=== PATIENT | female | born 1940 | race Caucasian/White ===

== ENCOUNTER 2017-09-13 10:08 | Emergency (ER) | payer MEDICARE ==
[2017-09-13 10:30] VITALS: BP 135/66
--- NOTE | 2017-09-13 10:39 | UC ---
Back Pain HPI - HPI Summary HPI Summary: Patient is year 77 old woman with past medical history of diabetes and hypertension who present today with left low back pain since yesterday. Denies any trauma but possible that she strained it while trying to reach the back of the car. Denies any prior injruies or episodes. Denies any radicular symptoms, numbness or tingling, incontinence or saddle anesthesia She does notice that there is increased frequency since morning today, denies any dysuria or hematuria or pain radiating down to groin. Denies any fever, chills, cough chest pain or shortness of breath . Denies any abdominal pain , nausea or vomiting , diarrhea or constipation. - History of Current Complaint Stated Complaint: BACK PAIN Time Seen by Provider: 09/13/17 10:11 Hx Obtained From: Patient ?: No Onset/Duration: Sudden Onset Timing: Constant Severity Initially: Moderate Severity Currently: Severe Pain Intensity: 9 Pain Scale Used: 0-10 Numeric Back Pain: Is Discrete @ - left lumbar paraspinal area Character: Sharp, Throbbing, Spasmodic Aggravating Factor(s): Movement Alleviating Factor(s): Other - sometimes, slight bending is helpful Associated Signs And Symptoms: Negative: Redness, Bruising, Weakness, Numbness, Tingling, Abdominal Pain, Bladder Incontinence, Weight Loss - Risk Factors Cauda Equina Risk Factors: Negative - Allergies/Home Medications Allergies/Adverse Reactions: Allergies Allergy/AdvReac Type Severity Reaction Status Date / Time amoxicillin [From Augmentin] Allergy Vomiting Verified 09/13/17 10:34 clavulanic acid Allergy Vomiting Verified 09/13/17 10:34 [From Augmentin] levofloxacin [From Levaquin] Allergy Vomiting Verified 09/13/17 10:34 Home Medications: Home Medications Pravastatin (NF) [Pravachol (NF)] 20 mg PO DAILY 09/13/17 [History Confirmed 06/01] PMH/Surg Hx/FS Hx/Imm Hx Previously Healthy: Yes Endocrine History: Diabetes Cardiovascular History: Hypertension Respiratory History: Asthma - during wnter Other GI/ History: negative Other Neurological History: negative Other Psychological History: negative Other Cancer History: negative - Surgical History Surgical History: Yes Surgery Procedure, Year, and Place: hysterectomy, cataract SURGERY BILATERAL EYES-,. PESSARY FOR BLADDER. Right hip surgery 07/2016 - Social History Alcohol Use: Weekly Substance Use Type: None Smoking Status (MU): Never Smoked Tobacco Review of Systems Constitutional: Negative Skin: Negative Eyes: Negative ENT: Negative Respiratory: Negative Cardiovascular: Negative Gastrointestinal: Negative Genitourinary: Frequency - since morning Motor: Negative Neurovascular: Negative Musculoskeletal: Decreased ROM - painful Neurological: Negative Psychological: Negative Is Patient Immunocompromised?: No All Other Systems Reviewed And Are Negative: Yes Physical Exam Triage Information Reviewed: Yes Appearance: Well-Appearing, Pain Distress Vital Signs: Initial Vital Signs Temp 100 F 09/13/17 10:22 Pulse 74 09/13/17 10:22 Resp 20 09/13/17 10:22 BP 135/66 09/13/17 10:22 Pulse Ox 99 09/13/17 10:22 Vital Signs Reviewed: Yes Eyes: Positive: Conjunctiva Clear ENT: Positive: Hearing grossly normal. Negative: Nasal congestion, Nasal drainage, Trismus, Muffled voice, Hoarse voice Neck exam: Normal Neck: Positive: Nontender Respiratory Exam: Normal Respiratory: Positive: Lungs clear, Normal breath sounds. Negative: Crackles, Rhonchi, Stridor, Wheezing Cardiovascular: Positive: RRR, Pulses Normal, Murmur:Sys:Grade _?_/ - 3/6 Abdominal Exam: Normal Abdomen Description: Positive: Nontender, No Organomegaly. Negative: CVA Tenderness (R), CVA Tenderness (L) Bowel Sounds: Positive: Present Musculoskeletal: Positive: Other: - Spine:No midline tenderness spine noted. There is left paraspinal tenderness noted on the upper lumbar area. There is no tenderness of the costovertebral angle bilaterally. Stability: No obvious instability. Strength: Flexion, extension, left rotation, left lateral bending, right lateral bending and right rotation strength is intact. ROM: Slightly limited ROM but painful in all planes Special Tests: Straight leg raise is negative bilaterally. Slump test negative bilaterally. Stork test negative bilaterally Neurological: Positive: Alert, Other: - DTR intact at knee bilaterally . Symmetrically decreased at ankle. Sensory and motor intact Skin Exam: Normal - Additional Comments Patient ambulated in the room Back Pain Course/Dx - Course Course Of Treatment: During his visit today, we obtained UAas she has some frequency which showed 1+ leuc esterase. Sent for culture. We discussed the findings and further plan. I will prescribe the medication to the pharmacy . Patient expressed understanding - Differential Dx/Diagnosis Differential Diagnosis/HQI/PQRI: Strain Provider Diagnoses: left lumbar strain. Possible UTI Discharge - Sign-Out/Discharge Documenting (check all that apply): Discharge/Admit/Transfer - Discharge Plan Condition: Stable Disposition: HOME Prescriptions: Cyclobenzaprine TAB* [Flexeril 10 MG TAB*] 10 mg PO DAILY PRN 10 Days #10 tab PRN Reason: Spasms - Back Meloxicam [Mobic] 7.5 mg PO BID PRN 15 Days #30 tablet PRN Reason: Pain Nitrofurantoin Monohyd/M-Cryst [Macrobid 100 mg Capsule] 100 mg PO BID 5 Days # 10 cap Patient Education Materials: Urinary Tract Infection in Women (ED), Low Back Strain (ED), Lower Back Exercises (ED) Referrals: Nathan Langston MD [Primary Care Provider] - Additional Instructions: Please take pain medication and a muscle relaxant as directed Antibiotic is prescribed for an early possible urinary infection. Start taking it if you symptoms start to worsen as discussed. Follow up with your primary care doctor in 1 week. Patients blood pressure slightly high in Urgent care today , plan follow up with PCP for better control Return to Urgent care / ER if symptoms get worse. - Billing Disposition and Condition Condition: STABLE Disposition: HOME Images Front/Back of Body, Lg (Rush): 1 - left lower back pain
--- NOTE | 2017-09-14 16:43 | UC ---
- Progress Note Progress Note: Please call patient and assure she is feeling better--she had no growth in her urine culture--If not better please return or follow with pcp Discharge - Sign-Out/Discharge Documenting (check all that apply): Post-Discharge Follow Up - Discharge Plan Condition: Stable Disposition: HOME Prescriptions: Cyclobenzaprine TAB* [Flexeril 10 MG TAB*] 10 mg PO DAILY PRN 10 Days #10 tab PRN Reason: Spasms - Back Meloxicam [Mobic] 7.5 mg PO BID PRN 15 Days #30 tablet PRN Reason: Pain Nitrofurantoin Monohyd/M-Cryst [Macrobid 100 mg Capsule] 100 mg PO BID 5 Days # 10 cap Patient Education Materials: Urinary Tract Infection in Women (ED), Low Back Strain (ED), Lower Back Exercises (ED) Referrals: Nathan Langston MD [Primary Care Provider] - Additional Instructions: Please take pain medication and a muscle relaxant as directed Antibiotic is prescribed for an early possible urinary infection. Start taking it if you symptoms start to worsen as discussed. Follow up with your primary care doctor in 1 week. Patients blood pressure slightly high in Urgent care today , plan follow up with PCP for better control Return to Urgent care / ER if symptoms get worse. - Billing Disposition and Condition Condition: STABLE Disposition: HOME
== END 2017-09-13 11:39 | disposition home or self-care (01) ==
LOC: UCEAST 10:08
DX: S39.012A Strain of muscle, fascia and tendon of lower back, initial encounter (principal); X58.XXXA Exposure to other specified factors, initial encounter; Y93.9 Activity, unspecified; Y92.9 Unspecified place or not applicable; R35.0 Frequency of micturition; E11.9 Type 2 diabetes mellitus without complications; Z79.4 Long term (current) use of insulin; Z79.84 Long term (current) use of oral hypoglycemic drugs; I10 Essential (primary) hypertension; J45.909 Unspecified asthma, uncomplicated; Z88.1 Allergy status to other antibiotic agents; Z88.0 Allergy status to penicillin
CPT/HCPCS: 81003; 87086; 99212; G0463

== ENCOUNTER 2017-12-09 09:00 | Inpatient (IN) | payer MEDICARE ==
[2017-12-09] MEDS ORDERED: Dextrose 50% Syringe 50 ML* 25 GM/50 ML SYRINGE IV PUSH PRN ×2 (16:39→16:40)
[2017-12-09] MEDS ORDERED: Ondansetron INJ* 2 MG/ML VIAL IV PRN (16:43)
[2017-12-09] MEDS ORDERED: Temazepam CAP* 15 MG PO PRN (16:44)
--- NOTE | 2017-12-09 17:13 | RAD ---
INDICATION: Hypovolemia COMPARISON: None TECHNIQUE: An AP portable view obtained at 1657 hours is submitted. FINDINGS: Bones/Soft Tissues: There are no acute bony findings. Cardiomediastinal: The cardiomediastinal silhouette is normal. Lungs: There is infiltrate in the left lung base. There may be a small left-sided effusion there is mild prominence of interstitial markings. Pleura: Suspect small left-sided effusion is noted above. No right-sided effusion. Other: None IMPRESSION: Small left basilar infiltrate and suspected left-sided effusion.. Suggest follow-up as indicated
[2017-12-09 17:43] LABS: Hematocrit 16 % (35-47); Red Blood Count 1.49 10^6/ul (4.00-5.40); White Blood Count 26.5 10^3/ul (3.5-10.8)
[2017-12-09 17:47] LABS: EGFR Non-African American 71.8 (>60)
[2017-12-09 17:50] LABS: INR 1.22 (0.77-1.02)
[2017-12-09 17:55] LABS: Hemoglobin 5.6 g/dl (12.0-16.0)
[2017-12-09 18:11] LABS: Mean Corpuscular HGB Conc 34 g/dl (31-36); Mean Corpuscular Hemoglobin 37 pg (27-31); Mean Corpuscular Volume 109 fL (80-97); Mean Platelet Volume 9.6 um3 (7.4-10.4); Platelet Count 72 10^3/ul (150-450); Red Cell Distribution Width 15 % (10.5-15)
[2017-12-09] MEDS: Insulin GLARGINE(*) 1 UNITS UNIT SUBCUT SCH (18:35)
[2017-12-09 18:38] LABS: ABS Basophils 0 10^3/ul (0-0.2)
[2017-12-09] MEDS ORDERED: diPHENhydraMINE IV* 25 MG in NS 0.9% 50 ML* 50 ML IVPB PRN (19:36)
[2017-12-09] MEDS ORDERED: diPHENhydraMINE IV* 50 MG/ML 1 ml VIAL (BENADRYL) IV PRN (19:41)
[2017-12-09] MEDS ORDERED: Insulin LISPRO* 1 UNITS UNIT SUBCUT ONE (21:52)
[2017-12-09] MEDS: Heparin VIAL(*) 5000 UNITS/ML VIAL (FIVE THOUSAND) SUBCUT SCH (22:07)
[2017-12-09] MEDS: Acetaminophen TAB* 325 MG PO PRN (22:44)
[2017-12-09] MEDS: cefTRIAXone(*) 2 GM in NS 0.9% 100 ML* 100 ML IVPB SCH (23:00)
--- NOTE | 2017-12-09 23:05 | HP ---
ADDENDUM NOW INCLUDED ON THIS REPORT CC: [facility] at [facility] * ADMITTING HISTORY AND PHYSICAL: DATE OF ADMISSION: 12/09/17 HISTORY OF PRESENT ILLNESS: Sarah Ortega is a 77-year-old white female. She presented to my office today in a wheelchair, as she was too weak to walk. She has a recent history of anorexia, nausea, and vomiting. She times this back to 2 courses of antibiotics she has taken for urinary tract infection. She was seen in Urgent Care on 09/15/17 and was treated for UTI, and found that her blood pressure at that time was high. On 11/25/17, she followed up with me for for ongoing diabetes care. She had been treated with 7 days of Cipro. She presented again with symptoms of UTI and I treated her with 7 days of Macrodantin, although the specimen shows no growth. She notes that on 11/25/17 that symptoms initially were atypical for UTI. She was in [place] and went to Urgent Care She thought she had flu. She had a urine test, and was found to have a fever of 101 degrees Fahrenheit. Symptoms she had associated with first antibiotic were dizziness and nausea. She had nausea and dry heaves with nitrofurantoin. On 12/02/17, she was seen in my office by Sapphire Cameron NP. She lost 10 pounds in 2 weeks from decreased appetite and nausea. She was able to eat Jell-O and take sips of water. Apparently, she has had previous episodes of nausea like this over the years particularly with antibiotics. We provided her with antiemetics. She came to my office today, sa noted above today, with marked hyperglycemia as she had not taken any of Lantus insulin for 4 days as she was unsure how much to take when she was not eating much. She had dizziness, which she described the lightheadedness and not vertigo, dry heaves that stopped 2 to 3 days ago. She had a dry kind of cough, shortness of breath on going to the bathroom and back. She had stopped her metformin and also her ramipril. PREVIOUS MEDICAL HISTORY: 2, para 2; hysterectomy and BSO in 1982; right hip ORIF on 07/30/16; bilateral cataracts removal. Other comorbidities: Type 2 diabetes mellitus, usually well controlled with insulin; nonproliferative diabetic retinopathy; nonexudative age-related macular degeneration; essential hypertension; osteopenia; vitamin D deficiency; history of right hip fracture. MEDICATIONS: Current outpatient medication list: 1. Amlodipine 5 mg q. day. 2. Aspirin 81 mg daily. 3. Humalog insulin by carbohydrate counting 1 unit for every 10 g of carbohydrate plus 1 unit for every 30 mg/dL 100 mg/dL. 4. Lantus insulin 42 units q.h.s. 5. Hydrochlorothiazide 25 mg daily. 6. Metformin extended release 500 mg b.i.d. 7. Metoprolol ER 50 mg 1 tablet twice daily. 8. PreserVision AREDS 250 mg/200 units/40 mg/1 mg capsule once a day. 9. Promethazine 12.5 mg 4 times a day as needed for nausea. 10. Ramipril 10 mg capsule every day. Allergies: amoxycillin, cipro, clavulanic acid, levofloxacin, nitrofurantoin ( all vomiting) SOCIAL HISTORY: She is to Wilfredo Ortega. Never smoked. Denies illicit drugs. Heterosexual. No alcohol intake. REVIEW OF SYSTEMS: Review of systems x12, weight loss, some mild vision change , cough, shortness of breath, nausea, joint problems, muscle aches, back pain, generalized weakness, problems with walking and balancing. PHYSICAL EXAMINATION GENERAL: She is pale. No cyanosis, jaundice, clubbing, or adenopathy. VITAL SIGNS: In the office, 5 feet 6.5 inches, 150 pounds, BMI 23.8, blood pressure 132/70, temperature 99.5 degrees Fahrenheit, pulse 97, respiratory rate 16, oxygen saturation 95%. RESPIRATORY: Chest expansion is full and symmetrical. Percussion note resonant. Breath sounds vesicular. No crackles or wheezes. CARDIOVASCULAR: She has hyperdynamic pulse, regular, venous pressure not elevated, heart sounds are normal. She had a 3/6 systolic ejection murmur in the aortic area radiating to the right carotid down to the apex. Pedal edema, pedal pulses present. No carotid bruits. ABDOMEN: No masses, tenderness, or organomegaly. NERVOUS SYSTEM: She is alert and oriented. Fatigued. She has conjugate eye movements. PERRLA. Fundi normal with sharp optic discs. Cranial nerves II through XII intact. Normal speech. Arms and legs, she has generalized weakness , but no focal deficit. Foot examination, no ulcers, calluses, or infections. IMPRESSION: Initial impression in my office, Sarah Ortega looked acutely unwell. She was pale, very weak, I was concerned that she has hyperglycemia, dehydration as well as a concern by her loss of appetite, and history of urinary tract infections, the last of which had not been growing anything in the culture. I was also worried that her aortic murmur was louder and in view of this group of problems, I decided to bring her into the hospital for observation and she agreed to this. ADDENDUM: HOSPITAL INVESTIGATIONS: CBC: White count 26.5, red blood cell count 1.49, hemoglobin 5.6, hematocrit 16, MCV 109, platelet count 72. Electronic differential, absolute neutrophil 0.9, absolute lymph 3.6, absolute monos 22.3, absolute eosinophil 0.1, immature granulocytes 18, neutrophil percent 2, lymphocytes percent 69, monocytes are 11%, metamyelocytes 4%, myelocytes 14%. Manual differential, absolute neutrophil 0.5, absolute lymphocytes 18.6, absolute monocytes 3, ESR greater than 120. INR 1.22. D-dimer 479. Chemistry , sodium 129, potassium 3.5, chloride 91, bicarbonate 27, anion gap 11, BUN 12, creatinine 0.78, eGFR 71.8, glucose 417, lactic acid 1.7, calcium 8.4. Bilirubin 0.7, AST 11, ALT 5, alkaline phosphatase 54. Troponin I 0.05. CRP 99. Total protein 7.5, albumin 3.1, globulin 4.4. Chest x-ray, small left basilar infiltrate and suspected left-sided effusion. EKG, rate 100, GA interval 216, QTc 460, QRS axis -24, first-degree AV block, left ventricular hypertrophy, sinus tachycardia, atrial premature beats. ASSESSMENT AND PLAN: Sarah Ortega presents with several weeks of increasing weakness, intermittent fevers, possible urinary tract infections, nausea, weight loss. Initial investigations showed hyperglycemia, profound anemia, which is macrocytic, elevated lymphocytes with absolute neutropenia. 1. Hyperglycemia, which is likely due to her not taking any insulin medicine since 4 days. I have reinstituted the insulin. I have provided her with IV fluids. I anticipate this will come down relatively easily without the need for any major interventions aside from fluid resuscitation and increased insulin while she is insulin resistant. 2. Blood dyscrasia. She presents with a pathological CBC and differential. This could be acute lymphocytic or lymphoblastic leukemia or alternatively chronic lymphocytic leukemia. We will need to obtain a read of the the peripheral blood smear from helmet hat puncher and I have spoken to Dr. Crook, who will arrange a Hematology/Oncology consultation tomorrow. 3. Profound anemia. I have spoken to the patient, explained that she is anemic and she has agreed to a blood transfusion. I will give her 2 units of packed red cells. I will premedicate with Benadryl and I have written for acetaminophen should she develop fever. 4. Anorexia, nausea, weight loss. This may well be secondary to the blood dyscrasia. She also may have had a reaction to recent antibacterial treatment. She states that she has been vomiting for the last couple of days. She is not actually as significantly dehydrated as I expected. However, I will give her some IV fluid overnight. 5. Recent history of urinary tract infection. I think the first diagnosis of urinary tract infection was made outside of community and she was treated empirically and a second treatment is again empiric, but her culture and sensitivity came back as negative, so it probably was not a urinary tract infection. It may well have been symptoms due to her blood dyscrasia. 6. Aortic stenosis. The increased murmur most likely due to the anemia and she shows no signs of heart failure. 7. Elevated C-reactive protein, sedimentation rate. It is possible that these are elevated due to her blood dyscrasia. It is also possible as her immune is compromised that she may have an occult infection. Of note, as of yet started her on empiric antibiotic treatment. I note there may be an infiltrate in the left lower lobe of her lung. I will start her on empiric antibiotics with ceftriaxone. 8. She will have DVT prophylaxis. 9. She wishes to be full code. 10. I will hold her metformin and other antihypertensives aside from the metoprolol for the moment. [id number]/CPS #: [id number]/CPS #: [id number] [facility]
--- NOTE | 2017-12-10 01:17 | HP ---
HISTORY AND PHYSICAL: ADDENDUM: HOSPITAL INVESTIGATIONS: CBC: White count 26.5, red blood cell count 1.49, hemoglobin 5.6, hematocrit 16, MCV 109, platelet count 72. Electronic differential, absolute neutrophil 0.9, absolute lymph 3.6, absolute monos 22.3, absolute eosinophil 0.1, immature granulocytes 18, neutrophil percent 2, lymphocytes percent 69, monocytes are 11%, metamyelocytes 4%, myelocytes 14%. Manual differential, absolute neutrophil 0.5, absolute lymphocytes 18.6, absolute monocytes 3, ESR greater than 120. INR 1.22. D-dimer 479. Chemistry , sodium 129, potassium 3.5, chloride 91, bicarbonate 27, anion gap 11, BUN 12, creatinine 0.78, eGFR 71.8, glucose 417, lactic acid 1.7, calcium 8.4. Bilirubin 0.7, AST 11, ALT 5, alkaline phosphatase 54. Troponin I 0.05. CRP 99. Total protein 7.5, albumin 3.1, globulin 4.4. Chest x-ray, small left basilar infiltrate and suspected left-sided effusion. EKG, rate 100, MO interval 216, QTc 460, QRS axis -24, first-degree AV block, left ventricular hypertrophy, sinus tachycardia, atrial premature beats. ASSESSMENT AND PLAN: Sarah Ortega presents with several weeks of increasing weakness, intermittent fevers, possible urinary tract infections, nausea, weight loss. Initial investigations showed hyperglycemia, profound anemia, which is macrocytic, elevated lymphocytes with absolute neutropenia. 1. Hyperglycemia, which is likely due to her not taking any insulin medicine since 4 days. I have reinstituted the insulin. I have provided her with IV fluids. I anticipate this will come down relatively easily without the need for any major interventions aside from fluid resuscitation and increased insulin while she is insulin resistant. 2. Blood dyscrasia. She presents with a pathological CBC and differential. This could be acute lymphocytic or lymphoblastic leukemia or alternatively chronic lymphocytic leukemia. We will need to obtain a read of the the peripheral blood smear from bonsai culturist and I have spoken to Dr. Crook, who will arrange a Hematology/Oncology consultation tomorrow. 3. Profound anemia. I have spoken to the patient, explained that she is anemic and she has agreed to a blood transfusion. I will give her 2 units of packed red cells. I will premedicate with Benadryl and I have written for acetaminophen should she develop fever. 4. Anorexia, nausea, weight loss. This may well be secondary to the blood dyscrasia. She also may have had a reaction to recent antibacterial treatment. She states that she has been vomiting for the last couple of days. She is not actually as significantly dehydrated as I expected . However, I will give her some IV fluid overnight. 5. Recent history of urinary tract infection. I think the first diagnosis of urinary tract infection was made outside of community and she was treated empirically and a second treatment is again empiric, but her culture and sensitivity came back as negative, so it probably was not a urinary tract infection. It may well have been symptoms due to her blood dyscrasia. 6. Aortic stenosis. most likely due to the anemia and she shows no signs of heart failure. 7. Elevated C-reactive protein, sedimentation rate. It is possible that these are elevated due to her blood dyscrasia. It is also possible as her immune is compromised that she may have an occult infection. Of note, as of yet started her on empiric antibiotic treatment. I note there may be an infiltrate in the left lower lobe of her lung. I will start her on empiric antibiotics. 8. She will have DVT prophylaxis. 9. She wishes to be full code. 10. I will hold her metformin and other antihypertensives aside from the metoprolol for the moment. [id number]/[facility] #: [id number] [facility]
[2017-12-10] MEDS: Insulin LISPRO* 1 UNITS UNIT SUBCUT SCH ×12 (01:21→22:05)
[2017-12-10 04:31] LABS: Urine Appearance Clear; Urine Blood 3+ (Negative); Urine Color Yellow; Urine Ketones Negative (Negative); Urine Protein Negative (Negative); Urine Red Blood Cell 2+(6-10/hpf) (Absent); Urine Specific Gravity 1.004 (1.010-1.030); Urine Urobilinogen Negative (Negative); Urine White Blood Cell 2+(11-20/hpf) (Absent)
[2017-12-10] MEDS: Heparin VIAL(*) 5000 UNITS/ML VIAL (FIVE THOUSAND) SUBCUT SCH ×3 (06:05→21:46)
[2017-12-10] MEDS: Acetaminophen TAB* 325 MG PO PRN (07:27)
[2017-12-10] MEDS: Insulin GLARGINE(*) 1 UNITS UNIT SUBCUT SCH ×2 (07:28→18:14)
[2017-12-10] MEDS ORDERED: Furosemide IV* 10 MG/ML VIAL (40 MG) IV ONE (08:22)
--- NOTE | 2017-12-10 08:25 | PN ---
Subjective - Subjective Reason for Note: Progress Note History: Overnight she has had x 2 units of PRBCs. With this she developed a cough and dyspnea. She has no chest pain/palpitations. She had no other reaction to the transfusion. She has no pain. Her glucose has come down overnight. 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 Pulmonary edema (Acute) J81.1 Thrombocytopenia (Acute) D69.6 Type 2 diabetes mellitus with hyperglycemia (Acute) E11.65 Volume overload (Acute) E87.70 Aortic stenosis (Chronic) I35.0 Macular degeneration (Chronic) H35.30 Microalbuminuria (Chronic) R80.9 Non-proliferative diabetic retinopathy (Chronic) E11.3299 Current Medications: Current Medications Acetaminophen (Tylenol Tab*) 650 mg PO Q6H PRN PRN Reason: FEVER/PAIN Last Admin: 12/10/17 07:27 Dose: 650 mg Aspirin (Aspirin 81 Mg Chew Tab*) 81 mg PO DAILY [facility] Dextrose (D50w Syringe 50 Ml*) 12.5 gm IV PUSH .FOR FS < 60 - SS PRN PRN Reason: FS < 60 Diphenhydramine HCl (Benadryl Iv*) 25 mg IV Q6H PRN PRN Reason: ALLERGY SYMPTOMS Stop: 12/10/17 12:00 Last Admin: 12/09/17 21:58 Dose: 25 mg Diphenhydramine HCl (Benadryl Iv*) 25 mg IV Q12H PRN PRN Reason: ALLERGY SYMPTOMS Heparin Sodium (Porcine) (Heparin Vial(*)) 5,000 units SUBCUT Q8HR [facility] Last Admin: 12/10/17 06:05 Dose: 5,000 units Lactated Ringer's (Lactated Ringers 1000 Ml Bag*) 1,000 mls @ 150 mls/hr IV PER RATE [facility] Last Admin: 12/09/17 17:25 Dose: 150 mls/hr Ceftriaxone Sodium 2 gm/ (Sodium Chloride) 100 mls @ 200 mls/hr IVPB Q24H [facility] Last Admin: 12/09/17 23:00 Dose: 200 mls/hr Insulin Glargine (Lantus(*)) 20 units SUBCUT Q12H [facility] Last Admin: 12/10/17 07:28 Dose: 20 units Insulin Human Lispro (Humalog*) 1 units SUBCUT [facility]; Protocol Last Admin: 12/10/17 01:21 Dose: Not Given Insulin Human Lispro (Humalog*) 1 units SUBCUT [facility]; Protocol Last Admin: 12/10/17 01:22 Dose: Not Given Metoprolol Succinate (Toprol Xl Tab*) 50 mg PO DAILY [facility] Ondansetron HCl (Zofran Inj*) 4 mg IV Q6H PRN PRN Reason: NAUSEA Temazepam (Restoril Cap*) 15 mg PO BEDTIME PRN PRN Reason: INSOMNIA Home Medications: Home Medications Medication Instructions Recorded Confirmed Type Amlodipine Besylate 5 mg PO DAILY 05/23/14 12/09/17 History Aspirin 81 mg PO DAILY 05/23/14 12/09/17 History Hydrochlorothiazide 25 mg PO DAILY 05/23/14 12/09/17 History Insulin Glargine,Hum.rec.anlog 42 unit SC DAILY 05/23/14 12/09/17 History [Lantus] Insulin Lispro [Humalog Kwikpen] 100 unit SC TID 05/23/14 12/09/17 History Metformin HCl 500 mg PO BID 05/23/14 12/09/17 History Metoprolol Succinate [Metoprolol 50 mg PO BID 05/23/14 12/09/17 History Succinate ER] Ramipril CAP* [Altace CAP*] 10 mg PO DAILY 05/23/14 12/09/17 History Allergies: Allergies Allergy/AdvReac Type Severity Reaction Status Date / Time amoxicillin [From Augmentin] Allergy Vomiting Verified 09/13/17 10:34 ciprofloxacin [From Cipro] Allergy Vomiting Verified 12/09/17 17:37 clavulanic acid Allergy Vomiting Verified 09/13/17 10:34 [From Augmentin] levofloxacin [From Levaquin] Allergy Vomiting Verified 09/13/17 10:34 nitrofurantoin Allergy Vomiting Verified 12/09/17 17:37 [From Macrobid] Objective - Vital Signs Vital Signs: Vital Signs 12/09/17 12/09/17 12/09/17 17:33 19:33 20:00 Temperature 99.2 F 98.1 F Pulse Rate 98 101 Respiratory 20 20 17 Rate Blood Pressure 145/66 126/53 (mmHg) O2 Sat by Pulse 98 96 Oximetry 12/09/17 12/09/17 12/10/17 21:58 22:38 01:22 Temperature 99.4 F Pulse Rate 93 Respiratory 19 17 Rate Blood Pressure 115/46 (mmHg) O2 Sat by Pulse 95 Oximetry 12/10/17 12/10/17 12/10/17 02:28 02:52 03:13 Temperature 99.1 F 98.3 F 98.4 F Pulse Rate 79 80 82 Respiratory 18 17 18 Rate Blood Pressure 121/47 120/48 123/54 (mmHg) O2 Sat by Pulse 93 97 97 Oximetry 12/10/17 12/10/17 06:46 07:57 Temperature 98.5 F Pulse Rate 89 Respiratory 20 20 Rate Blood Pressure 140/56 (mmHg) O2 Sat by Pulse 91 Oximetry - Intake and Output Intake and Output: Intake & Output 12/07/17 12/08/17 12/09/17 12/10/17 11:59 11:59 11:59 11:59 Intake Total 250 Balance 250 Weight 150 lb Intake: Oral 250 Other: Estimated Void Small # Bowel Movements 0 # Voids 1 ADLs: Meal Record Start: 12/09/17 16: 43 Freq: DAILY@0900,1400,1800 Status: Active Protocol: Created 12/09/17 16:43 System (Rec: 12/09/17 16:43 System [id number]) Document 12/09/17 18:00 [id number] (Rec: 12/09/17 19:20 [id number]) Intake and Output Start: 12/09/17 16: 43 Freq: DAILY@0600,1400,2200 Status: Active Protocol: Created 12/09/17 16:43 System (Rec: 12/09/17 16:43 System MED-C14) Document 12/09/17 22:00 [id number] (Rec: 12/09/17 22:27 [id number] MED-C11) Document 12/10/17 06:00 [id number] (Rec: 12/10/17 06:46 [id number] MED-C11) - Physical Exam General Physical Exam Comment: She is tachypneic and coughing. General: No Cyanosis, No Anemia, No Jaundice, No Clubbing Skin: Normal: Rash Lungs and Chest: Yes: Chest Expansion Full, Chest Expansion Symetrica, Percussion Note Resonant, Vessicular Breath Sounds, Crackles - fine crackles left base, Use of Accessory Muscles. No: Wheezes, Respiratory Distress Heart Rate and Rhythm: Tachycardia JVP: Elevated Additional Cardiovascular: Yes: Normal Heart Sounds, Heart Murmur. No: Pedal Edema Abdominal Exam: Yes: Soft, Bowel Sounds Present. No: Distention, Abdominal Mass , Hepatomegaly, Splenomegaly, Abdominal Tenderness, Guarding, Rebound Tenderness - Neuro Orientation: A/O x3 Speech: Normal Results - Results Lab Results: Laboratory Results - last 24 hr 12/09/17 12/09/17 12/09/17 16:40 17:17 17:17 WBC 26.5 H RBC 1.49 L Hgb 5.6 L* Hct 16 L MCV 109 H MCH 37 H MCHC 34 RDW 15 Plt Count 72 L MPV 9.6 Neut % (Auto) Not Reportable Lymph % (Auto) Not Reportable [place] % (Auto) Not Reportable Eos % (Auto) Not Reportable Baso % (Auto) Not Reportable Absolute Neuts (auto) 0.9 L* Absolute Lymphs (auto) 3.6 Absolute Monos (auto) 22.3 H Absolute Eos (auto) 0.1 Absolute Basos (auto) 0.1 Absolute Nucleated RBC Not Reportable Immature Gran % 18 H Neutrophils % 2 L Lymphocytes % 69 H Monocytes % 11 H Eosinophils % 0 Basophils % 0 Metamyelocytes % 4 H Myelocytes % 14 H Nucleated RBC % Not Reportable Abs Neuts (Manual) 0.5 L* Abs Lymphs (Manual) 18.6 H Abs Monocytes (Manual) 3.0 H Absolute Eos (Manual) 0 Abs Basophils (Manual) 0 Nucleated RBCs/100 WBC 0 Normal RBC Morphology Not Reportable Macrocytosis 1+ ESR > 120 H INR (Anticoag Therapy) D-Dimer, Quantitative Sodium 129 L Potassium 3.5 Chloride 91 L Carbon Dioxide 27 Anion Gap 11 BUN 12 Creatinine 0.78 Est GFR ( Amer) 86.9 Est GFR (Non-Af Amer) 71.8 BUN/Creatinine Ratio 15.4 Glucose 417 H POC Glucose (mg/dL) > 444 H* Glucose Meter Confirm Lactic Acid Uric Acid Calcium 8.4 L Total Bilirubin 0.70 AST 11 L ALT 5 L Alkaline Phosphatase 54 Troponin I 0.05 H* C-Reactive Protein 99.22 H Total Protein 7.5 Albumin 3.1 L Globulin 4.4 H Albumin/Globulin Ratio 0.7 L Procalcitonin Urine Color Urine Appearance Urine pH Ur Specific Girard Urine Protein Urine Ketones Urine Blood Urine Nitrate Urine Bilirubin Urine Urobilinogen Ur Leukocyte Esterase Urine WBC (Auto) Urine RBC (Auto) Ur Squamous Epith Cells Urine Bacteria Urine Glucose Blood Type Antibody Screen Crossmatch 12/09/17 12/09/17 12/09/17 17:17 17:17 17:17 WBC RBC Hgb Hct MCV MCH MCHC RDW Plt Count MPV Neut % (Auto) Lymph % (Auto) [place] % (Auto) Eos % (Auto) Baso % (Auto) Absolute Neuts (auto) Absolute Lymphs (auto) Absolute Monos (auto) Absolute Eos (auto) Absolute Basos (auto) Absolute Nucleated RBC Immature Gran % Neutrophils % Lymphocytes % Monocytes % Eosinophils % Basophils % Metamyelocytes % Myelocytes % Nucleated RBC % Abs Neuts (Manual) Abs Lymphs (Manual) Abs Monocytes (Manual) Absolute Eos (Manual) Abs Basophils (Manual) Nucleated RBCs/100 WBC Normal RBC Morphology Macrocytosis ESR INR (Anticoag Therapy) 1.22 H D-Dimer, Quantitative 479 H Sodium Potassium Chloride Carbon Dioxide Anion Gap BUN Creatinine Est GFR ( Amer) Est GFR (Non-Af Amer) BUN/Creatinine Ratio Glucose 424 H POC Glucose (mg/dL) Glucose Meter Confirm Lactic Acid 1.7 Uric Acid Calcium Total Bilirubin AST ALT Alkaline Phosphatase Troponin I C-Reactive Protein Total Protein Albumin Globulin Albumin/Globulin Ratio Procalcitonin Urine Color Urine Appearance Urine pH Ur Specific [place]ard Urine Protein Urine Ketones Urine Blood Urine Nitrate Urine Bilirubin Urine Urobilinogen Ur Leukocyte Esterase Urine WBC (Auto) Urine RBC (Auto) Ur Squamous Epith Cells Urine Bacteria Urine Glucose Blood Type Antibody Screen Crossmatch 12/09/17 12/09/17 12/09/17 17:17 20:23 20:23 WBC RBC Hgb Hct MCV MCH MCHC RDW Plt Count MPV Neut % (Auto) Lymph % (Auto) [place] % (Auto) Eos % (Auto) Baso % (Auto) Absolute Neuts (auto) Absolute Lymphs (auto) Absolute Monos (auto) Absolute Eos (auto) Absolute Basos (auto) Absolute Nucleated RBC Immature Gran % Neutrophils % Lymphocytes % Monocytes % Eosinophils % Basophils % Metamyelocytes % Myelocytes % Nucleated RBC % Abs Neuts (Manual) Abs Lymphs (Manual) Abs Monocytes (Manual) Absolute Eos (Manual) Abs Basophils (Manual) Nucleated RBCs/100 WBC Normal RBC Morphology Macrocytosis ESR INR (Anticoag Therapy) D-Dimer, Quantitative Sodium Potassium Chloride Carbon Dioxide Anion Gap BUN Creatinine Est GFR ( Amer) Est GFR (Non-Af Amer) BUN/Creatinine Ratio Glucose POC Glucose (mg/dL) Glucose Meter Confirm Lactic Acid Uric Acid 8.3 H Calcium Total Bilirubin AST ALT Alkaline Phosphatase Troponin I C-Reactive Protein Total Protein Albumin Globulin Albumin/Globulin Ratio Procalcitonin 0.2 Urine Color Urine Appearance Urine pH Ur Specific [place] Urine Protein Urine Ketones Urine Blood Urine Nitrate Urine Bilirubin Urine Urobilinogen Ur Leukocyte Esterase Urine WBC (Auto) Urine RBC (Auto) Ur Squamous Epith Cells Urine Bacteria Urine Glucose Blood Type A Positive Antibody Screen Negative Crossmatch See Detail 12/09/17 12/09/17 12/10/17 21:40 22:04 01:40 WBC RBC Hgb Hct MCV MCH MCHC RDW Plt Count MPV Neut % (Auto) Lymph % (Auto) [place] % (Auto) Eos % (Auto) Baso % (Auto) Absolute Neuts (auto) Absolute Lymphs (auto) Absolute Monos (auto) Absolute Eos (auto) Absolute Basos (auto) Absolute Nucleated RBC Immature Gran % Neutrophils % Lymphocytes % Monocytes % Eosinophils % Basophils % Metamyelocytes % Myelocytes % Nucleated RBC % Abs Neuts (Manual) Abs Lymphs (Manual) Abs Monocytes (Manual) Absolute Eos (Manual) Abs Basophils (Manual) Nucleated RBCs/100 WBC Normal RBC Morphology Macrocytosis ESR INR (Anticoag Therapy) D-Dimer, Quantitative Sodium Potassium Chloride Carbon Dioxide Anion Gap BUN Creatinine Est GFR ( Amer) Est GFR (Non-Af Amer) BUN/Creatinine Ratio Glucose POC Glucose (mg/dL) 432 H* 218 H Glucose Meter Confirm 393 H Lactic Acid Uric Acid Calcium Total Bilirubin AST ALT Alkaline Phosphatase Troponin I C-Reactive Protein Total Protein Albumin Globulin Albumin/Globulin Ratio Procalcitonin Urine Color Urine Appearance Urine pH Ur Specific [place] Urine Protein Urine Ketones Urine Blood Urine Nitrate Urine Bilirubin Urine Urobilinogen Ur Leukocyte Esterase Urine WBC (Auto) Urine RBC (Auto) Ur Squamous Epith Cells Urine Bacteria Urine Glucose Blood Type Antibody Screen Crossmatch 12/10/17 12/10/17 12/10/17 03:45 06:09 07:32 WBC RBC Hgb Hct MCV MCH MCHC RDW Plt Count MPV Neut % (Auto) Lymph % (Auto) [place] % (Auto) Eos % (Auto) Baso % (Auto) Absolute Neuts (auto) Absolute Lymphs (auto) Absolute Monos (auto) Absolute Eos (auto) Absolute Basos (auto) Absolute Nucleated RBC Immature Gran % Neutrophils % Lymphocytes % Monocytes % Eosinophils % Basophils % Metamyelocytes % Myelocytes % Nucleated RBC % Abs Neuts (Manual) Abs Lymphs (Manual) Abs Monocytes (Manual) Absolute Eos (Manual) Abs Basophils (Manual) Nucleated RBCs/100 WBC Normal RBC Morphology Macrocytosis ESR INR (Anticoag Therapy) D-Dimer, Quantitative Sodium Potassium Chloride Carbon Dioxide Anion Gap BUN Creatinine Est GFR ( Amer) Est GFR (Non-Af Amer) BUN/Creatinine Ratio Glucose POC Glucose (mg/dL) 215 H 214 H Glucose Meter Confirm Lactic Acid Uric Acid Calcium Total Bilirubin AST ALT Alkaline Phosphatase Troponin I C-Reactive Protein Total Protein Albumin Globulin Albumin/Globulin Ratio Procalcitonin Urine Color Yellow Urine Appearance Clear Urine pH 5.0 Ur Specific [place] 1.004 L Urine Protein Negative Urine Ketones Negative Urine Blood 3+ A Urine Nitrate Negative Urine Bilirubin Negative Urine Urobilinogen Negative Ur Leukocyte Esterase 1+ A Urine WBC (Auto) 2+(11-20/hpf) A Urine RBC (Auto) 2+(6-10/hpf) A Ur Squamous Epith Cells Present A Urine Bacteria 1+ A Urine Glucose 1+(50 mg/dl) A Blood Type Antibody Screen Crossmatch Assessment - Problem List Assessment: Patient Problems Anemia (Acute) Elevated erythrocyte sedimentation rate (Acute) Left lower lobe pulmonary infiltrate (Acute) Lymphoid leukemia (Acute) Pulmonary edema (Acute) Thrombocytopenia (Acute) Type 2 diabetes mellitus with hyperglycemia (Acute) Volume overload (Acute) Aortic stenosis (Chronic) Macular degeneration (Chronic) Microalbuminuria (Chronic) Non-proliferative diabetic retinopathy (Chronic) Plan: Lymphoid leukemia (Acute) She has an abnormal CBC and differential (electronic/ manual). Her lymphocytes are elevated. The rest of her bone marrow lineages are suppressed (RBCs, neutrophils and platelets). The smear needs to be inspected by a pathologist and examiner of currency to decide if this is an acute or chronic leukemia. Also, we need to determine if there is any lymphoma. Anemia (Acute) She has had x 2 units PRBCs Pulmonary edema (Acute) Volume overload (Acute) I suspect that the volume I gave her with IVF for dehydration/hyperglycemia and the x 2 units of PRBCs has caused her pulmonary edema - this is likely contributed to by aortic stenosis/ diastolic issues with her hypertensive left ventricle. I have given her a bolus of furosemide. Elevated erythrocyte sedimentation rate (Acute) She has a high CRP and an even higher sed rate - this may be due to infection or she may have increased gamma globulins from the abnormal lymphocytes. I will check for immunoelectrophoresis on pre-transfusion sample Left lower lobe pulmonary infiltrate (Acute) I started her empirically on ceftriaxone as I am concerned she is immunosuppressed. I am not wed to this diagnosis Thrombocytopenia (Acute) this relates to the blood dyscrasia Type 2 diabetes mellitus with hyperglycemia (Acute) Her glucose is coming down. Aortic stenosis (Chronic) I will check a transthoracic echocardiogram Macular degeneration (Chronic) secondary diagnosis Microalbuminuria (Chronic) secondary diagnosis Non-proliferative diabetic retinopathy (Chronic) secondary diagnosis I spoke with the patient and discuss all the above. I told her I was suspicious of leukemia owing to the CBC and differential. I explained this was not yet confirmed as the peripheral smear needs to be examined by pathology and hematology/oncology. I told her I have requested an oncology/hematology consultation. I explained that if this is a lymphocytic lymphoma it could be acute or chronic. If the former, she may need to be transferred to a tertiary care center as we do not manage acute leukemias locally (to my knowledge). I explained she is immunosuppressed and may have an infection - possibly a pneumonia. I told her that I may have overloaded her circulation (particularly with her aortic valve) and would treat this with furosemide. I answered her questions.
[2017-12-10 08:56] LABS: Hematocrit 23 % (35-47); Hemoglobin 7.9 g/dl (12.0-16.0); Mean Corpuscular HGB Conc 35 g/dl (31-36); Mean Corpuscular Hemoglobin 35 pg (27-31); Mean Corpuscular Volume 102 fL (80-97); Mean Platelet Volume 9.3 um3 (7.4-10.4); Platelet Count 61 10^3/ul (150-450); Red Blood Count 2.23 10^6/ul (4.00-5.40); Red Cell Distribution Width 20 % (10.5-15); White Blood Count 20.8 10^3/ul (3.5-10.8)
[2017-12-10 09:04] LABS: EGFR Non-African American 85.6 (>60)
[2017-12-10] MEDS ORDERED: Insulin LISPRO* 1 UNITS UNIT SUBCUT SCH ×2 (09:36)
--- NOTE | 2017-12-10 09:39 | RAD ---
INDICATION: Respiratory distress COMPARISON: December 01, 2017 TECHNIQUE: An AP portable view obtained at 0905 hours is submitted. FINDINGS: Bones/Soft Tissues: There are no acute bony findings. Cardiomediastinal: The cardiomediastinal silhouette is normal. There is a small amount of progressive interstitial edema. There is trace fluid in the minor fissure which is new Lungs: There is infiltrate in left lung base with small left-sided effusion. There is no significant radiographic change in the appearance left lung base. Pleura: There are no pleural effusions. Other: None IMPRESSION: LEFT BASILAR AIRSPACE DISEASE WITH SMALL LEFT-SIDED EFFUSION, UNCHANGED. MILD INTERSTITIAL CONGESTION APPEARS NEW.
--- NOTE | 2017-12-10 09:54 | CONSULT ---
Consultation - Reason for Consultation Reason for Consultation: leukocytosis, anemia and thrombocytopenia, ? leukemia Ordering Provider: Nathan Langston Chief Complaint: fatigue and weakness History of Present Illness: 77 yo F w PMH of DM, HTN, and presenting with leukocytosis, profound anemia and thrombocytopenia. Vane reports feeling progressively more fatigued and generalized weakness over the last 8 weeks. She has had several courses of antibiotics for UTIs, most not tolerated for nausea and anorexia (though no clear allergy). She had one fever on LI when she went to Urgent care and was again given Abx for presumed UTI. These again caused anorexia. Of note both urine cultures here were negative. She was seen in the office by Dr. Langston yesterday very weak, poor PO intake and of of her lantus, metformin and ramipril related to that. She was admitted and found to by hyperglycemic, with a markedly elevated WBC (26k) with a left shift on auto diff, profound anemia (Hb 5.6 MCV 109) and thrombocytopenic (72). On personal review of her peripheral smear with pathology this am there are clear blasts, though also metamyelocytes and myelocytes. She was given 2 U PRBC and hydration and had some fluid O/L issues with this, though does carry a history of a murmur. She is currently getting an echocardiogram to qualify this. She reports at least 10 lb weight loss, fatigue, weakness, SOB on exertion, and general anorexia. Of note she has not had a CBC since 2011 when it was normal. She is currently on ceftriaxone for a left lower lobe PNA seen on CXR. Allergies/Medications Medication: Acetaminophen (Tylenol Tab*) 650 mg PO Q6H PRN PRN Reason: FEVER/PAIN Last Admin: 12/10/17 07:27 Dose: 650 mg Aspirin (Aspirin 81 Mg Chew Tab*) 81 mg PO DAILY BURT Dextrose (D50w Syringe 50 Ml*) 12.5 gm IV PUSH .FOR FS < 60 - SS PRN PRN Reason: FS < 60 Diphenhydramine HCl (Benadryl Iv*) 25 mg IV Q6H PRN PRN Reason: ALLERGY SYMPTOMS Stop: 12/10/17 12:00 Last Admin: 12/09/17 21:58 Dose: 25 mg Diphenhydramine HCl (Benadryl Iv*) 25 mg IV Q12H PRN PRN Reason: ALLERGY SYMPTOMS Heparin Sodium (Porcine) (Heparin Vial(*)) 5,000 units SUBCUT Q8HR [facility] Last Admin: 12/10/17 06:05 Dose: 5,000 units Ceftriaxone Sodium 2 gm/ (Sodium Chloride) 100 mls @ 200 mls/hr IVPB Q24H [facility] Last Admin: 12/09/17 23:00 Dose: 200 mls/hr Insulin Glargine (Lantus(*)) 20 units SUBCUT Q12H [facility] Last Admin: 12/10/17 07:28 Dose: 20 units Insulin Human Lispro (Humalog*) 0 units SUBCUT ACHS [facility]; Protocol Last Admin: 12/10/17 09:48 Dose: 1 unit Insulin Human Lispro (Humalog*) 0 units SUBCUT [facility]; Protocol Last Admin: 12/10/17 09:49 Dose: 4 units Lidocaine HCl (Lidocaine 2% 10 Ml*) 10 ml INJ ONCE ONE Stop: 12/10/17 11:01 Metoprolol Succinate (Toprol Xl Tab*) 50 mg PO DAILY [facility] Ondansetron HCl (Zofran Inj*) 4 mg IV Q6H PRN PRN Reason: NAUSEA Temazepam (Restoril Cap*) 15 mg PO BEDTIME PRN PRN Reason: INSOMNIA Allergies/Adverse Reactions: Allergies Allergy/AdvReac Type Severity Reaction Status Date / Time amoxicillin [From Augmentin] Allergy Vomiting Verified 09/13/17 10:34 ciprofloxacin [From Cipro] Allergy Vomiting Verified 12/09/17 17:37 clavulanic acid Allergy Vomiting Verified 09/13/17 10:34 [From Augmentin] levofloxacin [From Levaquin] Allergy Vomiting Verified 09/13/17 10:34 nitrofurantoin Allergy Vomiting Verified 12/09/17 17:37 [From Macrobid] History - Past Medical History Other History: HTN. DM. "murmur". osteopenia. right hip fracture with pinning - Family History Other Family History: noncontributory - Social History Hx Alcohol Use: Yes - one drink per week Hx Tobacco Use: No Hx Substance Use: No Marital Status: - Lives with Wilfredo Review of Systems - Review of Systems Constitutional Symptoms: Positive: Weight Loss, Fatigue Dermatology: Positive: Normal HEENT: Positive: Normal Eyes: Positive: Normal Thyroid: Positive: Normal Pulmonary: Positive: Cough, Shortness of Breath Cardiology: Positive: Shortness of Breath Gastroenterology: Positive: Nausea, Anorexia Genital - Urinary: Positive: Normal Musculoskeletal: Positive: Joint Pain Endocrinology: Positive: Diabetes Mellitus Neurology: Positive: Change in Balancing, Change in Coordination Psychiatry: Positive: Normal Allergic/Immunologic: Positive: Other - many intolerances of Abx without rash- all GI upset Physical Exam - Physical Exam Physical Examination: Vital Signs Temp Pulse Resp BP Pulse Ox 98.5 F 89 20 140/56 91 12/10/17 06:46 12/10/17 06:46 12/10/17 07:57 12/10/17 06:46 12/10/17 06:46 sitting in bed in nad perr eomi op moist dec bs left base s1 s2 heard 4/6 CARMELITA loudest LUSB soft nt no obvious hsm no le edema A+O x 3, nonfocal neurological exam no mary Results - Lab Results Lab Results: 12/09/17 12/09/17 12/09/17 16:40 17:17 17:17 WBC 26.5 H RBC 1.49 L Hgb 5.6 L* Hct 16 L MCV 109 H MCH 37 H MCHC 34 RDW 15 Plt Count 72 L MPV 9.6 Neut % (Auto) Not Reportable Lymph % (Auto) Not Reportable Morgan % (Auto) Not Reportable Eos % (Auto) Not Reportable Baso % (Auto) Not Reportable Absolute Neuts (auto) 0.9 L* Absolute Lymphs (auto) 3.6 Absolute Monos (auto) 22.3 H Absolute Eos (auto) 0.1 Absolute Basos (auto) 0.1 Absolute Nucleated RBC Not Reportable Immature Gran % 18 H Neutrophils % 2 L Lymphocytes % 69 H Monocytes % 11 H Eosinophils % 0 Basophils % 0 Metamyelocytes % 4 H Myelocytes % 14 H Nucleated RBC % Not Reportable Abs Neuts (Manual) 0.5 L* Abs Lymphs (Manual) 18.6 H Abs Monocytes (Manual) 3.0 H Absolute Eos (Manual) 0 Abs Basophils (Manual) 0 Nucleated RBCs/100 WBC 0 Normal RBC Morphology Not Reportable Macrocytosis 1+ ESR > 120 H INR (Anticoag Therapy) D-Dimer, Quantitative Sodium 129 L Potassium 3.5 Chloride 91 L Carbon Dioxide 27 Anion Gap 11 BUN 12 Creatinine 0.78 Est GFR ( Amer) 86.9 Est GFR (Non-Af Amer) 71.8 BUN/Creatinine Ratio 15.4 Glucose 417 H POC Glucose (mg/dL) > 444 H* Glucose Meter Confirm Lactic Acid Uric Acid Calcium 8.4 L Total Bilirubin 0.70 AST 11 L ALT 5 L Alkaline Phosphatase 54 Troponin I 0.05 H* C-Reactive Protein 99.22 H Total Protein 7.5 Albumin 3.1 L Globulin 4.4 H Albumin/Globulin Ratio 0.7 L Procalcitonin Urine Color Urine Appearance Urine pH Ur Specific [place] Urine Protein Urine Ketones Urine Blood Urine Nitrate Urine Bilirubin Urine Urobilinogen Ur Leukocyte Esterase Urine WBC (Auto) Urine RBC (Auto) Ur Squamous Epith Cells Urine Bacteria Urine Glucose Blood Type Antibody Screen Crossmatch 12/09/17 12/09/17 12/09/17 17:17 17:17 17:17 WBC RBC Hgb Hct MCV MCH MCHC RDW Plt Count MPV Neut % (Auto) Lymph % (Auto) Morgan % (Auto) Eos % (Auto) Baso % (Auto) Absolute Neuts (auto) Absolute Lymphs (auto) Absolute Monos (auto) Absolute Eos (auto) Absolute Basos (auto) Absolute Nucleated RBC Immature Gran % Neutrophils % Lymphocytes % Monocytes % Eosinophils % Basophils % Metamyelocytes % Myelocytes % Nucleated RBC % Abs Neuts (Manual) Abs Lymphs (Manual) Abs Monocytes (Manual) Absolute Eos (Manual) Abs Basophils (Manual) Nucleated RBCs/100 WBC Normal RBC Morphology Macrocytosis ESR INR (Anticoag Therapy) 1.22 H D-Dimer, Quantitative 479 H Sodium Potassium Chloride Carbon Dioxide Anion Gap BUN Creatinine Est GFR ( Amer) Est GFR (Non-Af Amer) BUN/Creatinine Ratio Glucose 424 H POC Glucose (mg/dL) Glucose Meter Confirm Lactic Acid 1.7 Uric Acid Calcium Total Bilirubin AST ALT Alkaline Phosphatase Troponin I C-Reactive Protein Total Protein Albumin Globulin Albumin/Globulin Ratio Procalcitonin Urine Color Urine Appearance Urine pH Ur Specific [place] Urine Protein Urine Ketones Urine Blood Urine Nitrate Urine Bilirubin Urine Urobilinogen Ur Leukocyte Esterase Urine WBC (Auto) Urine RBC (Auto) Ur Squamous Epith Cells Urine Bacteria Urine Glucose Blood Type Antibody Screen Crossmatch 12/09/17 12/09/17 12/09/17 17:17 20:23 20:23 WBC RBC Hgb Hct MCV MCH MCHC RDW Plt Count MPV Neut % (Auto) Lymph % (Auto) Morgan % (Auto) Eos % (Auto) Baso % (Auto) Absolute Neuts (auto) Absolute Lymphs (auto) Absolute Monos (auto) Absolute Eos (auto) Absolute Basos (auto) Absolute Nucleated RBC Immature Gran % Neutrophils % Lymphocytes % Monocytes % Eosinophils % Basophils % Metamyelocytes % Myelocytes % Nucleated RBC % Abs Neuts (Manual) Abs Lymphs (Manual) Abs Monocytes (Manual) Absolute Eos (Manual) Abs Basophils (Manual) Nucleated RBCs/100 WBC Normal RBC Morphology Macrocytosis ESR INR (Anticoag Therapy) D-Dimer, Quantitative Sodium Potassium Chloride Carbon Dioxide Anion Gap BUN Creatinine Est GFR ( Amer) Est GFR (Non-Af Amer) BUN/Creatinine Ratio Glucose POC Glucose (mg/dL) Glucose Meter Confirm Lactic Acid Uric Acid 8.3 H Calcium Total Bilirubin AST ALT Alkaline Phosphatase Troponin I C-Reactive Protein Total Protein Albumin Globulin Albumin/Globulin Ratio Procalcitonin 0.2 Urine Color Urine Appearance Urine pH Ur Specific [place] Urine Protein Urine Ketones Urine Blood Urine Nitrate Urine Bilirubin Urine Urobilinogen Ur Leukocyte Esterase Urine WBC (Auto) Urine RBC (Auto) Ur Squamous Epith Cells Urine Bacteria Urine Glucose Blood Type A Positive Antibody Screen Negative Crossmatch See Detail 12/09/17 12/09/17 12/10/17 21:40 22:04 01:40 WBC RBC Hgb Hct MCV MCH MCHC RDW Plt Count MPV Neut % (Auto) Lymph % (Auto) Morgan % (Auto) Eos % (Auto) Baso % (Auto) Absolute Neuts (auto) Absolute Lymphs (auto) Absolute Monos (auto) Absolute Eos (auto) Absolute Basos (auto) Absolute Nucleated RBC Immature Gran % Neutrophils % Lymphocytes % Monocytes % Eosinophils % Basophils % Metamyelocytes % Myelocytes % Nucleated RBC % Abs Neuts (Manual) Abs Lymphs (Manual) Abs Monocytes (Manual) Absolute Eos (Manual) Abs Basophils (Manual) Nucleated RBCs/100 WBC Normal RBC Morphology Macrocytosis ESR INR (Anticoag Therapy) D-Dimer, Quantitative Sodium Potassium Chloride Carbon Dioxide Anion Gap BUN Creatinine Est GFR ( Amer) Est GFR (Non-Af Amer) BUN/Creatinine Ratio Glucose POC Glucose (mg/dL) 432 H* 218 H Glucose Meter Confirm 393 H Lactic Acid Uric Acid Calcium Total Bilirubin AST ALT Alkaline Phosphatase Troponin I C-Reactive Protein Total Protein Albumin Globulin Albumin/Globulin Ratio Procalcitonin Urine Color Urine Appearance Urine pH Ur Specific [place] Urine Protein Urine Ketones Urine Blood Urine Nitrate Urine Bilirubin Urine Urobilinogen Ur Leukocyte Esterase Urine WBC (Auto) Urine RBC (Auto) Ur Squamous Epith Cells Urine Bacteria Urine Glucose Blood Type Antibody Screen Crossmatch 12/10/17 12/10/17 12/10/17 03:45 06:09 07:32 WBC RBC Hgb Hct MCV MCH MCHC RDW Plt Count MPV Neut % (Auto) Lymph % (Auto) Morgan % (Auto) Eos % (Auto) Baso % (Auto) Absolute Neuts (auto) Absolute Lymphs (auto) Absolute Monos (auto) Absolute Eos (auto) Absolute Basos (auto) Absolute Nucleated RBC Immature Gran % Neutrophils % Lymphocytes % Monocytes % Eosinophils % Basophils % Metamyelocytes % Myelocytes % Nucleated RBC % Abs Neuts (Manual) Abs Lymphs (Manual) Abs Monocytes (Manual) Absolute Eos (Manual) Abs Basophils (Manual) Nucleated RBCs/100 WBC Normal RBC Morphology Macrocytosis ESR INR (Anticoag Therapy) D-Dimer, Quantitative Sodium Potassium Chloride Carbon Dioxide Anion Gap BUN Creatinine Est GFR ( Amer) Est GFR (Non-Af Amer) BUN/Creatinine Ratio Glucose POC Glucose (mg/dL) 215 H 214 H Glucose Meter Confirm Lactic Acid Uric Acid Calcium Total Bilirubin AST ALT Alkaline Phosphatase Troponin I C-Reactive Protein Total Protein Albumin Globulin Albumin/Globulin Ratio Procalcitonin Urine Color Yellow Urine Appearance Clear Urine pH 5.0 Ur Specific [place] 1.004 L Urine Protein Negative Urine Ketones Negative Urine Blood 3+ A Urine Nitrate Negative Urine Bilirubin Negative Urine Urobilinogen Negative Ur Leukocyte Esterase 1+ A Urine WBC (Auto) 2+(11-20/hpf) A Urine RBC (Auto) 2+(6-10/hpf) A Ur Squamous Epith Cells Present A Urine Bacteria 1+ A Urine Glucose 1+(50 mg/dl) A Blood Type Antibody Screen Crossmatch 12/10/17 12/10/17 08:14 08:14 WBC 20.8 H RBC 2.23 L Hgb 7.9 L Hct 23 L MCV 102 H MCH 35 H MCHC 35 RDW 20 H Plt Count 61 L MPV 9.3 Neut % (Auto) Not Reportable Lymph % (Auto) Not Reportable Morgan % (Auto) Not Reportable Eos % (Auto) Not Reportable Baso % (Auto) Not Reportable Absolute Neuts (auto) Not Reportable Absolute Lymphs (auto) Not Reportable Absolute Monos (auto) Not Reportable Absolute Eos (auto) Not Reportable Absolute Basos (auto) Not Reportable Absolute Nucleated RBC Not Reportable Immature Gran % Neutrophils % Lymphocytes % Monocytes % Eosinophils % Basophils % Metamyelocytes % Myelocytes % Nucleated RBC % Not Reportable Abs Neuts (Manual) Abs Lymphs (Manual) Abs Monocytes (Manual) Absolute Eos (Manual) Abs Basophils (Manual) Nucleated RBCs/100 WBC Normal RBC Morphology Macrocytosis ESR INR (Anticoag Therapy) D-Dimer, Quantitative Sodium 134 L Potassium 3.3 L Chloride 97 L Carbon Dioxide 28 Anion Gap 9 BUN 10 Creatinine 0.67 Est GFR ( Amer) 103.5 Est GFR (Non-Af Amer) 85.6 BUN/Creatinine Ratio 14.9 Glucose 242 H POC Glucose (mg/dL) Glucose Meter Confirm Lactic Acid Uric Acid Calcium 8.3 L Total Bilirubin AST ALT Alkaline Phosphatase Troponin I C-Reactive Protein 98.20 H Total Protein Albumin Globulin Albumin/Globulin Ratio Procalcitonin Urine Color Urine Appearance Urine pH Ur Specific [place] Urine Protein Urine Ketones Urine Blood Urine Nitrate Urine Bilirubin Urine Urobilinogen Ur Leukocyte Esterase Urine WBC (Auto) Urine RBC (Auto) Ur Squamous Epith Cells Urine Bacteria Urine Glucose Blood Type Antibody Screen Crossmatch Assessment and Plan Impression: 77 yo F presenting with 8 weeks of progressive weakness, SOB and generalized malaise, treated for several culture negative UTIs, now with leukocytosis, anemia and thrombocytopenia concerning for leukemia with DDx including acute leukemia vs. CML in accelerated or blast phase, vs. other MPN. Given this I would like to perform a bone marrow biopsy and aspiration today. If this is acute leukemia we will need to discuss transfer to a tertiary care center. We should have more information on this by tomorrow AM. In terms of her anemia, would transfuse for Hb <7.5. Hold lovenox/heparin if plts <50. Thank you for this consultation and we will continue to follow with you.
[2017-12-10 10:29] LABS: Monocytes % 42 % (0-7)
[2017-12-10 10:32] LABS: ABS Neutrophils 2.4 10^3/ul (1.5-7.7)
[2017-12-10 10:40] LABS: ABS Basophils 0 10^3/ul (0-0.2); ABS Neutrophils 1.9 10^3/ul (1.5-7.7); Monocytes % 48 % (0-7)
[2017-12-10] MEDS ORDERED: Lidocaine 2% 10 ML* VIAL INJ ONE (11:00)
--- NOTE | 2017-12-10 11:22 | PROCNOTE ---
Hematology/Oncology Procedure Hematology/Oncology Procedure Note: bone marrow biopsy and aspiration indication: likely leukemia Informed consent obtained. time out performed in accordance with hospital policy. patient prepped and draped in sterile fashion. local anesthesia with 2 % lidocaine administered. bone marrow biopsy and aspiration performed without obvious complications. specimen sent to lab.
[2017-12-10] MEDS ORDERED: diPHENhydraMINE IV* 50 MG/ML 1 ml VIAL (BENADRYL) IV PRN (12:00)
[2017-12-10] MEDS: Aspirin 81 mg CHEW TAB* 81 MG TAB.CHEW PO SCH (13:48)
[2017-12-10] MEDS: Metoprolol Succinate XL TAB* 50 MG PO SCH (13:48)
--- NOTE | 2017-12-10 14:03 | ECHO ---
Patient: ANGEL QUEVEDO Rec#: [id number] : 1940 Date: 12/10/2017 Age: 77y Height: 168 cm / 66.1 in Weight: 68 kg / 149.9 lbs Sex: F BSA: 1.77 Room#: 414 Admit Date#: 12/09/2017 Type: Inpatient Referring: Nathan Langston MD Reading: Fanny Child MD [facility] Director: Mag Cuadra [facility] Transthoracic Echocardiogram Indication: CHF// BP: 140/56 HR: 93 Rhythm: NSR with PVCs Findings History: HTN,,DM,renal disease. Technical Comments: The study quality is good. Completed at 1100. Left Ventricle: The left ventricular chamber size is normal. Posterior wall hypertrophy is observed. Global left ventricular wall motion and contractility are within normal limits. The estimated ejection fraction is 60-65%. Abnormal left ventricular diastolic function is observed. Left Atrium: The left atrium is severely dilated.based on volume index. Right Ventricle: The right ventricular cavity size is normal. The right ventricular global systolic function is normal. Right Atrium: The right atrium is mildly dilated. A prominent eustachian valve is noted in the right atrium. Aortic Valve: The aortic valve is trileaflet. The aortic valve leaflets are moderately thickened. Systolic excursion of the aortic valve cusps is reduced. There is moderate aortic stenosis. The mean gradient of the aortic valve is 24 mmHg. The aortic valve area, by VTI's, is calculated at 1 cm2. The highest aortic valve velocity was obtained with the standard probe from the A3C view. Mitral Valve: There is mitral annular calcification.heavy posteriorly. There is mild mitral regurgitation. There is no evidence of mitral stenosis. Tricuspid Valve: The tricuspid valve leaflets are normal. There is trace tricuspid regurgitation. There is evidence of mild pulmonary hypertension. There is no tricuspid stenosis. Pulmonic Valve: The pulmonic valve appears normal. There is trace to mild pulmonic regurgitation. There is no pulmonic stenosis. Pericardium: The pericardium appears normal. Aorta: There is no dilatation of the ascending aorta. There is no dilatation of the aortic arch. There is no dilation of the aortic root. Pulmonary Artery: The main pulmonary artery appears normal. Venous: The inferior vena cava appears normal in size. There is a greater than 50% respiratory change in the inferior vena cava dimension. Conclusions Global left ventricular wall motion and contractility are within normal limits. The estimated ejection fraction is 60-65%. Abnormal left ventricular diastolic function is observed. The right ventricular global systolic function is normal. The left atrium is severely dilated. There is moderate aortic stenosis. -The mean gradient of the aortic valve is 24 mmHg. -DI 0.33 -YUNG 1 cm2 (VTI method). There is mild mitral regurgitation. There is evidence of mild pulmonary hypertension: 36 mmHg. Compared with prior echo of 04/27/12 EF is stable, AV stenosis new, mean gradient previously 6 mmHg, MR has increased from trace. Measurements Name Value Normal Range RVIDd (AP) 2D 2.6 cm (0.9 - 2.6) RVDdMajor (2D) 3.4 cm (2.2 - 4.4) RAd ISD 4CH 5.3 cm (3.4 - 4.9) RA (A4C)W 4.5 cm (2.9 - 4.6) IVSd (2D) 0.9 cm (0.6 - 1) LVPWd (2D) 1.1 cm (0.6 - 1) LVIDd (2D) 4.8 cm (3.6 - 5.4) LVIDs (2D) 3 cm - LV FS (2D) 38 % (25 - 45) Aortic Annulus 2.1 cm (1.4 - 2.6) Ao root diameter (2D) 3.1 cm (2.1 - 3.5) Ascending Ao 3.2 cm (2.1 - 3.4) Aortic arch 2.2 cm (1.8 - 3.4) Descending Ao 0.6 cm - LA dimension (AP) 2D 4.2 cm (2.3 - 3.8) LAd ISD 4CH 5.1 cm (2.9 - 5.3) LA ISD 4CH W 4.4 cm (2.5 - 4.5) Name Value Normal Range LA ESV SP 4CH (A/L) 65 ml - LA ESV SP 2CH (A/L) 96 ml - LA ESV BP (A/L) index 80 ml/m2 - Name Value Normal Range MV E-wave Vmax 1.3 m/sec - MV deceleration time 118 msec - MV A-wave Vmax 1.7 m/sec - MV E:A ratio 0.7 ratio - LV septal e' Vmax 0.08 m/sec - LV lateral e' Vmax 0.13 m/sec - LV E:e' septal ratio 16.25 ratio - LV E:e' lateral ratio 10 ratio - Name Value Normal Range AV Vmax 3.4 m/sec - AV VTI 75.3 cm - AV peak gradient 45 mmHg - AV mean gradient 24 mmHg - LVOT diameter 2 cm - LVOT Vmax 1 m/sec - LVOT VTI 24.9 cm - LVOT peak gradient 4 mmHg - LVOT mean gradient 2 mmHg - YUNG (continuity Vmax) 0.9 cm2 - YUNG (continuity VTI) 1 cm2 - Name Value Normal Range MR Vmax 4.4 m/sec - MR VTI 118 cm - Name Value Normal Range TR Vmax 2.9 m/sec - TR peak gradient 33 mmHg - RAP 3 mmHg - RVSP 36 mmHg - IVC diameter 1.4 cm - Name Value Normal Range PV Vmax 1.1 m/sec - PV peak gradient 5 mmHg -
[2017-12-10] MEDS: cefTRIAXone(*) 2 GM in NS 0.9% 100 ML* 100 ML IVPB SCH (21:46)
[2017-12-11] MEDS: Heparin VIAL(*) 5000 UNITS/ML VIAL (FIVE THOUSAND) SUBCUT SCH ×2 (06:00→14:39)
[2017-12-11 06:38] LABS: EGFR Non-African American 91.9 (>60)
[2017-12-11] MEDS: Insulin GLARGINE(*) 1 UNITS UNIT SUBCUT SCH (07:19)
[2017-12-11] MEDS ORDERED: Insulin GLARGINE(*) 1 UNITS UNIT SUBCUT SCH (07:30)
[2017-12-11 07:41] LABS: ABS Basophils 0 10^3/ul (0-0.2); ABS Neutrophils 1.6 10^3/ul (1.5-7.7); Hematocrit 21 % (35-47); Hemoglobin 7.3 g/dl (12.0-16.0); Mean Corpuscular HGB Conc 35 g/dl (31-36); Mean Corpuscular Hemoglobin 36 pg (27-31); Mean Corpuscular Volume 101 fL (80-97); Mean Platelet Volume 9.2 um3 (7.4-10.4); Monocytes % 51 % (0-7); Platelet Count 56 10^3/ul (150-450); Red Blood Count 2.04 10^6/ul (4.00-5.40); Red Cell Distribution Width 19 % (10.5-15)
[2017-12-11 07:49] VITALS: BP 128/59
--- NOTE | 2017-12-11 07:56 | PN ---
Subjective - Subjective Reason for Note: Progress Note History: She continues to have anorexia and fatigue. She denies fever/chills or pain. The furosemide helped with her breathing/cough and she is not bringing up any sputum. There has not been any diarrhea or rash from the antibacterial. 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 Anemia (Acute) D64.9 Elevated erythrocyte sedimentation rate (Acute) R70.0 Left lower lobe pulmonary infiltrate (Acute) R91.8 Recurrent left pleural effusion (Acute) J90 Situational anxiety (Acute) F41.8 Thrombocytopenia (Acute) D69.6 Type 2 diabetes mellitus with hyperglycemia (Acute) E11.65 Aortic stenosis (Chronic) I35.0 Macular degeneration (Chronic) H35.30 Microalbuminuria (Chronic) R80.9 Non-proliferative diabetic retinopathy (Chronic) E11.3299 Current Medications: Current Medications Acetaminophen (Tylenol Tab*) 650 mg PO Q6H PRN PRN Reason: FEVER/PAIN Last Admin: 12/10/17 07:27 Dose: 650 mg Aspirin (Aspirin 81 Mg Chew Tab*) 81 mg PO DAILY [facility] Last Admin: 12/10/17 13:48 Dose: 81 mg Dextrose (D50w Syringe 50 Ml*) 12.5 gm IV PUSH .FOR FS < 60 - SS PRN PRN Reason: FS < 60 Diphenhydramine HCl (Benadryl Iv*) 25 mg IV Q12H PRN PRN Reason: ALLERGY SYMPTOMS Heparin Sodium (Porcine) (Heparin Vial(*)) 5,000 units SUBCUT Q8HR [facility] Last Admin: 12/11/17 06:00 Dose: 5,000 units Ceftriaxone Sodium 2 gm/ (Sodium Chloride) 100 mls @ 200 mls/hr IVPB Q24H [facility] Last Admin: 12/10/17 21:46 Dose: 200 mls/hr Insulin Glargine (Lantus(*)) 15 units SUBCUT 0730,1930 [facility] Last Admin: 12/11/17 07:13 Dose: 15 units Insulin Human Lispro (Humalog*) 0 units SUBCUT ACHS [facility]; Protocol Last Admin: 12/10/17 22:05 Dose: Not Given Insulin Human Lispro (Humalog*) 0 units SUBCUT [facility]; Protocol Last Admin: 12/10/17 21:45 Dose: 2 units Metoprolol Succinate (Toprol Xl Tab*) 50 mg PO DAILY [facility] Last Admin: 12/10/17 13:48 Dose: 50 mg Ondansetron HCl (Zofran Inj*) 4 mg IV Q6H PRN PRN Reason: NAUSEA Temazepam (Restoril Cap*) 15 mg PO BEDTIME PRN PRN Reason: INSOMNIA - Review of Systems Constitutional Symptoms: Yes: Weight Loss, Weakness, Fatigue, No: Fever, Night Sweats Pulmonary: Negative: Cough, Sputum, Hemoptysis, Respiratory Distress Cardiology: Positive: Shortness of Breath - with exertion Negative: Chest Pain, Palpitations, Swelling of Ankles Gastroenterology: Positive: Anorexia Negative: Abdominal Pain, Nausea, Vomiting, Change in Bowel Habits Genital - Urinary: Positive: Normal Neurology: Negative: Headache Home Medications: Home Medications Medication Instructions Recorded Confirmed Type Amlodipine Besylate 5 mg PO DAILY 05/23/14 12/09/17 History Aspirin 81 mg PO DAILY 05/23/14 12/09/17 History Hydrochlorothiazide 25 mg PO DAILY 05/23/14 12/09/17 History Insulin Glargine,Hum.rec.anlog 42 unit SC DAILY 05/23/14 12/09/17 History [Lantus] Insulin Lispro [Humalog Kwikpen] 100 unit SC TID 05/23/14 12/09/17 History Metformin HCl 500 mg PO BID 05/23/14 12/09/17 History Metoprolol Succinate [Metoprolol 50 mg PO BID 05/23/14 12/09/17 History Succinate ER] Ramipril CAP* [Altace CAP*] 10 mg PO DAILY 05/23/14 12/09/17 History Allergies: Allergies Allergy/AdvReac Type Severity Reaction Status Date / Time amoxicillin [From Augmentin] Allergy Vomiting Verified 09/13/17 10:34 ciprofloxacin [From Cipro] Allergy Vomiting Verified 12/09/17 17:37 clavulanic acid Allergy Vomiting Verified 09/13/17 10:34 [From Augmentin] levofloxacin [From Levaquin] Allergy Vomiting Verified 09/13/17 10:34 nitrofurantoin Allergy Vomiting Verified 12/09/17 17:37 [From Macrobid] Objective - Vital Signs Vital Signs: Vital Signs 12/10/17 12/10/17 12/10/17 07:57 12:00 15:22 Temperature 98.3 F 99.0 F Pulse Rate 88 88 Respiratory 20 20 16 Rate Blood Pressure 124/59 127/50 (mmHg) O2 Sat by Pulse 95 92 Oximetry 12/10/17 12/10/17 12/10/17 19:31 20:00 22:36 Temperature 99.9 F 99.2 F Pulse Rate 92 90 Respiratory 18 17 17 Rate Blood Pressure 138/56 125/103 (mmHg) O2 Sat by Pulse 92 93 Oximetry 12/10/17 12/11/17 12/11/17 23:08 03:16 07:15 Temperature 99.2 F 98.7 F Pulse Rate 95 95 Respiratory 17 16 Rate Blood Pressure 136/60 119/50 128/59 (mmHg) O2 Sat by Pulse 89 93 Oximetry - Intake and Output Intake and Output: Intake & Output 12/08/17 12/09/17 12/10/17 12/11/17 11:59 11:59 11:59 11:59 Intake Total 610 1090 Output Total 200 Balance 610 890 Weight 150 lb Intake: IV Fluids 150 ABX - CEFTRIAXONE 150 IVPB 100 ABX - CEFTRIAXONE 100 Oral 610 840 Output: Urine 200 Other: Estimated Void Medium Large # Bowel Movements 1 0 Estimated Stool Amount Medium # Voids 2 1 ADLs: Meal Record Start: 12/09/17 16: 43 Freq: DAILY@0900,1400,1800 Status: Active Protocol: Created 12/09/17 16:43 System (Rec: 12/09/17 16:43 System MED-C14) Document 12/09/17 18:00 [id number] (Rec: 12/09/17 19:20 [id number] MED-M16) Document 12/10/17 09:00 [id number] (Rec: 12/10/17 09:31 [id number] MED-C09) Document 12/10/17 14:00 [id number] (Rec: 12/10/17 14:45 [id number] MED-C02) Document 12/10/17 18:00 [id number] (Rec: 12/10/17 18:30 [id number] MED-C11) Intake and Output Start: 12/09/17 16: 43 Freq: DAILY@0600,1400,2200 Status: Active Protocol: Created 12/09/17 16:43 System (Rec: 12/09/17 16:43 System MED-C14) Document 12/09/17 22:00 [id number] (Rec: 12/09/17 22:27 [id number] MED-C11) Document 12/10/17 06:00 [id number] (Rec: 12/10/17 06:46 [id number] MED-C11) Document 12/10/17 14:00 [id number] (Rec: 12/10/17 14:47 [id number] MED-C02) Document 12/10/17 20:55 [id number] (Rec: 12/10/17 20:55 [id number] MED-C09) Document 12/11/17 05:53 [id number] (Rec: 12/11/17 05:57 [id number] MED-C09) - Physical Exam General Physical Exam Comment: She is weak, fatigued and anxious General: No Cyanosis, Yes Anemia, No Jaundice, No Clubbing Skin: Normal: Rash Lungs and Chest: Yes: Chest Expansion Full, Chest Expansion Symetrica. No: Percussion Note Resonant - dull left blase, Vessicular Breath Sounds - absent breath sounds left base, Crackles, Wheezes, Respiratory Distress, Use of Accessory Muscles Heart Rate and Rhythm: Irregular - She has irregular beats, but mostly regular ? atrial arrythmia Additional Cardiovascular: Yes: Normal Heart Sounds, Heart Murmur. No: Pedal Edema Abdominal Exam: Yes: Soft, Bowel Sounds Present. No: Distention, Abdominal Mass , Abdominal Tenderness, Guarding, Rebound Tenderness Results - Results Lab Results: Laboratory Results - last 24 hr 12/09/17 12/10/17 12/10/17 17:17 08:14 08:14 WBC 26.5 H 20.8 H RBC 1.49 L 2.23 L Hgb 5.6 L* 7.9 L Hct 16 L 23 L MCV 109 H 102 H MCH 37 H 35 H MCHC 34 35 RDW 15 20 H Plt Count 72 L 61 L MPV 9.6 9.3 Neut % (Auto) Not Reportable Lymph % (Auto) Not Reportable [place] % (Auto) Not Reportable Eos % (Auto) Not Reportable Baso % (Auto) Not Reportable Absolute Neuts (auto) Blueprint Trimmer Not Reportable Absolute Lymphs (auto) Blueprint Trimmer Not Reportable Absolute Monos (auto) Blueprint Trimmer Not Reportable Absolute Eos (auto) Blueprint Trimmer Not Reportable Absolute Basos (auto) Blueprint Trimmer Not Reportable Absolute Nucleated RBC Not Reportable Immature Gran % Blueprint Trimmer Neutrophils % 9 L 9 L Lymphocytes % 30 23 L Reactive Lymphs % 1 Monocytes % 42 H 48 H Eosinophils % 0 2 Basophils % 0 0 Metamyelocytes % Blueprint Trimmer Myelocytes % Blueprint Trimmer Blast Cells % 18 H* 18 H* Nucleated RBC % Not Reportable Abs Neuts (Manual) 2.4 1.9 Abs Lymphs (Manual) 7.9 H 4.8 Abs Monocytes (Manual) 11.13 H 10.0 H Absolute Eos (Manual) 0 0.4 Abs Basophils (Manual) 0 0 Nucleated RBCs/100 WBC 2 H 1 H Normal RBC Morphology Not Reportable Polychromasia Hypochromasia 1+ 1+ Anisocytosis Macrocytosis 1+ 1+ ESR > 120 H Hem Pathologist Commnt Sodium 134 L Potassium 3.3 L Chloride 97 L Carbon Dioxide 28 Anion Gap 9 BUN 10 Creatinine 0.67 Est GFR ( Amer) 103.5 Est GFR (Non-Af Amer) 85.6 BUN/Creatinine Ratio 14.9 Glucose 242 H POC Glucose (mg/dL) Calcium 8.3 L Total Bilirubin Direct Bilirubin Indirect Bilirubin AST ALT Alkaline Phosphatase C-Reactive Protein 98.20 H Total Protein Albumin Globulin Albumin/Globulin Ratio 12/10/17 12/10/17 12/10/17 12:27 16:44 20:54 WBC RBC Hgb Hct MCV MCH MCHC RDW Plt Count MPV Neut % (Auto) Lymph % (Auto) [place] % (Auto) Eos % (Auto) Baso % (Auto) Absolute Neuts (auto) Absolute Lymphs (auto) Absolute Monos (auto) Absolute Eos (auto) Absolute Basos (auto) Absolute Nucleated RBC Immature Gran % Neutrophils % Lymphocytes % Reactive Lymphs % Monocytes % Eosinophils % Basophils % Metamyelocytes % Myelocytes % Blast Cells % Nucleated RBC % Abs Neuts (Manual) Abs Lymphs (Manual) Abs Monocytes (Manual) Absolute Eos (Manual) Abs Basophils (Manual) Nucleated RBCs/100 WBC Normal RBC Morphology Polychromasia Hypochromasia Anisocytosis Macrocytosis ESR Hem Pathologist Commnt Sodium Potassium Chloride Carbon Dioxide Anion Gap BUN Creatinine Est GFR ( Amer) Est GFR (Non-Af Amer) BUN/Creatinine Ratio Glucose POC Glucose (mg/dL) 254 H 232 H 194 H Calcium Total Bilirubin Direct Bilirubin Indirect Bilirubin AST ALT Alkaline Phosphatase C-Reactive Protein Total Protein Albumin Globulin Albumin/Globulin Ratio 08/12/11/17 12/11/17 05:41 06:04 06:04 WBC 27.0 H RBC 2.04 L Hgb 7.3 L Hct 21 L MCV 101 H MCH 36 H MCHC 35 RDW 19 H Plt Count 56 L MPV 9.2 Neut % (Auto) Lymph % (Auto) [place] % (Auto) Eos % (Auto) Baso % (Auto) Absolute Neuts (auto) Absolute Lymphs (auto) Absolute Monos (auto) Absolute Eos (auto) Absolute Basos (auto) Absolute Nucleated RBC Immature Gran % Neutrophils % 6 L Lymphocytes % 15 L Reactive Lymphs % Monocytes % 51 H Eosinophils % 1 Basophils % 0 Metamyelocytes % Myelocytes % Blast Cells % 27 H* Nucleated RBC % Abs Neuts (Manual) 1.6 Abs Lymphs (Manual) 4.1 Abs Monocytes (Manual) 13.8 H Absolute Eos (Manual) 0.3 Abs Basophils (Manual) 0 Nucleated RBCs/100 WBC Normal RBC Morphology Not Reportable Polychromasia 1+ Hypochromasia Anisocytosis 1+ Macrocytosis ESR Hem Pathologist Commnt Sodium 135 Potassium 3.2 L Chloride 97 L Carbon Dioxide 28 Anion Gap 10 BUN 8 Creatinine 0.63 Est GFR ( Amer) 111.2 Est GFR (Non-Af Amer) 91.9 BUN/Creatinine Ratio 12.7 Glucose 95 POC Glucose (mg/dL) 100 Calcium 8.0 L Total Bilirubin 0.70 Direct Bilirubin 0.20 H Indirect Bilirubin 0.5 AST 14 ALT 5 L Alkaline Phosphatase 49 C-Reactive Protein 142.80 H Total Protein 7.4 Albumin 2.9 L Globulin 4.5 H Albumin/Globulin Ratio 0.6 L Radiology Results: Aortic Valve: The aortic valve is trileaflet. The aortic valve leaflets are moderately thickened. Systolic excursion of the aortic valve cusps is reduced. There is moderate aortic stenosis. The mean gradient of the aortic valve is 24 mmHg. The aortic valve area, by VTI's, is calculated at 1 cm2. The highest aortic valve velocity was obtained with the standard probe from the A3C view. Mitral Valve: There is mitral annular calcification.heavy posteriorly. There is mild mitral regurgitation. There is no evidence of mitral stenosis. Tricuspid Valve: The tricuspid valve leaflets are normal. There is trace tricuspid regurgitation. There is evidence of mild pulmonary hypertension. There is no tricuspid stenosis. Pulmonic Valve: The pulmonic valve appears normal. There is trace to mild pulmonic regurgitation. There is no pulmonic stenosis. Pericardium: The pericardium appears normal. Aorta: There is no dilatation of the ascending aorta. There is no dilatation of the aortic arch. There is no dilation of the aortic root. Pulmonary Artery: The main pulmonary artery appears normal. Venous: The inferior vena cava appears normal in size. There is a greater than 50% respiratory change in the inferior vena cava dimension. Conclusions Global left ventricular wall motion and contractility are within normal limits. The estimated ejection fraction is 60-65%. Abnormal left ventricular diastolic function is observed. The right ventricular global systolic function is normal. The left atrium is severely dilated. There is moderate aortic stenosis. -The mean gradient of the aortic valve is 24 mmHg. -DI 0.33 -YUNG 1 cm2 (VTI method). There is mild mitral regurgitation. There is evidence of mild pulmonary hypertension: 36 mmHg. Compared with prior echo of 04/27/12 EF is stable, AV stenosis new, mean gradient previously 6 mmHg, MR has increased from trace. Assessment - Problem List Assessment: Patient Problems Acute leukemia (Acute) Anemia (Acute) Elevated erythrocyte sedimentation rate (Acute) Left lower lobe pulmonary infiltrate (Acute) Recurrent left pleural effusion (Acute) Situational anxiety (Acute) Thrombocytopenia (Acute) Type 2 diabetes mellitus with hyperglycemia (Acute) Aortic stenosis (Chronic) Macular degeneration (Chronic) Microalbuminuria (Chronic) Non-proliferative diabetic retinopathy (Chronic) Plan: Acute leukemia (Acute) I have spoken with Dr. Latia Melendez and reviewed her note. I have also read Dr. Davis's report on the peripheral blood smear. I note she has blasts on the peripheral smear and these are increasing. 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 We await the bone marrow biopsy results. Anemia (Acute) Her hemoglobin remains steady - no need for further transfusion Left lower lobe pulmonary infiltrate (Acute) Elevated erythrocyte sedimentation rate (Acute) Her CRP is higher today - I suspect this is in response to the blood transfusion. It could be her left lower lobe pneumonia. Left pleural effusion (Acute) She has a left pleural effusion Thrombocytopenia (Acute) Her platelets are lower Type 2 diabetes mellitus with hyperglycemia (Acute) her glucose level has come down. I have reduced her dose of lantus to 15 units twice daily - it may require further reduction. Aortic stenosis (Chronic) The transthoracic echocardiogram shows moderate aortic stenosis and evidence of stiff left ventricle, likely some diastolic dysfunction and pulmonary hypertension. We need to be careful with her volume status I spoke to Sarah and Wilfredo Ortega. They are suffering from the uncertainty of the diagnosis as we await the bone marrow results. I have told them we are suspecting an acute leukemia. Sarah asked me the worst case scenario - I told her that acute leukemias have a poor prognosis that can be days, but that the prognosis depends upon the type and that Dr. Latia Melendez will best address this with the bone marrow results when they are available. They know that she is likely to be transferred to a tertiary care center. I told her that there is always the palliative care option of active comfort care. She would like something to help with her understandable anxiety.
[2017-12-11] MEDS ORDERED: ALPRAZolam TAB* 0.25 MG PO PRN (08:08)
--- NOTE | 2017-12-11 09:24 | PN ---
Progress Note - Progress Note Date of Service: 12/11/17 SOAP: Subjective: feels very anxious this am, which is hampering her ability to eat. Objective: Vital Signs Temp Pulse Resp BP Pulse Ox 98.7 F 95 16 128/59 93 12/11/17 07:15 12/11/17 07:15 12/11/17 07:15 12/11/17 07:15 12/11/17 07:15 sitting up in nad perr eomi op moist mild rhonchi left base s1 s2 4/6 damaris soft nt no hsm no le edema A+O x3, grossly nonfocal Laboratory Results - last 24 hr 12/09/17 12/10/17 12/10/17 17:17 08:14 12:27 WBC 26.5 H 20.8 H RBC 1.49 L 2.23 L Hgb 5.6 L* 7.9 L Hct 16 L 23 L MCV 109 H 102 H MCH 37 H 35 H MCHC 34 35 RDW 15 20 H Plt Count 72 L 61 L MPV 9.6 9.3 Neut % (Auto) Not Reportable Lymph % (Auto) Not Reportable [place] % (Auto) Not Reportable Eos % (Auto) Not Reportable Baso % (Auto) Not Reportable Absolute Neuts (auto) Spray Operator Not Reportable Absolute Lymphs (auto) Spray Operator Not Reportable Absolute Monos (auto) Spray Operator Not Reportable Absolute Eos (auto) Spray Operator Not Reportable Absolute Basos (auto) Spray Operator Not Reportable Absolute Nucleated RBC Not Reportable Immature Gran % Spray Operator Neutrophils % 9 L 9 L Lymphocytes % 30 23 L Reactive Lymphs % 1 Monocytes % 42 H 48 H Eosinophils % 0 2 Basophils % 0 0 Metamyelocytes % Spray Operator Myelocytes % Spray Operator Blast Cells % 18 H* 18 H* Nucleated RBC % Not Reportable Abs Neuts (Manual) 2.4 1.9 Abs Lymphs (Manual) 7.9 H 4.8 Abs Monocytes (Manual) 11.13 H 10.0 H Absolute Eos (Manual) 0 0.4 Abs Basophils (Manual) 0 0 Nucleated RBCs/100 WBC 2 H 1 H Normal RBC Morphology Not Reportable Polychromasia Hypochromasia 1+ 1+ Anisocytosis Macrocytosis 1+ 1+ ESR > 120 H Hem Pathologist Commnt Sodium Potassium Chloride Carbon Dioxide Anion Gap BUN Creatinine Est GFR ( Amer) Est GFR (Non-Af Amer) BUN/Creatinine Ratio Glucose POC Glucose (mg/dL) 254 H Calcium Total Bilirubin Direct Bilirubin Indirect Bilirubin AST ALT Alkaline Phosphatase C-Reactive Protein Total Protein Albumin Globulin Albumin/Globulin Ratio 12/10/17 12/10/17 12/11/17 16:44 20:54 05:41 WBC RBC Hgb Hct MCV MCH MCHC RDW Plt Count MPV Neut % (Auto) Lymph % (Auto) [place] % (Auto) Eos % (Auto) Baso % (Auto) Absolute Neuts (auto) Absolute Lymphs (auto) Absolute Monos (auto) Absolute Eos (auto) Absolute Basos (auto) Absolute Nucleated RBC Immature Gran % Neutrophils % Lymphocytes % Reactive Lymphs % Monocytes % Eosinophils % Basophils % Metamyelocytes % Myelocytes % Blast Cells % Nucleated RBC % Abs Neuts (Manual) Abs Lymphs (Manual) Abs Monocytes (Manual) Absolute Eos (Manual) Abs Basophils (Manual) Nucleated RBCs/100 WBC Normal RBC Morphology Polychromasia Hypochromasia Anisocytosis Macrocytosis ESR Hem Pathologist Commnt Sodium Potassium Chloride Carbon Dioxide Anion Gap BUN Creatinine Est GFR ( Amer) Est GFR (Non-Af Amer) BUN/Creatinine Ratio Glucose POC Glucose (mg/dL) 232 H 194 H 100 Calcium Total Bilirubin Direct Bilirubin Indirect Bilirubin AST ALT Alkaline Phosphatase C-Reactive Protein Total Protein Albumin Globulin Albumin/Globulin Ratio 12/11/17 12/11/17 12/11/17 06:04 06:04 07:46 WBC 27.0 H RBC 2.04 L Hgb 7.3 L Hct 21 L MCV 101 H MCH 36 H MCHC 35 RDW 19 H Plt Count 56 L MPV 9.2 Neut % (Auto) Lymph % (Auto) [place] % (Auto) Eos % (Auto) Baso % (Auto) Absolute Neuts (auto) Absolute Lymphs (auto) Absolute Monos (auto) Absolute Eos (auto) Absolute Basos (auto) Absolute Nucleated RBC Immature Gran % Neutrophils % 6 L Lymphocytes % 15 L Reactive Lymphs % Monocytes % 51 H Eosinophils % 1 Basophils % 0 Metamyelocytes % Myelocytes % Blast Cells % 27 H* Nucleated RBC % Abs Neuts (Manual) 1.6 Abs Lymphs (Manual) 4.1 Abs Monocytes (Manual) 13.8 H Absolute Eos (Manual) 0.3 Abs Basophils (Manual) 0 Nucleated RBCs/100 WBC Normal RBC Morphology Not Reportable Polychromasia 1+ Hypochromasia Anisocytosis 1+ Macrocytosis ESR Hem Pathologist Commnt Sodium 135 Potassium 3.2 L Chloride 97 L Carbon Dioxide 28 Anion Gap 10 BUN 8 Creatinine 0.63 Est GFR ( Amer) 111.2 Est GFR (Non-Af Amer) 91.9 BUN/Creatinine Ratio 12.7 Glucose 95 POC Glucose (mg/dL) 133 H Calcium 8.0 L Total Bilirubin 0.70 Direct Bilirubin 0.20 H Indirect Bilirubin 0.5 AST 14 ALT 5 L Alkaline Phosphatase 49 C-Reactive Protein 142.80 H Total Protein 7.4 Albumin 2.9 L Globulin 4.5 H Albumin/Globulin Ratio 0.6 L ECHO: moderate , EF 60-65% Per Dr. Davis--aspirate from bone marrow biopsy "packed" with blasts, likely myeloblasts Assessment: 77 yo F w HTN, hyperlip, DM and now with AML. I have discussed this with Sarah and her at length. I have taken the liberty to arrange transfer to [facility], hopefully later today. We discussed the basics of acute leukemia and the rationale for transfer to a tertiary care center. 40 minutes were spent in direct face to face counseling. I have offered to follow her locally upon her discharge there.
[2017-12-11] MEDS: Metoprolol Succinate XL TAB* 50 MG PO SCH (10:14)
[2017-12-11] MEDS: Aspirin 81 mg CHEW TAB* 81 MG TAB.CHEW PO SCH (10:15)
[2017-12-11] MEDS: Insulin LISPRO* 1 UNITS UNIT SUBCUT SCH ×4 (10:15→13:30)
--- NOTE | 2017-12-11 13:35 | DS ---
CC: Department of Hematology/Oncology Leukemia Division at [facility]; Latia Melendez MD * TRANSFER SUMMARY: DATE OF ADMISSION: 12/09/17 DATE OF TRANSFER TO 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 COMORBIDITIES: 1. Anorexia weight loss. 2. Moderate aortic stenosis. 3. History of urinary tract infections. SECONDARY DIAGNOSES: 1. Type 2 diabetes mellitus usually well controlled with insulin, complicated by mild nonproliferative diabetic retinopathy and microalbuminuria. 2. She has mild macular degeneration. HISTORY: Sarah Ortega is a 77-year-old white female, her presentation is documented in my admitting history and physical. In short, she has had several weeks history of being sick. This was initially characterized as a urinary tract infection, this did not improve despite 2 courses of antibiotics. She has reactions to antibiotics associated with nausea and anorexia. However, these continued after the antibiotics were finished. She returned to my office on the day of presentation in a wheelchair. She was too weak to walk independently. PHYSICAL EXAMINATION: Body mass index 23.8, height 66.5 inches, 150 pounds, blood pressure 132/70, temperature 99.5 degrees Fahrenheit, pulse 97. Her chest was clear due to hyperdynamic circulation with a 3/6 ejection murmur in the aortic area. She was alert and oriented, intact neurological system. I directly admitted her to my service at the [facility]. Initial blood count was suspicious of an acute leukemia with a white count of 26.5, a hemoglobin of 5.6, a hematocrit of 60, and an MCV of 109, platelet count 72. Reading of the smear the following day by pathology favored an acute leukemia, myelogenous differentiation, severe microcytic anemia, thrombocytopenia. Initial chemistry: Sodium of 129, potassium 3.5, chloride 91, glucose 417, BUN 12, creatinine 0.78, troponin I 0.05, AST was 11, ALT 5, alkaline phosphate 54, CRP 99, albumin 3.1, and globulin 4.4. Lactic acid 1.7, procalcitonin 0.2. Initial impression was that she had hyperglycemia due to not taking Lantus insulin for 4 days, so I gave her insulin replacement therapy and IV fluids. The blood dyscrasia looked to be an acute leukemia and hence I obtained a Hematology/Oncology consultation. For the profound anemia, I transfused 2 units of packed cells. I ordered a transthoracic echocardiogram. CONSULTATIONS: She was seen in consultation by Dr. Latia Melendez for Hematology/Oncology consultation as a part of the electronic medical records. She also was suspicious for an acute leukemia and on the day of discharge this was confirmed as being APL M3 and hence she needed transfer urgently to a Tertiary Center, the closest being [facility] that deals with this particular variety of acute leukemia. OTHER INVESTIGATIONS: Bone marrow biopsy, the final report is not yet available , but verbal with pathologist that there were more than 60% blasts in the bone marrow, which was hypercellular and he characterized this as APL M3. Other investigations, microbiology was negative for blood culture, urine culture. Her urinalysis was 3+ for blood, 1+ for esterase. The chemistry: Her uric acid was elevated at 8.3, her C-reactive protein went up during the hospitalization from 99.2 to 142.8 on the day of discharge. However, I think that this may well be due to her transfusion and her APL rather than to infection. Chest x-ray: She had 2 of these. She has a left lower lobe infiltrate and also a left-sided effusion. Transthoracic echocardiogram: Ejection fraction of 60 to 65%. Abnormal left ventricular diastolic dysfunction. Normal right ventricle. Left atrium severely dilated. Moderate aortic stenosis with median gradient of aortic valve 24 mmHg with an YUNG of 1 cm squared, and a DI of 0.33. Mild mitral regurgitation, pulmonary hypertension of 36 mmHg. EKG sinus tachycardia with some atrial premature beats, rate 100, RI interval 216, QTC 460, QRS axis -24, signs of LVH. HOSPITAL COURSE: I treated her empirically with ceftriaxone 2 g daily. She is intolerant of several other antibiotics, hence the choice. On the day of discharge, she is anxious. She has had no fevers or chills. She has no pain. She is weak and tired. She remains anorexic. She has had no adverse effects of the antibiotics. Physical examination on the day of discharge: Temperature 98.7, pulse 95, respirations 16, blood pressure 128/59, oxygen saturation 93%. She is pale, weak, fatigued, anxious. She has no cyanosis, jaundice, or clubbing. Skin has no rash. She has signs of a left pleural effusion on her chest with dullness to percussion and decreased air entry in the left base. Her pulse is mostly regular, but with some missing beats. Heart sounds are normal. She has a loud 3/6 systolic murmur at the aortic area radiating to her right carotid. No pedal edema. Abdomen was soft and nontender. Bowel sounds were present. Nervous System: Alert and oriented and normal speech. Moving arms and legs. Generalized weakness. ASSESSMENT AND PLAN: 1. Acute promyelocytic leukemia M3, acute myeloid leukemia with transferring her is a matter of a medial emergency to [facility] so that she can receive urgent treatment. This is being coordinated by Dr. Latia Melendez with the Hematology/Oncology team there. 2. Anemia. At present, her hemoglobin does not require further transfusion. 3. CRP is coming higher. I suspect this may be a transfusion reaction. It could also be due to an infection, particularly from the lung or even due to the Acute promyelocytic leukemia. 3. Thrombocytopenia. This is still not below the line where we have to stop her heparin. 4. Type 2 diabetes mellitus. I have cut her Lantus down to 15 units twice daily. She may require less than that. This morning, her fasting blood glucose was 100 mg/dL. Meal times can be covered by 1 unit for every 15 g of carbohydrates plus 1 unit for every 58 mg/dL above a 150 mg/dL. She should be on a consistent- carbohydrate diet. 5. Aortic stenosis. This needs to be followed during her acute treatment. I note that with the blood transfusion, she developed some pulmonary edema, which was readily fixed with 40 mg of furosemide IV. IV fluid resuscitation should be watched very carefully. I have spoken at length to Sarah Ortega. She is aware of the diagnoses and also of the poor prognosis. She wishes to have an acute medical approach to this and hence accepts transfer. I will remain her primary care provider and will coordinate care along with Dr. Latia Melendez when she returns to [place]. MEDICATIONS ON DAY OF DISCHARGE: 1. Acetaminophen 650 mg q.6 hours p.r.n. for fever or pain. 2. Alprazolam 0.25 mg p.o. q.8 hourly. 3. Aspirin 81 mg daily. 4. Ceftriaxone 2 g daily. 5. Diphenhydramine 25 mg q.12 hours for allergies. 6. Heparin unfractionated 5000 units q.8 hours. 7. Glargine insulin 15 units twice daily. 8. Lispro insulin 1 unit for every 15 g of carbohydrate plus 1 unit for every 50 mg/dL greater than 150 mg/dL. 9. Metoprolol XL 50 mg daily. 10. Ondansetron 4 mg q.6 hours p.r.n. for nausea. 11. Temazepam 15 mg at bedtime p.r.n. for insomnia. [id number]/[facility] #: [id number] MTDD
== END 2017-12-11 14:00 | disposition short-term general hospital (02) | DRG 835 ==
LOC: MED 09:00 → UNDOADMIN 16:19 → INTOOBSV 16:19 → MED 16:19 → OBSVTOIN 12-10 09:00
PROVIDERS: ADMIT Internal Medicine; ATTEND Internal Medicine
PROC: 30233N1 Transfusion of Nonautologous Red Blood Cells into Peripheral Vein, Percutaneous Approach (ICD-10-PCS; principal; 2017-12-10)
PROC: 07DR3ZX Extraction of Iliac Bone Marrow, Percutaneous Approach, Diagnostic (ICD-10-PCS; 2017-12-10)
DX: C92.40 Acute promyelocytic leukemia, not having achieved remission (principal); J90 Pleural effusion, not elsewhere classified; J81.1 Chronic pulmonary edema; R91.8 Other nonspecific abnormal finding of lung field; R63.0 Anorexia; R63.4 Abnormal weight loss; E11.3299 Type 2 diabetes mellitus with mild nonproliferative diabetic retinopathy without macular edema, unspecified eye; R80.9 Proteinuria, unspecified; H35.30 Unspecified macular degeneration; D64.9 Anemia, unspecified; I08.0 Rheumatic disorders of both mitral and aortic valves; I27.20 Pulmonary hypertension, unspecified; R00.0 Tachycardia, unspecified; D69.6 Thrombocytopenia, unspecified; F41.9 Anxiety disorder, unspecified; I10 Essential (primary) hypertension; M85.80 Other specified disorders of bone density and structure, unspecified site; E11.65 Type 2 diabetes mellitus with hyperglycemia; E86.0 Dehydration; E55.9 Vitamin D deficiency, unspecified; E78.5 Hyperlipidemia, unspecified; E87.70 Fluid overload, unspecified; Z88.1 Allergy status to other antibiotic agents; Z88.0 Allergy status to penicillin; Z87.440 Personal history of urinary (tract) infections; Z68.23 Body mass index [BMI] 23.0-23.9, adult; Z79.82 Long term (current) use of aspirin; Z79.4 Long term (current) use of insulin; Z82.49 Family history of ischemic heart disease and other diseases of the circulatory system; Z83.3 Family history of diabetes mellitus; Z82.5 Family history of asthma and other chronic lower respiratory diseases; Z81.1 Family history of alcohol abuse and dependence; Z98.42 Cataract extraction status, left eye; Z98.41 Cataract extraction status, right eye; Z90.710 Acquired absence of both cervix and uterus; Z90.722 Acquired absence of ovaries, bilateral
CPT/HCPCS: 36415; 38222; 71045; 80048; 80053; 80076; 81003; 81015; 81479; 82947; 83605; 84145; 84155; 84165; 84484; 84550; 85025; 85060; 85097; 85379; 85610; 85652; 86140; 86850; 86900; 86901; 86922; 87040; 87070; 87086; 87205; 88184; 88187; 88188; 88189; 88237; 88271; 88291; 88305; 88311; 88313; 93005; 93306; 99223; 99233; A9270-GY; G0378; J0696; J1200; J1644; J1940; P9040

== ENCOUNTER 2018-01-02 11:46 | Inpatient (IN) | payer MEDICARE ==
--- NOTE | 2018-01-02 12:07 | ED ---
Lower Extremity - HPI Summary HPI Summary: A 77 y/o F BIA presents to ED with c/o intermittent episodes of weakness. Her says she is weak every other day. Associated sx: decreased appetite, fall last night causing RLE pain. She fell onto her buttocks when attempting to use the bathroom. Denies: fever, cough, CP, melena, lightheadedness, back pain, LE numbness. Pt was recently at [facility]. She sees Dr. Melendez, oncology, for AML and is receiving chemo injections. She is supposed to be have a blood transfusion at 1130 this date. - History of Current Complaint Chief Complaint: EDWeakness Stated Complaint: WEAKNESS Time Seen by Provider: 01/02/18 11:58 Hx Obtained From: Patient, Family/Furnace Installer, Medical Records Mechanism Of Injury: Fall From A Standing Position Onset/Duration: Still Present Severity Initially: Moderate Severity Currently: Moderate Pain Intensity: 6 Pain Scale Used: 0-10 Numeric Associated Signs And Symptoms: Positive: Weakness, Other - pos: decreased appetite. Negative: Dizziness - Allergies/Home Medications Allergies/Adverse Reactions: Allergies Allergy/AdvReac Type Severity Reaction Status Date / Time amoxicillin [From Augmentin] AdvReac Vomiting Verified 01/04/18 16:35 ciprofloxacin [From Cipro] AdvReac Vomiting Verified 01/04/18 16:35 clavulanic acid AdvReac Vomiting Verified 01/04/18 16:35 [From Augmentin] levofloxacin [From Levaquin] AdvReac Vomiting Verified 01/04/18 16:35 nitrofurantoin AdvReac Vomiting Verified 01/04/18 16:35 [From Macrobid] Home Medications: Home Medications Acyclovir* [Zovirax 200 MG CAP*] 400 mg PO DAILY 01/02/18 [History Confirmed ] Allopurinol TAB* [Zyloprim 300 MG TAB*] 300 mg PO DAILY 01/02/18 [History Confirmed 01/02/18] Insulin GLARGINE(*) [Lantus(*)] 15 units SUBCUT QPM 01/02/18 [History Confirmed 01/02/18] Insulin LISPRO* [HumaLOG*] 2 - 10 units SUBCUT AC 01/02/18 [History Confirmed ] Ondansetron ODT TAB* [Zofran 4 MG Odt TAB*] 4 mg PO Q8H PRN 01/02/18 [History Confirmed 01/02/18] Prochlorperazine TAB* [Compazine Tab*] 10 mg PO Q6H PRN 01/02/18 [History Confirmed 01/02/18] Venetoclax [Venclexta] 400 mg PO DAILY WITH MEAL 01/02/18 [History Confirmed ] Vit C/E/Zn/Coppr/Lutein/Zeaxan [Preservision Areds 2 Softgel] 1 cap PO DAILY [History Confirmed 01/02/18] amLODIPine TAB* [Norvasc 5 mg TAB*] 5 mg PO DAILY 01/02/18 [History Confirmed ] azaCITIDine* SQ USE [Vidaza* SQ USE] 200 mg IM .7 DAYS A MONTH 01/02/18 [ History Confirmed 01/02/18] metFORMIN* [Glucophage 500 MG TAB *] 500 mg PO DAILY 01/02/18 [History Confirmed 01/02/18] PMH/Surg Hx/FS Hx/Imm Hx Previously Healthy: No Endocrine/Hematology History: Reports: Hx Diabetes, Hx Anemia Denies: Hx Thyroid Disease Cardiovascular History: Reports: Hx Hypertension, Other Cardiovascular Problems/ Disorders - aortic stenosis Denies: Hx Pacemaker/ICD Respiratory History: Reports: Hx Asthma - during cold wether Denies: Hx Chronic Obstructive Pulmonary Disease (COPD) GI History: Reports: Hx Gastroesophageal Reflux Disease Denies: Hx Jaundice, Hx Ulcer History: Reports: Hx Renal Disease Musculoskeletal History: Reports: Other Musculoskeletal History - hip fx in past Sensory History: Reports: Hx Contacts or Glasses Denies: Hx Hearing Aid Opthamlomology History: Reports: Hx Contacts or Glasses Neurological History: Denies: Hx Headaches Psychiatric History: Denies: Hx Panic Disorder - Surgical History Surgery Procedure, Year, and Place: hysterectomy, cataract SURGERY BILATERAL EYES-,. PESSARY FOR BLADDER. Right hip surgery 07/2016 Hx Anesthesia Reactions: No - nausea and vomiting Infectious Disease History: No Infectious Disease History: Denies: Hx Hepatitis, Hx Human Immunodeficiency Virus (HIV), Traveled Outside the [place] in Last 30 Days - Family History Known Family History: Positive: Cardiac Disease, Diabetes - Social History Occupation: Retired Lives: With Family Alcohol Use: Rare Hx Substance Use: No Substance Use Type: Reports: None Hx Tobacco Use: No Smoking Status (MU): Never Smoked Tobacco Review of Systems Positive: Other - pos: decreased appetite. Negative: Fever, Chills Negative: Erythema Negative: Sore Throat Negative: Chest Pain Negative: Shortness Of Breath, Cough Negative: Abdominal Pain, Vomiting, Nausea Negative: dysuria, hematuria Positive: Myalgia - RLE. Negative: Edema Negative: Rash Neurological: Other - neg: dizziness, lightheadedness Positive: Weakness All Other Systems Reviewed And Are Negative: Yes Physical Exam - Summary Physical Exam Summary: Constitutional: Well-developed, Well-nourished, Alert. (-) Distressed Skin: Warm, Dry HENT: Normocephalic; Atraumatic Eyes: Conjunctiva normal Neck: Musculoskeletal ROM normal neck. (-) JVD, (-) Stridor, (-) Tracheal deviation Cardio: Rhythm regular, rate normal, Heart sounds normal; Intact distal pulses; The pedal pulses are 2+ and symmetric. Radial pulses are 2+ and symmetric. (-) Murmur Pulmonary/Chest wall: Effort normal. Crackles L lower lung lobe. Abd: Soft, (-) epigastric tenderness, (-) Distension, (-) Guarding, (-) Rebound Musculoskeletal: (-) Edema. Pain with active ROM at R hip, no pain with passive ROM. No body tenderness. Lymph: (-) Cervical adenopathy Neuro: Alert, Oriented x3 Psych: Mood and affect Normal Triage Information Reviewed: Yes Vital Signs On Initial Exam: Initial Vitals Temp Pulse Resp BP Pulse Ox 99.6 F 97 19 108/45 97 01/02/18 11:56 01/02/18 11:56 01/02/18 11:56 01/02/18 11:56 01/02/18 11:56 Vital Signs Reviewed: Yes Diagnostics - Vital Signs Vital Signs Temp Pulse Resp BP Pulse Ox 01/02/18 11:56 99.6 F 97 19 108/45 97 - Laboratory Result Diagrams: 01/08/18 08:12 01/08/18 08:12 Lab Statement: Any lab studies that have been ordered have been reviewed, and results considered in the medical decision making process. - Radiology CXR Xray Interpretation: Positive (See Comments) - IMPRESSION: LEFT BASILAR INFILTRATE AND SMALL PLEURAL EFFUSIONS DEMONSTRATING SLIGHT PROGRESSION. ED provider has reviewed this report. Radiology Interpretation Completed By: Radiologist R FEMUR Xray Interpretation: No Acute Changes - IMPRESSION: POSTSURGICAL CHANGES, NO EVIDENCE FOR ACUTE FRACTURE. ED provider has reviewed this report. Radiology Interpretation Completed By: Radiologist HIP/PELVIS Xray Interpretation: No Acute Changes - IMPRESSION: STATUS POST INTERNAL FIXATION OF THE PROXIMAL RIGHT FEMUR. NO ACUTE OSSEOUS INJURY. IF SYMPTOMS PERSIST, RECOMMEND REPEAT IMAGING. ED provider has reviewed this report. Radiology Interpretation Completed By: Radiologist L-SPINE Xray Interpretation: No Acute Changes - IMPRESSION: 1. OSTEOPENIA. 2. AGE- INDETERMINATE COMPRESSION DEFORMITY OF L1 WITHOUT OSSEOUS RETROPULSION. 3. DEGENERATIVE DISC DISEASE AND OSTEOARTHRITIS. ED provider has reviewed this report. Radiology Interpretation Completed By: Radiologist - EKG 1403 Cardiac Rate: Tachycardia - 109 bpm EKG Rhythm: Sinus Tachycardia EKG Interpretation: no STEMI Re-Evaluation - Re-Evaluation 1 Re-Evaluation Time: 15:54 Change: Worse Comment: Pt has spiked a fever on reeval. Fluid admin limited due to IV flow- rate. Lower Extremity Course/Dx - Diagnoses Provider Diagnoses: Symptomatic anemia, Febrile neutropenia, PNA (pneumonia) - Physician Notifications Discussed Care Of Patient With: Ori Shirley - oncology Time Discussed With Above Provider: 15:45 Instructed by Provider To: Admit As Inpatient Discharge - Sign-Out/Discharge Documenting (check all that apply): Patient Departure - ADM - Discharge Plan Condition: Fair Disposition: ADMITTED TO [facility] - Billing Disposition and Condition Condition: FAIR Disposition: Admitted to [facility] - Attestation Statements Document Initiated by Scribe: Yes Documenting Scribe: Abdulkadir Chou Provider For Whom Anotinette is Documenting (Include Credential): Dr. Maynor Younger MD Scribe Attestation: Abdulkadir Bowden, scribed for Dr. Maynor Younger MD on 01/08/18 at 1050. Scribe Documentation Reviewed: Yes Provider Attestation: The documentation as recorded by the Abdulkadir alcala accurately reflects the service I personally performed and the decisions made by me, Dr. Maynor Younger MD
--- NOTE | 2018-01-02 13:43 | RAD ---
INDICATION: Fall. COMPARISON: Comparison is made with a prior chest x-ray study from December 10, 2017. TECHNIQUE: AP and lateral views of the chest were obtained. FINDINGS: The heart appears mildly enlarged and unchanged from the prior study. There is a PICC present. The catheter tip projects over the right atrium. There is an infiltrate in the mid and lower left lung field and a small left pleural effusion. The right lung appears clear. No pneumothorax is seen. IMPRESSION: LEFT BASILAR INFILTRATE AND SMALL PLEURAL EFFUSIONS DEMONSTRATING SLIGHT PROGRESSION.
--- NOTE | 2018-01-02 13:47 | RAD ---
INDICATION: Trauma. COMPARISON: Comparison is made with a prior x-ray study of the right hip from February 17, 2007. TECHNIQUE: 2 views of the right femur were obtained. FINDINGS: The patient is status post operative reduction internal fixation of a subcapital femoral neck fracture. There are 3 surgical screws present within the femoral neck and head which appear unchanged. The fracture appears healed. No acute fracture is seen. IMPRESSION: POSTSURGICAL CHANGES, NO EVIDENCE FOR ACUTE FRACTURE.
--- NOTE | 2018-01-02 13:48 | RAD ---
HISTORY: Fall, right femur pain COMPARISONS: February 17, 2017 VIEWS: 3 , Frontal view of the pelvis with frontal and frog-leg views of the right hip FINDINGS: BONE DENSITY: Normal. BONES: The patient is status post internal fixation of the proximal right femur. There is no hardware failure or osteolysis. JOINTS: There is mild osteoarthritis of the hips and SI joints. ALIGNMENT: There is no dislocation. SOFT TISSUES: Unremarkable. OTHER FINDINGS: None. IMPRESSION: STATUS POST INTERNAL FIXATION OF THE PROXIMAL RIGHT FEMUR. NO ACUTE OSSEOUS INJURY. IF SYMPTOMS PERSIST, RECOMMEND REPEAT IMAGING.
--- NOTE | 2018-01-02 13:49 | RAD ---
HISTORY: FALL COMPARISONS: None VIEWS: 5 , Frontal, lateral, coned-down lateral sacral, and bilateral oblique views of the lumbar spine. FINDINGS: ALIGNMENT: There is a mild levoscoliotic curvature of the spine. There is grade 1 anterolisthesis of L4 on L5. VERTEBRAL BODIES: There is diffuse osteopenia. There is depression of the superior endplate of L1 without osseous avulsion. There is multilevel anterolateral marginal osteophyte formation. JOINTS: There is facet osteoarthritis most pronounced at L4-L5 and L5-S1. INTERVERTEBRAL DISCS: There is diffuse loss of intervertebral disc height. SOFT TISSUE: Unremarkable. OTHER: The patient is status post internal fixation of the right femur. IMPRESSION: 1. OSTEOPENIA. 2. AGE-INDETERMINATE COMPRESSION DEFORMITY OF L1 WITHOUT OSSEOUS RETROPULSION. 3. DEGENERATIVE DISC DISEASE AND OSTEOARTHRITIS.
[2018-01-02 14:30] LABS: Hematocrit 14 % (35-47); Mean Corpuscular HGB Conc 35 g/dl (31-36); Mean Corpuscular Hemoglobin 32 pg (27-31); Mean Corpuscular Volume 91 fL (80-97); Mean Platelet Volume 9.2 um3 (7.4-10.4); Platelet Count 27 10^3/ul (150-450); Red Blood Count 1.57 10^6/ul (4.00-5.40); Red Cell Distribution Width 15 % (10.5-15); White Blood Count 0.1 10^3/ul (3.5-10.8)
[2018-01-02 14:43] LABS: EGFR Non-African American 72.9 (>60)
[2018-01-02] MEDS ORDERED: NS 0.9% 500 ML* 500 ML IV ONE (15:09)
[2018-01-02 15:30] LABS: ABS Basophils 0 10^3/ul (0-0.2); ABS Neutrophils 0.1 10^3/ul (1.5-7.7)
[2018-01-02 15:33] LABS: Monocytes % 6 % (0-7)
[2018-01-02 15:36] LABS: ABS Neutrophils 0 10^3/ul (1.5-7.7)
[2018-01-02] MEDS ORDERED: Cefepime 2 GM in Dextrose(*) 2 GM/50 ML BAG IV ONE (15:42)
[2018-01-02] MEDS ORDERED: Azithromycin IV(*) 500 MG in NS 0.9% 250 ML* 250 ML IVPB ONE (15:42)
[2018-01-02] MEDS ORDERED: Acetaminophen TAB* 325 MG PO ONE (15:53)
[2018-01-02] MEDS ORDERED: NS 0.9% 1000 ML* 2,000 ML IV ONE (15:59)
[2018-01-02] MEDS ORDERED: Ondansetron INJ* 2 MG/ML VIAL IV PRN (16:25)
[2018-01-02] MEDS ORDERED: NS 0.9% 1000 ML* 1,000 ML IV SCH (16:30)
[2018-01-02] MEDS ORDERED: Prochlorperazine TAB* 10 MG PO PRN (19:15)
[2018-01-02] MEDS ORDERED: Ondansetron ODT TAB* 4 MG PO PRN (19:15)
[2018-01-02] MEDS ORDERED: Dextrose 50% Syringe 50 ML* 25 GM/50 ML SYRINGE IV PUSH PRN (19:16)
[2018-01-02] MEDS ORDERED: Magnesium Sulfate 2 GM IV* 2 GM/50 ML BAG IVPB ONE (19:29)
[2018-01-02] MEDS: Insulin LISPRO* 1 UNITS UNIT SUBCUT SCH (22:09)
[2018-01-03] MEDS ORDERED: Furosemide IV* 10 MG/ML VIAL (40 MG) ONE (00:39)
--- NOTE | 2018-01-03 01:02 | PN ---
Progress Note - Progress Note Date of Service: 01/03/18 Note: I was called acutely to see Ms Ortega secondary to marked hypoxia. The patient had just completed her 1st unit of PRBC and at the completion of that unit her VS were stable and the patient was not hypoxic. When her nurse returned with the second unit of blood the patient was noted to have an O2 sat in the 60's. Respiratory was called and felt the patient needed transfer to the ICU. When I arrived the patient was in mild distress, her O2 saturation was 55-65%, she was tachycardic on exam and had diffuse crackles on lung exam. DDx includes pulmonary edema secondary to blood transfusion vs TRALI. Will send transfusion rxn work up. Transfer to ICU for BiPAP, administer IV lasix, monitor UOP. Monitor BP.
[2018-01-03 01:24] LABS: Hematocrit 26 % (35-47); Hemoglobin 8.7 g/dl (12.0-16.0); Mean Corpuscular HGB Conc 34 g/dl (31-36); Mean Corpuscular Hemoglobin 31 pg (27-31); Mean Corpuscular Volume 91 fL (80-97); Mean Platelet Volume 9.1 um3 (7.4-10.4); Platelet Count 23 10^3/ul (150-450); Red Cell Distribution Width 15 % (10.5-15); White Blood Count 0.1 10^3/ul (3.5-10.8)
[2018-01-03 01:45] LABS: Urine Appearance Cloudy; Urine Blood 1+ (Negative); Urine Color Amber; Urine Ketones Negative (Negative); Urine Protein 2+(100 mg/dL) (Negative); Urine Red Blood Cell 3+(>10/hpf) (Absent); Urine Urobilinogen Negative (Negative); Urine White Blood Cell 3+(>20/hpf) (Absent)
[2018-01-03 02:07] LABS: ABS Basophils 0 10^3/ul (0-0.2); Monocytes % 1 % (0-7)
[2018-01-03 02:09] LABS: ABS Neutrophils 0 10^3/ul (1.5-7.7)
[2018-01-03] MEDS: CEFEPIME ADVAN IVPB SCH ×6 (02:29→15:47)
[2018-01-03] MEDS: NS 0.9% IVPB SCH ×6 (02:29→15:47)
[2018-01-03] MEDS: oxyCODONE/Acetamin 5/325 MG* TAB PO PRN (02:30)
[2018-01-03] MEDS: NS 0.9% 1000 ML* 1,000 ML IV SCH ×2 (02:39→17:39)
--- NOTE | 2018-01-03 03:05 | HP ---
HISTORY AND PHYSICAL: DATE OF ADMISSION: 01/02/18 REASON FOR ADMISSION: Neutropenic fever and anemia. IDENTIFICATION: A 77-year-old female with recently diagnosed acute leukemia status post cycle 1 with azacitidine and venetoclax. HISTORY OF PRESENT ILLNESS: The patient initially presented on 12/09/17 with pancytopenia and weakne ss for 8 weeks. She was admitted and a bone marrow biopsy was performed by Dr. Melendez on 12/10/17. 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 Chromosome studies showed deletion 7. She was seen at [place] and judged not to be a candidate for in duction therapy. She was started on azacitidine and venetoclax by Dr. Melendez with cycle 1 receivin g 7 doses of azacitidine from 12/19/17 to 12/26/17. She initially tolerated therapy recently well. She had nausea the evening of her treatment, but strength and energy remained stable. Several days a fter she finished therapy, she did well also. Two to three days ago, she developed increasing weakne ss. Appetite has been falling off. Yesterday, she fell in the bathroom and her had to help her up, but then she was able to recover. This morning, she was extremely fatigued and tired. They h ad even been scheduled to come for a blood count at our office. He could not get her out of bed and called an ambulance. She presented to the emergency room at 1156, had a temperature of 99.6, blood p ressure 108/45, pulse rate 97, respirations 19. Blood count shows hemoglobin of 5, white count of 0. 1, and platelets of 27. Her ANC was 0, down from 1.6 on 12/11/17, but she has had a white count of 0 at least since 12/17/17. She was started on fluids and packed red blood cells were ordered. She robledo d a chest x-ray that shows a slight left basilar infiltrate. She was started on cefepime and azithro mycin based on the infiltrate and low-grade fever. At 1813, she spiked temperature to 104.3. The patient is feeling fatigued and weak. She has had anorexia, some mild abdominal pain. She has n ot had any diarrhea, nausea, but no vomiting. She has not had shortness of breath or cough, no evide nce of sinus, ear infection, no difficulty with urination or polyuria. PAST MEDICAL HISTORY: 1. AML. Diagnosed last month by Dr. Melendez and evaluated up at [place]. 2. Hypertension. 3. Diabetes followed by Dr. Langston and she generally had high blood sugars over the past several weeks. 4. with murmur. 5. Osteopenia, status post hip fracture with pinning. 6. Age-related macular degeneration. PAST SURGICAL HISTORY: 1. Hysterectomy and BSO in 1982. 2. Hip fracture with reduction on 07/29/17. 3. Cataracts. FAMILY HISTORY: Noncontributory. SOCIAL HISTORY: to Wilfredo Ortega, is with her, he is her primary support. Never smoked and used drugs, and no alcohol intake. REVIEW OF SYSTEMS: General: Fatigued, very weak, and has fevers. HEENT: Negative breathing. Respi ratory: Negative. Cardiac: Aortic stenosis otherwise negative. GI: As noted above, some nausea. No diarrhea. : Negative. Musculoskeletal: She has pain under her arms. Her picked her up. She is sore from a fall yesterday. No swollen or red joints. Skin: Bruises from azacitidine. Neurologic: Alert and oriented. PHYSICAL EXAMINATION VITAL SIGNS: Temperature of 104.3 on last check, BP 93/56, heart rate 109, respirations 18, O2 sat 9 6%. HEENT: Conjunctivae pale. No thrush. Mucosa dry. No clear lesions. LUNGS: Clear bilaterally. HEART: . S1, S2. ABDOMEN: No hepatosplenomegaly. Good bowel sounds. Nontender. Nondistended. NODES: No peripheral lymphadenopathy. SKIN: Bruising from the injections, but surprisingly few bruises, otherwise. I did not turn her to look at her back side. EXTREMITIES: No edema. Good pulses and warm to the touch. NEUROLOGIC: Alert and oriented x3. Strength 5/5 throughout. DIAGNOSTIC STUDIES/LAB DATA: Labs: Blood counts as noted above. She has sodium of 124, creatinine 0.77, BUN 36, glucose 301, calcium 8.4 with an albumin of 2.6, magnesium is 1.5. ASSESSMENT AND PLAN: A 77-year-old female who comes with acute leukemia, neutropenia, and febrile wi th possible left lower pneumonia. 1. Neutropenic fever. She is on cefepime 2 g q.8 hours and azithromycin to cover atypical pneumonia . Blood cultures are pending. We will continue antibiotics until recovery of her white count. Aggr essive fluid resuscitation. 2. Cardiovascular. We are going to hold her blood pressure medications and repeat with fluids. She will also receive 2 units of packed cells, which will help with volume resuscitation. 3. Hematologic. She is holding the venetoclax. Transfused 2 units of packed red blood cells today. Transfuse platelets under 20. Avoid support. 4. FEN. Hyponatremia likely from dehydration. Replete mag and potassium is stable. 5. GI. I encouraged oral intake and it is okay for the to bring meals in as long as they ar e consistent with neutropenic diet. 6. Hold DVT prophylaxis secondary to thrombocytopenia. 7. Discussed code status and they are adamant they want everything done to save her life. 8. Diabetes. Hold her metformin and her glargine. Continue lispro insulin on sliding scale. [id number]/[facility] #: [id number]
[2018-01-03] MEDS ORDERED: Magnesium Sulfate IV* 2 GM in NS 0.9% 100 ML* 100 ML IVPB ONE (04:00)
[2018-01-03 06:59] LABS: Hematocrit 20 % (35-47); Hemoglobin 6.8 g/dl (12.0-16.0); Mean Corpuscular HGB Conc 35 g/dl (31-36); Mean Corpuscular Hemoglobin 32 pg (27-31); Mean Corpuscular Volume 91 fL (80-97); Mean Platelet Volume 9.7 um3 (7.4-10.4); Platelet Count 23 10^3/ul (150-450); Red Blood Count 2.15 10^6/ul (4.00-5.40); Red Cell Distribution Width 15 % (10.5-15); White Blood Count 0.1 10^3/ul (3.5-10.8)
--- NOTE | 2018-01-03 07:05 | PN ---
Progress Note - Progress Note Date of Service: 01/03/18 SOAP: Subjective: events of overnight reviewed. acute respiratory distress after receiving first unit of blood. did respond well to lasix, though also still on IVFs. feels much better right now. reports several days of poor appetite, and 2 days of profound weakness. no clear respiratory issues prior to last night. Objective: Vital Signs Temp Pulse Resp BP Pulse Ox 98.6 F 98 15 108/57 97 01/03/18 03:43 01/03/18 06:00 01/03/18 06:15 01/03/18 06:15 01/03/18 06:00 sitting up in NAD perr eomi op dry dec bs left base s1 s2 nl soft nt +bs no le edema A+Ox3, grossly nonfocal though weak Laboratory Results - last 24 hr 01/02/18 01/02/18 01/02/18 13:57 13:57 13:58 WBC 0.1 L RBC 1.57 L Hgb 5.0 L* Hct 14 L MCV 91 MCH 32 H MCHC 35 RDW 15 Plt Count 27 L D MPV 9.2 Neut % (Auto) Not Reportable Lymph % (Auto) Not Reportable [place] % (Auto) Not Reportable Eos % (Auto) Not Reportable Baso % (Auto) Not Reportable Absolute Neuts (auto) 0 L* Absolute Lymphs (auto) Not Reportable Absolute Monos (auto) Not Reportable Absolute Eos (auto) Not Reportable Absolute Basos (auto) Not Reportable Absolute Nucleated RBC Not Reportable Immature Gran % 4 Neutrophils % 30 L Band Neutrophils % 2 Lymphocytes % 62 H Monocytes % 6 Eosinophils % Not Reportable Basophils % Not Reportable Metamyelocytes % 2 Myelocytes % Nucleated RBC % Not Reportable Abs Neuts (Manual) 0.1 L* Abs Lymphs (Manual) 0 L Abs Monocytes (Manual) 0 Absolute Eos (Manual) 0 Abs Basophils (Manual) 0 Toxic Granulation Normal RBC Morphology Not Reportable Hypochromasia Anisocytosis 1+ Patient Temperature ABG pH ABG pH (Temp Correct) ABG pCO2 ABG pCO2 (Temp Corrct ABG pO2 ABG pO2 (Temp Correct ABG HCO3 ABG O2 Saturation ABG Base Excess Respiration Rate O2 Delivery Device Ventilator Type Vent Mode FiO2 Inspiratory Time PEEP Pressure Support Pressure Control EPAP IPAP BiPAP Sodium 124 L Potassium 4.0 Chloride 92 L Carbon Dioxide 24 Anion Gap 8 BUN 36 H Creatinine 0.77 Est GFR ( Amer) 88.2 Est GFR (Non-Af Amer) 72.9 BUN/Creatinine Ratio 46.8 H Glucose 301 H POC Glucose (mg/dL) Lactic Acid Calcium 8.4 L Magnesium 1.5 L Total Bilirubin 1.20 H AST 16 ALT 10 Alkaline Phosphatase 79 Troponin I 0.01 Total Protein 7.3 Albumin 2.6 L Globulin 4.7 H Albumin/Globulin Ratio 0.6 L TSH 1.75 Urine Color Urine Appearance Urine pH Ur Specific [place] Urine Protein Urine Ketones Urine Blood Urine Nitrate Urine Bilirubin Urine Urobilinogen Ur Leukocyte Esterase Urine WBC (Auto) Urine RBC (Auto) Ur Squamous Epith Cells Ur Transition Epith Cell Urine Bacteria Urine Glucose Urine Ascorbic Acid Blood Type A Positive Antibody Screen Negative Crossmatch See Detail Transfusion React Rpt Donor Unit # Post-Trans Blood Type Post-Trans [id number] 01/02/18 01/02/18 01/03/18 13:58 22:03 00:58 WBC RBC Hgb Hct MCV MCH MCHC RDW Plt Count MPV Neut % (Auto) Lymph % (Auto) [place] % (Auto) Eos % (Auto) Baso % (Auto) Absolute Neuts (auto) Absolute Lymphs (auto) Absolute Monos (auto) Absolute Eos (auto) Absolute Basos (auto) Absolute Nucleated RBC Immature Gran % Neutrophils % Band Neutrophils % Lymphocytes % Monocytes % Eosinophils % Basophils % Metamyelocytes % Myelocytes % Nucleated RBC % Abs Neuts (Manual) Abs Lymphs (Manual) Abs Monocytes (Manual) Absolute Eos (Manual) Abs Basophils (Manual) Toxic Granulation Normal RBC Morphology Hypochromasia Anisocytosis Patient Temperature Not Reportable ABG pH 7.48 H ABG pH (Temp Correct) Not Reportable ABG pCO2 30 L ABG pCO2 (Temp Corrct Not Reportable ABG pO2 172 H ABG pO2 (Temp Correct Not Reportable ABG HCO3 24.4 ABG O2 Saturation 99.5 H ABG Base Excess -0.7 Respiration Rate 12 O2 Delivery Device bipap Ventilator Type Not Reportable Vent Mode Not Reportable FiO2 100 Inspiratory Time Not Reportable PEEP Not Reportable Pressure Support Not Reportable Pressure Control Not Reportable EPAP 6 IPAP 12 BiPAP s/t Sodium Potassium Chloride Carbon Dioxide Anion Gap BUN Creatinine Est GFR ( Amer) Est GFR (Non-Af Amer) BUN/Creatinine Ratio Glucose POC Glucose (mg/dL) 231 H Lactic Acid 1.5 Calcium Magnesium Total Bilirubin AST ALT Alkaline Phosphatase Troponin I Total Protein Albumin Globulin Albumin/Globulin Ratio TSH Urine Color Urine Appearance Urine pH Ur Specific [place] Urine Protein Urine Ketones Urine Blood Urine Nitrate Urine Bilirubin Urine Urobilinogen Ur Leukocyte Esterase Urine WBC (Auto) Urine RBC (Auto) Ur Squamous Epith Cells Ur Transition Epith Cell Urine Bacteria Urine Glucose Urine Ascorbic Acid Blood Type Antibody Screen Crossmatch Transfusion React Rpt Donor Unit # Post-Trans Blood Type Post-Trans [id number] 01/03/18 01/03/18 01/03/18 01:01 01:01 01:17 WBC 0.1 L RBC 2.80 L Hgb 8.7 L Hct 26 L MCV 91 MCH 31 MCHC 34 RDW 15 Plt Count 23 L MPV 9.1 Neut % (Auto) Not Reportable Lymph % (Auto) Not Reportable [place] % (Auto) Not Reportable Eos % (Auto) Not Reportable Baso % (Auto) Not Reportable Absolute Neuts (auto) Not Reportable Absolute Lymphs (auto) Not Reportable Absolute Monos (auto) Not Reportable Absolute Eos (auto) Not Reportable Absolute Basos (auto) Not Reportable Absolute Nucleated RBC Not Reportable Immature Gran % 10 H Neutrophils % 34 L Band Neutrophils % 10 H Lymphocytes % 55 H Monocytes % 1 Eosinophils % 0 Basophils % 0 Metamyelocytes % Myelocytes % 1 Nucleated RBC % Not Reportable Abs Neuts (Manual) 0 L* Abs Lymphs (Manual) 0.1 L Abs Monocytes (Manual) 0 Absolute Eos (Manual) 0 Abs Basophils (Manual) 0 Toxic Granulation 2+ Normal RBC Morphology Not Reportable Hypochromasia 1+ Anisocytosis 1+ Patient Temperature ABG pH ABG pH (Temp Correct) ABG pCO2 ABG pCO2 (Temp Corrct ABG pO2 ABG pO2 (Temp Correct ABG HCO3 ABG O2 Saturation ABG Base Excess Respiration Rate O2 Delivery Device Ventilator Type Vent Mode FiO2 Inspiratory Time PEEP Pressure Support Pressure Control EPAP IPAP BiPAP Sodium Potassium Chloride Carbon Dioxide Anion Gap BUN Creatinine Est GFR ( Amer) Est GFR (Non-Af Amer) BUN/Creatinine Ratio Glucose POC Glucose (mg/dL) Lactic Acid Calcium Magnesium Total Bilirubin AST ALT Alkaline Phosphatase Troponin I Total Protein Albumin Globulin Albumin/Globulin Ratio TSH Urine Color Nancy Urine Appearance Cloudy Urine pH 5.0 Ur Specific [place] 1.020 Urine Protein 2+(100 mg/dl) A Urine Ketones Negative Urine Blood 1+ A Urine Nitrate Negative Urine Bilirubin Negative Urine Urobilinogen Negative Ur Leukocyte Esterase Negative Urine WBC (Auto) 3+(>20/hpf) A Urine RBC (Auto) 3+(>10/hpf) A Ur Squamous Epith Cells Present A Ur Transition Epith Cell Present A Urine Bacteria 1+ A Urine Glucose Negative Urine Ascorbic Acid * A Blood Type Antibody Screen Crossmatch Transfusion React Rpt Donor Unit # [id number] Post-Trans Blood Type A Positive Post-Trans [id number] Negative 01/03/18 06:35 WBC 0.1 L RBC 2.15 L Hgb 6.8 L Hct 20 L MCV 91 MCH 32 H MCHC 35 RDW 15 Plt Count 23 L MPV 9.7 Neut % (Auto) Lymph % (Auto) [place] % (Auto) Eos % (Auto) Baso % (Auto) Absolute Neuts (auto) Absolute Lymphs (auto) Absolute Monos (auto) Absolute Eos (auto) Absolute Basos (auto) Absolute Nucleated RBC Immature Gran % Neutrophils % Band Neutrophils % Lymphocytes % Monocytes % Eosinophils % Basophils % Metamyelocytes % Myelocytes % Nucleated RBC % Abs Neuts (Manual) Abs Lymphs (Manual) Abs Monocytes (Manual) Absolute Eos (Manual) Abs Basophils (Manual) Toxic Granulation Normal RBC Morphology Hypochromasia Anisocytosis Patient Temperature ABG pH ABG pH (Temp Correct) ABG pCO2 ABG pCO2 (Temp Corrct ABG pO2 ABG pO2 (Temp Correct ABG HCO3 ABG O2 Saturation ABG Base Excess Respiration Rate O2 Delivery Device Ventilator Type Vent Mode FiO2 Inspiratory Time PEEP Pressure Support Pressure Control EPAP IPAP BiPAP Sodium Potassium Chloride Carbon Dioxide Anion Gap BUN Creatinine Est GFR ( Amer) Est GFR (Non-Af Amer) BUN/Creatinine Ratio Glucose POC Glucose (mg/dL) Lactic Acid Calcium Magnesium Total Bilirubin AST ALT Alkaline Phosphatase Troponin I Total Protein Albumin Globulin Albumin/Globulin Ratio TSH Urine Color Urine Appearance Urine pH Ur Specific [place] Urine Protein Urine Ketones Urine Blood Urine Nitrate Urine Bilirubin Urine Urobilinogen Ur Leukocyte Esterase Urine WBC (Auto) Urine RBC (Auto) Ur Squamous Epith Cells Ur Transition Epith Cell Urine Bacteria Urine Glucose Urine Ascorbic Acid Blood Type Antibody Screen Crossmatch Transfusion React Rpt Donor Unit # Post-Trans Blood Type Post-Trans [id number] CXR: left sided infiltrate, no white out Acetaminophen (Tylenol Tab*) 650 mg PO Q4H PRN PRN Reason: FEVER/PAIN Acyclovir (Zovirax Cap*) 400 mg PO DAILY [facility] Dextrose (D50w Syringe 50 Ml*) 12.5 gm IV PUSH .FOR FS < 60 - SS PRN PRN Reason: FS < 60 Cefepime HCl 2 gm/ Sodium (Chloride) 50 mls @ 100 mls/hr IVPB Q8H [facility] Last Admin: 01/03/18 02:29 Dose: 100 mls/hr Azithromycin 500 mg/ Sodium (Chloride) 250 mls @ 250 mls/hr IVPB Q24H [facility] Sodium Chloride (Ns 0.9% 1000 Ml*) 1,000 mls @ 150 mls/hr IV PER RATE [facility] Last Admin: 01/03/18 02:39 Dose: 150 mls/hr Insulin Human Lispro (Humalog*) 0 units SUBCUT [facility]; Protocol Last Admin: 01/02/18 22:09 Dose: 4 units Ondansetron HCl (Zofran Inj*) 4 mg IV Q4H PRN PRN Reason: NAUSEA/VOMITING Ondansetron HCl (Zofran Odt Tab*) 4 mg PO Q8H PRN PRN Reason: NAUSEA/VOMITING Oxycodone/Acetaminophen (Percocet 5/325 Tab*) 1 tab PO Q4H PRN PRN Reason: Pain Last Admin: 01/03/18 02:30 Dose: 1 tab Prochlorperazine (Compazine Tab*) 10 mg PO Q6H PRN PRN Reason: NAUSEA/VOMITING Assessment: 77 yo F w 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 I suspect that her respiratory distress last night was from TACO rather than TRALI given fast response to lasix (though curiously maintained on IVFs with lasix and still improved). She is markedly better now and can likely return to a medical floor later today, though will transfuse her in the ICU one unit first. Plan: Neutropenic fevers: LLL pneumonia and gram positive and gram negative bacteremia (urine with 3+ WBC so suspect this may be a contributing source. fu UCx) -check strep and legionella ag in urine -cont cefepime -add vanco -stop azithromycin pancytopenia: I suspect that she received hydroxyurea at [place] given that when she left here her WBC was 25k and upon return prior to starting ventoclax or aza it was 2.5. they are not sure of this. regardless it is more profound as expected from therapy -hold ventoclax for now -transfuse for Hb <7 and plts <15k or bleeding -no DVT prophylaxis with profound thrombocytopenia -stop allopurinol -cont acyclovir prophylaxis, increase to BID dosing -add bactrim on discharge decreased appetite: will give trial of marinol. no megace given clot risk. discussed medical marijuana and my office will certify next week full code
[2018-01-03] MEDS ORDERED: Vancomycin(*) 1,000 MG in NS 0.9% 250 ML* 250 ML IVPB ONE (07:06)
[2018-01-03 07:14] LABS: EGFR Non-African American 93.6 (>60)
[2018-01-03] MEDS ORDERED: Vancomycin per Pharmacy* NOTE FOLLOW UP PRN (07:17)
[2018-01-03 07:55] LABS: ABS Neutrophils 0 10^3/ul (1.5-7.7)
[2018-01-03] MEDS: Insulin LISPRO* 1 UNITS UNIT SUBCUT SCH ×4 (08:40→21:42)
[2018-01-03] MEDS: Acyclovir* 400 MG TAB PO SCH ×2 (08:41→21:40)
[2018-01-03] MEDS ORDERED: Allopurinol TAB* 300 MG PO SCH (09:00)
[2018-01-03] MEDS ORDERED: Acyclovir* 200 MG CAP PO SCH (09:00)
--- NOTE | 2018-01-03 10:42 | RAD ---
INDICATION: Hypoxia COMPARISON: Chest x-ray dated January 02, 2018 TECHNIQUE: Single AP portable view of the chest was obtained. FINDINGS: Image quality is compromised due to the relative inferiority of a portable chest x-ray. Again seen is an appropriately positioned right PICC line with the tip terminating at the cavoatrial junction. The heart and mediastinum exhibit normal size and contour. There is density obscuring the left lung base and left hemidiaphragm. Elsewhere there are faint patchy densities overlying the bilateral lungs similar in appearance to the previous chest x-ray. The pulmonary vasculature appears mildly engorged. Visualized bones are normal for the patient's age. IMPRESSION: 1. Density obscuring the left lung base is unchanged from the previous days chest x-ray and could represent pneumonia, consolidation or pleural effusion. 2. The pulmonary vasculature appears mildly engorged and indistinct indicating vascular congestion. R1
[2018-01-03] MEDS: Dronabinol CAP* 2.5 MG PO SCH ×4 (12:21→21:41)
[2018-01-03] MEDS: Acetaminophen TAB* 325 MG PO PRN (14:22)
[2018-01-03] MEDS ORDERED: Azithromycin IV(*) 500 MG in NS 0.9% 250 ML* 250 ML IVPB SCH (17:00)
--- NOTE | 2018-01-04 00:50 | PN ---
Progress Note - Progress Note Date of Service: 01/04/18 Note: Pharmacy notified of MSSA positive blood CX. ABX changed to cefazolin 2g Q8H per protocol.
[2018-01-04] MEDS ORDERED: ceFAZolin 2 GM in NS PREMIX(*) 2 GM/100 ML BAG IVPB SCH (01:00)
[2018-01-04] MEDS: ceFAZolin* 2 GM in NS 100 MLS Q8HR IVPB SCH ×3 (01:18→16:31)
[2018-01-04] MEDS: NS 0.9% IVPB SCH ×4 (02:46→17:31)
[2018-01-04] MEDS: CEFEPIME ADVAN IVPB SCH ×4 (02:46→17:31)
[2018-01-04 07:29] LABS: Hematocrit 24 % (35-47); Hemoglobin 8.3 g/dl (12.0-16.0); Mean Corpuscular HGB Conc 35 g/dl (31-36); Mean Corpuscular Hemoglobin 31 pg (27-31); Mean Corpuscular Volume 90 fL (80-97); Mean Platelet Volume 9.7 um3 (7.4-10.4); Platelet Count 25 10^3/ul (150-450); Red Blood Count 2.67 10^6/ul (4.00-5.40); Red Cell Distribution Width 15 % (10.5-15); White Blood Count 0.1 10^3/ul (3.5-10.8)
[2018-01-04 07:37] LABS: EGFR Non-African American 146.7 (>60)
[2018-01-04] MEDS: Insulin LISPRO* 1 UNITS UNIT SUBCUT SCH ×4 (08:23→22:44)
[2018-01-04] MEDS: Acyclovir* 400 MG TAB PO SCH ×2 (08:24→22:44)
[2018-01-04] MEDS: Dronabinol CAP* 2.5 MG PO SCH ×3 (08:24→17:07)
[2018-01-04] MEDS: Acetaminophen TAB* 325 MG PO PRN ×2 (08:24→17:05)
[2018-01-04 08:32] LABS: ABS Basophils 0 10^3/ul (0-0.2); ABS Neutrophils 0 10^3/ul (1.5-7.7); ABS Neutrophils 0.1 10^3/ul (1.5-7.7); Monocytes % 4 % (0-7)
--- NOTE | 2018-01-04 16:11 | PN ---
Subjective Date of Service: 01/04/18 Interval History: Ms. Ortega reports feeling better than she did on arrival but she remains very tired. She denies complaint of chest pain, SOB, nausea, or abdominal pain. Nursing staff called to report an area of induration with erythema distal to her PICC line in her right arm. PICC assessed by nurse from PICC team and noted to be functioning appropriately. Objective Active Medications: Acetaminophen (Tylenol Tab*) 650 mg PO Q4H PRN Acyclovir (Zovirax Tab*) 400 mg PO Q12HR BURT Dextrose (D50w Syringe 50 Ml*) 12.5 gm IV PUSH .FOR FS < 60 - SS PRN Dronabinol (Marinol Cap*) 2.5 mg PO TID AC BURT Cefazolin Sodium 2 gm/ Sodium (Chloride) 100 mls @ 200 mls/hr IVPB 0000,0800, 1600 BURT Insulin Human Lispro (Humalog*) 0 units SUBCUT ACHS BURT; Protocol Ondansetron HCl (Zofran Inj*) 4 mg IV Q4H PRN Ondansetron HCl (Zofran Odt Tab*) 4 mg PO Q8H PRN Oxycodone/Acetaminophen (Percocet 5/325 Tab*) 1 tab PO Q4H PRN Prochlorperazine (Compazine Tab*) 10 mg PO Q6H PRN Vital Signs: Temp Pulse Resp BP Pulse Ox 98.1 F 84 18 106/42 95 01/04/18 11:59 01/04/18 11:59 01/04/18 12:57 01/04/18 11:59 01/04/18 11:59 Oxygen Devices in Use Now: Nasal Cannula Appearance: Female lying in bed with multiple family members at bedside, appears tired but in NAD Eyes: No Scleral Icterus Ears/Nose/Mouth/Throat: Mucous Membranes Moist Neck: Trachea Midline Respiratory: Symmetrical Chest Expansion and Respiratory Effort, Clear to Auscultation Cardiovascular: - - Systolic murmur at sternal border Abdominal: NL Sounds; No Tenderness; No Distention Lymphatic: No Cervical Adenopathy Extremities: No Edema Skin: - - Consolidated area of edema with erythema distal to PICC in R arm confirmed, PICC site itself without erythema. Neurological: Alert and Oriented x 3, NL Muscle Strength and Tone Nutrition: Taking PO's - Nutrition: Malnutrition Diagnosis/Plan Malnutrition Assessment by Registered Dietitian: Malnutrition Assessment Clinical Characteristics Acute,Severe Malnutrition Assessment: - wt loss 8.7% within past three months Criteria - < 50% estimated energy expenditure > 5 days + mild temporal muscle wasting per visual assessment Malnutrition Assessment: - possible trial of Glucerna Shakes (pt tried Interventions chocolate Ensure at home, said it's "too rich") - [place] yogurt @ D tonight (120 kcals, 12 g prot ) - small edmond milkshake + protein powder daily @ L (235 kcals, 11 g prot) - Marinol per MD order - agree w/REGULAR diet desppite hx T2DM; Humalog coverage per protocol Malnutrition Assessment: Goals 1. improved and adequate po intake to maintain lean body mass without further wt loss 2. adequate hydration and serum electrolytes WNL w/ repletion 3. glycemic control w/ appropriate insulin regimen; no s/sx hypo-or hyprglycemia 4. regularity of bowel pattern w/o constipation (or diarrhea) Result Diagrams: 01/04/18 06:59 01/04/18 06:59 Microbiology and Other Data: Microbiology 01/03/18 01:01 Transfusion Reaction Culture - Preliminary Blood Bag Culture Under Incubation Transfusion Reaction Gram Stain - Final 01/03/18 01:17 Urine Culture - Preliminary Urine Pseudomonas Aeruginosa Enterococcus Faecium Escherichia Coli 01/02/18 16:24 Aerobic Blood Culture - Preliminary Blood Line Pseudomonas Aeruginosa Anaerobic Blood Culture - Preliminary Staphylococcus Aureus Blood MRSA/MSSA (PCR) - Final Mrsa Negative S.aureus Positive 01/02/18 16:02 Aerobic Blood Culture - Final Blood Line Escherichia Coli Staphylococcus Aureus Anaerobic Blood Culture - Final Staphylococcus Aureus Blood MRSA/MSSA (PCR) - Final Mrsa Negative S.aureus Positive Assess/Plan/Problems-Billing Assessment: Ms. Ortega is a 77 yo F with a PMH of recent diagnosis of leukemia who was admitted on 01/02/18 with neutropenic fever and anemia in setting of one dose of azacitidine and venetoclax. - Patient Problems (1) Neutropenic fever Comment: - Afebrile today. Absolute neutrophils remain 0. - Blood cultures positive for pseudomonoas, MSSA, ecoli. - Urine culture with enterococcus - Cefepime 2 grams q8H. (2) Pancytopenia Comment: - Anemia stable at Hgb 8 after 2 units PRBC. - Other counts unchanged. (3) Acute leukemia Comment: - Management per oncology. (4) Urinary retention Comment: - Question of urinary retention per nursing notes from 01/03/18. - Continue cowart for now but would consider voiding trial soon. (5) Aortic stenosis Comment: - Moderate aortic stenosis per echo 12/10/17. - Will order TTE given MSSA positive blood cultures. (6) Full code status Comment: Status and Disposition: Inpatient. Disposition per ortho.
[2018-01-04] MEDS ORDERED: Cefepime 2 GM in Dextrose(*) 2 GM/50 ML BAG IV SCH (17:00)
[2018-01-04] MEDS ORDERED: Cefepime 1 GM in Dextrose(*) 1 GM/50 ML BAG IV SCH (17:00)
--- NOTE | 2018-01-04 21:58 | RAD ---
EXAM: US Right Upper Extremity Non-Vascular, Limited CLINICAL HISTORY: 77 years old, female; Signs and symptoms; Mass or lump and swelling; Arm, upper; Right; Additional info: R arm area of tenderness, erythema, swelling TECHNIQUE: Real-time ultrasound scan of the right upper extremity with image documentation. COMPARISON: No relevant prior studies available. FINDINGS: Focused ultrasound of the area of palpable abnormality in the right upper arm, shows no definite mass or fluid collection. There is mild generalized soft tissue swelling. The veins in this region are patent with normal compressibility. IMPRESSION: Apart from generalized swelling, no definite abnormality seen in the area of concern.
[2018-01-05] MEDS: Acetaminophen TAB* 325 MG PO PRN (01:23)
[2018-01-05] MEDS: CEFEPIME ADVAN IVPB SCH ×6 (01:23→17:39)
[2018-01-05] MEDS: NS 0.9% IVPB SCH ×6 (01:23→17:39)
[2018-01-05] MEDS: oxyCODONE/Acetamin 5/325 MG* TAB PO PRN (06:41)
[2018-01-05 07:11] LABS: Hematocrit 24 % (35-47); Hemoglobin 8.3 g/dl (12.0-16.0); Mean Corpuscular HGB Conc 35 g/dl (31-36); Mean Corpuscular Hemoglobin 31 pg (27-31); Mean Corpuscular Volume 90 fL (80-97); Mean Platelet Volume 9.9 um3 (7.4-10.4); Platelet Count 51 10^3/ul (150-450); Red Blood Count 2.66 10^6/ul (4.00-5.40); Red Cell Distribution Width 16 % (10.5-15); White Blood Count 0.2 10^3/ul (3.5-10.8)
[2018-01-05 07:14] LABS: EGFR Non-African American 187.2 (>60)
--- NOTE | 2018-01-05 08:00 | RAD ---
INDICATION: Shortness of breath. COMPARISON: Chest x-ray January 03, 2018 TECHNIQUE: Single AP portable view of the chest was obtained. FINDINGS: Image quality is compromised due to the relative inferiority of a portable chest x-ray. Again seen is a right-sided PICC line with the tip terminating at the superior vena cava. The heart and mediastinum exhibit normal size and contour. There is density obscuring the left lung base including the left hemidiaphragm. Patchy densities are seen overlying the bilateral central lungs. Visualized bones are normal for the patient's age. IMPRESSION: Chest x-ray findings are most consistent with pulmonary vascular congestion likely with a moderate-sized pleural effusion at the left lung base. Overall there is slight improvement in aeration relative to the most recent January 03, 2018 chest x-ray.
[2018-01-05 08:03] LABS: ABS Basophils 0 10^3/ul (0-0.2); ABS Neutrophils 0.1 10^3/ul (1.5-7.7); Monocytes % 9 % (0-7)
[2018-01-05] MEDS: Dronabinol CAP* 2.5 MG PO SCH ×3 (08:25→17:39)
[2018-01-05] MEDS: Insulin LISPRO* 1 UNITS UNIT SUBCUT SCH ×4 (08:25→21:20)
[2018-01-05] MEDS: Acyclovir* 400 MG TAB PO SCH ×2 (08:25→20:32)
--- NOTE | 2018-01-05 11:17 | PN ---
Progress Note - Progress Note Date of Service: 01/05/18 SOAP: Subjective: []Better today. Eating more and food looks good. Diffuse body aches. Does not like [place]. Worked with PT yesterday. Acetaminophen (Tylenol Tab*) 650 mg PO Q4H PRN PRN Reason: FEVER/PAIN Last Admin: 01/05/18 01:23 Dose: 650 mg Acyclovir (Zovirax Tab*) 400 mg PO Q12HR [facility] Last Admin: 01/05/18 08:25 Dose: 400 mg Dextrose (D50w Syringe 50 Ml*) 12.5 gm IV PUSH .FOR FS < 60 - SS PRN PRN Reason: FS < 60 Dronabinol (Marinol Cap*) 2.5 mg PO TID AC [facility] Last Admin: 01/05/18 08:25 Dose: 2.5 mg Heparin Sodium (Porcine) (Heparin Flush Picc/Ml/Cvc(*)) 1 ml FLUSH 0600,1800 [facility]; Protocol Last Admin: 01/05/18 06:41 Dose: 1 ml Cefepime HCl 2 gm/ Sodium (Chloride) 50 mls @ 100 mls/hr IVPB Q8H [facility] Last Admin: 01/05/18 08:27 Dose: 100 mls/hr Insulin Human Lispro (Humalog*) 0 units SUBCUT ACHS [facility]; Protocol Last Admin: 01/05/18 08:25 Dose: 4 units Ondansetron HCl (Zofran Inj*) 4 mg IV Q4H PRN PRN Reason: NAUSEA/VOMITING Ondansetron HCl (Zofran Odt Tab*) 4 mg PO Q8H PRN PRN Reason: NAUSEA/VOMITING Oxycodone/Acetaminophen (Percocet 5/325 Tab*) 1 tab PO Q4H PRN PRN Reason: Pain Last Admin: 01/05/18 06:41 Dose: 1 tab Prochlorperazine (Compazine Tab*) 10 mg PO Q6H PRN PRN Reason: NAUSEA/VOMITING Objective: [] Vital Signs Temp Pulse Resp BP Pulse Ox 98.2 F 92 18 107/56 98 01/05/18 08:13 01/05/18 08:13 01/05/18 08:25 01/05/18 08:13 01/05/18 08:13 HEENT: Mucosa moist. she has lesion on left side of tongue. CTA II/ CARMELITA +BS NT ND Picc not red No CHAITANYA, good pulses Neuro - AAOx3 at time of my exam Microbiology 01/03/18 01:01 Blood Bag Transfusion Reaction Culture - Preliminary No Growth Day 2 01/03/18 01:01 Blood Bag Transfusion Reaction Gram Stain - Final 01/02/18 16:24 Blood Line Aerobic Blood Culture - Final Pseudomonas Aeruginosa 01/02/18 16:24 Blood Line Anaerobic Blood Culture - Final Staphylococcus Aureus 01/02/18 16:24 Blood Line Blood MRSA/MSSA (PCR) - Final Mrsa Negative S.aureus Positive 01/02/18 16:02 Blood Line Aerobic Blood Culture - Final Escherichia Coli Staphylococcus Aureus 01/02/18 16:02 Blood Line Anaerobic Blood Culture - Final Staphylococcus Aureus 01/02/18 16:02 Blood Line Blood MRSA/MSSA (PCR) - Final Mrsa Negative S.aureus Positive 01/03/18 01:17 Urine Urine Culture - Final Pseudomonas Aeruginosa Enterococcus Faecium Escherichia Coli Assessment: 77 yo F w 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 Course c/b acute respiratory failure, now improved. Overall, doing better today. Plan: 1. Neutropenic fever. LLL pneumonia and gram positive and gram negative bacteremia, polybacterial UTI -Continue cefepime and vanco - ID Consult. - Ok to pull PICC if needed - chronic, question Echo. 2. Pancytopenia. Hold Ventoclax and transfuse as needed. Slight improvement. -transfuse for Hb <7 and plts <15k or bleeding -no DVT prophylaxis with profound thrombocytopenia -cont acyclovir BID - Bactrim DS MWF on discharge 3. Appetite better on Marinol. 4. DM. Improved BS, re-start Lantus 15 U daily and continue ISS 5. Pressure and Cr stable, d/c Coppola. 6. Full code 7. PT daily 8. Discussion with family, all questions answered
[2018-01-05] MEDS: Insulin GLARGINE(*) 1 UNITS UNIT SUBCUT SCH (12:15)
--- NOTE | 2018-01-05 13:42 | CONS ---
CONSULTATION REPORT: DATE OF CONSULT: 01/05/18 REQUESTING PHYSICIAN: Dr. Shirley. CONSULTING SERVICE: Infectious Disease. REASON FOR CONSULT: Bacteremia. IMPRESSION: 1. Admitted with encephalopathy and malaise and fever to 40.2 degrees. Found to have Staphylococcus aureus, Escherichia coli, and pseudomonas in her blood. She does have a PICC line which was placed about 3 weeks ago as an inpatient at [facility]. Urine culture grew pseudomonas, Escherichia coli, and Enterococcus faecium. She has no back pain. She has no other prosthetic material present __ ___ she has a PICC infection. 2. Acute myelogenous leukemia, being treated with chemotherapy. 3. Hypertension. 4. Diabetes. 5. Aortic stenosis. 6. She has neutropenia, chemotherapy related. There is anemia and thrombocytopenia as well. RECOMMENDATION: Continue cefepime 2 g every 8 hours. We will recheck the blood cultures tomorrow to be sure the Staph aureus is cleared. We will remove the PICC line and she got peripheral IVs for now. Follow her white cell count. ANC today was 100. HISTORY OF PRESENT ILLNESS: This is a 77-year-old woman recently diagnosed with AML, initially treated at [facility]. She had a PICC line placed there, was having outpatient chemotherapy and some transfusion, and then Friday was unresponsive according to her and had fever, malaise. 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 Hemoglobin was 5, she was febrile, ANC was 0. There was a slight infiltrate in the left lung on x-ray. She was started on cefepime and azithromycin. Blood cultures were taken that grew 3/4 bottles of Staph aureus; pseudomonas in 1/4; E. coli in 1/4. Urine culture grew pseudomonas, E. coli, and enterococcus. Urinalysis had shown blood and white cells. No leukocyte esterase. She has no dysuria or flank pain. She had had a history of right hip pinning which is not bothering her. She has had no back pain. PAST MEDICAL HISTORY: 1. AML. 2. Hypertension. 3. Diabetes. 4. Aortic stenosis. 5. Osteopenia. 6. Macular degeneration. 7. Status post hysterectomy and BSO in 1982. 8. History of hip fracture, status post open reduction internal fixation in July 2017. 9. Cataracts. MEDICATIONS: 1. Tylenol. 2. Acyclovir. 3. Cefepime 2 g every 8 hours. 4. Heparin flushed through PICC line. 5. Insulin glargine. 6. Dronabinol. 7. Zofran. 8. Oxycodone. 9. Prochlorperazine. ALLERGIES: AMOXICILLIN, CIPROFLOXACIN, LEVOFLOXACIN, NITROFURANTOIN. FAMILY HISTORY: No recurrent infections. SOCIAL HISTORY: She lives with her . Nonsmoker. Does not use alcohol. REVIEW OF SYSTEMS: All negative except as noted above in the history of present illness. PHYSICAL EXAM: Vital Signs: Temperature 36.8, heart rate 90, respiratory rate 18, blood pressure 107/56, and oxygen saturation 98% on room air. General: She is awake, not in distress. Neurologic: She is oriented x3, follows commands, answers most questions appropriately. She does dose off during the discussion. HEENT: There is no conjunctival hemorrhage. Oropharynx without lesions. Neck is supple without mass. Heart has regular rate and rhythm with a 2/6 systolic murmur. Lungs are clear to auscultation bilaterally. Abdomen: Soft, nontender, and nondistended. There are bowel sounds present. Skin: There is no rash or splinter hemorrhage. Musculoskeletal: There is no spine tenderness to palpation or joint synovitis. There is a right upper extremity PICC line with a distal area of slight induration, erythema, and warmth distal to the entry point. LABORATORY DATA: White blood cell count 0.2, hemoglobin 8, platelets 51. Creatinine 0.3. Please see impressions and recommendations as outlined above, which I have discussed with Dr. Shirley. Thanks for asking me to see Ms. Ortega in consultation. [id number]/[facility] #: [id number] SUKHDEV
--- NOTE | 2018-01-05 17:40 | ECHO ---
Patient: ANGEL QUEVEDO Rec#: [id number] : 1940 Date: 01/05/2018 Age: 77y Height: 168 cm / 66.1 in Weight: 66.2 kg / 145.9 lbs Sex: F BSA: 1.75 Room#: [facility] Admit Date#: 01/02/2018 Type: Inpatient Referring: Alisha Charles NP Reading: Sebas Fernando MD Linting Machine Operator: Amanda Tamayo RN RDCS CC: Nathan Langston MD Transthoracic Echocardiogram Indication: MSSA bacteremia BP: 113/40 HR: 102 Rhythm: Tachycardia Findings History: AML, chemotherapy, HTN, DM, ASA, GERD Technical Comments: The study quality is good. Left Ventricle: The left ventricular chamber size is normal. Mild concentric left ventricular hypertrophy is observed. Global left ventricular wall motion and contractility are within normal limits. There is normal left ventricular systolic function. The estimated ejection fraction is 55-60%. Abnormal left ventricular diastolic filling is observed, consistent with impaired relaxation. Left Atrium: The left atrium is mildly dilated. Right Ventricle: The right ventricular cavity size is normal. The right ventricular global systolic function is normal. Right Atrium: The right atrium is mildly dilated. Aortic Valve: The aortic valve is trileaflet. The aortic valve leaflets are moderately thickened. Systolic excursion of the aortic valve cusps is reduced. There is no evidence of aortic regurgitation. There is moderate aortic stenosis. The mean gradient of the aortic valve is 32 mmHg. The peak instantaneous gradient of the aortic valve is 49 mmHg. The aortic valve area, by peak velocities, is calculated at 0.9 cm2. The aortic valve area, by VTI's, is calculated at 1.1 cm2. The highest aortic valve velocity was obtained with the standard probe from the A5C view. No obvious vegetation is seen on the aortic valve. Mitral Valve: Moderate mitral annular calcification present. The mitral valve leaflets are mildly thickened. Mild subvalvular thickening of the mitral valve is visualized. There is mild mitral regurgitation. There is no evidence of mitral stenosis. No vegetation is observed on the mitral valve. Tricuspid Valve: The tricuspid valve leaflets are normal. There is trace to mild tricuspid regurgitation. Unable to estimate the right ventricular systolic pressure. There is no tricuspid stenosis. No vegetation is observed on the tricuspid valve. Pulmonic Valve: The pulmonic valve appears normal. There is a trace pulmonic regurgitation. There is no pulmonic stenosis. No vegetation is observed on the pulmonic valve. Pericardium: There is no significant pericardial effusion. Aorta: There is no dilatation of the ascending aorta. There is no dilatation of the aortic arch. There is no dilation of the aortic root. Pulmonary Artery: The main pulmonary artery appears normal. Venous: The venous system is not well visualized. Summary: There are no significant changes when compared to the previous study done on 12/10/17 Conclusions Global left ventricular wall motion and contractility are within normal limits. There is normal left ventricular systolic function. The estimated ejection fraction is 55-60%. The right ventricular global systolic function is normal. Systolic excursion of the aortic valve cusps is reduced. There is moderate aortic stenosis. The mean gradient of the aortic valve is 32 mmHg. The aortic valve area, by peak velocities, is calculated at 0.9 cm2. There is mild mitral regurgitation. There is no evidence of mitral stenosis. There is trace to mild tricuspid regurgitation. Unable to estimate the right ventricular systolic pressure. There is no significant pericardial effusion. There are no significant changes when compared to the previous study done on 12/10/17 If concern continues for endocarditis, then A CLAIR would be the next test Measurements Name Value Normal Range RVDdMajor (2D) 2.8 cm (2.2 - 4.4) RAd ISD 4CH 5.2 cm (3.4 - 4.9) RA (A4C)W 4.4 cm (2.9 - 4.6) IVSd (2D) 1.2 cm (0.6 - 1) LVPWd (2D) 1.1 cm (0.6 - 1) LVIDd (2D) 4 cm (3.6 - 5.4) LVIDs (2D) 3.1 cm - LV FS (2D) 22 % (25 - 45) Aortic Annulus 2 cm (1.4 - 2.6) Ao root diameter (2D) 2.7 cm (2.1 - 3.5) Ascending Ao 3.4 cm (2.1 - 3.4) Aortic arch 2.7 cm (1.8 - 3.4) LA dimension (AP) 2D 4.3 cm (2.3 - 3.8) LAd ISD 4CH 5.4 cm (2.9 - 5.3) LA ISD 4CH W 4.4 cm (2.5 - 4.5) Name Value Normal Range LA ESV BP (A/L) index 36 ml/m2 - LV mass (2D) 155.39 g - LV mass (2D) index 88.79 g/m2 - Name Value Normal Range MV E-wave Vmax 1.1 m/sec - MV deceleration time 201 msec - MV A-wave Vmax 1.5 m/sec - MV E:A ratio 0.73 ratio - LV septal e' Vmax 0.06 m/sec - LV lateral e' Vmax 0.08 m/sec - LV E:e' septal ratio 18.3 ratio - LV E:e' lateral ratio 13.8 ratio - Name Value Normal Range AV Vmax 3.5 m/sec - AV VTI 74.3 cm - AV peak gradient 49 mmHg - AV mean gradient 32 mmHg - LVOT diameter 2 cm - LVOT Vmax 0.95 m/sec - LVOT VTI 25 cm - LVOT peak gradient 4 mmHg - LVOT mean gradient 2 mmHg - DOI (VTI) 0.34 ratio - DOI (Vmax) 0.27 ratio - SV LVOT 78.5 ml - CO LVOT 8 l/min - Cardiac index 4.6 l/min/m2 - YUNG (continuity Vmax) 0.9 cm2 - YUNG (continuity VTI) 1.1 cm2 - Name Value Normal Range MV Vmax 1.6 m/sec - MV VTI 33.2 cm - MV peak gradient 10 mmHg - MV mean gradient 5 mmHg - MV PHT 65 msec - MVA (PHT) 3.4 cm2 - MVA (continuity VTI) 2.4 cm2 - Name Value Normal Range PV Vmax 1.3 m/sec -
[2018-01-05] MEDS: Magic M W2 Ben/Maal/Nyst/Lido* 240 ML MOUTHWASH (alt formulation) SWISH SPIT SCH ×2 (17:41→21:32)
[2018-01-05] MEDS ORDERED: NS 0.9% 500 ML* 500 ML IV ONE (18:40)
[2018-01-06] MEDS: CEFEPIME ADVAN IVPB SCH ×6 (02:05→17:04)
[2018-01-06] MEDS: NS 0.9% IVPB SCH ×6 (02:05→17:04)
[2018-01-06 07:15] LABS: Hematocrit 26 % (35-47); Hemoglobin 8.7 g/dl (12.0-16.0); Mean Corpuscular HGB Conc 34 g/dl (31-36); Mean Corpuscular Hemoglobin 31 pg (27-31); Mean Corpuscular Volume 90 fL (80-97); Mean Platelet Volume 9.5 um3 (7.4-10.4); Platelet Count 92 10^3/ul (150-450); Red Blood Count 2.84 10^6/ul (4.00-5.40); Red Cell Distribution Width 15 % (10.5-15); White Blood Count 0.3 10^3/ul (3.5-10.8)
[2018-01-06 07:26] LABS: EGFR Non-African American 200.8 (>60)
[2018-01-06 07:55] LABS: ABS Basophils 0 10^3/ul (0-0.2); ABS Neutrophils 0.2 10^3/ul (1.5-7.7); Monocytes % 5 % (0-7)
[2018-01-06] MEDS: Dronabinol CAP* 2.5 MG PO SCH (09:17)
[2018-01-06] MEDS: Insulin LISPRO* 1 UNITS UNIT SUBCUT SCH ×4 (09:18→22:28)
[2018-01-06] MEDS: Acyclovir* 400 MG TAB PO SCH ×2 (09:19→22:29)
[2018-01-06] MEDS: Magic M W2 Ben/Maal/Nyst/Lido* 240 ML MOUTHWASH (alt formulation) SWISH SPIT SCH ×4 (09:19→22:29)
[2018-01-06] MEDS: Insulin GLARGINE(*) 1 UNITS UNIT SUBCUT SCH (11:45)
[2018-01-06] MEDS: KCL 20 MEQ/100 ML IVPREMIX* 20 MEQ/100 ML BAG IV SCH ×2 (11:45→13:50)
[2018-01-06] MEDS: Enoxaparin(*) 40 MG/0.4 ML SYR SUBCUT SCH (11:45)
[2018-01-06] MEDS: Acetaminophen TAB* 325 MG PO PRN (22:33)
[2018-01-07] MEDS: CEFEPIME ADVAN IVPB SCH ×4 (01:52→10:01)
[2018-01-07] MEDS: NS 0.9% IVPB SCH ×4 (01:52→10:01)
[2018-01-07 08:02] LABS: Hematocrit 26 % (35-47); Hemoglobin 8.7 g/dl (12.0-16.0); Mean Corpuscular HGB Conc 34 g/dl (31-36); Mean Corpuscular Hemoglobin 31 pg (27-31); Mean Corpuscular Volume 92 fL (80-97); Mean Platelet Volume 9.8 um3 (7.4-10.4); Platelet Count 139 10^3/ul (150-450); Red Blood Count 2.82 10^6/ul (4.00-5.40); Red Cell Distribution Width 16 % (10.5-15); White Blood Count 0.5 10^3/ul (3.5-10.8)
[2018-01-07 08:20] LABS: EGFR Non-African American 187.2 (>60)
[2018-01-07 09:29] LABS: ABS Basophils 0 10^3/ul (0-0.2); ABS Eosinophils 0 10^3/ul (0-0.6); ABS Lymphocytes 0.1 10^3/ul (1.0-4.8); ABS Monocytes 0 10^3/ul (0-0.8); ABS Neutrophils 0.4 10^3/ul (1.5-7.7); ABS Nucleated RBC 0 10^3/ul; Eosinophil % 0.1 % (0-6); Nucleated Red Blood Cells % 0
[2018-01-07] MEDS: Acyclovir* 400 MG TAB PO SCH ×2 (09:59→21:48)
[2018-01-07] MEDS: Magic M W2 Ben/Maal/Nyst/Lido* 240 ML MOUTHWASH (alt formulation) SWISH SPIT SCH ×4 (10:00→21:52)
[2018-01-07] MEDS: Enoxaparin(*) 40 MG/0.4 ML SYR SUBCUT SCH (10:02)
[2018-01-07] MEDS: Insulin LISPRO* 1 UNITS UNIT SUBCUT SCH ×4 (10:10→21:44)
[2018-01-07] MEDS: Dronabinol CAP* 2.5 MG PO SCH (11:24)
[2018-01-07] MEDS: KCL 20 MEQ/100 ML IVPREMIX* 20 MEQ/100 ML BAG IV SCH ×2 (11:25→14:36)
--- NOTE | 2018-01-07 12:06 | RAD ---
INDICATION: RIGHT leg swelling. Assess for DVT. COMPARISON: No relevant prior exams available on the [facility] PACS for comparison. TECHNIQUE: Blackwell scale, color Doppler, and spectral analysis of the deep veins of the RIGHT lower extremity. Vessel compression, phasicity, and augmentation assessed. REPORT: The RIGHT common femoral, great saphenous, profunda femoral, femoral, popliteal, peroneal, and posterior tibial veins are patent. Patency of the LEFT common femoral vein documented. IMPRESSION: No evidence for RIGHT lower extremity deep venous thrombosis.
[2018-01-07] MEDS: Insulin GLARGINE(*) 1 UNITS UNIT SUBCUT SCH (12:16)
[2018-01-07] MEDS: Acetaminophen TAB* 325 MG PO PRN ×2 (14:35→21:49)
[2018-01-07] MEDS: Cefepime 2 GM in Dextrose(*) 2 GM/50 ML BAG IV SCH (17:25)
[2018-01-08] MEDS: Cefepime 2 GM in Dextrose(*) 2 GM/50 ML BAG IV SCH ×3 (01:08→18:51)
[2018-01-08 08:47] LABS: Hematocrit 25 % (35-47); Hemoglobin 8.5 g/dl (12.0-16.0); Mean Corpuscular HGB Conc 34 g/dl (31-36); Mean Corpuscular Hemoglobin 31 pg (27-31); Mean Corpuscular Volume 91 fL (80-97); Mean Platelet Volume 9.8 um3 (7.4-10.4); Platelet Count 202 10^3/ul (150-450); Red Blood Count 2.78 10^6/ul (4.00-5.40); Red Cell Distribution Width 16 % (10.5-15); White Blood Count 0.8 10^3/ul (3.5-10.8)
[2018-01-08 08:48] LABS: EGFR Non-African American 193.8 (>60)
[2018-01-08] MEDS: Insulin LISPRO* 1 UNITS UNIT SUBCUT SCH ×4 (09:08→20:54)
[2018-01-08] MEDS: Acyclovir* 400 MG TAB PO SCH ×2 (09:08→21:08)
[2018-01-08] MEDS: Magic M W2 Ben/Maal/Nyst/Lido* 240 ML MOUTHWASH (alt formulation) SWISH SPIT SCH ×4 (09:09→21:09)
[2018-01-08 09:37] LABS: ABS Basophils 0 10^3/ul (0-0.2); ABS Neutrophils 0.6 10^3/ul (1.5-7.7); Monocytes % 1 % (0-7)
[2018-01-08] MEDS ORDERED: Magnesium Sulf 4 GM/100 ML IV* 4,000 MG/100 ML BAG IVPB ONE (10:24)
--- NOTE | 2018-01-08 10:28 | PN ---
Progress Note - Progress Note Date of Service: 01/08/18 SOAP: Subjective: weak but clearly getting stronger. now a 1 person assist instead of 2 person. appetite a little better on marinol. +pain in sacrum from sitting. Objective: Vital Signs Temp Pulse Resp BP Pulse Ox 98.4 F 97 20 131/46 93 01/08/18 04:14 01/08/18 04:14 01/08/18 08:00 01/08/18 04:14 01/08/18 04:14 sitting up in nad perr eomi op moist crackles bases bilaterally s1 s2 4/6 CARMELITA RUSB loudest soft nt +bs no le edema A+O x3, globally weak but grossly nonfocal Laboratory Results - last 24 hr 01/08/18 01/08/18 01/08/18 08:04 08:12 08:12 WBC 0.8 L RBC 2.78 L Hgb 8.5 L Hct 25 L MCV 91 MCH 31 MCHC 34 RDW 16 H Plt Count 202 MPV 9.8 Neut % (Auto) Not Reportable Lymph % (Auto) Not Reportable Brooke % (Auto) Not Reportable Eos % (Auto) Not Reportable Baso % (Auto) Not Reportable Absolute Neuts (auto) Not Reportable Absolute Lymphs (auto) Not Reportable Absolute Monos (auto) Not Reportable Absolute Eos (auto) Not Reportable Absolute Basos (auto) Not Reportable Absolute Nucleated RBC Not Reportable Immature Gran % 5 Neutrophils % 75 Band Neutrophils % 5 Lymphocytes % 16 L Reactive Lymphs % 2 Monocytes % 1 Eosinophils % 0 Basophils % 1 Nucleated RBC % Not Reportable Abs Neuts (Manual) 0.6 L Abs Lymphs (Manual) 0.1 L Abs Monocytes (Manual) 0 Absolute Eos (Manual) 0 Abs Basophils (Manual) 0 Normal RBC Morphology Normal Sodium 134 L Potassium 3.4 L Chloride 98 L Carbon Dioxide 30 Anion Gap 6 BUN 7 Creatinine 0.33 L Est GFR ( Amer) 234.5 Est GFR (Non-Af Amer) 193.8 BUN/Creatinine Ratio 21.2 H Glucose 133 H POC Glucose (mg/dL) 138 H Calcium 7.5 L Magnesium 1.4 L Acetaminophen (Tylenol Tab*) 650 mg PO Q4H PRN PRN Reason: FEVER/PAIN Last Admin: 01/07/18 21:49 Dose: 650 mg Acyclovir (Zovirax Tab*) 400 mg PO Q12HR [facility] Last Admin: 01/08/18 09:08 Dose: 400 mg Dextrose (D50w Syringe 50 Ml*) 12.5 gm IV PUSH .FOR FS < 60 - SS PRN PRN Reason: FS < 60 Dronabinol (Marinol Cap*) 2.5 mg PO DAILY [facility] Last Admin: 01/07/18 11:24 Dose: 2.5 mg Enoxaparin Sodium (Lovenox(*)) 40 mg SUBCUT Q24H [facility] Last Admin: 01/07/18 10:02 Dose: 40 mg Heparin Sodium (Porcine) (Heparin Flush Picc/Ml/Cvc(*)) 1 ml FLUSH 0600,1800 [facility]; Protocol Last Admin: 01/08/18 05:13 Dose: Not Given Cefepime HCl (Maxipime 2 Gm In Dextrose Duplex (*)) 2 gm in 50 mls @ 100 mls/ hr IV Q8H [facility] Last Admin: 01/08/18 09:09 Dose: 100 mls/hr Magnesium Sulfate (Magnesium Sulf 4 Gm/100 Ml Iv*) 4,000 mg in 100 mls @ 33.333 mls/hr IVPB ONCE ONE Stop: 01/08/18 13:23 Insulin Glargine (Lantus(*)) 15 units SUBCUT Q24H [facility] Last Admin: 01/07/18 12:16 Dose: 15 units Insulin Human Lispro (Humalog*) 0 units SUBCUT ACHS [facility]; Protocol Last Admin: 01/08/18 09:08 Dose: 1 units Multi-Ingredient Mouthwash/Gargle (Magic M W2 Olvin/Maal/Nyst/Lido*) 5 ml SWISH SPIT QID [facility] Last Admin: 01/08/18 09:09 Dose: 5 ml Ondansetron HCl (Zofran Inj*) 4 mg IV Q4H PRN PRN Reason: NAUSEA/VOMITING Ondansetron HCl (Zofran Odt Tab*) 4 mg PO Q8H PRN PRN Reason: NAUSEA/VOMITING Potassium Chloride (Klor Con Er Tab*) 20 meq PO DAILY [facility] Prochlorperazine (Compazine Tab*) 10 mg PO Q6H PRN PRN Reason: NAUSEA/VOMITING Assessment: 77 yo F w AML p/w polymicrobial bacteremia and neutropenic fever, currently improved on IV abx. Plan: -cont cefepime through 01/13 AML: will d/w Strong stopping venetoclax for cycle 2 +/- dose modification of AZA incentive spirometer cont marinol, will enroll in medical marijuana cont PT, will need STR on discharge cont lovenox DVT prophylaxis until ambulatory full code 45 mins spent with family and patient in consultaiton
[2018-01-08] MEDS: Potassium Chlor TAB* 20 MEQ TAB.ER PO SCH (12:22)
[2018-01-08] MEDS: Enoxaparin(*) 40 MG/0.4 ML SYR SUBCUT SCH (12:22)
[2018-01-08] MEDS: Dronabinol CAP* 2.5 MG PO SCH (12:22)
[2018-01-08] MEDS: Insulin GLARGINE(*) 1 UNITS UNIT SUBCUT SCH (12:25)
[2018-01-08 13:00] LABS: ABS Neutrophils 0.7 10^3/ul (1.5-7.7)
[2018-01-09] MEDS: Cefepime 2 GM in Dextrose(*) 2 GM/50 ML BAG IV SCH ×3 (00:59→17:27)
[2018-01-09 07:29] LABS: Hematocrit 25 % (35-47); Hemoglobin 8.3 g/dl (12.0-16.0); Mean Corpuscular HGB Conc 33 g/dl (31-36); Mean Corpuscular Hemoglobin 30 pg (27-31); Mean Corpuscular Volume 92 fL (80-97); Red Blood Count 2.73 10^6/ul (4.00-5.40); Red Cell Distribution Width 16 % (10.5-15)
[2018-01-09 07:42] LABS: EGFR Non-African American 216.3 (>60)
[2018-01-09] MEDS: Insulin LISPRO* 1 UNITS UNIT SUBCUT SCH ×4 (08:08→21:24)
[2018-01-09 08:10] LABS: ABS Basophils 0 10^3/ul (0-0.2); ABS Eosinophils 0 10^3/ul (0-0.6); ABS Lymphocytes 0.2 10^3/ul (1.0-4.8); ABS Monocytes 0 10^3/ul (0-0.8); ABS Neutrophils 0.8 10^3/ul (1.5-7.7); ABS Nucleated RBC 0 10^3/ul; Eosinophil % 0.3 % (0-6); Lymphocyte % 23.3 % (25-47); Nucleated Red Blood Cells % 0.2; Platelet Count 149 10^3/ul (150-450)
[2018-01-09] MEDS: Acyclovir* 400 MG TAB PO SCH ×2 (08:24→20:57)
[2018-01-09] MEDS: Dronabinol CAP* 2.5 MG PO SCH ×3 (08:25→13:04)
[2018-01-09] MEDS: Magic M W2 Ben/Maal/Nyst/Lido* 240 ML MOUTHWASH (alt formulation) SWISH SPIT SCH ×4 (08:27→20:59)
[2018-01-09] MEDS: Potassium Chlor TAB* 20 MEQ TAB.ER PO SCH (10:30)
[2018-01-09] MEDS: Enoxaparin(*) 40 MG/0.4 ML SYR SUBCUT SCH (10:31)
--- NOTE | 2018-01-09 10:45 | PN ---
Progress Note - Progress Note Date of Service: 01/09/18 SOAP: Subjective: []Getting better. Ate full breakfast. Walking more, single assist. No fevers. Acetaminophen (Tylenol Tab*) 650 mg PO Q4H PRN PRN Reason: FEVER/PAIN Last Admin: 01/07/18 21:49 Dose: 650 mg Acyclovir (Zovirax Tab*) 400 mg PO Q12HR [facility] Last Admin: 01/09/18 08:24 Dose: 400 mg Dextrose (D50w Syringe 50 Ml*) 12.5 gm IV PUSH .FOR FS < 60 - SS PRN PRN Reason: FS < 60 Dronabinol (Marinol Cap*) 2.5 mg PO DAILY [facility] Last Admin: 01/09/18 08:52 Dose: Not Given Enoxaparin Sodium (Lovenox(*)) 40 mg SUBCUT Q24H [facility] Last Admin: 01/09/18 10:31 Dose: 40 mg Heparin Sodium (Porcine) (Heparin Flush Picc/Ml/Cvc(*)) 1 ml FLUSH 0600,1800 [facility]; Protocol Last Admin: 01/09/18 05:27 Dose: Not Given Cefepime HCl (Maxipime 2 Gm In Dextrose Duplex (*)) 2 gm in 50 mls @ 100 mls/ hr IV Q8H [facility] Last Admin: 01/09/18 08:41 Dose: 100 mls/hr Insulin Glargine (Lantus(*)) 15 units SUBCUT Q24H [facility] Last Admin: 01/08/18 12:25 Dose: 15 units Insulin Human Lispro (Humalog*) 0 units SUBCUT ACHS [facility]; Protocol Last Admin: 01/09/18 08:08 Dose: Not Given Multi-Ingredient Mouthwash/Gargle (Magic M W2 Olvin/Maal/Nyst/Lido*) 5 ml SWISH SPIT QID [facility] Last Admin: 01/09/18 08:27 Dose: 5 ml Ondansetron HCl (Zofran Inj*) 4 mg IV Q4H PRN PRN Reason: NAUSEA/VOMITING Ondansetron HCl (Zofran Odt Tab*) 4 mg PO Q8H PRN PRN Reason: NAUSEA/VOMITING Potassium Chloride (Klor Con Er Tab*) 20 meq PO DAILY [facility] Last Admin: 01/09/18 10:30 Dose: 20 meq Prochlorperazine (Compazine Tab*) 10 mg PO Q6H PRN PRN Reason: NAUSEA/VOMITING Objective: [] Vital Signs Temp Pulse Resp BP Pulse Ox 98.1 F 86 14 131/51 96 01/09/18 07:14 01/09/18 07:14 01/09/18 08:52 01/09/18 07:14 01/09/18 07:14 HEENT: No oral lesions. OM moist Decreased BS, no crackles CARMELITA S1S2 +BS and no spleen, NT Ext w/o edema AAOx3 Assessment: 77 yo F w AML p/w polymicrobial bacteremia and neutropenic fever. She is on IV antibiotics with slow improvement in blood counts. Plan: 1. ID. Continue cefepime through 01/13. Would like to see ANC > 1500, > 1000 may be good enough. 2. AML. Therapy on hold, question of continue with AZA or AZA and Ventocklax. 3. SOB. Improved, continue incentive spirometer 4. Anorexia. Improving, continue Marinol. 5. Continue PT. Discussed [place] on discharge or trying to go home if she continues to improve. 6. Lovenox DVT prophylaxis until ambulatory 7. Full code
[2018-01-09] MEDS: Insulin GLARGINE(*) 1 UNITS UNIT SUBCUT SCH (12:20)
[2018-01-10] MEDS: Cefepime 2 GM in Dextrose(*) 2 GM/50 ML BAG IV SCH ×3 (00:56→17:05)
[2018-01-10 06:58] LABS: Hematocrit 23 % (35-47); Hemoglobin 7.9 g/dl (12.0-16.0); Mean Corpuscular HGB Conc 34 g/dl (31-36); Mean Corpuscular Hemoglobin 30 pg (27-31); Mean Corpuscular Volume 91 fL (80-97); Red Blood Count 2.59 10^6/ul (4.00-5.40); Red Cell Distribution Width 15 % (10.5-15); White Blood Count 1.2 10^3/ul (3.5-10.8)
[2018-01-10 07:01] LABS: EGFR Non-African American 216.3 (>60)
[2018-01-10 07:14] LABS: Mean Platelet Volume 9.2 um3 (7.4-10.4); Platelet Count 311 10^3/ul (150-450)
[2018-01-10 07:17] LABS: ABS Basophils 0 10^3/ul (0-0.2); ABS Neutrophils 0.9 10^3/ul (1.5-7.7); Monocytes % 5 % (0-7)
[2018-01-10] MEDS: Insulin LISPRO* 1 UNITS UNIT SUBCUT SCH ×4 (08:34→21:06)
[2018-01-10] MEDS: Dronabinol CAP* 2.5 MG PO SCH ×2 (09:10→12:07)
[2018-01-10] MEDS: Acyclovir* 400 MG TAB PO SCH ×2 (09:10→21:06)
[2018-01-10] MEDS: Potassium Chlor TAB* 20 MEQ TAB.ER PO SCH ×2 (09:10→21:01)
[2018-01-10] MEDS: Magic M W2 Ben/Maal/Nyst/Lido* 240 ML MOUTHWASH (alt formulation) SWISH SPIT SCH ×4 (09:22→21:06)
[2018-01-10] MEDS: Enoxaparin(*) 40 MG/0.4 ML SYR SUBCUT SCH (12:08)
[2018-01-10] MEDS: Insulin GLARGINE(*) 1 UNITS UNIT SUBCUT SCH (12:59)
[2018-01-11] MEDS: Cefepime 2 GM in Dextrose(*) 2 GM/50 ML BAG IV SCH ×3 (00:41→18:06)
[2018-01-11 07:12] LABS: Hematocrit 24 % (35-47); Mean Corpuscular HGB Conc 34 g/dl (31-36); Mean Corpuscular Hemoglobin 31 pg (27-31); Mean Corpuscular Volume 91 fL (80-97); Mean Platelet Volume 9.1 um3 (7.4-10.4); Platelet Count 414 10^3/ul (150-450); Red Blood Count 2.62 10^6/ul (4.00-5.40); Red Cell Distribution Width 15 % (10.5-15); White Blood Count 1.8 10^3/ul (3.5-10.8)
[2018-01-11 07:15] LABS: EGFR Non-African American 216.3 (>60)
[2018-01-11 07:53] LABS: ABS Basophils 0 10^3/ul (0-0.2); ABS Neutrophils 1.4 10^3/ul (1.5-7.7); Monocytes % 5 % (0-7)
[2018-01-11] MEDS: Insulin LISPRO* 1 UNITS UNIT SUBCUT SCH ×4 (09:06→20:21)
[2018-01-11] MEDS: Acyclovir* 400 MG TAB PO SCH ×2 (09:26→20:26)
[2018-01-11] MEDS: Potassium Chlor TAB* 20 MEQ TAB.ER PO SCH ×2 (09:27→20:26)
[2018-01-11] MEDS: Dronabinol CAP* 2.5 MG PO SCH ×2 (09:27→13:18)
[2018-01-11] MEDS: Magic M W2 Ben/Maal/Nyst/Lido* 240 ML MOUTHWASH (alt formulation) SWISH SPIT SCH ×4 (09:28→20:26)
[2018-01-11] MEDS: Loperamide CAP* 2 MG PO PRN ×2 (11:27→13:26)
[2018-01-11] MEDS: Enoxaparin(*) 40 MG/0.4 ML SYR SUBCUT SCH (11:27)
[2018-01-11] MEDS: Insulin GLARGINE(*) 1 UNITS UNIT SUBCUT SCH (13:18)
[2018-01-12] MEDS: Cefepime 2 GM in Dextrose(*) 2 GM/50 ML BAG IV SCH ×3 (01:05→17:28)
[2018-01-12 07:29] LABS: Hematocrit 25 % (35-47); Hemoglobin 8.5 g/dl (12.0-16.0); Mean Corpuscular HGB Conc 33 g/dl (31-36); Mean Corpuscular Hemoglobin 30 pg (27-31); Mean Corpuscular Volume 91 fL (80-97); Mean Platelet Volume 8.7 um3 (7.4-10.4); Platelet Count 444 10^3/ul (150-450); Red Blood Count 2.78 10^6/ul (4.00-5.40); Red Cell Distribution Width 15 % (10.5-15); White Blood Count 1.8 10^3/ul (3.5-10.8)
[2018-01-12 07:30] LABS: EGFR Non-African American 216.3 (>60)
[2018-01-12 07:58] LABS: ABS Basophils 0 10^3/ul (0-0.2); ABS Eosinophils 0 10^3/ul (0-0.6); ABS Lymphocytes 0.3 10^3/ul (1.0-4.8); ABS Monocytes 0.2 10^3/ul (0-0.8); ABS Neutrophils 1.3 10^3/ul (1.5-7.7); ABS Nucleated RBC 0 10^3/ul; Eosinophil % 0.5 % (0-6); Lymphocyte % 16.2 % (25-47); Nucleated Red Blood Cells % 0.1
[2018-01-12] MEDS: Insulin LISPRO* 1 UNITS UNIT SUBCUT SCH ×4 (08:29→21:42)
[2018-01-12] MEDS: Acyclovir* 400 MG TAB PO SCH ×2 (08:40→21:36)
[2018-01-12] MEDS: Potassium Chlor TAB* 20 MEQ TAB.ER PO SCH ×2 (08:42→21:36)
[2018-01-12] MEDS: Magic M W2 Ben/Maal/Nyst/Lido* 240 ML MOUTHWASH (alt formulation) SWISH SPIT SCH ×4 (08:45→21:37)
--- NOTE | 2018-01-12 09:54 | PN ---
Progress Note - Progress Note Date of Service: 01/12/18 SOAP: Subjective: []Feeling better. Appetite is increased. She is walking more and up easier. PT not is mixed on 01/11. No fevers or chills, no SOB no bleeding. Acetaminophen (Tylenol Tab*) 650 mg PO Q4H PRN PRN Reason: FEVER/PAIN Last Admin: 01/07/18 21:49 Dose: 650 mg Acyclovir (Zovirax Tab*) 400 mg PO Q12HR [facility] Last Admin: 01/12/18 08:40 Dose: 400 mg Dextrose (D50w Syringe 50 Ml*) 12.5 gm IV PUSH .FOR FS < 60 - SS PRN PRN Reason: FS < 60 Dronabinol (Marinol Cap*) 2.5 mg PO DAILY [facility] Last Admin: 01/11/18 13:18 Dose: 2.5 mg Enoxaparin Sodium (Lovenox(*)) 40 mg SUBCUT Q24H [facility] Last Admin: 01/11/18 11:27 Dose: 40 mg Heparin Sodium (Porcine) (Heparin Flush Picc/Ml/Cvc(*)) 1 ml FLUSH 0600,1800 [facility]; Protocol Last Admin: 01/12/18 04:13 Dose: Not Given Cefepime HCl (Maxipime 2 Gm In Dextrose Duplex (*)) 2 gm in 50 mls @ 100 mls/ hr IV Q8H [facility] Last Admin: 01/12/18 08:56 Dose: 100 mls/hr Insulin Glargine (Lantus(*)) 15 units SUBCUT Q24H [facility] Last Admin: 01/11/18 13:18 Dose: 15 units Insulin Human Lispro (Humalog*) 0 units SUBCUT ACHS [facility]; Protocol Last Admin: 01/12/18 08:29 Dose: Not Given Loperamide HCl (Imodium Cap*) 2 mg PO .SEE DIRECTIONS PRN PRN Reason: DIARRHEA Last Admin: 01/11/18 13:26 Dose: 2 mg Multi-Ingredient Mouthwash/Gargle (Magic M W2 Olvin/Maal/Nyst/Lido*) 5 ml SWISH SPIT QID [facility] Last Admin: 01/12/18 08:45 Dose: 5 ml Ondansetron HCl (Zofran Inj*) 4 mg IV Q4H PRN PRN Reason: NAUSEA/VOMITING Ondansetron HCl (Zofran Odt Tab*) 4 mg PO Q8H PRN PRN Reason: NAUSEA/VOMITING Potassium Chloride (Klor Con Er Tab*) 20 meq PO BID [facility] Last Admin: 01/12/18 08:42 Dose: 20 meq Prochlorperazine (Compazine Tab*) 10 mg PO Q6H PRN PRN Reason: NAUSEA/VOMITING Objective: [] Vital Signs Temp Pulse Resp BP Pulse Ox 97.5 F 83 16 126/42 99 01/12/18 07:19 01/12/18 07:19 01/12/18 08:00 01/12/18 07:19 01/12/18 07:19 HEENT: No oral lesions. OM moist Decreased BS, crackles right base. CARMELITA S1S2 +BS and no spleen, NT Ext w/o edema AAOx3 Stood up on exam without assist Assessment: 77 yo F w AML p/w polymicrobial bacteremia and neutropenic fever. She is on IV antibiotics with slow improvement in blood counts. Plan: 1. ID. Continue cefepime through 01/13. ANC 1300 today. 2. AML. Therapy on hold, question of continue with AZA or AZA and Ventocklax. Follow up Dr. Melendez on discharge. 3. SOB. Improved, continue incentive spirometer. Crackles on exam today, follow. 4. Eating well. continue Marinol. 5. Continue PT. Discussed [place] on discharge or trying to go home tomorrow. Did well on exam today standing and walking with walker. 6. Lovenox DVT prophylaxis until ambulatory 7. Full code
[2018-01-12] MEDS: Dronabinol CAP* 2.5 MG PO SCH (12:57)
[2018-01-12] MEDS: Enoxaparin(*) 40 MG/0.4 ML SYR SUBCUT SCH (12:58)
[2018-01-12] MEDS: Insulin GLARGINE(*) 1 UNITS UNIT SUBCUT SCH (12:58)
[2018-01-13] MEDS: Cefepime 2 GM in Dextrose(*) 2 GM/50 ML BAG IV SCH ×2 (00:54→08:42)
[2018-01-13 06:54] LABS: Hematocrit 23 % (35-47); Hemoglobin 7.9 g/dl (12.0-16.0); Mean Corpuscular HGB Conc 34 g/dl (31-36); Mean Corpuscular Hemoglobin 31 pg (27-31); Mean Corpuscular Volume 91 fL (80-97); Mean Platelet Volume 8.8 um3 (7.4-10.4); Platelet Count 497 10^3/ul (150-450); Red Blood Count 2.58 10^6/ul (4.00-5.40); Red Cell Distribution Width 15 % (10.5-15); White Blood Count 2.3 10^3/ul (3.5-10.8)
[2018-01-13 07:14] LABS: ABS Basophils 0 10^3/ul (0-0.2); ABS Eosinophils 0 10^3/ul (0-0.6); ABS Lymphocytes 0.4 10^3/ul (1.0-4.8); ABS Monocytes 0.3 10^3/ul (0-0.8); ABS Neutrophils 1.5 10^3/ul (1.5-7.7); ABS Nucleated RBC 0 10^3/ul; EGFR Non-African American 193.8 (>60); Eosinophil % 0.1 % (0-6); Lymphocyte % 16.9 % (25-47); Nucleated Red Blood Cells % 0.1
[2018-01-13] MEDS: Insulin LISPRO* 1 UNITS UNIT SUBCUT SCH ×2 (07:21→12:16)
[2018-01-13] MEDS: Potassium Chlor TAB* 20 MEQ TAB.ER PO SCH (09:39)
[2018-01-13] MEDS: Acyclovir* 400 MG TAB PO SCH (09:39)
[2018-01-13] MEDS: Magic M W2 Ben/Maal/Nyst/Lido* 240 ML MOUTHWASH (alt formulation) SWISH SPIT SCH (09:40)
[2018-01-13 11:36] VITALS: BP 125/50
[2018-01-13] MEDS: Dronabinol CAP* 2.5 MG PO SCH (12:21)
[2018-01-13] MEDS: Enoxaparin(*) 40 MG/0.4 ML SYR SUBCUT SCH (12:21)
[2018-01-13] MEDS: Insulin GLARGINE(*) 1 UNITS UNIT SUBCUT SCH (12:22)
--- NOTE | 2018-01-14 03:57 | DS ---
AMENDED REPORT NOW INCLUDES COSIGNER DESIGNATION CC: Nathan Langston MD; Latia Melendez MD * DISCHARGE SUMMARY: DATE OF ADMISSION: 01/02/18 DATE OF DISCHARGE: 01/13/18 PRIMARY CARE PROVIDER: Dr. Nathan Langston. PRIMARY ONCOLOGIST: Dr. Latia Melendez. ATTENDING PHYSICIAN: Dr. Ori Shirley.* (DICTATED BY ARVIND BHAT) DISCHARGING PROVIDER: ARVIND Bhat PRIMARY DISCHARGE DIAGNOSES: 1. Polymicrobial septicemia secondary to PICC line infection with neutropenic fever - blood cultures grew methicillin-sensitive Staphylococcus aureus, Escherichia coli and Pseudomonas. 2. 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 SECONDARY DISCHARGE DIAGNOSES: 1. Insulin dependent diabetes. 2. Aortic stenosis. DISCHARGE MEDICATIONS: 1. Acyclovir 400 mg p.o. twice daily. 2. Allopurinol 300 mg p.o. daily. 3. Lantus 15 units subcutaneous daily. 4. Lispro 2 additional units subcutaneous on a sliding scale at mealtime. 5. Metformin 500 mg p.o. daily. 6. Zofran 4 mg p.o. q.8 hours as needed for nausea. 7. Compazine 10 mg p.o. q.6 hours as needed for nausea and vomiting. 8. Multivitamin 1 capsule p.o. daily. 9. Marinol 2.5 mg p.o. daily at lunchtime. Medication changes: 1. Start Marinol for appetite stimulation. 2. Hold all antihypertensives including metoprolol, ramipril and amlodipine. 3. Hold venetoclax. HOSPITAL IMAGIN. Chest x-ray shows a left basilar infiltrate and small pleural effusion. 2. Femur x-ray shows postsurgical changes and no evidence for acute fracture. 3. Hip and pelvis x-ray, shows status post ORIF of the proximal right femur but no evidence of acute osseous injury. 4. Lumbar spine x-ray, shows osteopenia and age-indeterminate compression deformity of L1 without evidence of retropulsion as well as degenerative disk disease. 5. Chest x-ray, 01/03/18 shows the density appearing in the left lung base unchanged from prior, pulmonary vasculature appears mildly engorged. 6. Soft tissue ultrasound, 01/04/18 shows generalized swelling, no definite abnormality. 7. Chest x-ray, 01/04/18, shows chest x-ray findings consistent with pulmonary vascular congestion and moderate size pleural effusion at the left lung base, overall some slight improvement over 01/03/18. 8. Venous Doppler study, no evidence of DVT. 9. Transthoracic echocardiogram, 01/04/18, shows left ventricular ejection fraction of 55% to 60%, moderate aortic stenosis with aortic valve area calculated at 0.9 cm2, no significant changes compared to 12/10/17 and no evidence for vegetation. HOSPITAL COURSE: This is a 77-year-old female with a relatively new diagnosis of AML who was transferred from our hospital on 12/11/17 to [facility] with initial plans for induction therapy. Determination made at [facility] was to avoid induction therapy and she was discharged with recommendations to start azacitidine and venetoclax. The patient completed cycle 1 of azacitidine and venetoclax and apart from some nausea and mild fatigue, tolerated it relatively well. Her fatigue became progressively worse and she fell at home at which point ambulance was called and she proceeded to the emergency department for evaluation. She had severe pancytopenia with a total white blood cell count of 0.1 and ANC of 0, hemoglobin of 5 and platelet count of 27,000 at the time of admission. She was initially afebrile but quickly spiked a fever same day of admission to 104.3 degrees Fahrenheit. Blood cultures were drawn which eventually demonstrated polymicrobial infection including MSSA, E. coli and Pseudomonas. Her urine cultures grew Pseudomonas enterococcus and E. coli. The patient had a PICC line that had been placed at [facility] with which she was discharged and this was found to be the most likely source of infection. PICC line was removed and the patient received appropriate antibiotic coverage. Infectious Disease specialist, Dr. Alvaro Robertson was consulted during this hospital course who recommended continuing cefepime through 01/13/18. The patient developed fluid overload with acute respiratory distress following blood transfusion which prompted transfer to ICU. The patient responded well to Lasix and did not require prolonged period of time in ICU and intubation was not necessary for respiratory support. Initial chest x-ray also demonstrated left lower lobe infiltrate and the patient had a mild cough throughout her hospitalization which improved with use of incentive spirometry; although she did still have a faint crackle appreciated on lung exam at the time of discharge. DISPOSITION AND FOLLOWUP PLAN: The patient is being discharged to home with referrals made to [facility] for home care services including home physical therapy. Her hemoglobin at the time of discharge is 7.9 g/dL but she will receive 1 unit of packed red blood cells prior to leaving the hospital. Her ANC is 1500 today and slightly above normal platelet count at 497,000. She will continue to hold her venetoclax and follow up with Dr. Melendez on , 01/15/18 at which point, her second cycle of treatment will be discussed. She was initially scheduled to start cycle 2 also on 01/15/18 but this will be delayed at least 1 week. The patient's antihypertensives have been held throughout this hospitalization due to septicemia and she is normotensive at the time of discharge and her antihypertensives will not be resumed at this time but may be necessary as an outpatient depending on her blood pressure and symptoms. The patient has been started on Marinol for appetite stimulation which has been quite effective and a new prescription for this was written at the time of discharge. ARVIND BHAT [id number]/[facility] #: [id number] SUKHDEV
== END 2018-01-13 14:45 | disposition home health service (06) | DRG 314 ==
LOC: ED 11:46 → MED 16:53 → ICU 01-03 00:55 → MED 01-03 18:35
PROVIDERS: ADMIT Internal Medicine Hematology & Oncology; ATTEND Internal Medicine Hematology & Oncology
PROC: 5A09357 Assistance with Respiratory Ventilation, Less than 24 Consecutive Hours, Continuous Positive Airway Pressure (ICD-10-PCS; 2018-01-03)
PROC: 30233N1 Transfusion of Nonautologous Red Blood Cells into Peripheral Vein, Percutaneous Approach (ICD-10-PCS; principal; 2018-01-13)
PROC: 02PYX3Z Removal of Infusion Device from Great Vessel, External Approach (ICD-10-PCS; 2018-01-13)
DX: T82.7XXA Infection and inflammatory reaction due to other cardiac and vascular devices, implants and grafts, initial encounter (principal); A41.01 Sepsis due to Methicillin susceptible Staphylococcus aureus; J18.1 Lobar pneumonia, unspecified organism; J96.01 Acute respiratory failure with hypoxia; A41.51 Sepsis due to Escherichia coli [E. coli]; A41.52 Sepsis due to Pseudomonas; E87.1 Hypo-osmolality and hyponatremia; G93.40 Encephalopathy, unspecified; N39.0 Urinary tract infection, site not specified; C92.00 Acute myeloblastic leukemia, not having achieved remission; J90 Pleural effusion, not elsewhere classified; D70.1 Agranulocytosis secondary to cancer chemotherapy; R50.81 Fever presenting with conditions classified elsewhere; E11.9 Type 2 diabetes mellitus without complications; R63.0 Anorexia; I10 Essential (primary) hypertension; I35.0 Nonrheumatic aortic (valve) stenosis; M85.80 Other specified disorders of bone density and structure, unspecified site; H35.30 Unspecified macular degeneration; W18.39XA Other fall on same level, initial encounter; J45.909 Unspecified asthma, uncomplicated; K21.9 Gastro-esophageal reflux disease without esophagitis; B96.5 Pseudomonas (aeruginosa) (mallei) (pseudomallei) as the cause of diseases classified elsewhere; B96.20 Unspecified Escherichia coli [E. coli] as the cause of diseases classified elsewhere; B95.2 Enterococcus as the cause of diseases classified elsewhere; D69.6 Thrombocytopenia, unspecified; E87.70 Fluid overload, unspecified; Z82.49 Family history of ischemic heart disease and other diseases of the circulatory system; Z79.4 Long term (current) use of insulin; Z72.89 Other problems related to lifestyle; Z90.710 Acquired absence of both cervix and uterus; Y92.002 Bathroom of unspecified non-institutional (private) residence as the place of occurrence of the external cause; Z92.21 Personal history of antineoplastic chemotherapy; Z88.1 Allergy status to other antibiotic agents; Z98.42 Cataract extraction status, left eye; Z98.41 Cataract extraction status, right eye; Z83.3 Family history of diabetes mellitus; Z68.24 Body mass index [BMI] 24.0-24.9, adult
CPT/HCPCS: 36415; 36600; 71045; 71046; 72110; 80048; 80053; 81003; 81015; 82803; 83605; 83735; 84100; 84443; 84484; 85025; 86078; 86850; 86900; 86901; 86922; 87040; 87077; 87086; 87150; 87186; 87205; 93005; 93306; 94660; 99232; 99233; 99239; 99285; A9270-GY; G8978-GP-CK; G8978-GP-CM; G8979-GP-CI; G8979-GP-CK; J0456; J0690; J0692; J1650; J1940; J3370; J3475; J3480; P9040

== ENCOUNTER 2018-02-06 22:58 | Inpatient (IN) | payer MEDICARE ==
[2018-02-06] MEDS ORDERED: NS 0.9% 1000 ML*IV.FLUID IV ONE (23:12)
--- NOTE | 2018-02-06 23:50 | ED ---
HPI Febrile Illness - HPI Summary HPI Summary: This patient is a 77 year old F presenting to [facility] with a chief complaint of a post-chemotherapy low-grade fever since this morning. The Pt's PCP recommended she come to the emergency room if experiencing a fever. The patient states she woke up this morning feeling fatigued and without an appetite. She received her chemotherapy for recently diagnosed leukemia and developed a fever shortly after. The Pt also reports having diarrhea. She denies sweats, rhinorrhea, sweating, nausea and vomiting. - History of Current Complaint Chief Complaint: EDFever Time Seen by Provider: 02/06/18 23:19 Hx Obtained From: Patient Onset/Duration: Started Hours Ago Timing: Constant Initial Severity: Mild Current Severity: Mild Pain Intensity: 0 - Risk Factors Serious Bacterial Infection Risk Factors: Chemotherapy - Additional Pertinent History Primary Care Physician: [id number] - Allergy/Home Medications Allergies/Adverse Reactions: Allergies Allergy/AdvReac Type Severity Reaction Status Date / Time amoxicillin [From Augmentin] AdvReac Vomiting Verified 02/06/18 23:11 ciprofloxacin [From Cipro] AdvReac Vomiting Verified 02/06/18 23:11 clavulanic acid AdvReac Vomiting Verified 02/06/18 23:11 [From Augmentin] levofloxacin [From Levaquin] AdvReac Vomiting Verified 02/06/18 23:11 nitrofurantoin AdvReac Vomiting Verified 02/06/18 23:11 [From Macrobid] Home Medications: Home Medications Insulin GLARGINE(*) [Lantus(*)] 15 units SUBCUT BID 02/07/18 [History Confirmed 02/07/18] Potassium Chlor TAB* [Klor Con ER TAB*] 20 meq PO DAILY 02/07/18 [History Confirmed 02/07/18] PMH/Surg Hx/FS Hx/Imm Hx Endocrine/Hematology History: Reports: Hx Diabetes, Hx Anemia Denies: Hx Thyroid Disease Cardiovascular History: Reports: Hx Hypertension, Other Cardiovascular Problems/ Disorders - aortic stenosis Denies: Hx Pacemaker/ICD Respiratory History: Reports: Hx Asthma - during cold wether Denies: Hx Chronic Obstructive Pulmonary Disease (COPD) GI History: Reports: Hx Gastroesophageal Reflux Disease Denies: Hx Jaundice, Hx Ulcer History: Reports: Hx Renal Disease Musculoskeletal History: Reports: Other Musculoskeletal History - hip fx in past Sensory History: Reports: Hx Contacts or Glasses Denies: Hx Hearing Aid Opthamlomology History: Reports: Hx Contacts or Glasses Neurological History: Denies: Hx Headaches Psychiatric History: Denies: Hx Panic Disorder - Surgical History Surgery Procedure, Year, and Place: hysterectomy, cataract SURGERY BILATERAL EYES-,. PESSARY FOR BLADDER. Right hip surgery 07/2016 Hx Anesthesia Reactions: No - nausea and vomiting Infectious Disease History: No Infectious Disease History: Denies: Hx Hepatitis, Hx Human Immunodeficiency Virus (HIV), Traveled Outside the [place] in Last 30 Days - Family History Known Family History: Positive: Cardiac Disease, Diabetes - Social History Alcohol Use: Rare Hx Substance Use: No Substance Use Type: Reports: None Hx Tobacco Use: No Smoking Status (MU): Never Smoked Tobacco Review of Systems Positive: Fever, Fatigue. Negative: Chills Negative: Nasal Discharge Positive: Diarrhea. Negative: Vomiting, Nausea All Other Systems Reviewed And Are Negative: Yes Physical Exam - Summary Physical Exam Summary: Appearance: Well-appearing, Well-nourished, lying in bed comfortable Skin: Warm, dry, no obvious rash Eyes: sclera anicteric, no conjunctival pallor ENT: mucous membranes moist Neck: deferred Respiratory: No signs of respiratory distress Cardiovascular: Appears well perfused, Grade 3/6 holosystolic murmur. Abdomen: deferred Musculoskeletal: Moving all 4 extremities without obvious discomfort Neurological: Awake and alert, mentation is normal, speech is fluent and appropriate Psychiatric: affect is normal, does not appear anxious or depressed Triage Information Reviewed: Yes Vital Signs On Initial Exam: Initial Vitals Temp Pulse Resp BP Pulse Ox 101.8 F 118 16 131/65 99 02/06/18 23:07 02/06/18 23:07 02/06/18 23:07 02/06/18 23:07 02/06/18 23:07 Vital Signs Reviewed: Yes Diagnostics - Vital Signs Vital Signs Temp Pulse Resp BP Pulse Ox 02/06/18 23:07 101.8 F 118 16 131/65 99 - Laboratory Result Diagrams: 02/06/18 23:36 02/06/18 23:36 Lab Statement: Any lab studies that have been ordered have been reviewed, and results considered in the medical decision making process. - Radiology Chest XR Radiology Interpretation Completed By: ED Physician - No acute disease., Radiologist Course/Dx - Diagnoses Provider Diagnoses: Fever - Provider Notifications Discussed Care Of Patient With: Yuliet Ewing - Hospitalist Instructed by Provider To: Admit As Inpatient Discharge - Sign-Out/Discharge Documenting (check all that apply): Patient Departure - Discharge Plan Condition: Stable Disposition: ADMITTED TO [facility] Referrals: Nathan Langston MD [Primary Care Provider] - - Attestation Statements Document Initiated by Scribe: Yes Documenting Scribe: Parth Varner Provider For Whom Scribe is Documenting (Include Credential): Alfa Arana MD Scribe Attestation: IParth, scribed for Alfa Arana MD on 02/07/18 at 0152.
[2018-02-06 23:55] LABS: INR 1.12 (0.77-1.02)
[2018-02-06 23:56] LABS: Hematocrit 23 % (35-47); Hemoglobin 7.9 g/dl (12.0-16.0); Mean Corpuscular HGB Conc 34 g/dl (31-36); Mean Corpuscular Hemoglobin 32 pg (27-31); Mean Corpuscular Volume 93 fL (80-97); Mean Platelet Volume 9.6 um3 (7.4-10.4); Platelet Count 46 10^3/ul (150-450); Red Blood Count 2.49 10^6/ul (4.00-5.40); Red Cell Distribution Width 15 % (10.5-15); White Blood Count 0.2 10^3/ul (3.5-10.8)
[2018-02-07] MEDS ORDERED: Cefepime(*) 2 GM in NS 0.9% 50 ML* 50 ML IVPB ONE (00:25)
[2018-02-07 00:26] LABS: EGFR Non-African American 128.8 (>60)
--- NOTE | 2018-02-07 00:42 | ADMNOTE ---
Subjective Date of Service: 02/07/18 Interval History: code status full this is an admission h/p this news writer spent 1 hr to assess pt hpi 77 old wf with hx of aml 12/09/17 complicated with picc infection with blood cx + staph ( not mrsa ) e coli and psudomonas in the blood 12/2017 as well as in the urine had the picc line removed 3 weeks ago. pt went home from [facility] and went for prbc via peripheral today. was found to have low grade temp 99.7. was intructed by onc if temp > 100.4 comes to the er for eval. pt had chills all diet some lost of appetite but did eat prior to arrival. temp on admission was >101. intial chest xray did not reveal any acute change ua pending no open sores seen on her body. she was found to have wbc of 0.2---> blood cx done will start cefepime as per er and signout to onc for f/u phx [address] Aguillon and eval from [facility] 12/10/17 bone marrow biopsy showed aml. 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 kevin+ bso s/p r hip fx with pinning social hx no cig occ one glass of wine no ivda walks with a walker lives with fhx denied any hnt/dm/cva or cad Review of Systems - Measurements Intake and Output: Intake and Output Last 24 Hours 02/04/18 02/05/18 02/06/18 02/07/18 06:59 06:59 06:59 06:59 Weight 138 lb - Review of Systems General Comments: pertinenet as per hpi Objective Active Medications: Cefepime HCl 2 gm/ Sodium (Chloride) 50 mls @ 100 mls/hr IVPB ED ONCE ONE Stop: 02/07/18 00:54 Vital Signs - 8 hr 02/06/18 23:07 Temperature 101.8 F Pulse Rate 118 Respiratory 16 Rate Blood Pressure 131/65 (mmHg) O2 Sat by Pulse 99 Oximetry Oxygen Devices in Use Now: Nasal Cannula Eyes: No Scleral Icterus, PERRLA Ears/Nose/Mouth/Throat: NL Teeth, Lips, Gums, Clear Oropharnyx, Mucous Membranes Moist Neck: NL Appearance and Movements; NL JVP, Trachea Midline, No Thyroid Enlargement, Masses Respiratory: Clear to Auscultation Cardiovascular: NL Sounds; No Murmurs; No JVD, RRR, No Edema Abdominal: NL Sounds; No Tenderness; No Distention Extremities: No Edema, - - able to raise ue and le against gravity Skin: No Rash or Ulcers Neurological: Alert and Oriented x 3, NL Sensation, NL Muscle Strength and Tone Result Diagrams: 02/06/18 23:36 02/06/18 23:36 EKG Data: no ekg ordered will order for am Assess/Plan/Problems-Billing Assessment: 77 yr old aml s/p chemo 12/2017 still neutropenic went for prbc transfusion earlier was sent in to er by due to fever >101 no clear source of her fever. she had lll pna 12/2017 ---> back then was getting cefepime and z pack. no sore throat no rashes no cva tenderness ua ordered still pending - Patient Problems (1) Neutropenic fever Current Visit: No Status: Acute Code(s): D70.9 - NEUTROPENIA, UNSPECIFIED; R50.81 - FEVER PRESENTING WITH CONDITIONS CLASSIFIED ELSEWHERE SNOMED Code(s) : 010073460 Comment: Blood cultures positive for pseudomonoas, MSSA, ecoli in 12/2017 Urine culture with e tiffanialus psudomonas mssa 12/2017 - Cefepime 2 grams q8H. - f/u blood cx and u/a and urine culture done in the er (2) AML (acute myeloblastic leukemia) Current Visit: Yes Status: Acute Code(s): C92.00 - ACUTE MYELOBLASTIC LEUKEMIA, NOT HAVING ACHIEVED REMISSION SNOMED Code(s): 67535499 Comment: onc f/u in am - ? neulasta -reversal isolation (3) Anemia Current Visit: No Status: Acute Code(s): D64.9 - ANEMIA, UNSPECIFIED SNOMED Code(s): 021167263 Comment: hg after prbc in clinic is 7.9 but vital still holds (4) Pancytopenia Current Visit: No Status: Acute Code(s): D61.818 - OTHER PANCYTOPENIA SNOMED Code(s): 472385208 Comment: - no gross bleeding - onc eval in am (5) Type II diabetes mellitus Current Visit: Yes Status: Acute Comment: ck a1c insulin ss will hold metformin and reduce lantus to 10 bid with insulin ss - neutropenic diet (6) Left lower lobe pulmonary infiltrate Current Visit: No Status: Acute Code(s): R91.8 - OTHER NONSPECIFIC ABNORMAL FINDING OF LUNG FIELD SNOMED Code(s): 537147466 Comment: hx of left lll pna 12/2017 does not have any pul symptoms or cough current chest x ray could still be the remenant of prior pna - will continue cefepime alone at this point (7) Full code status Current Visit: No Status: Acute Code(s): Z78.9 - OTHER SPECIFIED HEALTH STATUS SNOMED Code(s): 439625925 Comment: (8) DVT prophylaxis Current Visit: Yes Status: Acute Code(s): SDP6274 - SNOMED Code(s): 823203162 Comment: scd
[2018-02-07] MEDS ORDERED: NS 0.9% 50 ML* 50 ML ONE (00:44)
[2018-02-07] MEDS ORDERED: Cefepime* 2 GM in Dextrose 50mL Q24H (Duplex) IV ONE (01:00)
[2018-02-07] MEDS ORDERED: NS 0.9% 1000 ML* 1,000 ML IV SCH (01:30)
[2018-02-07] MEDS: Acetaminophen TAB* 325 MG PO PRN ×3 (03:23→19:38)
[2018-02-07 06:26] LABS: Hematocrit 19 % (35-47); Hemoglobin 6.6 g/dl (12.0-16.0); Mean Corpuscular HGB Conc 34 g/dl (31-36); Mean Corpuscular Hemoglobin 32 pg (27-31); Mean Corpuscular Volume 93 fL (80-97); Red Blood Count 2.07 10^6/ul (4.00-5.40); Red Cell Distribution Width 16 % (10.5-15); White Blood Count 0.3 10^3/ul (3.5-10.8)
[2018-02-07 06:35] LABS: EGFR Non-African American 164.7 (>60)
[2018-02-07] MEDS ORDERED: Cefepime 2 GM in Dextrose(*) 2 GM/50 ML BAG IV SCH (07:00)
--- NOTE | 2018-02-07 07:34 | RAD ---
INDICATION: Fever, potential neutropenia. COMPARISON: Comparison is made with a prior study from January 04, 2018. TECHNIQUE: A portable view of the chest was obtained. FINDINGS: Cardiac and mediastinal contours appear to be within normal limits. There is a small infiltrate at the left lung base which is improved from the prior exam. There also has been interval resolution of a small left pleural effusion. IMPRESSION: SMALL LEFT BASILAR INFILTRATE IMPROVED FROM THE PRIOR EXAM. R3
[2018-02-07 07:39] LABS: Urine Appearance Clear; Urine Blood Negative (Negative); Urine Color Yellow; Urine Ketones Negative (Negative); Urine Protein Negative (Negative); Urine Specific Gravity 1.009 (1.010-1.030); Urine Urobilinogen Negative (Negative)
[2018-02-07 08:16] LABS: ABS Basophils 0 10^3/ul (0-0.2); ABS Neutrophils 0 10^3/ul (1.5-7.7); Mean Platelet Volume 9.5 um3 (7.4-10.4); Monocytes % 0 % (0-7); Platelet Count 33 10^3/ul (150-450)
[2018-02-07] MEDS ORDERED: metFORMIN* 500 MG TAB PO SCH (09:00)
[2018-02-07] MEDS ORDERED: Insulin GLARGINE(*) 1 UNITS UNIT SUBCUT SCH (09:00)
[2018-02-07] MEDS ORDERED: Dronabinol CAP* 2.5 MG PO SCH (09:00)
[2018-02-07] MEDS ORDERED: Acyclovir* 400 MG TAB PO SCH (09:00)
[2018-02-07] MEDS: Insulin LISPRO* 1 UNITS UNIT SUBCUT SCH ×3 (09:01→17:38)
[2018-02-07] MEDS: Insulin GLARGINE(*) 1 UNITS UNIT SUBCUT SCH ×2 (09:01→19:40)
[2018-02-07] MEDS: Cefepime 2 GM in Dextrose(*) 2 GM/50 ML BAG IV SCH ×2 (09:01→17:37)
[2018-02-07] MEDS: Potassium Chlor TAB* 20 MEQ TAB.ER PO SCH (09:02)
[2018-02-07] MEDS: Allopurinol TAB* 300 MG PO SCH (09:02)
[2018-02-07] MEDS: Magnesium Oxide TAB* 400 MG PO SCH ×2 (10:26→19:39)
[2018-02-07] MEDS: Multivitamins/Minerals TAB PO SCH (11:08)
--- NOTE | 2018-02-07 11:14 | ED ---
Progress - Progress Note Progress Note: Patient's final radiology report reveals small left basal infiltrate which is improved from prior exam. Patient was admitted to the hospital. No further action needed at this time. Course/Dx - Diagnoses Provider Diagnoses: Fever - Provider Notifications Instructed by Provider To: Admit As Inpatient Discharge - Sign-Out/Discharge Documenting (check all that apply): Post-Discharge Follow Up - Discharge Plan Condition: Stable Disposition: ADMITTED TO [facility] - Billing Disposition and Condition Condition: STABLE Disposition: Admitted to [facility]
[2018-02-07] MEDS: Dronabinol CAP* 2.5 MG PO SCH (12:02)
[2018-02-07] MEDS ORDERED: Cefepime 1 GM in Dextrose(*) 1 GM/50 ML BAG IV SCH (13:00)
[2018-02-07] MEDS ORDERED: Magnesium Sulfate 2 GM IV* 2 GM/50 ML BAG IVPB ONE (15:48)
[2018-02-07] MEDS: Ondansetron ODT TAB* 4 MG PO PRN (15:48)
[2018-02-07] MEDS ORDERED: Magnesium Sulfate 2 GM IV* 2 GM/50 ML BAG ONE (16:10)
[2018-02-07] MEDS: PRESERVISION AREDS PO SCH (17:37)
[2018-02-07] MEDS: Acyclovir* 400 MG TAB PO SCH (17:37)
[2018-02-07] MEDS ORDERED: Acetaminophen TAB* 325 MG PO ONE (23:35)
[2018-02-08] MEDS: Cefepime 2 GM in Dextrose(*) 2 GM/50 ML BAG IV SCH ×3 (01:13→17:17)
[2018-02-08 05:59] LABS: Hematocrit 23 % (35-47); Mean Corpuscular HGB Conc 34 g/dl (31-36); Mean Corpuscular Hemoglobin 32 pg (27-31); Mean Corpuscular Volume 92 fL (80-97); Mean Platelet Volume 9.1 um3 (7.4-10.4); Platelet Count 33 10^3/ul (150-450); Red Blood Count 2.53 10^6/ul (4.00-5.40); Red Cell Distribution Width 15 % (10.5-15); White Blood Count 0.2 10^3/ul (3.5-10.8)
[2018-02-08] MEDS: Ondansetron ODT TAB* 4 MG PO PRN ×3 (06:06→15:50)
[2018-02-08 06:15] LABS: EGFR Non-African American 175.3 (>60)
[2018-02-08] MEDS: Acetaminophen TAB* 325 MG PO PRN (06:19)
[2018-02-08 07:35] LABS: ABS Basophils 0 10^3/ul (0-0.2); ABS Neutrophils 0.1 10^3/ul (1.5-7.7); Monocytes % 4 % (0-7)
[2018-02-08] MEDS: Magnesium Oxide TAB* 400 MG PO SCH ×2 (09:05→20:53)
[2018-02-08] MEDS: Potassium Chlor TAB* 20 MEQ TAB.ER PO SCH (09:05)
[2018-02-08] MEDS: Acyclovir* 400 MG TAB PO SCH ×2 (09:05→17:11)
[2018-02-08] MEDS: Allopurinol TAB* 300 MG PO SCH (09:05)
[2018-02-08] MEDS: Insulin LISPRO* 1 UNITS UNIT SUBCUT SCH ×3 (09:05→17:12)
[2018-02-08] MEDS: Insulin GLARGINE(*) 1 UNITS UNIT SUBCUT SCH ×2 (09:05→20:53)
[2018-02-08] MEDS: Multivitamins/Minerals TAB PO SCH (09:10)
[2018-02-08] MEDS: PRESERVISION AREDS PO SCH ×2 (09:23→17:11)
[2018-02-08] MEDS: Dronabinol CAP* 2.5 MG PO SCH (11:39)
[2018-02-08] MEDS ORDERED: Acetaminophen IV 1GM/100ML * 100 ML IVPB PRN (16:15)
[2018-02-09] MEDS: Cefepime 2 GM in Dextrose(*) 2 GM/50 ML BAG IV SCH ×3 (01:37→17:22)
[2018-02-09] MEDS: Acetaminophen TAB* 325 MG PO PRN ×2 (01:40→20:06)
[2018-02-09 06:52] LABS: Hematocrit 23 % (35-47); Hemoglobin 7.9 g/dl (12.0-16.0); Mean Corpuscular HGB Conc 35 g/dl (31-36); Mean Corpuscular Hemoglobin 32 pg (27-31); Mean Corpuscular Volume 92 fL (80-97); Mean Platelet Volume 8.8 um3 (7.4-10.4); Platelet Count 32 10^3/ul (150-450); Red Blood Count 2.46 10^6/ul (4.00-5.40); Red Cell Distribution Width 16 % (10.5-15); White Blood Count 0.2 10^3/ul (3.5-10.8)
[2018-02-09 07:03] LABS: EGFR Non-African American 159.8 (>60)
[2018-02-09 08:41] LABS: ABS Basophils 0 10^3/ul (0-0.2); ABS Neutrophils 0 10^3/ul (1.5-7.7); Monocytes % 2 % (0-7)
[2018-02-09] MEDS: Insulin GLARGINE(*) 1 UNITS UNIT SUBCUT SCH ×2 (09:33→20:07)
[2018-02-09] MEDS: Ondansetron ODT TAB* 4 MG PO PRN ×2 (09:33→20:05)
[2018-02-09] MEDS: Allopurinol TAB* 300 MG PO SCH (09:36)
[2018-02-09] MEDS: Multivitamins/Minerals TAB PO SCH (09:40)
[2018-02-09] MEDS: Magnesium Oxide TAB* 400 MG PO SCH ×2 (09:41→20:06)
[2018-02-09] MEDS: Acyclovir* 400 MG TAB PO SCH ×2 (09:41→17:22)
[2018-02-09] MEDS: Potassium Chlor TAB* 20 MEQ TAB.ER PO SCH (09:42)
[2018-02-09] MEDS: PRESERVISION AREDS PO SCH ×2 (09:45→17:22)
[2018-02-09] MEDS: Insulin LISPRO* 1 UNITS UNIT SUBCUT SCH ×3 (09:45→17:33)
--- NOTE | 2018-02-09 10:30 | PN ---
Progress Note - Progress Note Date of Service: 02/09/18 SOAP: Subjective: []Stable today, still does not feel well. Eating each meal. No SOB, fever yesterday but none today. Acetaminophen (Tylenol Tab*) 650 mg PO Q6H PRN PRN Reason: FEVER Last Admin: 02/09/18 01:40 Dose: 650 mg Acyclovir (Zovirax Tab*) 400 mg PO BID@0800,1700 [facility] Last Admin: 02/09/18 09:41 Dose: 400 mg Allopurinol (Zyloprim Tab*) 300 mg PO DAILY [facility] Last Admin: 02/09/18 09:36 Dose: 300 mg Dronabinol (Marinol Cap*) 2.5 mg PO 1130 [facility] Last Admin: 02/08/18 11:39 Dose: 2.5 mg Cefepime HCl (Maxipime 2 Gm In Dextrose Duplex (*)) 2 gm in 50 mls @ 100 mls/ hr IV Q8H [facility] Last Admin: 02/09/18 09:45 Dose: 100 mls/hr Acetaminophen (Ofirmev*) 100 mls @ 400 mls/hr IVPB Q6H PRN PRN Reason: PAIN/FEVER Stop: 02/09/18 16:14 Last Admin: 02/08/18 16:37 Dose: 400 mls/hr Insulin Glargine (Lantus(*)) 10 units SUBCUT BID [facility] Last Admin: 02/09/18 09:33 Dose: 10 units Insulin Human Lispro (Humalog*) 0 units SUBCUT [facility]; Protocol Last Admin: 02/09/18 09:45 Dose: Not Given Magnesium Oxide (Magox 400 Tab*) 400 mg PO BID [facility] Last Admin: 02/09/18 09:41 Dose: 400 mg Multi-Ingredient Mouthwash/Gargle (Magic M W2 Olvin/Maal/Nyst/Lido*) 10 ml SWISH SPIT QID PRN PRN Reason: SORE MOUTH Multivitamins/Minerals (Theragran/Minerals Tab*) 1 tab PO DAILY [facility] Last Admin: 02/09/18 09:40 Dose: 1 tab Multivitamins/Minerals (Preservision Areds 2) 1 cap PO BID WITH MEALS [facility] Last Admin: 02/09/18 09:45 Dose: 1 cap Ondansetron HCl (Zofran Odt Tab*) 4 mg PO Q8H PRN PRN Reason: NAUSEA/VOMITING Last Admin: 02/09/18 09:33 Dose: 4 mg Potassium Chloride (Klor Con Er Tab*) 20 meq PO DAILY [facility] Last Admin: 02/09/18 09:42 Dose: 20 meq Objective: [] Vital Signs Temp Pulse Resp BP Pulse Ox 98.0 F 77 20 110/43 97 02/09/18 03:56 02/09/18 03:17 02/09/18 03:17 02/09/18 03:17 02/09/18 03:17 HEENT no oral lesions CTA RRR S1S2 +BS NT ND no HSM Ext tr edema and warm AAOx3 Assessment: []77 year old with AML s/w azacitadine, 01/19 - 01/27. Stable today on Cefepime, blood counts remain low. Plan: []1. NF. Continue Cefepime, vancomycin for temp > 101.0. 2. Anemia. Follow today, Tx Hgb < 8.0 tomorrow 3. Plts stable, Tx < 10,000 4. DM. Well controlled on Lantus and ISS 5. HR stable today and no chest pain, await cardiology input.
[2018-02-09] MEDS: Dronabinol CAP* 2.5 MG PO SCH (12:32)
[2018-02-09] MEDS: Magic M W2 Ben/Maal/Nyst/Lido* 240 ML MOUTHWASH (alt formulation) SWISH SPIT PRN (14:51)
[2018-02-10] MEDS: Cefepime 2 GM in Dextrose(*) 2 GM/50 ML BAG IV SCH ×3 (01:01→17:28)
[2018-02-10 07:14] LABS: Hematocrit 24 % (35-47); Hemoglobin 8.1 g/dl (12.0-16.0); Mean Corpuscular HGB Conc 34 g/dl (31-36); Mean Corpuscular Hemoglobin 32 pg (27-31); Mean Corpuscular Volume 93 fL (80-97); Mean Platelet Volume 9.1 um3 (7.4-10.4); Platelet Count 43 10^3/ul (150-450); Red Blood Count 2.54 10^6/ul (4.00-5.40); Red Cell Distribution Width 17 % (10.5-15); White Blood Count 0.2 10^3/ul (3.5-10.8)
[2018-02-10 07:20] LABS: EGFR Non-African American 146.7 (>60)
[2018-02-10] MEDS: Insulin LISPRO* 1 UNITS UNIT SUBCUT SCH ×3 (08:02→16:52)
[2018-02-10] MEDS: Allopurinol TAB* 300 MG PO SCH (08:25)
[2018-02-10] MEDS: Magnesium Oxide TAB* 400 MG PO SCH ×2 (08:25→20:56)
[2018-02-10] MEDS: Multivitamins/Minerals TAB PO SCH (08:25)
[2018-02-10] MEDS: Acyclovir* 400 MG TAB PO SCH ×2 (08:26→17:28)
[2018-02-10] MEDS: Potassium Chlor TAB* 20 MEQ TAB.ER PO SCH (08:26)
[2018-02-10] MEDS: Insulin GLARGINE(*) 1 UNITS UNIT SUBCUT SCH ×2 (08:27→20:49)
[2018-02-10] MEDS: PRESERVISION AREDS PO SCH ×2 (08:44→17:27)
[2018-02-10] MEDS: Ondansetron ODT TAB* 4 MG PO PRN (08:44)
[2018-02-10 08:46] LABS: ABS Basophils 0 10^3/ul (0-0.2); ABS Neutrophils 0 10^3/ul (1.5-7.7); Monocytes % 11 % (0-7)
[2018-02-10] MEDS: Dronabinol CAP* 2.5 MG PO SCH (11:33)
[2018-02-10] MEDS ORDERED: Senna TAB PO PRN (17:46)
--- NOTE | 2018-02-10 17:59 | CONS ---
CC: Dr. Crook * CARDIOLOGY CONSULTATION: DATE OF CONSULT: 02/10/18 INDICATION FOR CONSULTATION: Bradycardia. HISTORY OF PRESENT ILLNESS: The patient is a 77-year-old female who is diagnosed with acute myeloid leukemia and started induction therapy. The patient came to the hospital because of nausea, vomiting, and a fever. She was found to have neutropenic fever and was admitted to the hospital. The patient was admitted to telemetry. While on telemetry, she was having episodes of nausea, vomiting, which resulted in significant bradycardia with episodes of 2: 1 heart block and second- degree heart block, type 1. The patient did not have any episodes of syncope associated with this. She had no symptoms associated with this as she was nauseous during these events. Since her nausea and vomiting have resolved 2 days ago, her last significant episode of bradycardia was on 02/08/18. Today is 02/10/18 and in the last 2 days, she has had no episodes of bradycardia, no episodes of nausea or vomiting. PAST MEDICAL HISTORY: Significant for AML as described in her history and physical, hypertension, type 2 diabetes, osteopenia. PAST SURGICAL HISTORY: Hysterectomy, right hip fracture pinning. MEDICATIONS: Her outpatient medications: 1. Metformin 500 mg a day. 2. Allopurinol 300 mg a day. 3. Insulin as directed. 4. Potassium 20 mEq a day. 5. Metoprolol succinate 50 mg a day. 6. Acyclovir 400 mg a day. 7. Marinol 2.5 mg a day. ALLERGIES: AMOXICILLIN, CIPRO, LEVOFLOXACIN, NITROFURANTOIN. SOCIAL HISTORY: She denies tobacco or alcohol use. She lives with her . She is an active walker. FAMILY HISTORY: Noncontributory. REVIEW OF SYSTEMS: Positive for fevers and chills. Positive for nausea and vomiting. Positive for change in weight. Positive for fatigue. Negative for syncope. Negative for palpitations. Other 12-point review is unremarkable. PHYSICAL EXAM: Height is 5 feet 6 inches, weight is 134 pounds. Temperature 98.3, heart rate is 83, respiratory rate is 16, blood pressure 120/52, oxygen saturation 99% on room air. Sclerae anicteric. Oropharynx was pink without erythema. Carotids are 2+ without bruits. JVD is normal. Thyroid is normal. Cardiac Exam: S1, S2 with 1/6 systolic ejection murmur heard best at the right upper sternal border. PMI is normal. Lungs are clear to auscultation bilaterally. There is no dullness to percussion. Abdomen is somewhat tender. Normoactive bowel sounds. No hepatosplenomegaly. Extremities show no edema. She has 2+ pulses throughout. The patient is awake and alert and oriented. She moves all 4 extremities equally. LABORATORY STUDIES: White count is 0.2, hemoglobin 8, hematocrit 42, platelet count 43. Chemistry is within normal limits, BUN 9, creatinine 0.4. AST and ALT are normal. IMPRESSION: This is a 77-year-old female with acute myeloid leukemia who is admitted to the hospital with neutropenic fever. During the first part of the hospitalization, she was having significant nausea and vomiting. The patient was having episodes of bradycardia including second degree heart block type 1. These all occurred during her time when she was significantly nauseous. Again, for the past 2 days, the patient has not had any nausea or vomiting symptoms and she has had no arrhythmias for the past 2 days. At this point, I do not think any further cardiac workup is necessary. I think her episodes of bradycardia were associated with increased vasovagal tone. The patient will continue to follow with Dr. Crook and Dr. Melendez. [id number]/[facility] #: [id number] [facility]
[2018-02-10] MEDS: Magic M W2 Ben/Maal/Nyst/Lido* 240 ML MOUTHWASH (alt formulation) SWISH SPIT PRN (19:39)
[2018-02-10] MEDS: Acetaminophen TAB* 325 MG PO PRN (20:47)
[2018-02-11] MEDS: Cefepime 2 GM in Dextrose(*) 2 GM/50 ML BAG IV SCH ×3 (00:32→17:40)
[2018-02-11] MEDS: Insulin LISPRO* 1 UNITS UNIT SUBCUT SCH ×3 (09:32→17:41)
[2018-02-11] MEDS: PRESERVISION AREDS PO SCH ×2 (09:50→17:41)
[2018-02-11] MEDS: Potassium Chlor TAB* 20 MEQ TAB.ER PO SCH (09:52)
[2018-02-11] MEDS: Multivitamins/Minerals TAB PO SCH (09:53)
[2018-02-11] MEDS: Acyclovir* 400 MG TAB PO SCH ×2 (09:54→17:40)
[2018-02-11] MEDS: Allopurinol TAB* 300 MG PO SCH (09:55)
[2018-02-11] MEDS: Magnesium Oxide TAB* 400 MG PO SCH ×2 (09:55→21:08)
[2018-02-11] MEDS: Insulin GLARGINE(*) 1 UNITS UNIT SUBCUT SCH ×2 (09:56→21:10)
[2018-02-11] MEDS: Magic M W2 Ben/Maal/Nyst/Lido* 240 ML MOUTHWASH (alt formulation) SWISH SPIT PRN ×2 (10:04→21:47)
[2018-02-11 10:48] LABS: Hematocrit 22 % (35-47); Hemoglobin 7.6 g/dl (12.0-16.0); Mean Corpuscular HGB Conc 35 g/dl (31-36); Mean Corpuscular Hemoglobin 33 pg (27-31); Mean Corpuscular Volume 93 fL (80-97); Mean Platelet Volume 9.6 um3 (7.4-10.4); Platelet Count 41 10^3/ul (150-450); Red Blood Count 2.34 10^6/ul (4.00-5.40); Red Cell Distribution Width 16 % (10.5-15); White Blood Count 0.3 10^3/ul (3.5-10.8)
[2018-02-11 10:50] LABS: EGFR Non-African American 164.7 (>60)
[2018-02-11 11:42] LABS: ABS Basophils 0 10^3/ul (0-0.2); ABS Neutrophils 0.1 10^3/ul (1.5-7.7); Monocytes % 0 % (0-7)
[2018-02-11] MEDS: Dronabinol CAP* 2.5 MG PO SCH (12:10)
[2018-02-11] MEDS: Acetaminophen TAB* 325 MG PO PRN (19:45)
--- NOTE | 2018-02-11 20:19 | PN ---
Progress Note - Progress Note Date of Service: 02/11/18 SOAP: Subjective: [Patient reports that she is feeling very well and and anxious to get home.] Objective: [ Laboratory Results - last 24 hr 02/10/18 02/11/18 02/11/18 20:27 07:26 09:53 WBC 0.3 L RBC 2.34 L Hgb 7.6 L Hct 22 L MCV 93 MCH 33 H MCHC 35 RDW 16 H Plt Count 41 L MPV 9.6 Neut % (Auto) Not Reportable Lymph % (Auto) Not Reportable [place] % (Auto) Not Reportable Eos % (Auto) Not Reportable Baso % (Auto) Not Reportable Absolute Neuts (auto) Not Reportable Absolute Lymphs (auto) Not Reportable Absolute Monos (auto) Not Reportable Absolute Eos (auto) Not Reportable Absolute Basos (auto) Not Reportable Absolute Nucleated RBC Not Reportable Neutrophils % 23 L Lymphocytes % 77 H Monocytes % 0 Eosinophils % 0 Basophils % 0 Nucleated RBC % Not Reportable Abs Neuts (Manual) 0.1 L Abs Lymphs (Manual) 0.2 L Abs Monocytes (Manual) 0 Absolute Eos (Manual) 0 Abs Basophils (Manual) 0 Normal RBC Morphology Not Reportable Polychromasia 1+ Hypochromasia 1+ Sodium Potassium Chloride Carbon Dioxide Anion Gap BUN Creatinine Est GFR ( Amer) Est GFR (Non-Af Amer) BUN/Creatinine Ratio Glucose POC Glucose (mg/dL) 196 H 104 H Calcium Total Bilirubin AST ALT Alkaline Phosphatase Total Protein Albumin Globulin Albumin/Globulin Ratio 02/11/18 02/11/18 02/11/18 09:53 12:14 16:34 WBC RBC Hgb Hct MCV MCH MCHC RDW Plt Count MPV Neut % (Auto) Lymph % (Auto) [place] % (Auto) Eos % (Auto) Baso % (Auto) Absolute Neuts (auto) Absolute Lymphs (auto) Absolute Monos (auto) Absolute Eos (auto) Absolute Basos (auto) Absolute Nucleated RBC Neutrophils % Lymphocytes % Monocytes % Eosinophils % Basophils % Nucleated RBC % Abs Neuts (Manual) Abs Lymphs (Manual) Abs Monocytes (Manual) Absolute Eos (Manual) Abs Basophils (Manual) Normal RBC Morphology Polychromasia Hypochromasia Sodium 130 L Potassium 3.9 Chloride 100 L Carbon Dioxide 25 Anion Gap 5 BUN 8 Creatinine 0.38 L Est GFR ( Amer) 199.2 Est GFR (Non-Af Amer) 164.7 BUN/Creatinine Ratio 21.1 H Glucose 167 H POC Glucose (mg/dL) 169 H 203 H Calcium 8.8 Total Bilirubin 0.80 AST 20 ALT 11 Alkaline Phosphatase 99 Total Protein 7.1 Albumin 3.0 L Globulin 4.1 H Albumin/Globulin Ratio 0.7 L Laboratory Results - last 24 hr 02/10/18 02/11/18 02/11/18 20:27 07:26 09:53 WBC 0.3 L RBC 2.34 L Hgb 7.6 L Hct 22 L MCV 93 MCH 33 H MCHC 35 RDW 16 H Plt Count 41 L MPV 9.6 Neut % (Auto) Not Reportable Lymph % (Auto) Not Reportable [place] % (Auto) Not Reportable Eos % (Auto) Not Reportable Baso % (Auto) Not Reportable Absolute Neuts (auto) Not Reportable Absolute Lymphs (auto) Not Reportable Absolute Monos (auto) Not Reportable Absolute Eos (auto) Not Reportable Absolute Basos (auto) Not Reportable Absolute Nucleated RBC Not Reportable Neutrophils % 23 L Lymphocytes % 77 H Monocytes % 0 Eosinophils % 0 Basophils % 0 Nucleated RBC % Not Reportable Abs Neuts (Manual) 0.1 L Abs Lymphs (Manual) 0.2 L Abs Monocytes (Manual) 0 Absolute Eos (Manual) 0 Abs Basophils (Manual) 0 Normal RBC Morphology Not Reportable Polychromasia 1+ Hypochromasia 1+ Sodium Potassium Chloride Carbon Dioxide Anion Gap BUN Creatinine Est GFR ( Amer) Est GFR (Non-Af Amer) BUN/Creatinine Ratio Glucose POC Glucose (mg/dL) 196 H 104 H Calcium Total Bilirubin AST ALT Alkaline Phosphatase Total Protein Albumin Globulin Albumin/Globulin Ratio 02/11/18 02/11/18 02/11/18 09:53 12:14 16:34 WBC RBC Hgb Hct MCV MCH MCHC RDW Plt Count MPV Neut % (Auto) Lymph % (Auto) [place] % (Auto) Eos % (Auto) Baso % (Auto) Absolute Neuts (auto) Absolute Lymphs (auto) Absolute Monos (auto) Absolute Eos (auto) Absolute Basos (auto) Absolute Nucleated RBC Neutrophils % Lymphocytes % Monocytes % Eosinophils % Basophils % Nucleated RBC % Abs Neuts (Manual) Abs Lymphs (Manual) Abs Monocytes (Manual) Absolute Eos (Manual) Abs Basophils (Manual) Normal RBC Morphology Polychromasia Hypochromasia Sodium 130 L Potassium 3.9 Chloride 100 L Carbon Dioxide 25 Anion Gap 5 BUN 8 Creatinine 0.38 L Est GFR ( Amer) 199.2 Est GFR (Non-Af Amer) 164.7 BUN/Creatinine Ratio 21.1 H Glucose 167 H POC Glucose (mg/dL) 169 H 203 H Calcium 8.8 Total Bilirubin 0.80 AST 20 ALT 11 Alkaline Phosphatase 99 Total Protein 7.1 Albumin 3.0 L Globulin 4.1 H Albumin/Globulin Ratio 0.7 L Vital Signs: Temp Pulse Resp BP Pulse Ox 100.3 F 102 16 114/53 99 02/11/18 19:21 02/11/18 19:21 02/11/18 19:21 02/11/18 19:21 02/11/18 19:21 Exam: Gen: Pleasant and well appearing 74 yo female in NAD HEENT: MMM, no thrush CV: loud CARMELITA, RRR Resp: CTA, no w/c/r Abd: soft, nonTTP Ext: no edema] Assessment: [77 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 Neutropenic fever - noted Tmax 100.3 this evening, prior 72h was fever free - cultures neg - cont Cefepime - neutropenia slow to resolve 2. Pancytopenia secondary to chemotherapy 3. AML - treated with azacitadine and ventoclax - first 2 cycles complicated by neutropenia 4. IDDM 5. Dysrhythmia - noted pauses and intermittent type II block - cardiology consultation appreciated - likely due to high vagal tone secondary to n/v Dispo: cont inpatient stay until ANC >1000 although pt is quite anxious to return home]
[2018-02-12] MEDS: Cefepime 2 GM in Dextrose(*) 2 GM/50 ML BAG IV SCH ×3 (00:47→17:47)
--- NOTE | 2018-02-12 03:51 | PN ---
Hospitalist Progress Note Date of Service: 02/12/18 called to bedside to eval patient for a fall. Patient was in bathroom and couldn't make it to toilet. She urinated on floor as she couldn't make it and slip and fall hip head on wall. Denies neck pain or hip or ext pain. Is able to move all four exts. Is a and o times three no deficits noted. VSS. Will order ct brain and cervical spine.
--- NOTE | 2018-02-12 05:05 | RAD ---
EXAM: CT Head Without Intravenous Contrast EXAM DATE/TIME: 02/12/2018 4:14 AM CLINICAL HISTORY: 77 years old, female; Injury or trauma; Fall; Initial encounter; Concussion / head injury; Without loss of consciousness; Injury date: TECHNIQUE: Axial computed tomography images of the head/brain without intravenous contrast. All CT scans at this facility use at least one of these dose optimization techniques: automated exposure control; mA and/or kV adjustment per patient size (includes targeted exams where dose is matched to clinical indication); or iterative reconstruction. COMPARISON: No relevant prior studies available. FINDINGS: Brain: There is mild diffuse cerebral atrophy present, consistent with this patient's age. There is mild diffuse heterogeneity of the white matter attenuation, consistent with chronic white matter ischemic changes. Ventricles: Normal. No ventriculomegaly. Bones/joints: Normal. No acute fracture. Sinuses: Normal as visualized. No acute sinusitis. Mastoid air cells: Normal as visualized. No mastoid effusion. Soft tissues: There is a superior frontal scalp hematoma noted. No evidence of acute intracranial hemorrhage. IMPRESSION: There is a superior frontal scalp hematoma noted. No evidence of acute intracranial hemorrhage. To contact [facility] with a general question: [facility] - [phone] For direct physician to physician contact: Physician Hotline - [phone] [facility] ([facility] Facility ID #[id number])
--- NOTE | 2018-02-12 05:08 | RAD ---
EXAM: CT Cervical Spine Without Intravenous Contrast EXAM DATE/TIME: 02/12/2018 4:24 AM CLINICAL HISTORY: 77 years old, female; Injury or trauma; Fall; Initial encounter; Concussion /head injury; Injury date: TECHNIQUE: Axial computed tomography images of the cervical spine without intravenous contrast. All CT scans at this facility use at least one of these dose optimization techniques: automated exposure control; mA and/or kV adjustment per patient size (includes targeted exams where dose is matched to clinical indication); or iterative reconstruction. Coronal and sagittal reformatted images were created and reviewed. COMPARISON: DX LSP SP LUMBARSACRAL 4+ VWS 01/02/2018 12:55 PM FINDINGS: Vertebrae: The cervical spine demonstrates moderate degenerative changes at multiple levels. Discs/Spinal canal/Neural foramina: There is multilevel degenerative disc disease.. Soft tissues: Unremarkable. Lungs: Lung apices are normal. Vasculature: There is scattered atherosclerotic disease noted of the aortic arch. IMPRESSION: No acute cervical spine fracture or dislocation. To contact [facility] with a general question: Operations Center - [phone] For direct physician to physician contact: Physician Hotline - [phone] [facility] ([facility] Facility ID #[id number])
[2018-02-12 06:52] LABS: EGFR Non-African American 159.8 (>60)
[2018-02-12 07:07] LABS: Hematocrit 20 % (35-47); Mean Corpuscular HGB Conc 35 g/dl (31-36); Mean Corpuscular Hemoglobin 32 pg (27-31); Mean Corpuscular Volume 93 fL (80-97); Mean Platelet Volume 9.4 um3 (7.4-10.4); Platelet Count 47 10^3/ul (150-450); Red Cell Distribution Width 16 % (10.5-15); White Blood Count 0.3 10^3/ul (3.5-10.8)
[2018-02-12] MEDS: Acetaminophen TAB* 325 MG PO PRN ×3 (07:40→22:51)
[2018-02-12] MEDS: Acyclovir* 400 MG TAB PO SCH ×2 (07:41→17:48)
[2018-02-12] MEDS: PRESERVISION AREDS PO SCH ×4 (07:41→17:47)
[2018-02-12] MEDS: Insulin LISPRO* 1 UNITS UNIT SUBCUT SCH ×3 (08:47→17:48)
[2018-02-12] MEDS: Allopurinol TAB* 300 MG PO SCH ×2 (10:05→10:26)
[2018-02-12] MEDS: Multivitamins/Minerals TAB PO SCH ×2 (10:05→10:27)
[2018-02-12] MEDS: Magnesium Oxide TAB* 400 MG PO SCH ×2 (10:05→21:05)
[2018-02-12] MEDS: Insulin GLARGINE(*) 1 UNITS UNIT SUBCUT SCH ×2 (10:06→21:04)
[2018-02-12] MEDS: Potassium Chlor TAB* 20 MEQ TAB.ER PO SCH (10:07)
--- NOTE | 2018-02-12 10:31 | PN ---
Progress Note - Progress Note Date of Service: 02/12/18 SOAP: Subjective: feeling good this am. frustrated at herself for her fall last night. had incontinence trying to make it to the bathroom on time and slipped in her urine. hit her head, and had a hematoma there superficially. Objective: Vital Signs Temp Pulse Resp BP Pulse Ox 99.3 F 81 20 122/54 100 02/12/18 08:19 02/12/18 08:19 02/12/18 08:19 02/12/18 08:19 02/12/18 08:19 perr eomi op moist CTA bl s1 s2 IIII/ CARMELITA soft nt +bs no le edema A+O x3 Laboratory Results - last 24 hr 02/11/18 02/11/18 02/11/18 09:53 09:53 12:14 WBC 0.3 L RBC 2.34 L Hgb 7.6 L Hct 22 L MCV 93 MCH 33 H MCHC 35 RDW 16 H Plt Count 41 L MPV 9.6 Neut % (Auto) Not Reportable Lymph % (Auto) Not Reportable [place] % (Auto) Not Reportable Eos % (Auto) Not Reportable Baso % (Auto) Not Reportable Absolute Neuts (auto) Not Reportable Absolute Lymphs (auto) Not Reportable Absolute Monos (auto) Not Reportable Absolute Eos (auto) Not Reportable Absolute Basos (auto) Not Reportable Absolute Nucleated RBC Not Reportable Neutrophils % 23 L Lymphocytes % 77 H Monocytes % 0 Eosinophils % 0 Basophils % 0 Nucleated RBC % Not Reportable Abs Neuts (Manual) 0.1 L Abs Lymphs (Manual) 0.2 L Abs Monocytes (Manual) 0 Absolute Eos (Manual) 0 Abs Basophils (Manual) 0 Normal RBC Morphology Not Reportable Polychromasia 1+ Hypochromasia 1+ Sodium 130 L Potassium 3.9 Chloride 100 L Carbon Dioxide 25 Anion Gap 5 BUN 8 Creatinine 0.38 L Est GFR ( Amer) 199.2 Est GFR (Non-Af Amer) 164.7 BUN/Creatinine Ratio 21.1 H Glucose 167 H POC Glucose (mg/dL) 169 H Calcium 8.8 Total Bilirubin 0.80 AST 20 ALT 11 Alkaline Phosphatase 99 Total Protein 7.1 Albumin 3.0 L Globulin 4.1 H Albumin/Globulin Ratio 0.7 L 02/11/18 02/11/1818 16:34 20:46 06:24 WBC 0.3 L RBC 2.20 L Hgb 7.0 L Hct 20 L MCV 93 MCH 32 H MCHC 35 RDW 16 H Plt Count 47 L MPV 9.4 Neut % (Auto) Not Reportable Lymph % (Auto) Not Reportable [place] % (Auto) Not Reportable Eos % (Auto) Not Reportable Baso % (Auto) Not Reportable Absolute Neuts (auto) Not Reportable Absolute Lymphs (auto) Not Reportable Absolute Monos (auto) Not Reportable Absolute Eos (auto) Not Reportable Absolute Basos (auto) Not Reportable Absolute Nucleated RBC Not Reportable Neutrophils % Lymphocytes % Monocytes % Eosinophils % Basophils % Nucleated RBC % Not Reportable Abs Neuts (Manual) Abs Lymphs (Manual) Abs Monocytes (Manual) Absolute Eos (Manual) Abs Basophils (Manual) Normal RBC Morphology Polychromasia Hypochromasia Sodium Potassium Chloride Carbon Dioxide Anion Gap BUN Creatinine Est GFR ( Amer) Est GFR (Non-Af Amer) BUN/Creatinine Ratio Glucose POC Glucose (mg/dL) 203 H 282 H Calcium Total Bilirubin AST ALT Alkaline Phosphatase Total Protein Albumin Globulin Albumin/Globulin Ratio 02/12/18 02/12/18 06:24 07:55 WBC RBC Hgb Hct MCV MCH MCHC RDW Plt Count MPV Neut % (Auto) Lymph % (Auto) [place] % (Auto) Eos % (Auto) Baso % (Auto) Absolute Neuts (auto) Absolute Lymphs (auto) Absolute Monos (auto) Absolute Eos (auto) Absolute Basos (auto) Absolute Nucleated RBC Neutrophils % Lymphocytes % Monocytes % Eosinophils % Basophils % Nucleated RBC % Abs Neuts (Manual) Abs Lymphs (Manual) Abs Monocytes (Manual) Absolute Eos (Manual) Abs Basophils (Manual) Normal RBC Morphology Polychromasia Hypochromasia Sodium 133 L Potassium 3.6 Chloride 100 L Carbon Dioxide 26 Anion Gap 7 BUN 7 Creatinine 0.39 L Est GFR ( Amer) 193.3 Est GFR (Non-Af Amer) 159.8 BUN/Creatinine Ratio 17.9 Glucose 129 H POC Glucose (mg/dL) 132 H Calcium 8.8 Total Bilirubin 0.90 AST 23 ALT 14 Alkaline Phosphatase 114 H Total Protein 7.0 Albumin 2.9 L Globulin 4.1 H Albumin/Globulin Ratio 0.7 L Acetaminophen (Tylenol Tab*) 650 mg PO Q6H PRN PRN Reason: FEVER Last Admin: 02/12/18 07:40 Dose: 650 mg Acyclovir (Zovirax Tab*) 400 mg PO BID@0800,1700 [facility] Last Admin: 02/12/18 07:41 Dose: 400 mg Dronabinol (Marinol Cap*) 2.5 mg PO 1600 [facility] Dronabinol (Marinol Cap*) 2.5 mg PO 0700 [facility] Cefepime HCl (Maxipime 2 Gm In Dextrose Duplex (*)) 2 gm in 50 mls @ 100 mls/ hr IV Q8H [facility] Last Admin: 02/12/18 10:06 Dose: 100 mls/hr Insulin Glargine (Lantus(*)) 10 units SUBCUT BID [facility] Last Admin: 02/12/18 10:06 Dose: 10 units Insulin Human Lispro (Humalog*) 0 units SUBCUT AC [facility]; Protocol Last Admin: 02/12/18 08:47 Dose: Not Given Magnesium Oxide (Magox 400 Tab*) 400 mg PO BID [facility] Last Admin: 02/12/18 10:05 Dose: 400 mg Multi-Ingredient Mouthwash/Gargle (Magic M W2 Olvin/Maal/Nyst/Lido*) 10 ml SWISH SPIT QID PRN PRN Reason: SORE MOUTH Last Admin: 02/11/18 21:47 Dose: 10 ml Multivitamins/Minerals (Theragran/Minerals Tab*) 1 tab PO DAILY [facility] Last Admin: 02/12/18 10:27 Dose: Not Given Multivitamins/Minerals (Preservision Areds 2) 1 cap PO BID WITH MEALS [facility] Last Admin: 02/11/18 17:41 Dose: 1 cap Ondansetron HCl (Zofran Odt Tab*) 4 mg PO Q8H PRN PRN Reason: NAUSEA/VOMITING Last Admin: 02/10/18 08:44 Dose: 4 mg Potassium Chloride (Klor Con Er Tab*) 20 meq PO DAILY [facility] Last Admin: 02/12/18 10:07 Dose: 20 meq Senna (Senokot Tab*) 2 tab PO BEDTIME PRN PRN Reason: CONSTIPATION Last Admin: 02/10/18 20:47 Dose: 1 tab Assessment: 77 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 Plan: -plan for bone marrow biopsy after cycle 2 to assess marrow burden. will do this tomorrow with IDH mutation testing -transfuse for Hb <= 7, plts <10 or bleeding -cont to hold ventoclax -ok to stop allopurinol -cont cefepime for neutopenic fevers, no neupogen with AML -change marinol to bid -no DVT prophylaxis given thrombocytopenia
[2018-02-12] MEDS: Magic M W2 Ben/Maal/Nyst/Lido* 240 ML MOUTHWASH (alt formulation) SWISH SPIT PRN (15:55)
[2018-02-12] MEDS: Dronabinol CAP* 2.5 MG PO SCH (15:56)
[2018-02-13] MEDS: Cefepime 2 GM in Dextrose(*) 2 GM/50 ML BAG IV SCH ×3 (01:06→17:04)
[2018-02-13 05:58] LABS: Hematocrit 23 % (35-47); Hemoglobin 7.9 g/dl (12.0-16.0); Mean Corpuscular HGB Conc 34 g/dl (31-36); Mean Corpuscular Hemoglobin 31 pg (27-31); Mean Corpuscular Volume 93 fL (80-97); Mean Platelet Volume 8.9 um3 (7.4-10.4); Platelet Count 54 10^3/ul (150-450); Red Blood Count 2.52 10^6/ul (4.00-5.40); Red Cell Distribution Width 16 % (10.5-15); White Blood Count 0.5 10^3/ul (3.5-10.8)
[2018-02-13] MEDS: Dronabinol CAP* 2.5 MG PO SCH ×2 (06:21→17:03)
[2018-02-13 06:22] LABS: EGFR Non-African American 193.8 (>60)
[2018-02-13] MEDS: Acetaminophen TAB* 325 MG PO PRN ×2 (06:25→20:13)
[2018-02-13 06:30] LABS: ABS Basophils 0 10^3/ul (0-0.2); ABS Neutrophils 0.1 10^3/ul (1.5-7.7); ABS Neutrophils 0.2 10^3/ul (1.5-7.7); Monocytes % 0 % (0-7)
[2018-02-13] MEDS: Insulin LISPRO* 1 UNITS UNIT SUBCUT SCH ×3 (08:50→17:04)
[2018-02-13] MEDS: Multivitamins/Minerals TAB PO SCH (08:59)
[2018-02-13] MEDS: Acyclovir* 400 MG TAB PO SCH ×2 (08:59→17:04)
[2018-02-13] MEDS: Insulin GLARGINE(*) 1 UNITS UNIT SUBCUT SCH ×2 (09:00→20:13)
[2018-02-13] MEDS: Potassium Chlor TAB* 20 MEQ TAB.ER PO SCH (09:00)
[2018-02-13] MEDS: PRESERVISION AREDS PO SCH ×2 (09:01→17:05)
[2018-02-13] MEDS: Magnesium Oxide TAB* 400 MG PO SCH ×2 (09:02→20:13)
--- NOTE | 2018-02-13 10:30 | PN ---
Progress Note - Progress Note Date of Service: 02/13/18 SOAP: Subjective: [No changes overnight. No new fevers.] Objective: [ Acetaminophen (Tylenol Tab*) 650 mg PO Q6H PRN PRN Reason: FEVER Last Admin: 02/13/18 06:25 Dose: 650 mg Acyclovir (Zovirax Tab*) 400 mg PO BID@0800,1700 [facility] Last Admin: 02/13/18 08:59 Dose: 400 mg Dronabinol (Marinol Cap*) 2.5 mg PO 1600 [facility] Last Admin: 02/12/18 15:56 Dose: 2.5 mg Dronabinol (Marinol Cap*) 2.5 mg PO 0700 [facility] Last Admin: 02/13/18 06:21 Dose: 2.5 mg Cefepime HCl (Maxipime 2 Gm In Dextrose Duplex (*)) 2 gm in 50 mls @ 100 mls/ hr IV Q8H [facility] Last Admin: 02/13/18 09:01 Dose: 100 mls/hr Insulin Glargine (Lantus(*)) 10 units SUBCUT BID [facility] Last Admin: 02/13/18 09:00 Dose: 10 units Insulin Human Lispro (Humalog*) 0 units SUBCUT AC [facility]; Protocol Last Admin: 02/13/18 08:50 Dose: Not Given Magnesium Oxide (Magox 400 Tab*) 400 mg PO BID [facility] Last Admin: 02/13/18 09:02 Dose: 400 mg Multi-Ingredient Mouthwash/Gargle (Magic M W2 Olvin/Maal/Nyst/Lido*) 10 ml SWISH SPIT QID PRN PRN Reason: SORE MOUTH Last Admin: 02/12/18 15:55 Dose: 10 ml Multivitamins/Minerals (Theragran/Minerals Tab*) 1 tab PO DAILY [facility] Last Admin: 02/13/18 08:59 Dose: Not Given Multivitamins/Minerals (Preservision Areds 2) 1 cap PO BID WITH MEALS [facility] Last Admin: 02/13/18 09:01 Dose: Not Given Ondansetron HCl (Zofran Odt Tab*) 4 mg PO Q8H PRN PRN Reason: NAUSEA/VOMITING Last Admin: 02/10/18 08:44 Dose: 4 mg Potassium Chloride (Klor Con Er Tab*) 20 meq PO DAILY [facility] Last Admin: 02/13/18 09:00 Dose: 20 meq Senna (Senokot Tab*) 2 tab PO BEDTIME PRN PRN Reason: CONSTIPATION Last Admin: 02/10/18 20:47 Dose: 1 tab Vital Signs Temp Pulse Resp BP Pulse Ox 97.8 F 93 16 124/40 100 02/13/18 09:53 02/13/18 09:53 02/13/18 09:53 02/13/18 09:53 02/13/18 09:53 Laboratory Results - last 24 hr 02/12/18 02/12/18 02/12/18 09:53 13:49 17:14 WBC RBC Hgb Hct MCV MCH MCHC RDW Plt Count MPV Neut % (Auto) Lymph % (Auto) [place] % (Auto) Eos % (Auto) Baso % (Auto) Absolute Neuts (auto) Absolute Lymphs (auto) Absolute Monos (auto) Absolute Eos (auto) Absolute Basos (auto) Absolute Nucleated RBC Immature Gran % Neutrophils % Band Neutrophils % Lymphocytes % Monocytes % Eosinophils % Basophils % Nucleated RBC % Abs Neuts (Manual) Abs Lymphs (Manual) Abs Monocytes (Manual) Absolute Eos (Manual) Abs Basophils (Manual) Normal RBC Morphology Anisocytosis Sodium Potassium Chloride Carbon Dioxide Anion Gap BUN Creatinine Est GFR ( Amer) Est GFR (Non-Af Amer) BUN/Creatinine Ratio Glucose POC Glucose (mg/dL) 248 H 173 H Calcium Total Bilirubin AST ALT Alkaline Phosphatase Total Protein Albumin Globulin Albumin/Globulin Ratio Blood Type A Positive Antibody Screen Negative Crossmatch See Detail 02/12/18 02/13/18 02/13/18 21:03 05:40 05:40 WBC 0.5 L RBC 2.52 L Hgb 7.9 L Hct 23 L MCV 93 MCH 31 MCHC 34 RDW 16 H Plt Count 54 L MPV 8.9 Neut % (Auto) Not Reportable Lymph % (Auto) Not Reportable [place] % (Auto) Not Reportable Eos % (Auto) Not Reportable Baso % (Auto) Not Reportable Absolute Neuts (auto) 0.2 L Absolute Lymphs (auto) Not Reportable Absolute Monos (auto) Not Reportable Absolute Eos (auto) Not Reportable Absolute Basos (auto) Not Reportable Absolute Nucleated RBC Not Reportable Immature Gran % 2 Neutrophils % 26 L Band Neutrophils % 2 Lymphocytes % 70 H Monocytes % 0 Eosinophils % 1 Basophils % 1 Nucleated RBC % Not Reportable Abs Neuts (Manual) 0.1 L Abs Lymphs (Manual) 0.4 L Abs Monocytes (Manual) 0 Absolute Eos (Manual) 0 Abs Basophils (Manual) 0 Normal RBC Morphology Not Reportable Anisocytosis 1+ Sodium 136 Potassium 4.0 Chloride 104 Carbon Dioxide 26 Anion Gap 6 BUN 7 Creatinine 0.33 L Est GFR ( Amer) 234.5 Est GFR (Non-Af Amer) 193.8 BUN/Creatinine Ratio 21.2 H Glucose 123 H POC Glucose (mg/dL) 183 H Calcium 8.9 Total Bilirubin 0.60 AST 17 ALT 14 Alkaline Phosphatase 96 Total Protein 6.8 Albumin 2.8 L Globulin 4.0 Albumin/Globulin Ratio 0.7 L Blood Type Antibody Screen Crossmatch 02/13/18 07:33 WBC RBC Hgb Hct MCV MCH MCHC RDW Plt Count MPV Neut % (Auto) Lymph % (Auto) [place] % (Auto) Eos % (Auto) Baso % (Auto) Absolute Neuts (auto) Absolute Lymphs (auto) Absolute Monos (auto) Absolute Eos (auto) Absolute Basos (auto) Absolute Nucleated RBC Immature Gran % Neutrophils % Band Neutrophils % Lymphocytes % Monocytes % Eosinophils % Basophils % Nucleated RBC % Abs Neuts (Manual) Abs Lymphs (Manual) Abs Monocytes (Manual) Absolute Eos (Manual) Abs Basophils (Manual) Normal RBC Morphology Anisocytosis Sodium Potassium Chloride Carbon Dioxide Anion Gap BUN Creatinine Est GFR ( Amer) Est GFR (Non-Af Amer) BUN/Creatinine Ratio Glucose POC Glucose (mg/dL) 142 H Calcium Total Bilirubin AST ALT Alkaline Phosphatase Total Protein Albumin Globulin Albumin/Globulin Ratio Blood Type Antibody Screen Crossmatch Exam: Gen: Pleasant and well appearing 74 yo female in NAD HEENT: MMM, no thrush CV: loud CARMELITA, RRR Resp: CTA, no w/c/r Abd: soft, nonTTP Ext: no edema] Assessment: [77 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 Neutropenic fever - afebrile x 48h - cultures neg - cont Cefepime - neutropenia slow to resolve 2. Pancytopenia secondary to chemotherapy 3. AML - treated with azacitadine and ventoclax - first 2 cycles complicated by neutropenia - restaging bone marrow biopsy and aspiration today 4. IDDM 5. Dysrhythmia - noted pauses and intermittent type II block - cardiology consultation appreciated - likely due to high vagal tone secondary to n/v Dispo: cont inpatient stay until ANC >1000 ]
--- NOTE | 2018-02-13 11:44 | PROCNOTE ---
Hematology/Oncology Procedure Hematology/Oncology Procedure Note: BONE MARROW BIOPSY/ASPIRATION: Written consent obtained. Time out completed. L PSIS identified, prepped and draped in a sterile fashion. Local anesthesia with 2% lidocaine. Bone marrow aspiration and core biopsy successfully completed. Patient tolerated very well. Sterile dressing placed after pressure held.
[2018-02-13] MEDS ORDERED: Lidocaine 2% PF * 5 ML VIAL INJ ONE (12:24)
[2018-02-13] MEDS: Magic M W2 Ben/Maal/Nyst/Lido* 240 ML MOUTHWASH (alt formulation) SWISH SPIT PRN (20:13)
[2018-02-14] MEDS: Cefepime 2 GM in Dextrose(*) 2 GM/50 ML BAG IV SCH ×3 (01:05→17:15)
[2018-02-14 05:57] LABS: Hematocrit 23 % (35-47); Mean Corpuscular HGB Conc 35 g/dl (31-36); Mean Corpuscular Hemoglobin 32 pg (27-31); Mean Corpuscular Volume 92 fL (80-97); Mean Platelet Volume 9.1 fL (7.4-10.4); Platelet Count 70 10^3/ul (150-450); Red Cell Distribution Width 16 % (10.5-15); White Blood Count 0.6 10^3/ul (3.5-10.8)
[2018-02-14 06:06] LABS: EGFR Non-African American 216.3 (>60)
[2018-02-14 06:26] LABS: ABS Basophils 0 10^3/ul (0-0.2); ABS Neutrophils 0.2 10^3/ul (1.5-7.7); ABS Neutrophils 0.3 10^3/ul (1.5-7.7); Monocytes % 1 % (0-7)
[2018-02-14] MEDS: Acetaminophen TAB* 325 MG PO PRN ×2 (06:55→20:58)
[2018-02-14] MEDS: Insulin LISPRO* 1 UNITS UNIT SUBCUT SCH ×3 (07:24→17:16)
--- NOTE | 2018-02-14 07:30 | PN ---
Progress Note - Progress Note Date of Service: 02/14/18 SOAP: Subjective: feeling more achy today muscularly from falls. no fevers. bowels moving well. Objective: Vital Signs Temp Pulse Resp BP Pulse Ox 97.6 F 88 16 134/59 98 02/14/18 03:35 02/14/18 03:35 02/14/18 03:35 02/14/18 03:35 02/14/18 03:35 perr eomi op moist cta bl s1 s2 4/6 CARMELITA soft nt +Bs no le edema A+Ox3, nonfocal Laboratory Results - last 24 hr 02/13/18 02/13/18 02/13/18 07:33 12:16 16:08 WBC RBC Hgb Hct MCV MCH MCHC RDW Plt Count MPV Neut % (Auto) Lymph % (Auto) [place] % (Auto) Eos % (Auto) Baso % (Auto) Absolute Neuts (auto) Absolute Lymphs (auto) Absolute Monos (auto) Absolute Eos (auto) Absolute Basos (auto) Absolute Nucleated RBC Immature Gran % Neutrophils % Band Neutrophils % Lymphocytes % Monocytes % Eosinophils % Basophils % Nucleated RBC % Abs Neuts (Manual) Abs Lymphs (Manual) Abs Monocytes (Manual) Absolute Eos (Manual) Abs Basophils (Manual) Normal RBC Morphology Anisocytosis Sodium Potassium Chloride Carbon Dioxide Anion Gap BUN Creatinine Est GFR ( Amer) Est GFR (Non-Af Amer) BUN/Creatinine Ratio Glucose POC Glucose (mg/dL) 142 H 198 H 208 H Calcium Total Bilirubin AST ALT Alkaline Phosphatase Total Protein Albumin Globulin Albumin/Globulin Ratio 02/13/18 02/14/18 02/14/18 20:06 05:12 05:12 WBC 0.6 L RBC 2.50 L Hgb 8.0 L Hct 23 L MCV 92 MCH 32 H MCHC 35 RDW 16 H Plt Count 70 L MPV 9.1 Neut % (Auto) Not Reportable Lymph % (Auto) Not Reportable [place] % (Auto) Not Reportable Eos % (Auto) Not Reportable Baso % (Auto) Not Reportable Absolute Neuts (auto) 0.3 L Absolute Lymphs (auto) Not Reportable Absolute Monos (auto) Not Reportable Absolute Eos (auto) Not Reportable Absolute Basos (auto) Not Reportable Absolute Nucleated RBC Not Reportable Immature Gran % 9 Neutrophils % 26 L Band Neutrophils % 9 H Lymphocytes % 63 H Monocytes % 1 Eosinophils % 1 Basophils % 0 Nucleated RBC % Not Reportable Abs Neuts (Manual) 0.2 L Abs Lymphs (Manual) 0.4 L Abs Monocytes (Manual) 0 Absolute Eos (Manual) 0 Abs Basophils (Manual) 0 Normal RBC Morphology Not Reportable Anisocytosis 2+ Sodium 135 Potassium 4.0 Chloride 104 Carbon Dioxide 27 Anion Gap 4 BUN 6 Creatinine < 0.30 L Est GFR ( Amer) 261.7 Est GFR (Non-Af Amer) 216.3 BUN/Creatinine Ratio 20.0 Glucose 108 H POC Glucose (mg/dL) 183 H Calcium 8.9 Total Bilirubin 0.50 AST 14 ALT 12 Alkaline Phosphatase 95 Total Protein 6.9 Albumin 2.9 L Globulin 4.0 Albumin/Globulin Ratio 0.7 L Acetaminophen (Tylenol Tab*) 650 mg PO Q6H PRN PRN Reason: FEVER Last Admin: 02/14/18 06:55 Dose: 650 mg Acyclovir (Zovirax Tab*) 400 mg PO BID@0800,1700 [facility] Last Admin: 02/13/18 17:04 Dose: 400 mg Dronabinol (Marinol Cap*) 2.5 mg PO 1600 [facility] Last Admin: 02/13/18 17:03 Dose: 2.5 mg Dronabinol (Marinol Cap*) 2.5 mg PO 0700 [facility] Last Admin: 02/13/18 06:21 Dose: 2.5 mg Cefepime HCl (Maxipime 2 Gm In Dextrose Duplex (*)) 2 gm in 50 mls @ 100 mls/ hr IV Q8H [facility] Last Admin: 02/14/18 01:05 Dose: 100 mls/hr Insulin Glargine (Lantus(*)) 10 units SUBCUT BID [facility] Last Admin: 02/13/18 20:13 Dose: 10 units Insulin Human Lispro (Humalog*) 0 units SUBCUT AC [facility]; Protocol Last Admin: 02/14/18 07:24 Dose: Not Given Magnesium Oxide (Magox 400 Tab*) 400 mg PO BID [facility] Last Admin: 02/13/18 20:13 Dose: 400 mg Multi-Ingredient Mouthwash/Gargle (Magic M W2 Olvin/Maal/Nyst/Lido*) 10 ml SWISH SPIT QID PRN PRN Reason: SORE MOUTH Last Admin: 02/13/18 20:13 Dose: 10 ml Multivitamins/Minerals (Theragran/Minerals Tab*) 1 tab PO DAILY [facility] Last Admin: 02/13/18 08:59 Dose: Not Given Multivitamins/Minerals (Preservision Areds 2) 1 cap PO BID WITH MEALS [facility] Last Admin: 02/13/18 17:05 Dose: 1 cap Ondansetron HCl (Zofran Odt Tab*) 4 mg PO Q8H PRN PRN Reason: NAUSEA/VOMITING Last Admin: 02/10/18 08:44 Dose: 4 mg Potassium Chloride (Klor Con Er Tab*) 20 meq PO DAILY [facility] Last Admin: 02/13/18 09:00 Dose: 20 meq Senna (Senokot Tab*) 2 tab PO BEDTIME PRN PRN Reason: CONSTIPATION Last Admin: 02/10/18 20:47 Dose: 1 tab Assessment: 77 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 Plan: -cont iv abx -plan to D/C home when ANC >800 and rising (likely Friday) -cycle 3 dosing depending on bone marrow results from yesterday -start DVT prophylaxis now that plts >50 -can d/c tele as stable
[2018-02-14] MEDS: Multivitamins/Minerals TAB PO SCH (08:27)
[2018-02-14] MEDS: PRESERVISION AREDS PO SCH ×2 (08:46→17:16)
[2018-02-14] MEDS: Potassium Chlor TAB* 20 MEQ TAB.ER PO SCH (08:48)
[2018-02-14] MEDS: Dronabinol CAP* 2.5 MG PO SCH ×2 (08:50→16:11)
[2018-02-14] MEDS: Magnesium Oxide TAB* 400 MG PO SCH ×2 (08:50→20:58)
[2018-02-14] MEDS: Acyclovir* 400 MG TAB PO SCH ×2 (08:51→17:16)
[2018-02-14] MEDS: Insulin GLARGINE(*) 1 UNITS UNIT SUBCUT SCH ×2 (08:51→20:57)
[2018-02-14] MEDS: Enoxaparin(*) 40 MG/0.4 ML SYR SUBCUT SCH (08:55)
[2018-02-15] MEDS: Cefepime 2 GM in Dextrose(*) 2 GM/50 ML BAG IV SCH ×3 (00:53→17:17)
[2018-02-15 07:13] LABS: Hematocrit 24 % (35-47); Hemoglobin 8.3 g/dl (12.0-16.0); Mean Corpuscular HGB Conc 34 g/dl (31-36); Mean Corpuscular Hemoglobin 31 pg (27-31); Mean Corpuscular Volume 92 fL (80-97); Mean Platelet Volume 8.4 fL (7.4-10.4); Platelet Count 94 10^3/ul (150-450); Red Blood Count 2.63 10^6/ul (4.00-5.40); Red Cell Distribution Width 17 % (10.5-15); White Blood Count 0.7 10^3/ul (3.5-10.8)
[2018-02-15 07:26] LABS: EGFR Non-African American 175.3 (>60)
[2018-02-15 07:56] LABS: ABS Basophils 0 10^3/ul (0-0.2); ABS Eosinophils 0 10^3/ul (0-0.6); ABS Lymphocytes 0.3 10^3/ul (1.0-4.8); ABS Monocytes 0 10^3/ul (0-0.8); ABS Neutrophils 0.4 10^3/ul (1.5-7.7); ABS Nucleated RBC 0 10^3/ul; Eosinophil % 1.2 % (0-6); Lymphocyte % 39.6 % (25-47); Nucleated Red Blood Cells % 0.1
[2018-02-15] MEDS: Insulin LISPRO* 1 UNITS UNIT SUBCUT SCH ×3 (08:05→18:16)
[2018-02-15] MEDS: Acyclovir* 400 MG TAB PO SCH ×2 (08:38→17:17)
[2018-02-15] MEDS: Multivitamins/Minerals TAB PO SCH (08:38)
[2018-02-15] MEDS: Magnesium Oxide TAB* 400 MG PO SCH ×2 (08:38→20:22)
[2018-02-15] MEDS: Potassium Chlor TAB* 20 MEQ TAB.ER PO SCH (08:39)
[2018-02-15] MEDS: Dronabinol CAP* 2.5 MG PO SCH ×2 (08:39→17:17)
[2018-02-15] MEDS: PRESERVISION AREDS PO SCH ×2 (08:39→17:17)
[2018-02-15] MEDS: Magic M W2 Ben/Maal/Nyst/Lido* 240 ML MOUTHWASH (alt formulation) SWISH SPIT PRN (08:40)
[2018-02-15] MEDS: Insulin GLARGINE(*) 1 UNITS UNIT SUBCUT SCH ×2 (08:40→20:22)
[2018-02-15] MEDS: Enoxaparin(*) 40 MG/0.4 ML SYR SUBCUT SCH (08:42)
--- NOTE | 2018-02-15 11:31 | PN ---
Subjective Date of Service: 02/15/18 Interval History: Patient is feeling well today. Has moderate pain controlled to patient's satisfaction with tylenol. Patient denies CP, SOB, F/C, N/V, abdominal pain, dysuria, dizziness, or other pain. Patient has been able to ambulate 200 feet yesterday without becoming SOB. Family History: Unchanged from Admission Social History: Unchanged from Admission Past Medical History: Unchanged from Admission Objective Active Medications: Acetaminophen (Tylenol Tab*) 650 mg PO Q6H PRN PRN Reason: FEVER Last Admin: 02/14/18 20:58 Dose: 650 mg Acyclovir (Zovirax Tab*) 400 mg PO BID@0800,1700 [facility] Last Admin: 02/15/18 08:38 Dose: 400 mg Dronabinol (Marinol Cap*) 2.5 mg PO 1600 [facility] Last Admin: 02/14/18 16:11 Dose: 2.5 mg Dronabinol (Marinol Cap*) 2.5 mg PO 0700 [facility] Last Admin: 02/15/18 08:39 Dose: 2.5 mg Enoxaparin Sodium (Lovenox(*)) 40 mg SUBCUT Q24H [facility] Last Admin: 02/15/18 08:42 Dose: 40 mg Cefepime HCl (Maxipime 2 Gm In Dextrose Duplex (*)) 2 gm in 50 mls @ 100 mls/ hr IV Q8H [facility] Last Admin: 02/15/18 09:31 Dose: 100 mls/hr Insulin Glargine (Lantus(*)) 10 units SUBCUT BID [facility] Last Admin: 02/15/18 08:40 Dose: 10 units Insulin Human Lispro (Humalog*) 0 units SUBCUT AC [facility]; Protocol Last Admin: 02/15/18 08:05 Dose: Not Given Magnesium Oxide (Magox 400 Tab*) 400 mg PO BID [facility] Last Admin: 02/15/18 08:38 Dose: 400 mg Multi-Ingredient Mouthwash/Gargle (Magic M W2 Olvin/Maal/Nyst/Lido*) 10 ml SWISH SPIT QID PRN PRN Reason: SORE MOUTH Last Admin: 02/15/18 08:40 Dose: 10 ml Multivitamins/Minerals (Theragran/Minerals Tab*) 1 tab PO DAILY [facility] Last Admin: 02/15/18 08:38 Dose: 1 tab Multivitamins/Minerals (Preservision Areds 2) 1 cap PO BID WITH MEALS [facility] Last Admin: 02/15/18 08:39 Dose: 1 cap Ondansetron HCl (Zofran Odt Tab*) 4 mg PO Q8H PRN PRN Reason: NAUSEA/VOMITING Last Admin: 02/10/18 08:44 Dose: 4 mg Potassium Chloride (Klor Con Er Tab*) 20 meq PO DAILY [facility] Last Admin: 02/15/18 08:39 Dose: 20 meq Senna (Senokot Tab*) 2 tab PO BEDTIME PRN PRN Reason: CONSTIPATION Last Admin: 02/10/18 20:47 Dose: 1 tab Vital Signs - 8 hr 02/15/18 02/15/18 05:08 08:39 Temperature 97.8 F Pulse Rate 97 Respiratory 20 16 Rate Blood Pressure 153/75 (mmHg) O2 Sat by Pulse 100 Oximetry Oxygen Devices in Use Now: None Appearance: Patient is a 77yo female who appears stated age and is sitting in the bed in [facility]. Eyes: No Scleral Icterus, PERRLA Ears/Nose/Mouth/Throat: NL Teeth, Lips, Gums, Clear Oropharnyx, Mucous Membranes Moist Neck: NL Appearance and Movements; NL JVP, Trachea Midline Respiratory: Symmetrical Chest Expansion and Respiratory Effort, Clear to Auscultation Cardiovascular: NL Sounds; No Murmurs; No JVD, RRR, No Edema Abdominal: NL Sounds; No Tenderness; No Distention, No Hepatosplenomegaly Lymphatic: No Cervical Adenopathy Extremities: No Edema, No Clubbing, Cyanosis Skin: No Rash or Ulcers, No Nodules or Sclerosis Neurological: Alert and Oriented x 3, NL Sensation, NL Muscle Strength and Tone , - - CN II-XII intact. - Nutrition: Malnutrition Diagnosis/Plan Malnutrition Assessment by Registered Dietitian: Malnutrition Assessment Clinical Characteristics Acute,Moderate Malnutrition Assessment: - 10% wt loss x < 2 months Criteria - Mild temporal muscle wasting Malnutrition Assessment: Pt agreeable to trying Glucerna tonight w/ Interventions dinner. Pt is aware to request for this to be scheduled if she enjoys it. Glucerna: 220 kcals , 10 grams protein per serving. Malnutrition Assessment: Goals 1. Adequate PO intake to promote lean body mass repletion, maintain hydration, and prevent additional wt loss Result Diagrams: 02/15/18 06:59 02/15/18 06:59 Microbiology and Other Data: Microbiology 02/07/18 01:07 Aerobic Blood Culture - Final Blood Venous No Growth Day 5 Anaerobic Blood Culture - Final No Growth Day 5 02/06/18 23:36 Aerobic Blood Culture - Final Blood Venous No Growth Day 5 Anaerobic Blood Culture - Final No Growth Day 5 02/07/18 07:00 Urine Culture - Final Urine No Growth (<1,000 CFU/mL) Assess/Plan/Problems-Billing Assessment: 77 yr old aml s/p chemo 12/2017 admitted with neutropenic fever, still on Cefepime and improving with slow improvement in ANC. - Patient Problems (1) Neutropenic fever Current Visit: No Status: Acute Code(s): D70.9 - NEUTROPENIA, UNSPECIFIED; R50.81 - FEVER PRESENTING WITH CONDITIONS CLASSIFIED ELSEWHERE SNOMED Code(s) : 939023473 Comment: - Cefepime 2 grams q8H. - Acyclovir - Blood and Urine Cultures negative. - ANC 200 today. (2) AML (acute myeloblastic leukemia) Current Visit: Yes Status: Acute Code(s): C92.00 - ACUTE MYELOBLASTIC LEUKEMIA, NOT HAVING ACHIEVED REMISSION SNOMED Code(s): 99520456 Comment: - Management per Oncology. - Chemotherapy on hold - Slow improvement in ANC. - No Neulasta - Neutropenic Fever improved. (3) Heart block Current Visit: Yes Status: Acute Code(s): I45.9 - CONDUCTION DISORDER, UNSPECIFIED SNOMED Code(s): 932304548 Comment: - Resolved, in setting of N/V - Telemetry monitoring discontinued - No symptoms consistent with block. (4) Type II diabetes mellitus Current Visit: Yes Status: Acute Comment: - SSI and Lantus - May resume Metformin on Dicsharge. - Neutropenic diet - Good Control. (5) Thrombocytopenia Current Visit: No Status: Acute Code(s): D69.6 - THROMBOCYTOPENIA, UNSPECIFIED SNOMED Code(s): 955647982 Comment: - Improving (6) Aortic stenosis Current Visit: No Status: Chronic Code(s): I35.0 - NONRHEUMATIC AORTIC ( VALVE) STENOSIS SNOMED Code(s): 71075387 Comment: - Moderate aortic stenosis per echo - Not acute issue. (7) DVT prophylaxis Current Visit: Yes Status: Acute Code(s): HBE3105 - SNOMED Code(s): 788177318 Comment: - Lovenox now that Platelet count>50K (8) Full code status Current Visit: No Status: Acute Code(s): Z78.9 - OTHER SPECIFIED HEALTH STATUS SNOMED Code(s): 838490460 Comment: Status and Disposition: Inpatient
[2018-02-16] MEDS: Acetaminophen TAB* 325 MG PO PRN ×3 (00:22→21:11)
[2018-02-16] MEDS: Cefepime 2 GM in Dextrose(*) 2 GM/50 ML BAG IV SCH ×3 (00:24→17:00)
[2018-02-16 07:12] LABS: Hematocrit 25 % (35-47); Hemoglobin 8.4 g/dl (12.0-16.0); Mean Corpuscular HGB Conc 34 g/dl (31-36); Mean Corpuscular Hemoglobin 31 pg (27-31); Mean Corpuscular Volume 92 fL (80-97); Mean Platelet Volume 8.8 fL (7.4-10.4); Platelet Count 114 10^3/ul (150-450); Red Blood Count 2.69 10^6/ul (4.00-5.40); Red Cell Distribution Width 16 % (10.5-15); White Blood Count 0.9 10^3/ul (3.5-10.8)
[2018-02-16] MEDS: Insulin LISPRO* 1 UNITS UNIT SUBCUT SCH ×3 (08:03→16:36)
[2018-02-16] MEDS: Multivitamins/Minerals TAB PO SCH (08:05)
[2018-02-16] MEDS: Magnesium Oxide TAB* 400 MG PO SCH ×2 (08:06→21:08)
[2018-02-16] MEDS: Insulin GLARGINE(*) 1 UNITS UNIT SUBCUT SCH ×2 (08:06→21:08)
[2018-02-16] MEDS: Acyclovir* 400 MG TAB PO SCH ×2 (08:06→17:00)
[2018-02-16] MEDS: Potassium Chlor TAB* 20 MEQ TAB.ER PO SCH (08:06)
[2018-02-16 08:25] LABS: ABS Basophils 0 10^3/ul (0-0.2); ABS Neutrophils 0.4 10^3/ul (1.5-7.7); Monocytes % 5 % (0-7)
[2018-02-16] MEDS: PRESERVISION AREDS PO SCH ×2 (09:05→16:59)
[2018-02-16] MEDS: Enoxaparin(*) 40 MG/0.4 ML SYR SUBCUT SCH (09:06)
--- NOTE | 2018-02-16 11:14 | PN ---
Progress Note - Progress Note Date of Service: 02/16/18 SOAP: Subjective: [No complaints. Visited by her children and grandchildren over the weekend. No new fevers or other infectious symptoms] Objective: [ Vital Signs: Temp Pulse Resp BP Pulse Ox 97.8 F 88 16 128/60 99 02/16/18 07:15 02/16/18 07:15 02/16/18 08:00 02/16/18 07:15 02/16/18 07:15 Laboratory Results - last 24 hr 02/15/18 02/15/18 02/15/18 12:16 17:09 19:58 WBC RBC Hgb Hct MCV MCH MCHC RDW Plt Count MPV Neut % (Auto) Lymph % (Auto) [place] % (Auto) Eos % (Auto) Baso % (Auto) Absolute Neuts (auto) Absolute Lymphs (auto) Absolute Monos (auto) Absolute Eos (auto) Absolute Basos (auto) Absolute Nucleated RBC Immature Gran % Neutrophils % Lymphocytes % Monocytes % Eosinophils % Basophils % Myelocytes % Nucleated RBC % Abs Neuts (Manual) Abs Lymphs (Manual) Abs Monocytes (Manual) Absolute Eos (Manual) Abs Basophils (Manual) Normal RBC Morphology Anisocytosis Sodium Potassium Chloride Carbon Dioxide Anion Gap BUN Creatinine Est GFR ( Amer) Est GFR (Non-Af Amer) BUN/Creatinine Ratio Glucose POC Glucose (mg/dL) 171 H 144 H 157 H Calcium 02/16/18 02/16/18 06:28 06:28 WBC 0.9 L RBC 2.69 L Hgb 8.4 L Hct 25 L MCV 92 MCH 31 MCHC 34 RDW 16 H Plt Count 114 L MPV 8.8 Neut % (Auto) Not Reportable Lymph % (Auto) Not Reportable [place] % (Auto) Not Reportable Eos % (Auto) Not Reportable Baso % (Auto) Not Reportable Absolute Neuts (auto) Not Reportable Absolute Lymphs (auto) Not Reportable Absolute Monos (auto) Not Reportable Absolute Eos (auto) Not Reportable Absolute Basos (auto) Not Reportable Absolute Nucleated RBC Not Reportable Immature Gran % 2 Neutrophils % 44 Lymphocytes % 48 H Monocytes % 5 Eosinophils % 0 Basophils % 1 Myelocytes % 2 H Nucleated RBC % Not Reportable Abs Neuts (Manual) 0.4 L* Abs Lymphs (Manual) 0.4 L Abs Monocytes (Manual) 0 Absolute Eos (Manual) 0 Abs Basophils (Manual) 0 Normal RBC Morphology Not Reportable Anisocytosis 1+ Sodium 138 Potassium 4.0 Chloride 102 Carbon Dioxide 30 Anion Gap 6 BUN 6 Creatinine 0.35 L Est GFR ( Amer) 219.1 Est GFR (Non-Af Amer) 181.0 BUN/Creatinine Ratio 17.1 Glucose 105 H POC Glucose (mg/dL) Calcium 9.2 Acetaminophen (Tylenol Tab*) 650 mg PO Q6H PRN PRN Reason: FEVER/ PAIN Last Admin: 02/16/18 10:20 Dose: 650 mg Acyclovir (Zovirax Tab*) 400 mg PO BID@0800,1700 [facility] Last Admin: 02/16/18 08:06 Dose: 400 mg Dronabinol (Marinol Cap*) 2.5 mg PO 1600 [facility] Last Admin: 02/15/18 17:17 Dose: Not Given Dronabinol (Marinol Cap*) 2.5 mg PO 0700 [facility] Last Admin: 02/15/18 08:39 Dose: 2.5 mg Enoxaparin Sodium (Lovenox(*)) 40 mg SUBCUT Q24H [facility] Last Admin: 02/16/18 09:06 Dose: 40 mg Cefepime HCl (Maxipime 2 Gm In Dextrose Duplex (*)) 2 gm in 50 mls @ 100 mls/ hr IV Q8H [facility] Last Admin: 02/16/18 09:06 Dose: 100 mls/hr Insulin Glargine (Lantus(*)) 10 units SUBCUT BID [facility] Last Admin: 02/16/18 08:06 Dose: 10 units Insulin Human Lispro (Humalog*) 0 units SUBCUT AC [facility]; Protocol Last Admin: 02/16/18 08:03 Dose: Not Given Magnesium Oxide (Magox 400 Tab*) 400 mg PO BID [facility] Last Admin: 02/16/18 08:06 Dose: 400 mg Multi-Ingredient Mouthwash/Gargle (Magic M W2 Olvin/Maal/Nyst/Lido*) 10 ml SWISH SPIT QID PRN PRN Reason: SORE MOUTH Last Admin: 02/15/18 08:40 Dose: 10 ml Multivitamins/Minerals (Theragran/Minerals Tab*) 1 tab PO DAILY [facility] Last Admin: 02/16/18 08:05 Dose: Not Given Multivitamins/Minerals (Preservision Areds 2) 1 cap PO BID WITH ME[facility] Last Admin: 02/16/18 09:05 Dose: 1 cap Ondansetron HCl (Zofran Odt Tab*) 4 mg PO Q8H PRN PRN Reason: NAUSEA/VOMITING Last Admin: 02/10/18 08:44 Dose: 4 mg Potassium Chloride (Klor Con Er Tab*) 20 meq PO DAILY [facility] Last Admin: 02/16/18 08:06 Dose: 20 meq Senna (Senokot Tab*) 2 tab PO BEDTIME PRN PRN Reason: CONSTIPATION Last Admin: 02/10/18 20:47 Dose: 1 tab Exam: Gen: Pleasant and well appearing 74 yo female in NAD HEENT: MMM, no thrush CV: loud CARMELITA, RRR Resp: CTA, no w/c/r Abd: soft, nonTTP Ext: no edema] Assessment: [77 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 Neutropenic fever - afebrile now for several days - cultures neg - abx discontinued - neutropenia slow to resolve 2. Pancytopenia secondary to chemotherapy 3. AML - treated with azacitadine and ventoclax - first 2 cycles complicated by neutropenia - restaging bone marrow biopsy and aspiration Friday, pending results 4. IDDM 5. Dysrhythmia - noted pauses and intermittent type II block - cardiology consultation appreciated - likely due to high vagal tone secondary to n/v Dispo: cont inpatient stay until ANC >800
[2018-02-16] MEDS: Dronabinol CAP* 2.5 MG PO SCH ×2 (11:31→16:17)
[2018-02-17] MEDS: Cefepime 2 GM in Dextrose(*) 2 GM/50 ML BAG IV SCH ×3 (01:40→17:18)
[2018-02-17] MEDS: Dronabinol CAP* 2.5 MG PO SCH (05:57)
[2018-02-17] MEDS: Insulin LISPRO* 1 UNITS UNIT SUBCUT SCH ×3 (08:11→17:15)
[2018-02-17] MEDS: Multivitamins/Minerals TAB PO SCH (09:23)
[2018-02-17] MEDS: Acyclovir* 400 MG TAB PO SCH ×2 (09:23→17:19)
[2018-02-17] MEDS: Insulin GLARGINE(*) 1 UNITS UNIT SUBCUT SCH ×2 (09:23→21:13)
[2018-02-17] MEDS: Potassium Chlor TAB* 20 MEQ TAB.ER PO SCH (09:24)
[2018-02-17] MEDS: PRESERVISION AREDS PO SCH ×2 (09:24→17:19)
[2018-02-17] MEDS: Magnesium Oxide TAB* 400 MG PO SCH ×2 (09:24→21:13)
[2018-02-17] MEDS: Enoxaparin(*) 40 MG/0.4 ML SYR SUBCUT SCH (09:24)
[2018-02-17 09:47] LABS: Hematocrit 25 % (35-47); Hemoglobin 8.6 g/dl (12.0-16.0); Mean Corpuscular HGB Conc 34 g/dl (31-36); Mean Corpuscular Hemoglobin 32 pg (27-31); Mean Corpuscular Volume 92 fL (80-97); Mean Platelet Volume 8.8 fL (7.4-10.4); Platelet Count 136 10^3/ul (150-450); Red Blood Count 2.74 10^6/ul (4.00-5.40); Red Cell Distribution Width 17 % (10.5-15); White Blood Count 1.2 10^3/ul (3.5-10.8)
[2018-02-17 10:36] LABS: ABS Basophils 0 10^3/ul (0-0.2); ABS Neutrophils 0.6 10^3/ul (1.5-7.7); Monocytes % 5 % (0-7)
--- NOTE | 2018-02-17 10:46 | PN ---
Progress Note - Progress Note Date of Service: 02/17/18 SOAP: Subjective: [Feeling well. Frustrated with her prolonged stay. Intermittent diarrhea which seems mild. Appetite good, would like to decrease her marinol to just once daily. No fevers] Objective: [ Vital Signs Temp Pulse Resp BP Pulse Ox 98.4 F 97 18 116/54 99 02/17/18 01:18 18 01:18 02/17/18 08:00 02/17/18 01:18 02/17/18 01:18 Acetaminophen (Tylenol Tab*) 650 mg PO Q6H PRN PRN Reason: FEVER/ PAIN Last Admin: 02/16/18 21:11 Dose: 650 mg Acyclovir (Zovirax Tab*) 400 mg PO BID@0800,1700 [facility] Last Admin: 02/17/18 09:23 Dose: 400 mg Dronabinol (Marinol Cap*) 2.5 mg PO 1130 [facility] Enoxaparin Sodium (Lovenox(*)) 40 mg SUBCUT Q24H [facility] Last Admin: 02/17/18 09:24 Dose: 40 mg Cefepime HCl (Maxipime 2 Gm In Dextrose Duplex (*)) 2 gm in 50 mls @ 100 mls/ hr IV Q8H [facility] Last Admin: 02/17/18 09:24 Dose: 100 mls/hr Insulin Glargine (Lantus(*)) 10 units SUBCUT BID [facility] Last Admin: 02/17/18 09:23 Dose: 10 units Insulin Human Lispro (Humalog*) 0 units SUBCUT [facility]; Protocol Last Admin: 02/17/18 08:11 Dose: Not Given Lactobacillus Rhamnosus (Lactobacillus Acidophilus*) 1 tab PO BID [facility] Magnesium Oxide (Magox 400 Tab*) 400 mg PO BID [facility] Last Admin: 02/17/18 09:24 Dose: 400 mg Multi-Ingredient Mouthwash/Gargle (Magic M W2 Olvin/Maal/Nyst/Lido*) 10 ml SWISH SPIT QID PRN PRN Reason: SORE MOUTH Last Admin: 02/15/18 08:40 Dose: 10 ml Multivitamins/Minerals (Theragran/Minerals Tab*) 1 tab PO DAILY [facility] Last Admin: 02/17/18 09:23 Dose: Not Given Multivitamins/Minerals (Preservision Areds 2) 1 cap PO BID WITH MEALS [facility] Last Admin: 02/17/18 09:24 Dose: 1 cap Ondansetron HCl (Zofran Odt Tab*) 4 mg PO Q8H PRN PRN Reason: NAUSEA/VOMITING Last Admin: 02/10/18 08:44 Dose: 4 mg Potassium Chloride (Klor Con Er Tab*) 20 meq PO DAILY [facility] Last Admin: 02/17/18 09:24 Dose: 20 meq Senna (Senokot Tab*) 2 tab PO BEDTIME PRN PRN Reason: CONSTIPATION Last Admin: 02/10/18 20:47 Dose: 1 tab Laboratory Results - last 24 hr 02/13/18 02/16/18 02/16/18 11:45 08:02 11:37 WBC RBC Hgb Hct MCV MCH MCHC RDW Plt Count MPV Neut % (Auto) Lymph % (Auto) [place] % (Auto) Eos % (Auto) Baso % (Auto) Absolute Neuts (auto) Absolute Lymphs (auto) Absolute Monos (auto) Absolute Eos (auto) Absolute Basos (auto) Absolute Nucleated RBC Neutrophils % Lymphocytes % Monocytes % Eosinophils % Basophils % Nucleated RBC % Abs Neuts (Manual) Abs Lymphs (Manual) Abs Monocytes (Manual) Absolute Eos (Manual) Abs Basophils (Manual) Normal RBC Morphology Hypochromasia POC Glucose (mg/dL) 114 H 202 H Flow Intrp 2-8 Markers Not Reportable Flow Intrp 9-15 Marker Not Reportable Flow Intrp 16+ Markers 02/16/18 02/16/18 02/17/18 16:23 21:08 09:22 WBC 1.2 L RBC 2.74 L Hgb 8.6 L Hct 25 L MCV 92 MCH 32 H MCHC 34 RDW 17 H Plt Count 136 L MPV 8.8 Neut % (Auto) Not Reportable Lymph % (Auto) Not Reportable [place] % (Auto) Not Reportable Eos % (Auto) Not Reportable Baso % (Auto) Not Reportable Absolute Neuts (auto) 0.6 L Absolute Lymphs (auto) Not Reportable Absolute Monos (auto) Not Reportable Absolute Eos (auto) Not Reportable Absolute Basos (auto) Not Reportable Absolute Nucleated RBC Not Reportable Neutrophils % 49 Lymphocytes % 46 Monocytes % 5 Eosinophils % 0 Basophils % 0 Nucleated RBC % Not Reportable Abs Neuts (Manual) 0.6 L Abs Lymphs (Manual) 0.6 L Abs Monocytes (Manual) 0.1 Absolute Eos (Manual) 0 Abs Basophils (Manual) 0 Normal RBC Morphology Not Reportable Hypochromasia 1+ POC Glucose (mg/dL) 178 H 273 H Flow Intrp 2-8 Markers Flow Intrp 9-15 Marker Flow Intrp 16+ Markers Exam: Gen: Pleasant and well appearing 74 yo female in NAD HEENT: MMM, no thrush CV: loud CARMELITA, RRR Resp: CTA, no w/c/r Abd: soft, nonTTP Ext: no edema] Assessment: [77 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 Neutropenic fever - afebrile now for several days - cultures neg - cont Cefepime - neutropenia slow to resolve 2. Pancytopenia secondary to chemotherapy 3. AML - treated with azacitadine and ventoclax - first 2 cycles complicated by neutropenia - restaging bone marrow biopsy and aspiration Friday - no blasts - FISH pending 4. IDDM 5. Dysrhythmia - noted pauses and intermittent type II block - cardiology consultation appreciated - likely due to high vagal tone secondary to n/v Dispo: cont inpatient stay until ANC >800 ]
[2018-02-17] MEDS ORDERED: Dronabinol CAP* 2.5 MG PO SCH (11:30)
[2018-02-17] MEDS: Lactobacillus Acidophilus* 1 TAB PO SCH (21:13)
[2018-02-18] MEDS: Cefepime 2 GM in Dextrose(*) 2 GM/50 ML BAG IV SCH ×2 (00:45→08:55)
[2018-02-18 07:56] LABS: ABS Basophils 0 10^3/ul (0-0.2); ABS Eosinophils 0 10^3/ul (0-0.6); ABS Lymphocytes 0.3 10^3/ul (1.0-4.8); ABS Monocytes 0.2 10^3/ul (0-0.8); ABS Neutrophils 0.8 10^3/ul (1.5-7.7); ABS Nucleated RBC 0 10^3/ul; Eosinophil % 0.5 % (0-6); Hematocrit 26 % (35-47); Hemoglobin 8.8 g/dl (12.0-16.0); Lymphocyte % 24.7 % (25-47); Mean Corpuscular HGB Conc 34 g/dl (31-36); Mean Corpuscular Hemoglobin 32 pg (27-31); Mean Corpuscular Volume 92 fL (80-97); Mean Platelet Volume 8.5 fL (7.4-10.4); Nucleated Red Blood Cells % 0.1; Platelet Count 161 10^3/ul (150-450); Red Blood Count 2.79 10^6/ul (4.00-5.40); Red Cell Distribution Width 17 % (10.5-15); White Blood Count 1.4 10^3/ul (3.5-10.8)
[2018-02-18] MEDS: Insulin LISPRO* 1 UNITS UNIT SUBCUT SCH (08:20)
[2018-02-18 08:36] VITALS: BP 130/55
[2018-02-18] MEDS: Magnesium Oxide TAB* 400 MG PO SCH (08:54)
[2018-02-18] MEDS: Lactobacillus Acidophilus* 1 TAB PO SCH (08:54)
[2018-02-18] MEDS: Insulin GLARGINE(*) 1 UNITS UNIT SUBCUT SCH (08:55)
[2018-02-18] MEDS: Acyclovir* 400 MG TAB PO SCH (08:55)
[2018-02-18] MEDS: PRESERVISION AREDS PO SCH (08:55)
[2018-02-18] MEDS: Potassium Chlor TAB* 20 MEQ TAB.ER PO SCH (08:55)
[2018-02-18] MEDS: Enoxaparin(*) 40 MG/0.4 ML SYR SUBCUT SCH (08:56)
[2018-02-18] MEDS: Multivitamins/Minerals TAB PO SCH (08:56)
--- NOTE | 2018-02-18 10:23 | DS ---
- Discharge Summary ADMIT DATE:02/07/18 DISCHARGE DATE:02/18/2018 DISCHARGE FOLLOW UP: chemotherapy Friday 02/23 at 11 am DISCHARGE MEDICATIONS: Home Medications Medication Instructions Recorded Confirmed Type Insulin LISPRO* [HumaLOG*] 2 - 10 units SUBCUT AC 01/02/18 02/07/18 History Ondansetron ODT TAB* [Zofran 4 MG 4 mg PO Q8H PRN 01/02/18 02/07/18 History Odt TAB*] Vit C/E/Zn/Coppr/Lutein/Zeaxan 1 cap PO BID 01/02/18 02/07/18 History [Preservision Areds 2 Softgel] metFORMIN* [Glucophage 500 MG TAB 500 mg PO 1730 01/02/18 02/07/18 History *] Acyclovir* [Zovirax 400 MG TAB*] 400 mg PO 0830 02/07/18 02/07/18 History Acyclovir* [Zovirax 400 MG TAB*] 400 mg PO 1730 02/07/18 02/07/18 History Dronabinol CAP* [Marinol CAP*] 2.5 mg PO 1130 02/07/18 02/07/18 History Insulin GLARGINE(*) [Lantus(*)] 15 units SUBCUT BID 02/07/18 02/07/18 History Metoprolol Succinate 50 mg PO 1730 02/07/18 02/07/18 History Potassium Chlor TAB* [Potassium 20 meq PO 1730 02/07/18 02/07/18 History Chlor TAB 20 MEQ*] Lactobacillus Acidophilus* 1 tab PO BID tab 02/18/18 Rx Magnesium Oxide TAB* [MagOx 400 400 mg PO BID tab 02/18/18 Rx TAB*] Senna TAB* [Senokot TAB*] 2 tab PO BEDTIME PRN tab 02/18/18 Rx HOSPITAL COURSE: Vane was admitted cycle 2 of AZA with febrile neutropenia. Her ventoclax was held and she was treated with IV antibiotics. cultures were all negative. bone marrow biopsy confirmed a CR for her AML with slight hypocellularity of her marrow (20-30%) and a persistent small b cell population. Her counts have trended up and she will be discharged home and plan on cycle 3 day 1 on Friday ( 4 day delay). I am still discussing with Dr. Garcia if we will dose reduce for cycle 3 (he has recommended full dose). May also consider prophylactic antibiotics. She understands that we will make this decision for Friday. She did have a mechanical fall on this admission (slipped on urine in the bathroom after being incontinent). imaging was benign. >30 mins spent, >50% in face to face counseling.
== END 2018-02-18 11:52 | disposition home health service (06) | DRG 809 ==
LOC: ED 22:58 → MEDTELE 02-07 01:24 → MED 02-15 23:53
PROVIDERS: ADMIT Internal Medicine; ATTEND Internal Medicine Hematology & Oncology
PROC: 30233N1 Transfusion of Nonautologous Red Blood Cells into Peripheral Vein, Percutaneous Approach (ICD-10-PCS; principal; 2018-02-12)
PROC: 07DR3ZX Extraction of Iliac Bone Marrow, Percutaneous Approach, Diagnostic (ICD-10-PCS; 2018-02-13)
DX: D61.810 Antineoplastic chemotherapy induced pancytopenia (principal); C92.00 Acute myeloblastic leukemia, not having achieved remission; D70.1 Agranulocytosis secondary to cancer chemotherapy; T45.1X5A Adverse effect of antineoplastic and immunosuppressive drugs, initial encounter; R50.2 Drug induced fever; E11.9 Type 2 diabetes mellitus without complications; I10 Essential (primary) hypertension; J45.909 Unspecified asthma, uncomplicated; K21.9 Gastro-esophageal reflux disease without esophagitis; M85.80 Other specified disorders of bone density and structure, unspecified site; R50.81 Fever presenting with conditions classified elsewhere; I49.9 Cardiac arrhythmia, unspecified; I35.0 Nonrheumatic aortic (valve) stenosis; W01.0XXA Fall on same level from slipping, tripping and stumbling without subsequent striking against object, initial encounter; Z92.21 Personal history of antineoplastic chemotherapy; Y92.9 Unspecified place or not applicable; Z88.1 Allergy status to other antibiotic agents; Z98.42 Cataract extraction status, left eye; Z98.41 Cataract extraction status, right eye; Z90.710 Acquired absence of both cervix and uterus; Z83.3 Family history of diabetes mellitus; I25.2 Old myocardial infarction; Z79.4 Long term (current) use of insulin; I44.1 Atrioventricular block, second degree; Z88.0 Allergy status to penicillin; Z88.8 Allergy status to other drugs, medicaments and biological substances; R32 Unspecified urinary incontinence; H35.30 Unspecified macular degeneration; R19.7 Diarrhea, unspecified; S00.93XA Contusion of unspecified part of head, initial encounter; Y92.238 Other place in hospital as the place of occurrence of the external cause
CPT/HCPCS: 36415; 38222; 70450; 71045; 72125; 80048; 80053; 81003; 83036; 83605; 83735; 84100; 84484; 85025; 85060; 85097; 85610; 86078; 86850; 86900; 86901; 86922; 87040; 87086; 88184; 88185; 88187; 88188; 88189; 88271; 88305; 88311; 88313; 96365; 99232; 99233; 99284; A9270-GY; G8978-GP-CI; G8978-GP-CJ; G8979-GP-CI; G8980-GP-CI; J0692; J1650; J3475; P9040

== ENCOUNTER 2018-03-14 17:47 | Inpatient (IN) | payer MEDICARE ==
--- NOTE | 2018-03-14 17:58 | ED ---
HPI Febrile Illness - HPI Summary HPI Summary: The pt is a 77 y/o female accompanied by her with leukemia presenting to [facility] c/o a fever reaching 100.6 F worsened today. She was seen at [facility] 2 days ago for the same. She denies any pain. Her oncologist is Dr. Latia Melendez MD at [facility] [place]. Home Medications Medication Instructions Recorded Confirmed Type Insulin LISPRO* [HumaLOG*] 2 - 10 units SUBCUT AC 01/02/18 02/07/18 History Ondansetron ODT TAB* [Zofran 4 MG 4 mg PO Q8H PRN 01/02/18 02/07/18 History Odt TAB*] Vit C/E/Zn/Coppr/Lutein/Zeaxan 1 cap PO BID 01/02/18 02/07/18 History [Preservision Areds 2 Softgel] metFORMIN* [Glucophage 500 MG TAB 500 mg PO 1730 01/02/18 02/07/18 History *] Acyclovir* [Zovirax 400 MG TAB*] 400 mg PO 0830 02/07/18 02/07/18 History Acyclovir* [Zovirax 400 MG TAB*] 400 mg PO 1730 02/07/18 02/07/18 History Dronabinol CAP* [Marinol CAP*] 2.5 mg PO 1130 02/07/18 02/07/18 History Insulin GLARGINE(*) [Lantus(*)] 15 units SUBCUT BID 02/07/18 02/07/18 History Metoprolol Succinate 50 mg PO 1730 02/07/18 02/07/18 History Potassium Chlor TAB* [Potassium 20 meq PO 1730 02/07/18 02/07/18 History Chlor TAB 20 MEQ*] Lactobacillus Acidophilus* 1 tab PO BID tab 02/18/18 Rx Magnesium Oxide TAB* [MagOx 400 400 mg PO BID tab 02/18/18 Rx TAB*] Senna TAB* [Senokot TAB*] 2 tab PO BEDTIME PRN tab 02/18/18 Rx - History of Current Complaint Chief Complaint: EDFever Time Seen by Provider: 03/14/18 17:50 Hx Obtained From: Patient, Family/Large Animal Veterinarian - Onset/Duration: Started Days Ago, Still Present, Worse Since - Today Timing: Constant Temperature: 100.6 F Current Severity: None Pain Intensity: 0 Pain Scale Used: 0-10 Numeric Aggravating Factors: Nothing Alleviating Factors: Nothing - Additional Pertinent History Primary Care Physician: [id number] - Allergy/Home Medications Allergies/Adverse Reactions: Allergies Allergy/AdvReac Type Severity Reaction Status Date / Time amoxicillin [From Augmentin] AdvReac Vomiting Verified 03/14/18 17:51 ciprofloxacin [From Cipro] AdvReac Vomiting Verified 03/14/18 17:51 clavulanic acid AdvReac Vomiting Verified 03/14/18 17:51 [From Augmentin] levofloxacin [From Levaquin] AdvReac Vomiting Verified 03/14/18 17:51 nitrofurantoin AdvReac Vomiting Verified 03/14/18 17:51 [From Macrobid] Home Medications: Home Medications Docusate CAP* [Colace Cap*] 1 tab PO DAILY 03/14/18 [History Confirmed 03/14/18] PMH/Surg Hx/FS Hx/Imm Hx Previously Healthy: No Endocrine/Hematology History: Reports: Hx Diabetes, Hx Anemia Denies: Hx Thyroid Disease Cardiovascular History: Reports: Hx Hypercholesterolemia, Hx Hypertension, Other Cardiovascular Problems/Disorders - aortic stenosis Denies: Hx Pacemaker/ICD Respiratory History: Reports: Hx Asthma - during cold wether Denies: Hx Chronic Obstructive Pulmonary Disease (COPD), Hx Cystic Fibrosis, Hx Lung Cancer, Hx Pleural Effusion, Hx Pulmonary Embolism GI History: Reports: Hx Gastroesophageal Reflux Disease Denies: Hx Jaundice, Hx Ulcer History: Reports: Hx Renal Disease, Other Problems/Disorders - Renal disease Musculoskeletal History: Reports: Hx Orthopedic Injury - Rt hip Fx (2016), Other Musculoskeletal History - hip fx in past Sensory History: Reports: Hx Cataracts, Hx Contacts or Glasses, Hx Macular Degeneration, Hx Vision Problem Denies: Hx Eye Injury, Hx Glaucoma, Hx Hearing Aid, Hx Hearing Problem Opthamlomology History: Reports: Hx Cataracts, Hx Contacts or Glasses, Hx Macular Degeneration, Hx Vision Problem Denies: Hx Eye Injury, Hx Glaucoma Neurological History: Denies: Hx Headaches Psychiatric History: Denies: Hx Panic Disorder - Cancer History Cancer Type, Location and Year: Leukemia Hx Chemotherapy: Yes - Surgical History Surgery Procedure, Year, and Place: hysterectomy, cataract SURGERY BILATERAL EYES-,. PESSARY FOR BLADDER. Right hip surgery 07/2016 Hx Anesthesia Reactions: No - nausea and vomiting Infectious Disease History: No Infectious Disease History: Denies: Hx Clostridium Difficile, Hx Hepatitis, Hx Human Immunodeficiency Virus (HIV), Hx of Known/Suspected MRSA, Hx Shingles, Hx Tuberculosis, Hx Known/ Suspected VRE, Hx Known/Suspected VRSA, Traveled Outside the [place] in Last 30 Days - Family History Known Family History: Positive: Cardiac Disease, Diabetes - Social History Occupation: Retired Lives: With Family Alcohol Use: Rare Hx Substance Use: No Substance Use Type: Reports: None Hx Tobacco Use: No Smoking Status (MU): Never Smoked Tobacco Review of Systems Positive: Fever Negative: Chest Pain Negative: Abdominal Pain All Other Systems Reviewed And Are Negative: Yes Physical Exam - Summary Physical Exam Summary: Appearance: The patient is well-nourished in no acute distress and in no acute pain. Skin: The skin is warm and dry and skin color reflects adequate perfusion. HEENT: The head is normocephalic and atraumatic. The pupils are equal and reactive. The conjunctivae are clear and without drainage. Nares are patent and without drainage. Mouth reveals moist mucous membranes and the throat is without erythema and exudate. The external ears are intact. The ear canals are patent and without drainage. The tympanic membranes are intact. Neck: The neck is supple with full range of motion and non-tender. There are no carotid bruits. There is no neck vein distension. Respiratory: Chest is non-tender. Lungs are clear to auscultation and breath sounds are symmetrical and equal. Cardiovascular: Heart is regular rate and rhythm. There is no murmur or rub auscultated. There is no peripheral edema and pulses are symmetrical and equal. Abdomen: The abdomen is soft and non-tender. There are normal bowel sounds heard in all four quadrants and there is no organomegaly palpated. Musculoskeletal: There is no back tenderness noted. Extremities are non-tender with full range of motion. There is good capillary refill. There is no peripheral edema or calf tenderness elicited. Neurological: Patient is alert and oriented to person, place and time. The patient has symmetrical motor strength in all four extremities. Cranial nerves are grossly intact. Deep tendon reflexes are symmetrical and equal in all four extremities. Psychiatric: The patient has an appropriate affect and does not exhibit any anxiety or depression. Triage Information Reviewed: Yes Vital Signs On Initial Exam: Initial Vitals Temp Pulse Resp BP Pulse Ox 102.4 F 121 18 123/52 99 03/14/18 17:51 03/14/18 17:51 03/14/18 17:51 03/14/18 17:51 03/14/18 17:51 Vital Signs Reviewed: Yes Diagnostics - Vital Signs Vital Signs Temp Pulse Resp BP Pulse Ox 03/14/18 17:51 102.4 F 121 18 123/52 99 - Laboratory Result Diagrams: 03/14/18 18:32 03/14/18 18:32 Lab Statement: Any lab studies that have been ordered have been reviewed, and results considered in the medical decision making process. Course/Dx - Course Course Of Treatment: Ms. Ortega was sent in by Dr. Melendez with a concern for neutropenic fever. She is on chemotherapy and routine blood work yesterday showed her to be neutropenic. The patient called Dr. Melendez's office today and reported a fever 100.6 and was advised to come to the emergency department. Dr. Melendez called and requested that the patient given vancomycin and cefepime while we search for a source. Labs been obtained and she is indeed neutropenic. We are still waiting on urine and chest x-ray. The hospitals of been consulted and are admitting the patient. - Diagnoses Provider Diagnoses: Neutropenic fever - Provider Notifications Discussed Care Of Patient With: Dunia Upton - Hospitalist Instructed by Provider To: Admit As Inpatient Discharge - Sign-Out/Discharge Documenting (check all that apply): Patient Departure - Admit All imaging exams completed and their final reports reviewed: Yes - Discharge Plan Condition: Stable Disposition: ADMITTED TO [facility] - Billing Disposition and Condition Condition: STABLE Disposition: Admitted to [facility] - Attestation Statements Document Initiated by Antoinette: Yes Documenting Scribe: Sandra Steinberg Provider For Whom Antoinette is Documenting (Include Credential): Dr. Alfa Resendiz MD Scribe Attestation: Sandra Bowden scribed for Dr. Alfa Resendiz MD on 03/14/18 at 2113. Scribe Documentation Reviewed: Yes Provider Attestation: The documentation as recorded by the Sandra alcala accurately reflects the service I personally performed and the decisions made by me, Dr. Alfa Resendiz MD Status of Scribe Document: Viewed
[2018-03-14] MEDS ORDERED: Cefepime(*) 1 GM in NS 0.9% 50 ML* 50 ML IVPB ONE (18:10)
[2018-03-14] MEDS ORDERED: Vancomycin(*) 1,000 MG in NS 0.9% 250 ML* 250 ML IVPB ONE (18:10)
[2018-03-14 18:48] LABS: INR 1.15 (0.77-1.02)
[2018-03-14 18:49] LABS: Hematocrit 24 % (35-47); Hemoglobin 8.2 g/dl (12.0-16.0); Mean Corpuscular HGB Conc 34 g/dl (31-36); Mean Corpuscular Hemoglobin 32 pg (27-31); Mean Corpuscular Volume 93 fL (80-97); Red Cell Distribution Width 20 % (10.5-15); White Blood Count 0.1 10^3/ul (3.5-10.8)
[2018-03-14 18:57] LABS: EGFR Non-African American 117.2 (>60)
[2018-03-14] MEDS ORDERED: NS 0.9% 50 ML* 50 ML ONE (19:11)
[2018-03-14] MEDS ORDERED: Cefepime 2 GM in Dextrose(*) 0 GM/0 ML BAG IV ONE (19:12)
[2018-03-14 19:26] LABS: Platelet Count 92 10^3/ul (150-450)
[2018-03-14 19:31] LABS: ABS Neutrophils 0.02 10^3/ul (1.5-7.7)
[2018-03-14] MEDS ORDERED: Acetaminophen TAB* 325 MG PO ONE (19:36)
[2018-03-14] MEDS ORDERED: Cefepime 1 GM in Dextrose(*) 1 GM/50 ML q12h (Duplex) IV ONE (20:00)
[2018-03-14] MEDS ORDERED: Senna TAB PO PRN (20:26)
[2018-03-14] MEDS ORDERED: Dextrose 50% Syringe 50 ML* 25 GM/50 ML SYRINGE IV PUSH PRN (20:29)
[2018-03-14] MEDS: NS 0.9% 1000 ML* 1,000 ML IV SCH (22:09)
[2018-03-14] MEDS: Lactobacillus Acidophilus* 1 TAB PO SCH (22:25)
[2018-03-14] MEDS: Magnesium Oxide TAB* 400 MG PO SCH (22:26)
[2018-03-14] MEDS: Insulin GLARGINE(*) 1 UNITS UNIT SUBCUT SCH (22:27)
[2018-03-14] MEDS: Insulin LISPRO* 1 UNITS UNIT SUBCUT SCH (22:28)
--- NOTE | 2018-03-14 22:35 | HP ---
CC: Dr. Melendez; Dr. Langston * HISTORY AND PHYSICAL: DATE OF ADMISSION: 03/14/18 PRIMARY CARE PROVIDER: Dr. Langston. ONCOLOGIST: Dr. Melendez. CHIEF COMPLAINT: Fever. HISTORY OF PRESENT ILLNESS: Ms. 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 The patient was hospitalized in early February for febrile neutropenia. She recovered from that episode and underwent her next cycle of chemotherapy from 02/23/18 through 02/27/18 and 03/02/18 through 03/03/18. She had been doing well up until the day prior to admission when she noted that her temperature was up and down. Today, her fever got greater than 100.[address] Melendez and was told to present to the emergency room for evaluation. The patient denies any focal symptoms of infection. She denies any mouth sores. She does admit to sinus drainage but states that is no different than usual. She has no cough or sputum production, no dysuria, no skin breakdown or wounds. She does admit to having diarrhea since her last hospitalization as she has been on an antibiotic since (medication list reviewed with the patient and there is no antibiotic listed on that list). She states that she is having 1 to 2 bowel movements per day. Some days, this is not even diarrhea. PAST MEDICAL HISTORY: 1. AML. 2. Hypertension. 3. Type 2 diabetes. 4. Aortic stenosis. 5. Osteopenia. PAST SURGICAL HISTORY: 1. Right hip ORIF. 2. SUPA-BSO. MEDICATIONS: 1. Colace 100 mg p.o. daily. 2. Potassium chloride 20 mEq p.o. daily. 3. Zofran ODT 4 mg p.o. q.8 hours p.r.n. nausea. 4. Magnesium oxide 400 mg p.o. b.i.d. 5. Lactobacillus 1 tab p.o. b.i.d. 6. Lispro 2 to 10 units subcutaneous q.a.c. 7. Lantus 15 units subcutaneous b.i.d. 8. Dronabinol 2.5 mg p.o. daily at 11:30 a.m. 9. Acyclovir 400 mg p.o. at 0830 and 1730. 10. Metformin 500 mg p.o. daily at 1730. 11. PreserVision AREDS 2 one cap p.o. b.i.d. 12. Senna 2 tabs p.o. q.h.s. p.r.n. constipation. ALLERGIES: PENICILLIN, CIPRO, NITROFURANTOIN. FAMILY HISTORY: Mom at the age of 83; it sounds as though she had coronary artery disease. Dad at the age of 64 of an [place]. SOCIAL HISTORY: The patient is a lifelong nonsmoker. She previously was drinking alcohol on occasion but states that she has not had any recently. 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 She is . She has 2 children. She indicates that her , Wilfredo, is her healthcare proxy. REVIEW OF SYSTEMS: A complete 11-system review of systems is obtained. Pertinent positives and negatives are as per HPI and otherwise negative. PHYSICAL EXAMINATION GENERAL: The patient is a well-developed elderly female, seen lying in the stretcher, in no acute distress. She is flushed in the face and appears to be wiped out. VITAL SIGNS: Blood pressure 131/64, pulse 109, respirations 18, temp 101.3, O2 sat 96% on room air. HEENT: Pupils are equal and round. Extraocular muscles are intact. Oropharynx is clear. Oral mucosa is moist. There is no submandibular, cervical , or supraclavicular adenopathy. Thyroid is not enlarged. No thyroid nodules are noted. PULMONARY: Lungs are clear to auscultation bilaterally. CARDIAC: Normal S1, S2. Heart rate is tachycardic but regular. There is a 3/ 6 systolic murmur heard best at the right upper sternal border. There is no lower extremity edema. ABDOMEN: Bowel sounds present. Abdomen is soft and nondistended. She is mildly tender to palpation in the left upper quadrant. MUSCULOSKELETAL: There is no cyanosis or clubbing of the digits. There is full active range of motion of all 4 extremities. NEUROLOGIC: Cranial nerves II through XII are grossly intact. Sensation is intact to light touch throughout. Strength is 5/5 and symmetric in both upper and lower extremities bilaterally. PSYCH: The patient is alert. She is oriented x3. Affect appears appropriate. SKIN: Warm and dry. There are no rashes. DIAGNOSTIC STUDIES/LAB DATA: WBC 0.1, hemoglobin 8.2, hematocrit 24, platelets 92, ANC 0.02. INR 1.15. Sodium 126, potassium 4.3, chloride 94, CO2 25, BUN 12, creatinine 0.51, glucose 247, calcium 9.3. Bilirubin 1.0, AST 19, ALT 9, alk phos 73. CRP 218.03. Albumin 3.6. Urinalysis is to be obtained. Chest x-ray is to be obtained. ASSESSMENT AND PLAN: Ms. Ortega is a 77-year-old female, who is being treated for acute myeloid leukemia and finished her third round of chemotherapy on 03/03 and now presents to the emergency room with febrile neutropenia. 1. Febrile neutropenia. At this point, the patient does not give any history to support a clear source of infection. Unfortunately, blood culture, chest x- ray, and urinalysis have not yet been obtained in the emergency room. These have all been ordered to be obtained. The patient will be treated with broad- spectrum antibiotics including vancomycin per pharmacy dosing and cefepime 2 g IV q.12 hours. The patient's temperature will be monitored. We will monitor for any other clear signs of specific infection. Cultures will be followed. I will obtain a CBC with differential tomorrow. 2. Type 2 diabetes. The patient will be maintained on her usual doses of metformin and Lantus. I will add a lispro sliding scale with fingersticks a.c. and h.s. 3. Hypertension. The patient is not on any antihypertensives. Her blood pressure is under very good control. We will monitor this. 4. DVT prophylaxis. According to the Adult Thrombosis Prophylaxis Risk Factor Assessment Guide, the patient has a total risk factor score of 5 making her the highest risk. She will be placed on heparin 5000 units subcutaneous q.8 hours. We will need to monitor her CBC and if she becomes more anemic or thrombocytopenic, this could be discontinued. 5. The patient is a full code. [id number]/[facility] #: [id number] MTDD
[2018-03-14] MEDS: MINERALS AREDS2 PO SCH (23:34)
[2018-03-14] MEDS: MULTIVITAMINS PO SCH (23:34)
[2018-03-14] MEDS: Heparin VIAL(*) 5000 UNITS/ML VIAL (FIVE THOUSAND) SUBCUT SCH (23:34)
[2018-03-15] MEDS: Heparin VIAL(*) 5000 UNITS/ML VIAL (FIVE THOUSAND) SUBCUT SCH ×3 (06:08→20:44)
[2018-03-15 06:48] LABS: Urine Appearance Clear; Urine Blood Negative (Negative); Urine Color Amber; Urine Ketones Trace (Negative); Urine Protein 1+(30 mg/dL) (Negative); Urine Red Blood Cell 1+(3-5/hpf) (Absent); Urine Specific Gravity 1.023 (1.010-1.030); Urine Urobilinogen Negative (Negative); Urine White Blood Cell 1+(6-10/hpf) (Absent)
[2018-03-15 07:17] LABS: Hematocrit 21 % (35-47); Hemoglobin 7.5 g/dl (12.0-16.0); Mean Corpuscular HGB Conc 35 g/dl (31-36); Mean Corpuscular Hemoglobin 33 pg (27-31); Mean Corpuscular Volume 93 fL (80-97); Mean Platelet Volume 8.6 fL (7.4-10.4); Platelet Count 88 10^3/ul (150-450); Red Blood Count 2.27 10^6/ul (4.00-5.40); Red Cell Distribution Width 20 % (10.5-15); White Blood Count 0.2 10^3/ul (3.5-10.8)
[2018-03-15 07:28] LABS: EGFR Non-African American 146.7 (>60)
[2018-03-15] MEDS: Vancomycin(*) 750 MG in NS 0.9% 250 ML* 250 ML IVPB SCH ×2 (07:55→19:50)
[2018-03-15 08:27] LABS: Monocytes % 7 %
[2018-03-15 08:31] LABS: ABS Neutrophils 0 10^3/ul (1.5-7.7)
[2018-03-15] MEDS: Magnesium Oxide TAB* 400 MG PO SCH ×2 (08:58→20:42)
[2018-03-15] MEDS: Lactobacillus Acidophilus* 1 TAB PO SCH ×2 (08:58→20:42)
[2018-03-15] MEDS: Docusate CAP* 100 MG PO SCH (08:58)
[2018-03-15] MEDS: Insulin LISPRO* 1 UNITS UNIT SUBCUT SCH ×4 (08:58→20:58)
[2018-03-15] MEDS: Acyclovir* 400 MG TAB PO SCH ×2 (08:58→17:40)
[2018-03-15] MEDS: Insulin GLARGINE(*) 1 UNITS UNIT SUBCUT SCH ×2 (08:59→20:58)
[2018-03-15] MEDS: Cefepime 2 GM in Dextrose(*) 2 GM/50 ML BAG IV SCH ×2 (09:00→22:05)
[2018-03-15] MEDS: NS 0.9% 1000 ML* 1,000 ML IV SCH (09:53)
[2018-03-15] MEDS: MINERALS AREDS2 PO SCH ×2 (09:56→20:43)
[2018-03-15] MEDS: MULTIVITAMINS PO SCH ×2 (09:56→20:43)
--- NOTE | 2018-03-15 12:04 | PN ---
Subjective Date of Service: 03/15/18 Interval History: Patient seen and examined. States she is tired but does feel a little better than last evening. Had another low grade fever overnight, denies chills, no chest pain, no SOB, no n/v. at bedside. We discussed neutropenic fever at length. States she was on Neulasta in the past. Objective Active Medications: Acetaminophen (Tylenol Tab*) 650 mg PO Q6H PRN PRN Reason: FEVER/HEADACHE Acyclovir (Zovirax Tab*) 400 mg PO 0830 [facility] Last Admin: 03/15/18 08:58 Dose: 400 mg Acyclovir (Zovirax Tab*) 400 mg PO 1730 [facility] Dextrose (D50w Syringe 50 Ml*) 12.5 gm IV PUSH .FOR FS < 60 - SS PRN PRN Reason: FS < 60 Docusate Sodium (Colace Cap*) 100 mg PO DAILY [facility] Last Admin: 03/15/18 08:58 Dose: 100 mg Dronabinol (Marinol Cap*) 2.5 mg PO 1130 [facility] Heparin Sodium (Porcine) (Heparin Vial(*)) 5,000 units SUBCUT Q8HR [facility] Last Admin: 03/15/18 06:08 Dose: Not Given Cefepime HCl (Maxipime 2 Gm In Dextrose Duplex (*)) 2 gm in 50 mls @ 100 mls/ hr IV Q12HR [facility] Last Admin: 03/15/18 09:00 Dose: 100 mls/hr Sodium Chloride (Ns 0.9% 1000 Ml*) 1,000 mls @ 100 mls/hr IV PER RATE [facility] Last Admin: 03/15/18 09:53 Dose: 100 mls/hr Vancomycin HCl 750 mg/ Sodium (Chloride) 250 mls @ 166.667 mls/hr IVPB Q12H [facility] ; Protocol Last Admin: 03/15/18 07:55 Dose: 166.667 mls/hr Insulin Glargine (Lantus(*)) 15 units SUBCUT BID [facility] Last Admin: 03/15/18 08:59 Dose: 15 units Insulin Human Lispro (Humalog*) 0 units SUBCUT ACHS [facility]; Protocol Last Admin: 03/15/18 08:58 Dose: 1 units Lactobacillus Rhamnosus (Lactobacillus Acidophilus*) 1 tab PO BID [facility] Last Admin: 03/15/18 08:58 Dose: 1 tab Magnesium Oxide (Magox 400 Tab*) 400 mg PO BID [facility] Last Admin: 03/15/18 08:58 Dose: 400 mg Metformin HCl (Glucophage*) 500 mg PO 1730 [facility] Multivitamins/Minerals (Preservision Areds 2) 1 cap PO BID [facility] Last Admin: 03/15/18 09:56 Dose: Not Given Ondansetron HCl (Zofran Inj*) 4 mg IV Q6H PRN PRN Reason: NAUSEA Pharmacy Profile Note (Vancomycin Trough Check) 1 note FOLLOW UP ONCE ONE Stop: 03/16/18 07:31 Potassium Chloride (Klor Con Er Tab*) 20 meq PO 1730 [facility] Senna (Senokot Tab*) 2 tab PO BEDTIME PRN PRN Reason: CONSTIPATION Vital Signs - 8 hr 03/15/18 03/15/18 03/15/18 04:01 08:47 09:00 Temperature 100.3 F 98.3 F Pulse Rate 94 86 Respiratory 18 18 18 Rate Blood Pressure 112/51 102/41 (mmHg) O2 Sat by Pulse 100 99 Oximetry Oxygen Devices in Use Now: None Appearance: alert, pale, NAD Eyes: No Scleral Icterus, PERRLA Ears/Nose/Mouth/Throat: NL Teeth, Lips, Gums, Mucous Membranes Moist Neck: NL Appearance and Movements; NL JVP, Trachea Midline Respiratory: Symmetrical Chest Expansion and Respiratory Effort, Clear to Auscultation Cardiovascular: RRR - grade IV/ murmur, No Edema Abdominal: NL Sounds; No Tenderness; No Distention Extremities: No Edema, No Clubbing, Cyanosis Skin: No Rash or Ulcers Neurological: Alert and Oriented x 3, NL Sensation, NL Muscle Strength and Tone Nutrition: Taking PO's Result Diagrams: 03/15/18 06:38 03/15/18 06:38 Diagnostic Imaging: Patient Name: ANGEL QUEVEDO Medical Record#: [id number] Ordering Physician: Dunia Upton DO Acct.#: [id number] : 1940 Age: 77 Sex: F Location: [address] [place] [address] MEDICAL Exam Date: 03/14/182024 ADM Status: ADM IN Order Information: CHEST PA & LAT 2 VWS Accession Number: [id number] CPT: 53419 INDICATION: Evaluate for infiltrate. COMPARISON: Comparison is made with a prior study from January 04, 2018. TECHNIQUE: Dual-energy PA and lateral views of the chest were obtained. FINDINGS: The heart is within normal limits in size. Mediastinal and hilar contours appear within normal limits. The lungs are underinflated. There is a small infiltrate present laterally over the left midlung which is significantly improved from the prior exam. There is flattening of the diaphragms suggestive of chronic obstructive pulmonary disease. No pleural effusion is seen. IMPRESSION: 1. SMALL LEFT LUNG INFILTRATE SIGNIFICANTLY IMPROVED FROM THE PRIOR STUDY. 2. FINDINGS SUGGESTIVE OF COPD. R1F Preliminary Imaging Read R1F <Electronically signed by Behzad Holland MD in [place]> 03/15/18727 Dictated By: Behzad Holland MD Dictated Date/Time: 03/15/18727 Transcribed Date/Time: 03/15/18725 Copy to: Assess/Plan/Problems-Billing Assessment: This is a 77 year old female with history of AML, currently under treatment that presented with febrile illness and neutropenia. - Patient Problems (1) Neutropenic fever Code(s): D70.9 - NEUTROPENIA, UNSPECIFIED; R50.81 - FEVER PRESENTING WITH CONDITIONS CLASSIFIED ELSEWHERE SNOMED Code(s): 595340369 Comment: - continue vancomycin, cefepime and acyclovir - ANC 0.0 today - Neutropenic precautions - Follow blood and urine cultures, had pseudomonas, MSSA and eColi between december and early february (2) AML (acute myeloblastic leukemia) Code(s): C92.00 - ACUTE MYELOBLASTIC LEUKEMIA, NOT HAVING ACHIEVED REMISSION SNOMED Code(s): 83599104 Comment: - Oncology to follow patient/case tomorrow - Fever improved overnight - POC as per onco (3) Anemia Code(s): D64.9 - ANEMIA, UNSPECIFIED SNOMED Code(s): 541630488 Comment: - HgB 7.5, no SOB, no chest pain - Transfuse 2 units PRBCs today and follow labs tomorrow - consent for irradiated PRBCs on chart (4) Pancytopenia Code(s): D61.818 - OTHER PANCYTOPENIA SNOMED Code(s): 767532890 Comment: - No bleeding noted - transfusing today (5) Aortic stenosis Code(s): I35.0 - NONRHEUMATIC AORTIC (VALVE) STENOSIS SNOMED Code(s): 62677237 Comment: - Moderate aortic stenosis per echo in November with murmur on exam - asymptomatic (6) DVT prophylaxis Code(s): LXZ1005 - SNOMED Code(s): 133421923 Comment: - HSQ, monitor PLTS (88 today) Status and Disposition: Inpatient. Critical. Dispo per oncology.
[2018-03-15] MEDS: Dronabinol CAP* 2.5 MG PO SCH (12:22)
[2018-03-15] MEDS: Acetaminophen TAB* 325 MG PO PRN ×2 (12:22→20:41)
[2018-03-15] MEDS: Potassium Chlor TAB* 20 MEQ TAB.ER PO SCH (17:40)
[2018-03-15] MEDS: metFORMIN* 500 MG TAB PO SCH (17:40)
[2018-03-15] MEDS: Ondansetron INJ* 2 MG/ML VIAL IV PRN (20:35)
[2018-03-16] MEDS: Ondansetron INJ* 2 MG/ML VIAL IV PRN ×2 (03:04→23:51)
[2018-03-16] MEDS: Acetaminophen TAB* 325 MG PO PRN ×4 (03:11→23:32)
[2018-03-16] MEDS: Heparin VIAL(*) 5000 UNITS/ML VIAL (FIVE THOUSAND) SUBCUT SCH ×3 (05:18→23:42)
[2018-03-16] MEDS: NS 0.9% 1000 ML* 1,000 ML IV SCH (05:56)
[2018-03-16] MEDS ORDERED: Vancomycin Trough Check NOTE FOLLOW UP ONE (07:30)
[2018-03-16] MEDS ORDERED: Vancomycin per Pharmacy* NOTE FOLLOW UP PRN (07:38)
[2018-03-16 08:01] LABS: Hematocrit 28 % (35-47); Hemoglobin 9.7 g/dl (12.0-16.0); Mean Corpuscular HGB Conc 35 g/dl (31-36); Mean Corpuscular Hemoglobin 32 pg (27-31); Mean Corpuscular Volume 92 fL (80-97); Mean Platelet Volume 9.1 fL (7.4-10.4); Platelet Count 108 10^3/ul (150-450); Red Blood Count 3.06 10^6/ul (4.00-5.40); Red Cell Distribution Width 19 % (10.5-15); White Blood Count 0.2 10^3/ul (3.5-10.8)
[2018-03-16 08:33] LABS: Vancomycin Trough 7.5 mcg/mL
[2018-03-16] MEDS: Vancomycin(*) 750 MG in NS 0.9% 250 ML* 250 ML IVPB SCH ×3 (08:44→23:32)
[2018-03-16] MEDS: Acyclovir* 400 MG TAB PO SCH ×2 (08:44→17:26)
[2018-03-16] MEDS: Magnesium Oxide TAB* 400 MG PO SCH ×2 (08:45→20:12)
[2018-03-16] MEDS: Docusate CAP* 100 MG PO SCH (08:45)
[2018-03-16] MEDS: Insulin GLARGINE(*) 1 UNITS UNIT SUBCUT SCH ×2 (08:45→20:13)
[2018-03-16] MEDS: Lactobacillus Acidophilus* 1 TAB PO SCH ×2 (08:45→20:12)
[2018-03-16] MEDS: Insulin LISPRO* 1 UNITS UNIT SUBCUT SCH ×4 (08:45→20:13)
[2018-03-16] MEDS: MULTIVITAMINS PO SCH ×2 (08:53→23:31)
[2018-03-16] MEDS: MINERALS AREDS2 PO SCH ×2 (08:53→23:31)
[2018-03-16 09:02] LABS: Monocytes % 4 %
[2018-03-16 09:06] LABS: ABS Neutrophils 0 10^3/ul (1.5-7.7)
--- NOTE | 2018-03-16 10:07 | PN ---
Progress Note - Progress Note Date of Service: 03/16/18 SOAP: Subjective: [She feels the same. No fever yet this am. Constipation. No mouth soars. Feels weak, walking to BR but no more,. Acetaminophen (Tylenol Tab*) 650 mg PO Q6H PRN PRN Reason: FEVER/HEADACHE Last Admin: 03/16/18 03:11 Dose: 650 mg Acyclovir (Zovirax Tab*) 400 mg PO 0830 [facility] Last Admin: 03/16/18 08:44 Dose: 400 mg Acyclovir (Zovirax Tab*) 400 mg PO 1730 [facility] Last Admin: 03/15/18 17:40 Dose: 400 mg Dextrose (D50w Syringe 50 Ml*) 12.5 gm IV PUSH .FOR FS < 60 - SS PRN PRN Reason: FS < 60 Docusate Sodium (Colace Cap*) 100 mg PO DAILY [facility] Last Admin: 03/16/18 08:45 Dose: 100 mg Dronabinol (Marinol Cap*) 2.5 mg PO 1130 [facility] Last Admin: 03/15/18 12:22 Dose: 2.5 mg Heparin Sodium (Porcine) (Heparin Vial(*)) 5,000 units SUBCUT Q8HR [facility] Last Admin: 03/16/18 05:18 Dose: Not Given Cefepime HCl (Maxipime 2 Gm In Dextrose Duplex (*)) 2 gm in 50 mls @ 100 mls/ hr IV Q12HR [facility] Last Admin: 03/15/18 22:05 Dose: 100 mls/hr Sodium Chloride (Ns 0.9% 1000 Ml*) 1,000 mls @ 100 mls/hr IV PER RATE [facility] Last Admin: 03/16/18 05:56 Dose: 100 mls/hr Vancomycin HCl 750 mg/ Sodium (Chloride) 250 mls @ 166.667 mls/hr IVPB Q8H [facility] ; Protocol Insulin Glargine (Lantus(*)) 15 units SUBCUT BID [facility] Last Admin: 03/16/18 08:45 Dose: 15 units Insulin Human Lispro (Humalog*) 0 units SUBCUT ACHS [facility]; Protocol Last Admin: 03/16/18 08:45 Dose: Not Given Lactobacillus Rhamnosus (Lactobacillus Acidophilus*) 1 tab PO BID [facility] Last Admin: 03/16/18 08:45 Dose: 1 tab Magnesium Oxide (Magox 400 Tab*) 400 mg PO BID [facility] Last Admin: 03/16/18 08:45 Dose: 400 mg Metformin HCl (Glucophage*) 500 mg PO 1730 [facility] Last Admin: 03/15/18 17:40 Dose: 500 mg Multivitamins/Minerals (Preservision Areds 2) 1 cap PO BID [facility] Last Admin: 03/16/18 08:53 Dose: Not Given Ondansetron HCl (Zofran Inj*) 4 mg IV Q6H PRN PRN Reason: NAUSEA Last Admin: 03/16/18 03:04 Dose: 4 mg Pharmacy Consult (Vancomycin Per Pharmacy*) 1 note FOLLOW UP . PRN PRN Reason: PER PROTOCOL Pharmacy Profile Note (Vancomycin Trough Check) 1 note FOLLOW UP 729 ONE Stop: 03/18/18 07:31 Potassium Chloride (Klor Con Er Tab*) 20 meq PO 173 [facility] Last Admin: 03/15/18 17:40 Dose: 20 meq Senna (Senokot Tab*) 2 tab PO BEDTIME PRN PRN Reason: CONSTIPATION Objective: [] Vital Signs Temp Pulse Resp BP Pulse Ox 98.8 F 77 16 116/47 99 03/16/18 08:00 03/16/18 08:00 03/16/18 08:00 03/16/18 08:00 03/16/18 08:00 HEENT: mucosa moist, no lesions CTA RRR S1S2, + 3/6 CARMELITA +BS, mild distension. Ext no edema Abnormal Lab Results 03/15/18 03/15/18 03/15/18 06:38 06:38 07:57 WBC RBC Hgb Hct MCV MCH MCHC RDW Plt Count MPV Neut % (Auto) Lymph % (Auto) Fleming % (Auto) Eos % (Auto) Baso % (Auto) Absolute Neuts (auto) Absolute Lymphs (auto) Absolute Monos (auto) Absolute Eos (auto) Absolute Basos (auto) Absolute Nucleated RBC Neutrophils % Lymphocytes % Monocytes % Eosinophils % Nucleated RBC % Abs Neuts (Manual) Abs Lymphs (Manual) Abs Monocytes (Manual) Absolute Eos (Manual) Normal RBC Morphology Sodium 131 L Potassium 4.0 Chloride 99 L Carbon Dioxide 26 Anion Gap 6 BUN 10 Creatinine 0.42 L Est GFR ( Amer) 177.5 Est GFR (Non-Af Amer) 146.7 BUN/Creatinine Ratio 23.8 H Glucose 164 H POC Glucose (mg/dL) 182 H Calcium 8.9 Total Bilirubin 0.80 AST ALT Alkaline Phosphatase Total Protein Albumin Globulin Albumin/Globulin Ratio Vancomycin Trough Blood Type A Positive Antibody Screen Negative Direct Antiglob Test 3+ Crossmatch See Detail Transfusion React Rpt Donor Unit # Post-Trans Blood Type Post-Trans [id number] 03/15/18 03/15/18 03/15/18 11:27 17:13 19:33 WBC RBC Hgb Hct MCV MCH MCHC RDW Plt Count MPV Neut % (Auto) Lymph % (Auto) Fleming % (Auto) Eos % (Auto) Baso % (Auto) Absolute Neuts (auto) Absolute Lymphs (auto) Absolute Monos (auto) Absolute Eos (auto) Absolute Basos (auto) Absolute Nucleated RBC Neutrophils % Lymphocytes % Monocytes % Eosinophils % Nucleated RBC % Abs Neuts (Manual) Abs Lymphs (Manual) Abs Monocytes (Manual) Absolute Eos (Manual) Normal RBC Morphology Sodium Potassium Chloride Carbon Dioxide Anion Gap BUN Creatinine Est GFR ( Amer) Est GFR (Non-Af Amer) BUN/Creatinine Ratio Glucose POC Glucose (mg/dL) 175 H 127 H Calcium Total Bilirubin AST ALT Alkaline Phosphatase Total Protein Albumin Globulin Albumin/Globulin Ratio Vancomycin Trough Blood Type Antibody Screen Direct Antiglob Test Crossmatch Transfusion React Rpt Donor Unit # [id number] Post-Trans Blood Type A Positive Post-Trans [facility] 1+ 03/15/18 03/15/18 03/16/18 19:33 20:48 07:39 WBC RBC Hgb Hct MCV MCH MCHC RDW Plt Count MPV Neut % (Auto) Lymph % (Auto) Fleming % (Auto) Eos % (Auto) Baso % (Auto) Absolute Neuts (auto) Absolute Lymphs (auto) Absolute Monos (auto) Absolute Eos (auto) Absolute Basos (auto) Absolute Nucleated RBC Neutrophils % Lymphocytes % Monocytes % Eosinophils % Nucleated RBC % Abs Neuts (Manual) Abs Lymphs (Manual) Abs Monocytes (Manual) Absolute Eos (Manual) Normal RBC Morphology Sodium 135 Potassium 4.2 Chloride 104 Carbon Dioxide 23 Anion Gap 8 BUN 11 Creatinine 0.35 L Est GFR ( Amer) 219.1 Est GFR (Non-Af Amer) 181.0 BUN/Creatinine Ratio 31.4 H Glucose 105 H POC Glucose (mg/dL) 171 H Calcium 8.6 Total Bilirubin 2.60 H D 1.30 H AST 21 ALT 14 Alkaline Phosphatase 86 Total Protein 6.1 L Albumin 2.9 L Globulin 3.2 Albumin/Globulin Ratio 0.9 L Vancomycin Trough 7.5 Blood Type Antibody Screen Direct Antiglob Test Crossmatch Transfusion React Rpt Donor Unit # Post-Trans Blood Type Post-Trans [id number] 03/16/18 03/16/18 07:39 07:56 WBC 0.2 L RBC 3.06 L Hgb 9.7 L Hct 28 L MCV 92 MCH 32 H MCHC 35 RDW 19 H Plt Count 108 L MPV 9.1 Neut % (Auto) Not Reportable Lymph % (Auto) Not Reportable Fleming % (Auto) Not Reportable Eos % (Auto) Not Reportable Baso % (Auto) Not Reportable Absolute Neuts (auto) Not Reportable Absolute Lymphs (auto) Not Reportable Absolute Monos (auto) Not Reportable Absolute Eos (auto) Not Reportable Absolute Basos (auto) Not Reportable Absolute Nucleated RBC Not Reportable Neutrophils % 22 Lymphocytes % 71 Monocytes % 4 Eosinophils % 3 Nucleated RBC % Not Reportable Abs Neuts (Manual) 0 L* Abs Lymphs (Manual) 0.2 L Abs Monocytes (Manual) 0 Absolute Eos (Manual) 0 Normal RBC Morphology Normal Sodium Potassium Chloride Carbon Dioxide Anion Gap BUN Creatinine Est GFR ( Amer) Est GFR (Non-Af Amer) BUN/Creatinine Ratio Glucose POC Glucose (mg/dL) 85 Calcium Total Bilirubin AST ALT Alkaline Phosphatase Total Protein Albumin Globulin Albumin/Globulin Ratio Vancomycin Trough Blood Type Antibody Screen Direct Antiglob Test Crossmatch Transfusion React Rpt Donor Unit # Post-Trans Blood Type Post-Trans CR[facility]O Assessment: []77 yo with NF, 3rd admission for the same following therapy for AML. Plan: []1. Will continue Cefepime and Vancomycin. Follow cultures 2. Constipation, follow on Senna. Avoid stronger medication given risk of diarrhea. 3. Hgb and plts are stable, follow.
[2018-03-16] MEDS: Cefepime 2 GM in Dextrose(*) 2 GM/50 ML BAG IV SCH ×2 (11:25→20:12)
[2018-03-16] MEDS: Dronabinol CAP* 2.5 MG PO SCH (12:26)
[2018-03-16] MEDS: metFORMIN* 500 MG TAB PO SCH (17:25)
[2018-03-16] MEDS: Potassium Chlor TAB* 20 MEQ TAB.ER PO SCH (17:26)
[2018-03-16] MEDS: Magic M W2 Ben/Maal/Nyst/Lido* 240 ML MOUTHWASH (alt formulation) SWISH SWAL SCH ×3 (17:35→20:12)
[2018-03-17] MEDS ORDERED: Furosemide IV* 10 MG/ML 2 ML VIAL (20 MG) ONE (00:05)
[2018-03-17] MEDS ORDERED: Morphine VIAL* 4 MG/ML VIAL (1 ml vial) ONE (00:06)
[2018-03-17] MEDS: Vancomycin(*) 750 MG in NS 0.9% 250 ML* 250 ML IVPB SCH ×2 (00:14→08:20)
[2018-03-17] MEDS ORDERED: Morphine VIAL* 4 MG/ML VIAL (1 ml vial) IV PRN (01:27)
[2018-03-17] MEDS ORDERED: Furosemide IV* 10 MG/ML 2 ML VIAL (20 MG) IV ONE (01:30)
[2018-03-17] MEDS: Heparin VIAL(*) 5000 UNITS/ML VIAL (FIVE THOUSAND) SUBCUT SCH ×3 (05:02→21:52)
[2018-03-17 06:02] LABS: EGFR Non-African American 150.8 (>60)
[2018-03-17 06:28] LABS: Hematocrit 28 % (35-47); Hemoglobin 9.6 g/dl (12.0-16.0); Mean Corpuscular HGB Conc 34 g/dl (31-36); Mean Corpuscular Hemoglobin 31 pg (27-31); Mean Corpuscular Volume 91 fL (80-97); Mean Platelet Volume 8.5 fL (7.4-10.4); Platelet Count 155 10^3/ul (150-450); Red Blood Count 3.08 10^6/ul (4.00-5.40); Red Cell Distribution Width 19 % (10.5-15); White Blood Count 0.2 10^3/ul (3.5-10.8)
[2018-03-17] MEDS: Insulin LISPRO* 1 UNITS UNIT SUBCUT SCH ×4 (07:21→21:13)
[2018-03-17 08:15] LABS: Monocytes % 3 %
[2018-03-17] MEDS: Acetaminophen TAB* 325 MG PO PRN ×2 (08:27→14:28)
[2018-03-17 08:50] LABS: ABS Neutrophils 0.07 10^3/ul (1.5-7.7)
[2018-03-17] MEDS: Docusate CAP* 100 MG PO SCH (09:10)
[2018-03-17] MEDS: MINERALS AREDS2 PO SCH ×2 (09:11→21:15)
[2018-03-17] MEDS: MULTIVITAMINS PO SCH ×2 (09:11→21:15)
[2018-03-17] MEDS: Acyclovir* 400 MG TAB PO SCH ×2 (09:25→16:57)
[2018-03-17] MEDS: Lactobacillus Acidophilus* 1 TAB PO SCH ×2 (09:25→21:12)
[2018-03-17] MEDS: Magnesium Oxide TAB* 400 MG PO SCH ×2 (09:25→21:14)
[2018-03-17] MEDS: Insulin GLARGINE(*) 1 UNITS UNIT SUBCUT SCH ×2 (09:28→22:00)
[2018-03-17] MEDS: Magic M W2 Ben/Maal/Nyst/Lido* 240 ML MOUTHWASH (alt formulation) SWISH SWAL SCH ×4 (09:29→21:12)
[2018-03-17] MEDS: Cefepime 2 GM in Dextrose(*) 2 GM/50 ML BAG IV SCH ×2 (10:58→21:12)
[2018-03-17] MEDS ORDERED: Dronabinol CAP* 2.5 MG PO SCH (11:00)
[2018-03-17] MEDS: Dronabinol CAP* 2.5 MG PO SCH ×2 (11:37→16:57)
[2018-03-17] MEDS: Potassium Chlor TAB* 20 MEQ TAB.ER PO SCH ×2 (12:14→21:13)
[2018-03-17] MEDS: metFORMIN* 500 MG TAB PO SCH (16:57)
[2018-03-17] MEDS ORDERED: Insulin GLARGINE(*) 1 UNITS UNIT SUBCUT ONE (21:30)
[2018-03-18] MEDS: Acetaminophen TAB* 325 MG PO PRN ×2 (04:22→12:11)
[2018-03-18] MEDS: Heparin VIAL(*) 5000 UNITS/ML VIAL (FIVE THOUSAND) SUBCUT SCH ×3 (04:28→21:15)
[2018-03-18] MEDS ORDERED: Vancomycin Trough Check NOTE FOLLOW UP ONE (07:30)
[2018-03-18 07:46] LABS: EGFR Non-African American 169.8 (>60)
[2018-03-18] MEDS: Insulin LISPRO* 1 UNITS UNIT SUBCUT SCH ×4 (07:58→20:24)
[2018-03-18] MEDS: Dronabinol CAP* 2.5 MG PO SCH ×4 (08:21→16:25)
[2018-03-18] MEDS: Acyclovir* 400 MG TAB PO SCH ×3 (08:21→16:25)
[2018-03-18 08:34] LABS: Hematocrit 27 % (35-47); Hemoglobin 9.1 g/dl (12.0-16.0); Mean Corpuscular HGB Conc 34 g/dl (31-36); Mean Corpuscular Hemoglobin 31 pg (27-31); Mean Corpuscular Volume 92 fL (80-97); Mean Platelet Volume 8.4 fL (7.4-10.4); Platelet Count 154 10^3/ul (150-450); Red Blood Count 2.92 10^6/ul (4.00-5.40); Red Cell Distribution Width 19 % (10.5-15); White Blood Count 0.3 10^3/ul (3.5-10.8)
[2018-03-18 08:35] LABS: Monocytes % 2 %
[2018-03-18 08:36] LABS: ABS Neutrophils 0.2 10^3/ul (1.5-7.7)
[2018-03-18] MEDS ORDERED: Insulin GLARGINE(*) 1 UNITS UNIT SUBCUT SCH ×2 (09:00→21:00)
[2018-03-18] MEDS: Docusate CAP* 100 MG PO SCH (09:24)
[2018-03-18] MEDS: Cefepime 2 GM in Dextrose(*) 2 GM/50 ML BAG IV SCH ×2 (09:31→21:25)
[2018-03-18] MEDS: Lactobacillus Acidophilus* 1 TAB PO SCH ×2 (09:40→21:21)
[2018-03-18] MEDS: Potassium Chlor TAB* 20 MEQ TAB.ER PO SCH ×2 (09:41→21:22)
[2018-03-18] MEDS: Magic M W2 Ben/Maal/Nyst/Lido* 240 ML MOUTHWASH (alt formulation) SWISH SWAL SCH ×4 (09:41→21:32)
[2018-03-18] MEDS: Magnesium Oxide TAB* 400 MG PO SCH ×2 (09:41→21:22)
[2018-03-18] MEDS: MINERALS AREDS2 PO SCH (09:43)
[2018-03-18] MEDS: MULTIVITAMINS PO SCH (09:43)
[2018-03-18] MEDS ORDERED: Insulin GLARGINE(*) 1 UNITS UNIT SUBCUT ONE ×2 (10:00→22:00)
[2018-03-18] MEDS: metFORMIN* 500 MG TAB PO SCH (16:25)
[2018-03-18] MEDS: Ondansetron INJ* 2 MG/ML VIAL IV PRN (17:26)
--- NOTE | 2018-03-18 21:13 | PN ---
Progress Note - Progress Note Date of Service: 03/18/18 SOAP: Subjective: [She continues to have intermittent fevers and generally felt poorly over the last day and a half or so. No cough or SOB. Some diarrhea and cramping pain preceeding, but no significant abd pain. Appetite poor, no n/v.] Objective: [ Laboratory Results - last 24 hr 03/17/18 03/18/18 03/18/18 21:00 07:07 07:07 WBC 0.3 L RBC 2.92 L Hgb 9.1 L Hct 27 L MCV 92 MCH 31 MCHC 34 RDW 19 H Plt Count 154 MPV 8.4 Neutrophils % 54 Lymphocytes % 44 Monocytes % 2 Abs Neuts (Manual) 0.2 L Abs Lymphs (Manual) 0.1 L Large Platelets Present Giant Platelets Present Normal RBC Morphology Normal Sodium 130 L Potassium 3.6 Chloride 101 Carbon Dioxide 24 Anion Gap 5 BUN 9 Creatinine 0.37 L Est GFR ( Amer) 205.5 Est GFR (Non-Af Amer) 169.8 BUN/Creatinine Ratio 24.3 H Glucose 60 L POC Glucose (mg/dL) 74 Calcium 9.0 Magnesium 2.0 03/18/18 03/18/18 03/18/18 07:52 08:22 09:15 WBC RBC Hgb Hct MCV MCH MCHC RDW Plt Count MPV Neutrophils % Lymphocytes % Monocytes % Abs Neuts (Manual) Abs Lymphs (Manual) Large Platelets Giant Platelets Normal RBC Morphology Sodium Potassium Chloride Carbon Dioxide Anion Gap BUN Creatinine Est GFR ( Amer) Est GFR (Non-Af Amer) BUN/Creatinine Ratio Glucose POC Glucose (mg/dL) 64 L 69 L 90 Calcium Magnesium 03/18/18 03/18/18 03/18/18 12:10 16:18 20:18 WBC RBC Hgb Hct MCV MCH MCHC RDW Plt Count MPV Neutrophils % Lymphocytes % Monocytes % Abs Neuts (Manual) Abs Lymphs (Manual) Large Platelets Giant Platelets Normal RBC Morphology Sodium Potassium Chloride Carbon Dioxide Anion Gap BUN Creatinine Est GFR ( Amer) Est GFR (Non-Af Amer) BUN/Creatinine Ratio Glucose POC Glucose (mg/dL) 134 H 92 99 Calcium Magnesium Acetaminophen (Tylenol Tab*) 650 mg PO Q8H [facility] Acyclovir (Zovirax Tab*) 400 mg PO 0830 [facility] Last Admin: 03/18/18 09:40 Dose: 400 mg Acyclovir (Zovirax Tab*) 400 mg PO 1730 [facility] Last Admin: 03/18/18 16:25 Dose: 400 mg Dextrose (D50w Syringe 50 Ml*) 12.5 gm IV PUSH .FOR FS < 60 - SS PRN PRN Reason: FS < 60 Docusate Sodium (Colace Cap*) 100 mg PO DAILY [facility] Last Admin: 03/18/18 09:24 Dose: Not Given Dronabinol (Marinol Cap*) 2.5 mg PO 1130,1630 [facility] Last Admin: 03/18/18 16:25 Dose: 2.5 mg Heparin Sodium (Porcine) (Heparin Vial(*)) 5,000 units SUBCUT Q8HR [facility] Last Admin: 03/18/18 13:27 Dose: Not Given Cefepime HCl (Maxipime 2 Gm In Dextrose Duplex (*)) 2 gm in 50 mls @ 100 mls/ hr IV Q12HR [facility] Last Admin: 03/18/18 09:31 Dose: 100 mls/hr Insulin Glargine (Lantus(*)) 15 units SUBCUT Q12H [facility] Insulin Human Lispro (Humalog*) 0 units SUBCUT ACHS [facility]; Protocol Last Admin: 03/18/18 20:24 Dose: Not Given Lactobacillus Rhamnosus (Lactobacillus Acidophilus*) 1 tab PO BID [facility] Last Admin: 03/18/18 09:40 Dose: 1 tab Magnesium Oxide (Magox 400 Tab*) 400 mg PO BID [facility] Last Admin: 03/18/18 09:41 Dose: 400 mg Metformin HCl (Glucophage*) 500 mg PO 1730 [facility] Last Admin: 03/18/18 16:25 Dose: 500 mg Morphine Sulfate (Morphine Vial*) 2 mg IV Q2H PRN PRN Reason: AIR HUNGER Multi-Ingredient Mouthwash/Gargle (Magic M W2 Olvin/Maal/Nyst/Lido*) 5 ml SWISH SWAL QID [facility] Last Admin: 03/18/18 16:19 Dose: Not Given Multivitamins/Minerals (Theragran/Minerals Tab*) 1 tab PO DAILY [facility] Ondansetron HCl (Zofran Inj*) 4 mg IV Q6H PRN PRN Reason: NAUSEA Last Admin: 03/18/18 17:26 Dose: 4 mg Potassium Chloride (Klor Con Er Tab*) 20 meq PO BID [facility] Last Admin: 03/18/18 09:41 Dose: 20 meq Senna (Senokot Tab*) 2 tab PO BEDTIME PRN PRN Reason: CONSTIPATION Vital Signs: Temp Pulse Resp BP Pulse Ox 101.3 F 113 17 108/54 92 03/18/18 19:32 03/18/18 19:32 03/18/18 19:32 03/18/18 19:32 03/18/18 19:32 Exam: Gen: 77 yo female who appears chronically ill and thin and appears uncomfortable. Accompanied by her HEENT: mildly dry, no thrush CV: RRR, 3/6 murmur Resp: CTA Abd: soft, nonTTP Ext: no edema Skin: no rashes Assessment: [77 yo female with AML admitted with recurrent neutropenic fever. Urine cx positive, but blood cultures have been negative. She continues to have intermittent fevers after 4 days of IV abx. ] Plan: [1. Neutropenic fever - ANC starting to improve, up to 200 today - continues to have intermittent fever after 4d of abx and is generally not feeling well - repeat blood cxs today - if this pattern continues will add fluconazole tomorrow, she remains on acyclovir, but in prophylactic doses 2. Aortic stenosis - fluid overloaded earlier in hospitalization - no appears euvolemic or slightly hypovolemic 3. AML - therapy held at this time - CR by bone marrow after C2 ]
[2018-03-18] MEDS: Acetaminophen TAB* 325 MG PO SCH (21:17)
[2018-03-19] MEDS: Acetaminophen TAB* 325 MG PO SCH ×4 (04:09→20:46)
[2018-03-19 06:01] LABS: Hematocrit 23 % (35-47); Hemoglobin 8.1 g/dl (12.0-16.0); Mean Corpuscular HGB Conc 35 g/dl (31-36); Mean Corpuscular Hemoglobin 32 pg (27-31); Mean Corpuscular Volume 92 fL (80-97); Mean Platelet Volume 8.2 fL (7.4-10.4); Platelet Count 144 10^3/ul (150-450); Red Blood Count 2.55 10^6/ul (4.00-5.40); Red Cell Distribution Width 19 % (10.5-15); White Blood Count 0.2 10^3/ul (3.5-10.8)
[2018-03-19] MEDS: Heparin VIAL(*) 5000 UNITS/ML VIAL (FIVE THOUSAND) SUBCUT SCH ×3 (06:08→20:57)
[2018-03-19 06:13] LABS: EGFR Non-African American 150.8 (>60)
[2018-03-19 06:29] LABS: Monocytes % 3 %
[2018-03-19] MEDS: Insulin LISPRO* 1 UNITS UNIT SUBCUT SCH ×2 (07:45→13:26)
[2018-03-19] MEDS ORDERED: Multivitamins/Minerals TAB PO SCH ×2 (09:00→21:00)
[2018-03-19] MEDS ORDERED: Insulin GLARGINE(*) 1 UNITS UNIT SUBCUT SCH (09:00)
[2018-03-19] MEDS ORDERED: LACTOBACILLUS ACIDOPHILUS PO SCH (09:00)
[2018-03-19] MEDS: Docusate CAP* 100 MG PO SCH (09:40)
[2018-03-19] MEDS: Acyclovir* 400 MG TAB PO SCH ×2 (09:40→17:45)
[2018-03-19] MEDS: Magic M W2 Ben/Maal/Nyst/Lido* 240 ML MOUTHWASH (alt formulation) SWISH SWAL SCH ×4 (09:41→20:51)
[2018-03-19] MEDS: Magnesium Oxide TAB* 400 MG PO SCH ×2 (09:42→20:46)
[2018-03-19] MEDS: Potassium Chlor TAB* 20 MEQ TAB.ER PO SCH ×2 (09:47→20:46)
[2018-03-19] MEDS: Cefepime 2 GM in Dextrose(*) 2 GM/50 ML BAG IV SCH ×2 (09:50→21:00)
--- NOTE | 2018-03-19 10:33 | PN ---
Progress Note - Progress Note Date of Service: 03/19/18 SOAP: Subjective: [Feels slightly better today, Tmax 101.7 yesterday afternoon and 100.7 overnight. Blood cultures from yesterday not reporting any growth at this time. No cough or SOB. Mild loose stool ~once daily. No abd pain. Appetite remains poor.] Objective: [ Acetaminophen (Tylenol Tab*) 650 mg PO Q8H [facility] Last Admin: 03/19/18 04:09 Dose: 650 mg Acyclovir (Zovirax Tab*) 400 mg PO 0830 [facility] Last Admin: 03/19/18 09:40 Dose: 400 mg Acyclovir (Zovirax Tab*) 400 mg PO 1730 [facility] Last Admin: 03/18/18 16:25 Dose: 400 mg Dextrose (D50w Syringe 50 Ml*) 12.5 gm IV PUSH .FOR FS < 60 - SS PRN PRN Reason: FS < 60 Docusate Sodium (Colace Cap*) 100 mg PO DAILY [facility] Last Admin: 03/19/18 09:40 Dose: 100 mg Dronabinol (Marinol Cap*) 2.5 mg PO 1130,1630 [facility] Last Admin: 03/18/18 16:25 Dose: 2.5 mg Heparin Sodium (Porcine) (Heparin Vial(*)) 5,000 units SUBCUT Q8HR [facility] Last Admin: 03/19/18 06:08 Dose: Not Given Cefepime HCl (Maxipime 2 Gm In Dextrose Duplex (*)) 2 gm in 50 mls @ 100 mls/ hr IV Q12HR [facility] Last Admin: 03/19/18 09:50 Dose: 100 mls/hr Fluconazole/Sodium Chloride (Diflucan 400 Mg Ivpremix(*)) 400 mg in 200 mls @ 100 mls/hr IVPB Q24H [facility] Insulin Glargine (Lantus(*)) 15 units SUBCUT BID [facility] Last Admin: 03/19/18 07:45 Dose: Not Given Insulin Human Lispro (Humalog*) 0 units SUBCUT ACHS [facility]; Protocol Last Admin: 03/19/18 07:45 Dose: Not Given Lactobacillus Rhamnosus (Lactobacillus Acidophilus*) 1 tab PO BID [facility] Magnesium Oxide (Magox 400 Tab*) 400 mg PO BID [facility] Last Admin: 03/19/18 09:42 Dose: 400 mg Metformin HCl (Glucophage*) 500 mg PO 1730 [facility] Last Admin: 03/18/18 16:25 Dose: 500 mg Morphine Sulfate (Morphine Vial*) 2 mg IV Q2H PRN PRN Reason: AIR HUNGER Multi-Ingredient Mouthwash/Gargle (Magic M W2 Olvin/Maal/Nyst/Lido*) 5 ml SWISH SWAL QID [facility] Last Admin: 03/19/18 09:41 Dose: 5 ml Multivitamins/Minerals (Theragran/Minerals Tab*) 1 tab PO DAILY [facility] Ondansetron HCl (Zofran Inj*) 4 mg IV Q6H PRN PRN Reason: NAUSEA Last Admin: 03/18/18 17:26 Dose: 4 mg Potassium Chloride (Klor Con Er Tab*) 20 meq PO BID [facility] Last Admin: 03/19/18 09:47 Dose: 20 meq Senna (Senokot Tab*) 2 tab PO BEDTIME PRN PRN Reason: CONSTIPATION Vital Signs Temp Pulse Resp BP Pulse Ox 97.6 F 83 17 108/45 99 03/19/18 07:33 03/19/18 07:33 03/19/18 07:46 03/19/18 07:33 03/19/18 07:33 Laboratory Results - last 24 hr 03/18/18 03/18/18 03/18/18 08:22 12:10 16:18 WBC RBC Hgb Hct MCV MCH MCHC RDW Plt Count MPV Neut % (Auto) Lymph % (Auto) O'Brien % (Auto) Eos % (Auto) Baso % (Auto) Absolute Neuts (auto) Absolute Lymphs (auto) Absolute Monos (auto) Absolute Eos (auto) Absolute Basos (auto) Absolute Nucleated RBC Immature Gran % Neutrophils % Band Neutrophils % Lymphocytes % Monocytes % Nucleated RBC % Normal RBC Morphology Hypochromasia Microcytosis Macrocytosis Sodium Potassium Chloride Carbon Dioxide Anion Gap BUN Creatinine Est GFR ( Amer) Est GFR (Non-Af Amer) BUN/Creatinine Ratio Glucose POC Glucose (mg/dL) 69 L 134 H 92 Calcium 03/18/18 03/19/18 03/19/18 20:18 05:40 05:40 WBC 0.2 L RBC 2.55 L Hgb 8.1 L Hct 23 L MCV 92 MCH 32 H MCHC 35 RDW 19 H Plt Count 144 L MPV 8.2 Neut % (Auto) Not Reportable Lymph % (Auto) Not Reportable O'Brien % (Auto) Not Reportable Eos % (Auto) Not Reportable Baso % (Auto) Not Reportable Absolute Neuts (auto) Not Reportable Absolute Lymphs (auto) Not Reportable Absolute Monos (auto) Not Reportable Absolute Eos (auto) Not Reportable Absolute Basos (auto) Not Reportable Absolute Nucleated RBC Not Reportable Immature Gran % 30 H Neutrophils % 34 Band Neutrophils % 30 H Lymphocytes % 33 Monocytes % 3 Nucleated RBC % Not Reportable Normal RBC Morphology Not Reportable Hypochromasia 2+ Microcytosis 1+ Macrocytosis 1+ Sodium 130 L Potassium 3.9 Chloride 102 Carbon Dioxide 25 Anion Gap 3 BUN 11 Creatinine 0.41 L Est GFR ( Amer) 182.5 Est GFR (Non-Af Amer) 150.8 BUN/Creatinine Ratio 26.8 H Glucose 58 L POC Glucose (mg/dL) 99 Calcium 8.8 03/19/18 03/19/18 07:41 08:21 WBC RBC Hgb Hct MCV MCH MCHC RDW Plt Count MPV Neut % (Auto) Lymph % (Auto) O'Brien % (Auto) Eos % (Auto) Baso % (Auto) Absolute Neuts (auto) Absolute Lymphs (auto) Absolute Monos (auto) Absolute Eos (auto) Absolute Basos (auto) Absolute Nucleated RBC Immature Gran % Neutrophils % Band Neutrophils % Lymphocytes % Monocytes % Nucleated RBC % Normal RBC Morphology Hypochromasia Microcytosis Macrocytosis Sodium Potassium Chloride Carbon Dioxide Anion Gap BUN Creatinine Est GFR ( Amer) Est GFR (Non-Af Amer) BUN/Creatinine Ratio Glucose POC Glucose (mg/dL) 61 L 72 Calcium Exam: Gen: 77 yo female who appears chronically ill and thin and appears uncomfortable. Accompanied by her HEENT: mildly dry, no thrush CV: RRR, 3/6 murmur Resp: CTA Abd: soft, nonTTP Ext: no edema Skin: no rashes Assessment: [77 yo female with AML admitted with recurrent neutropenic fever. Urine cx positive, but blood cultures have been negative. She continues to have intermittent fevers after 5 days of IV abx. ] Plan: [1. Neutropenic fever - noted 30% bands on diff today, but no blasts - pending pathology review - continues to have intermittent fever after 5d of abx and is generally not feeling well - diarrhea does not seem significant enough to be the focus of infection - repeat blood cxs yesterday are pending - start fluconazole 400 mg daily - cont acyclovir 400 mg bid - requested ID consult 2. Aortic stenosis - fluid overloaded earlier in hospitalization - now appears euvolemic or slightly hypovolemic 3. AML - therapy held at this time - CR by bone marrow after C2] Dispo: dc home when ANC>1000
[2018-03-19] MEDS: Fluconazole 400 MG IVPREMIX(*) 400 MG/200 ML BAG IVPB SCH (11:01)
[2018-03-19] MEDS: Ondansetron INJ* 2 MG/ML VIAL IV PRN (12:35)
[2018-03-19] MEDS: Dronabinol CAP* 2.5 MG PO SCH ×2 (12:41→17:45)
[2018-03-19] MEDS ORDERED: Metoclopramide IV* 5 MG/ML 2 ML VIAL IV PRN (14:01)
[2018-03-19] MEDS: metFORMIN* 500 MG TAB PO SCH (17:45)
[2018-03-19] MEDS: Lactobacillus Acidophilus* 1 TAB PO SCH (20:46)
[2018-03-19] MEDS: PTO:Multivitamins/Mins (NF) AREDS2 1 CAP CAP PO SCH (21:00)
[2018-03-20] MEDS: Acetaminophen TAB* 325 MG PO SCH ×3 (03:16→19:12)
[2018-03-20] MEDS: Heparin VIAL(*) 5000 UNITS/ML VIAL (FIVE THOUSAND) SUBCUT SCH ×3 (04:54→20:59)
[2018-03-20 05:57] LABS: EGFR Non-African American 146.7 (>60)
[2018-03-20 06:13] LABS: ABS Basophils 0 10^3/ul (0-0.2); ABS Eosinophils 0 10^3/ul (0-0.6); ABS Lymphocytes 0.1 10^3/ul (1.0-4.8); ABS Monocytes 0 10^3/ul (0-0.8); ABS Neutrophils 0.2 10^3/ul (1.5-7.7); ABS Nucleated RBC 0 10^3/ul; Eosinophil % 1.6 %; Hematocrit 23 % (35-47); Hemoglobin 7.8 g/dl (12.0-16.0); Lymphocyte % 18.4 %; Mean Corpuscular HGB Conc 34 g/dl (31-36); Mean Corpuscular Hemoglobin 32 pg (27-31); Mean Corpuscular Volume 93 fL (80-97); Mean Platelet Volume 8.6 fL (7.4-10.4); Nucleated Red Blood Cells % 0; Platelet Count 122 10^3/ul (150-450); Red Blood Count 2.46 10^6/ul (4.00-5.40); Red Cell Distribution Width 19 % (10.5-15); White Blood Count 0.3 10^3/ul (3.5-10.8)
[2018-03-20] MEDS: Cefepime 2 GM in Dextrose(*) 2 GM/50 ML BAG IV SCH ×2 (08:46→20:48)
[2018-03-20] MEDS: Magnesium Oxide TAB* 400 MG PO SCH ×2 (10:16→20:49)
[2018-03-20] MEDS: Docusate CAP* 100 MG PO SCH (10:17)
[2018-03-20] MEDS: Potassium Chlor TAB* 20 MEQ TAB.ER PO SCH ×2 (10:17→20:49)
[2018-03-20] MEDS: PTO:Multivitamins/Mins (NF) AREDS2 1 CAP CAP PO SCH ×2 (10:17→20:50)
[2018-03-20] MEDS: Acyclovir* 400 MG TAB PO SCH ×2 (10:17→16:36)
[2018-03-20] MEDS: Magic M W2 Ben/Maal/Nyst/Lido* 240 ML MOUTHWASH (alt formulation) SWISH SWAL SCH ×4 (10:19→19:49)
[2018-03-20] MEDS: Lactobacillus Acidophilus* 1 TAB PO SCH (10:19)
[2018-03-20] MEDS: Dronabinol CAP* 2.5 MG PO SCH ×2 (11:03→16:36)
--- NOTE | 2018-03-20 13:04 | CONS ---
CONSULTATION REPORT: DATE OF CONSULT: 03/20/18. REQUESTING PROVIDER: ARVIND Valencia. CONSULTING SERVICE: Infectious Disease. REASON FOR CONSULT: Neutropenic fever. IMPRESSION: 1. ANC of 200, it has been 0 for a little while with fever. Blood cultures are negative. She has no port. She has some urinary frequency, white cells and red cells on urinalysis. Urine culture growing pseudomonas. I think she does have a cystitis. No signs or symptoms of invasive fungal infection. 2. Acute myeloid leukemia, recent chemotherapy. 3. Type 2 diabetes. 4. Prolapsed pelvic organs with pessary. 5. Right hip open reduction and internal fixation, asymptomatic. RECOMMENDATIONS: Agree with cefepime. We will check postvoid residual. Continue same antibiotics until her white cell counts recover a bit. HISTORY OF PRESENT ILLNESS: This is a 77-year-old woman with AML. She has been receiving chemotherapy. She had neutropenic fever in December in association with polymicrobial PICC line infection. She had pseudomonas in the urine at that time. She came to the hospital with fever to 100.4 on 03/14/18 and came in to the emergency room. She was started on cefepime. She had not had any respiratory complaints. Initial chest x-ray on 03/14/18 was negative; on 03/16/18, there was some vascular congestion. She was felt to have a component of volume overload. She had occasional chills, decreased appetite. No mouth sores. No diarrhea or belly pain. In fact, she has been on the constipated side. She has noticed a urinary frequency with occasional dysuria in the last few days. It is easing off a bit. She has had no urinary tract surgeries, but does have a pessary. PAST MEDICAL HISTORY: 1. AML. 2. Hypertension. 3. Type 2 diabetes. 4. Aortic stenosis. 5. Osteopenia. 6. Right hip fracture, status post open reduction and internal fixation. 7. Transabdominal hysterectomy and bilateral salpingo-oophorectomy. MEDICATIONS: 1. Tylenol. 2. Acyclovir. 3. Cefepime 2 g every 12 hours. 4. Fluconazole. 5. Docusate. 6. Dronabinol. 7. Heparin subcutaneous injection. 8. Lactobacillus. 9. Metformin. 10. Morphine. 11. Senna. ALLERGIES: PENICILLIN, CIPRO, NITROFURANTOIN, LEVAQUIN. FAMILY HISTORY: No recurrent infections. SOCIAL HISTORY: She lives with her near [facility]. She has no travel or sick contacts. REVIEW OF SYSTEMS: All negative except as noted above to 14-point review except as noted above in the history of present illness. PHYSICAL EXAM: Vital Signs: Temperature 37, heart rate 90, respiratory rate 20 , blood pressure 106/47, oxygen saturation 100% on room air. In general, she is awake, not in distress. Neurologic: She is oriented x3. Follows all commands. HEENT: There is no conjunctival hemorrhage. Oropharynx without lesions. Neck: Supple without mass. Heart: Regular rate and rhythm with a 2/ 6 systolic murmur. Lungs: Clear to auscultation bilaterally. Abdomen: Soft, nontender, nondistended. She has bowel sounds present. There is no flank tenderness to palpation. Skin: There is no rash or splinter hemorrhage. Musculoskeletal: There is no spine tenderness to palpation. Right hip log roll negative and no pain with flexion and extension. LABORATORY DATA: White blood cell count 0.3, hemoglobin 7.8, platelets 122. Creatinine 0.4. Urinalysis, white cells and red cells. Please see impression and recommendations as outlined above, which I have discussed with Dr. Shirley. Thank you for asking me to see Ms. Ortega in consultation. [id number]/[facility] #: [id number] [facility]ITALKishore
[2018-03-20] MEDS: Fluconazole 400 MG IVPREMIX(*) 400 MG/200 ML BAG IVPB SCH (15:11)
--- NOTE | 2018-03-20 16:52 | PN ---
Progress Note - Progress Note Date of Service: 03/20/18 SOAP: Subjective: [Feeling slightly better today. Still has intermittent fevers.] Objective: [ Laboratory Results - last 24 hr 03/20/18 03/20/18 03/20/18 05:21 05:21 05:21 WBC 0.3 L RBC 2.46 L Hgb 7.8 L Hct 23 L MCV 93 MCH 32 H MCHC 34 RDW 19 H Plt Count 122 L MPV 8.6 Neut % (Auto) 76.8 Lymph % (Auto) 18.4 [place] % (Auto) 3.2 Eos % (Auto) 1.6 Baso % (Auto) 0 Absolute Neuts (auto) 0.2 L Absolute Lymphs (auto) 0.1 L Absolute Monos (auto) 0 Absolute Eos (auto) 0 Absolute Basos (auto) 0 Absolute Nucleated RBC 0 Nucleated RBC % 0 Sodium 128 L Potassium 4.3 Chloride 99 L Carbon Dioxide 23 Anion Gap 6 BUN 14 Creatinine 0.42 L Est GFR ( Amer) 177.5 Est GFR (Non-Af Amer) 146.7 BUN/Creatinine Ratio 33.3 H Glucose 178 H Calcium 8.7 Blood Type A Positive Antibody Screen Negative Crossmatch See Detail Acetaminophen (Tylenol Tab*) 650 mg PO Q8H [facility] Last Admin: 03/20/18 11:03 Dose: 650 mg Acyclovir (Zovirax Tab*) 400 mg PO 0830 [facility] Last Admin: 03/20/18 10:17 Dose: 400 mg Acyclovir (Zovirax Tab*) 400 mg PO 1730 [facility] Last Admin: 03/20/18 16:36 Dose: 400 mg Dextrose (D50w Syringe 50 Ml*) 12.5 gm IV PUSH .FOR FS < 60 - SS PRN PRN Reason: FS < 60 Docusate Sodium (Colace Cap*) 100 mg PO DAILY [facility] Last Admin: 03/20/18 10:17 Dose: 100 mg Dronabinol (Marinol Cap*) 2.5 mg PO 1130,1630 [facility] Last Admin: 03/20/18 16:36 Dose: 2.5 mg Heparin Sodium (Porcine) (Heparin Vial(*)) 5,000 units SUBCUT Q8HR [facility] Last Admin: 03/20/18 14:37 Dose: Not Given Cefepime HCl (Maxipime 2 Gm In Dextrose Duplex (*)) 2 gm in 50 mls @ 100 mls/ hr IV Q12HR [facility] Last Admin: 03/20/18 08:46 Dose: 100 mls/hr Fluconazole/Sodium Chloride (Diflucan 400 Mg Ivpremix(*)) 400 mg in 200 mls @ 100 mls/hr IVPB Q24H [facility] Last Admin: 03/20/18 15:11 Dose: 100 mls/hr Magnesium Oxide (Magox 400 Tab*) 400 mg PO BID [facility] Last Admin: 03/20/18 10:16 Dose: 400 mg Metformin HCl (Glucophage*) 500 mg PO 1730 [facility] Last Admin: 03/19/18 17:45 Dose: 500 mg Metoclopramide HCl (Reglan Iv*) 10 mg IV Q6H PRN PRN Reason: NAUSEA/VOMITING Morphine Sulfate (Morphine Vial*) 2 mg IV Q2H PRN PRN Reason: AIR HUNGER Multi-Ingredient Mouthwash/Gargle (Magic M W2 Olvin/Maal/Nyst/Lido*) 5 ml SWISH SWAL QID [facility] Last Admin: 03/20/18 16:31 Dose: Not Given Multivitamins/Minerals (Preservision Areds 2) 1 cap PO BID [facility] Last Admin: 03/20/18 10:17 Dose: 1 cap Ondansetron HCl (Zofran Inj*) 4 mg IV Q6H PRN PRN Reason: NAUSEA Last Admin: 03/19/18 12:35 Dose: 4 mg Potassium Chloride (Klor Con Er Tab*) 20 meq PO BID [facility] Last Admin: 03/20/18 10:17 Dose: 20 meq Senna (Senokot Tab*) 2 tab PO BEDTIME PRN PRN Reason: CONSTIPATION Vital Signs Temp Pulse Resp BP Pulse Ox 98.0 F 96 16 129/57 99 03/20/18 16:33 03/20/18 16:33 03/20/18 16:36 03/20/18 16:33 03/20/18 16:33 Exam: Gen: 77 yo female who appears chronically ill and thin and in NAD. 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 Urine cx positive, but blood cultures have been negative. She continues to have intermittent fevers after 6 days of IV abx. ] Plan: [1. Neutropenic fever - continues to have intermittent fever after multiple days of abx - repeat blood cxs are neg for growth - started fluconazole 400 mg daily yesterday - cont acyclovir 400 mg bid - ID consult pending 2. Aortic stenosis - fluid overloaded earlier in hospitalization - now appears euvolemic or slightly hypovolemic 3. AML with pancytopenia - therapy held at this time - CR by bone marrow after C2 - transfuse 1U PRBCs today for Hgb 7.8 g/dl] Dispo: dc home when ANC>1000]
[2018-03-20] MEDS: metFORMIN* 500 MG TAB PO SCH (20:50)
[2018-03-21] MEDS: Heparin VIAL(*) 5000 UNITS/ML VIAL (FIVE THOUSAND) SUBCUT SCH ×3 (04:00→20:22)
[2018-03-21] MEDS: Acetaminophen TAB* 325 MG PO SCH ×3 (04:01→20:23)
[2018-03-21] MEDS: Potassium Chlor TAB* 20 MEQ TAB.ER PO SCH ×2 (08:00→20:22)
[2018-03-21] MEDS: Docusate CAP* 100 MG PO SCH (08:00)
[2018-03-21] MEDS: Acyclovir* 400 MG TAB PO SCH ×2 (08:00→16:12)
[2018-03-21] MEDS: PTO:Multivitamins/Mins (NF) AREDS2 1 CAP CAP PO SCH ×2 (08:00→20:24)
[2018-03-21] MEDS: Magic M W2 Ben/Maal/Nyst/Lido* 240 ML MOUTHWASH (alt formulation) SWISH SWAL SCH ×4 (08:01→20:21)
[2018-03-21] MEDS: Cefepime 2 GM in Dextrose(*) 2 GM/50 ML BAG IV SCH ×2 (08:01→20:23)
[2018-03-21] MEDS: Magnesium Oxide TAB* 400 MG PO SCH ×2 (08:01→20:22)
[2018-03-21 08:34] LABS: Hematocrit 28 % (35-47); Hemoglobin 9.5 g/dl (12.0-16.0); Mean Corpuscular HGB Conc 33 g/dl (31-36); Mean Corpuscular Hemoglobin 31 pg (27-31); Mean Corpuscular Volume 93 fL (80-97); Platelet Count 103 10^3/ul (150-450); Red Blood Count 3.06 10^6/ul (4.00-5.40); Red Cell Distribution Width 18 % (10.5-15); White Blood Count 0.6 10^3/ul (3.5-10.8)
[2018-03-21 08:48] LABS: EGFR Non-African American 155.2 (>60)
[2018-03-21 09:25] LABS: Monocytes % 1 %
[2018-03-21 09:29] LABS: ABS Neutrophils 0.4 10^3/ul (1.5-7.7)
[2018-03-21] MEDS: Fluconazole 400 MG IVPREMIX(*) 400 MG/200 ML BAG IVPB SCH (10:11)
--- NOTE | 2018-03-21 10:54 | PN ---
Progress Note - Progress Note Date of Service: 03/21/18 SOAP: Subjective: []A little better. Eating some, breathing is fine. Not getting up or walking. Had urinary frequency, + 800 cc post void and Coppola placed. Feels better now. Acetaminophen (Tylenol Tab*) 650 mg PO Q8H [facility]S [facility] Last Admin: 03/21/18 04:01 Dose: 650 mg Acyclovir (Zovirax Tab*) 400 mg PO 0830 [facility] 234 B[facility]S AT [facility] Last Admin: 03/21/18 08:00 Dose: 400 mg Acyclovir (Zovirax Tab*) 400 mg PO 1730 [facility] 234 BEDS AT [facility] Last Admin: 03/20/18 16:36 Dose: 400 mg Dextrose (D50w Syringe 50 Ml*) 12.5 gm IV PUSH .FOR FS < 60 - SS PRN PRN Reason: FS < 60 Docusate Sodium (Colace Cap*) 100 mg PO DAILY [facility] 234 BEDS AT [facility] Last Admin: 03/21/18 08:00 Dose: 100 mg Dronabinol (Marinol Cap*) 2.5 mg PO 1130,1630 [facility] 234 BEDS AT [facility] Last Admin: 03/20/18 16:36 Dose: 2.5 mg Heparin Sodium (Porcine) (Heparin Vial(*)) 5,000 units SUBCUT Q8HR [facility] 234 BEDS AT [facility] Last Admin: 03/21/18 04:00 Dose: Not Given Cefepime HCl (Maxipime 2 Gm In Dextrose Duplex (*)) 2 gm in 50 mls @ 100 mls/ hr IV Q12HR [facility] 234 B[facility]S AT [facility] Last Admin: 03/21/18 08:01 Dose: 100 mls/hr Fluconazole/Sodium Chloride (Diflucan 400 Mg Ivpremix(*)) 400 mg in 200 mls @ 100 mls/hr IVPB Q24H [facility] 234 BEDS AT [facility] Last Admin: 03/21/18 10:11 Dose: 100 mls/hr Magnesium Oxide (Magox 400 Tab*) 400 mg PO BID [facility] 234 BEDS AT [facility] Last Admin: 03/21/18 08:01 Dose: 400 mg Metformin HCl (Glucophage*) 500 mg PO 1730 [facility] 234 BEDS AT [facility] Last Admin: 03/20/18 20:50 Dose: 500 mg Metoclopramide HCl (Reglan Iv*) 10 mg IV Q6H PRN PRN Reason: NAUSEA/VOMITING Morphine Sulfate (Morphine Vial*) 2 mg IV Q2H PRN PRN Reason: AIR HUNGER Multi-Ingredient Mouthwash/Gargle (Magic M W2 Olvin/Maal/Nyst/Lido*) 5 ml SWISH SWAL QID [facility] 234 BEDS AT [facility] Last Admin: 03/21/18 08:01 Dose: Not Given Multivitamins/Minerals (Preservision Areds 2) 1 cap PO BID [facility] 234 [facility]S [facility] Last Admin: 03/21/18 08:00 Dose: 1 cap Ondansetron HCl (Zofran Inj*) 4 mg IV Q6H PRN PRN Reason: NAUSEA Last Admin: 03/19/18 12:35 Dose: 4 mg Potassium Chloride (Klor Con Er Tab*) 20 meq PO BID [facility] 234 BEDS AT [facility] Last Admin: 03/21/18 08:00 Dose: 20 meq Senna (Senokot Tab*) 2 tab PO BEDTIME PRN PRN Reason: CONSTIPATION Objective: [] Vital Signs Temp Pulse Resp BP Pulse Ox 97.4 F 79 16 108/62 99 03/21/18 07:39 03/21/18 07:39 03/21/18 08:16 03/21/18 07:40 03/21/18 07:39 Exam: Gen: ill appearing, not in distress HEENT: mildly dry, no thrush CV: RRR, 3-4/6 murmur Resp: CTA Abd: soft, nonTTP Ext: no edema Skin: no rashes Assessment: 77 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 Urine cx positive, but blood cultures have been negative. She continues to have intermittent fevers after 6 days of IV abx. ] Plan: [1. Neutropenic fever. ANC 420 and fevers improved. Culture negative except urine. - Will continue her antibiotics today, stop all once ANC > 1000. - Will continue acyclovir 400 mg bid on discharge 2. Aortic stenosis - fluid overloaded earlier in hospitalization - now appears euvolemic or slightly hypovolemic - No IVF, encourage PO 3. AML with pancytopenia - therapy held at this time - CR by bone marrow after C2 - Hgb 9.5 s/p Transfusion.
[2018-03-21] MEDS: Dronabinol CAP* 2.5 MG PO SCH ×2 (11:07→16:12)
[2018-03-21] MEDS: metFORMIN* 500 MG TAB PO SCH (16:13)
[2018-03-22] MEDS: Heparin VIAL(*) 5000 UNITS/ML VIAL (FIVE THOUSAND) SUBCUT SCH ×3 (04:05→20:29)
[2018-03-22] MEDS: Acetaminophen TAB* 325 MG PO SCH ×3 (05:18→20:28)
[2018-03-22] MEDS ORDERED: Dextrose 50% Syringe 50 ML* 25 GM/50 ML SYRINGE IV PUSH PRN (08:14)
--- NOTE | 2018-03-22 08:26 | PN ---
Subjective Date of Service: 03/22/18 Interval History: NO significant overnight events. at the bedside. Patient relieved she was able to have a BM this AM. She needed to use commode. Too weak to ambulate to the bathroom. States her appetite is ok. Concerned she may not be drinking enough. No CP or SOB. No N/V. Objective Active Medications: Acetaminophen (Tylenol Tab*) 650 mg PO Q8H [facility] Last Admin: 03/22/18 05:18 Dose: 650 mg Acyclovir (Zovirax Tab*) 400 mg PO 0830 [facility] Last Admin: 03/21/18 08:00 Dose: 400 mg Acyclovir (Zovirax Tab*) 400 mg PO 1730 [facility] Last Admin: 03/21/18 16:12 Dose: 400 mg Dextrose (D50w Syringe 50 Ml*) 12.5 gm IV PUSH .FOR FS < 60 - SS PRN PRN Reason: FS < 60 Dextrose (D50w Syringe 50 Ml*) 12.5 gm IV PUSH .FOR FS < 60 - SS PRN PRN Reason: FS < 60 Docusate Sodium (Colace Cap*) 100 mg PO DAILY [facility] Last Admin: 03/21/18 08:00 Dose: 100 mg Dronabinol (Marinol Cap*) 2.5 mg PO 1130,1630 [facility] Last Admin: 03/21/18 16:12 Dose: 2.5 mg Heparin Sodium (Porcine) (Heparin Vial(*)) 5,000 units SUBCUT Q8HR [facility] Last Admin: 03/22/18 04:05 Dose: Not Given Cefepime HCl (Maxipime 2 Gm In Dextrose Duplex (*)) 2 gm in 50 mls @ 100 mls/ hr IV Q12HR [facility] Last Admin: 03/21/18 20:23 Dose: 100 mls/hr Fluconazole/Sodium Chloride (Diflucan 400 Mg Ivpremix(*)) 400 mg in 200 mls @ 100 mls/hr IVPB Q24H [facility] Last Admin: 03/21/18 10:11 Dose: 100 mls/hr Insulin Human Lispro (Humalog*) 0 units SUBCUT AC [facility]; Protocol Magnesium Oxide (Magox 400 Tab*) 400 mg PO BID [facility] Last Admin: 03/21/18 20:22 Dose: 400 mg Metoclopramide HCl (Reglan Iv*) 10 mg IV Q6H PRN PRN Reason: NAUSEA/VOMITING Morphine Sulfate (Morphine Vial*) 2 mg IV Q2H PRN PRN Reason: AIR HUNGER Multi-Ingredient Mouthwash/Gargle (Magic M W2 Olvin/Maal/Nyst/Lido*) 5 ml SWISH SWAL QID [facility] Last Admin: 03/21/18 20:21 Dose: Not Given Multivitamins/Minerals (Preservision Areds 2) 1 cap PO BID [facility] Last Admin: 03/21/18 20:24 Dose: 1 cap Ondansetron HCl (Zofran Inj*) 4 mg IV Q6H PRN PRN Reason: NAUSEA Last Admin: 03/19/18 12:35 Dose: 4 mg Potassium Chloride (Klor Con Er Tab*) 20 meq PO BID [facility] Last Admin: 03/21/18 20:22 Dose: 20 meq Senna (Senokot Tab*) 2 tab PO BEDTIME PRN PRN Reason: CONSTIPATION Vital Signs - 8 hr 03/22/18 03/22/18 02:52 03:15 Temperature 96.9 F 98.2 F Pulse Rate 78 Respiratory 18 Rate Blood Pressure 115/48 (mmHg) O2 Sat by Pulse 96 Oximetry Oxygen Devices in Use Now: None Appearance: Frail, cachectic Ears/Nose/Mouth/Throat: Mucous Membranes Moist Neck: Trachea Midline Respiratory: Symmetrical Chest Expansion and Respiratory Effort, Clear to Auscultation Cardiovascular: RRR, - - harsh systolic murmur Abdominal: NL Sounds; No Tenderness; No Distention, No Hepatosplenomegaly Extremities: No Edema, - Neurological: Alert and Oriented x 3, NL Muscle Strength and Tone, - - generalized weakness - Nutrition: Malnutrition Diagnosis/Plan Malnutrition Assessment by Registered Dietitian: Malnutrition Assessment Clinical Characteristics Acute,Severe Malnutrition Assessment: - < 50% intake of estimated energy expenditure x Criteria past 6 days - 17% wt loss documented since December (x past 2-3 months) - Moderate fat/muscle wasting Malnutrition Assessment: Per reported disliking Ensure/Boost. She has Interventions been requesting milkshakes w/ protein powder as desired. Per discussion, will send pt a cafeteria menu to allow for greater food variety . Malnutrition Assessment: Goals 1. Intake will improve to promote repletion of lean body mass, maintain hydration, and prevent additional wt loss Result Diagrams: 03/21/18 08:03 03/21/18 08:03 Microbiology and Other Data: Microbiology 03/18/18 18:19 Aerobic Blood Culture - Preliminary Blood Venous No Growth Day 3 Anaerobic Blood Culture - Preliminary No Growth Day 3 03/18/18 14:30 Aerobic Blood Culture - Preliminary Blood Venous No Growth Day 3 Anaerobic Blood Culture - Preliminary No Growth Day 3 03/15/18 19:25 Transfusion Reaction Culture - Final Blood Bag No Growth Day 5 Transfusion Reaction Gram Stain - Final 03/14/18 21:32 Aerobic Blood Culture - Final Blood Venous No Growth Day 5 Anaerobic Blood Culture - Final No Growth Day 5 03/14/18 20:58 Aerobic Blood Culture - Final Blood Venous No Growth Day 5 Anaerobic Blood Culture - Final No Growth Day 5 03/15/18 05:14 Urine Culture - Final Urine Pseudomonas Aeruginosa Normal [facility]: Patient Name: ANGEL QUEVEDO Medical Record#: [id number] Ordering Physician: Dunia Upton DO Acct.#: [id number] : 1940 Age: 77 Sex: F Location: [address] [place] [address] - MEDICAL Exam Date: 03/14/182024 ADM Status: ADM IN Order Information: CHEST PA & LAT 2 VWS Accession Number: [id number] CPT: 04418 INDICATION: Evaluate for infiltrate. COMPARISON: Comparison is made with a prior study from January 04, 2018. TECHNIQUE: Dual-energy PA and lateral views of the chest were obtained. FINDINGS: The heart is within normal limits in size. Mediastinal and hilar contours appear within normal limits. The lungs are underinflated. There is a small infiltrate present laterally over the left midlung which is significantly improved from the prior exam. There is flattening of the diaphragms suggestive of chronic obstructive pulmonary disease. No pleural effusion is seen. IMPRESSION: 1. SMALL LEFT LUNG INFILTRATE SIGNIFICANTLY IMPROVED FROM THE PRIOR STUDY. 2. FINDINGS SUGGESTIVE OF COPD. R1F Preliminary Imaging Read R1F <Electronically signed by Behzad Holland MD in [place]> 03/15/18727 Dictated By: Behzad Holland MD Dictated Date/Time: 03/15/18727 Transcribed Date/Time: 03/15/18725 Copy to: Assess/Plan/Problems-Billing Assessment: This is a 77 year old female with history of AML, currently under treatment that presented with febrile illness and neutropenia. - Patient Problems (1) Neutropenic fever Current Visit: Yes Status: Acute Code(s): D70.9 - NEUTROPENIA, UNSPECIFIED; R50.81 - FEVER PRESENTING WITH CONDITIONS CLASSIFIED ELSEWHERE SNOMED Code(s) : 048775410 Comment: A/P ID involved. Dx with Cystitis secondary to pseudomonas Afebrile. No labs today. Now with indwelling cowart due to high PVR Plan Continue Cefepime Will d/c fluconazole Repeat CBC in AM (2) AML (acute myeloblastic leukemia) Current Visit: No Status: Acute Code(s): C92.00 - ACUTE MYELOBLASTIC LEUKEMIA, NOT HAVING ACHIEVED REMISSION SNOMED Code(s): 71535738 Comment: A/P On chemo. Per oncology team (3) Type II diabetes mellitus Current Visit: No Status: Acute Comment: A/P Had some lows earlier on metformin Will change to Lispro sliding scale. Hold metformin as inpatient. (4) Urinary retention Current Visit: No Status: Acute Code(s): R33.9 - RETENTION OF URINE, UNSPECIFIED SNOMED Code(s): 678378057 Comment: A/P - with high PVR. Consider removal with voiding trial, but may be a chronic issue as it occurred in 12/30. May be cause for her recurrent cystitis. (5) Aortic stenosis Current Visit: No Status: Chronic Code(s): I35.0 - NONRHEUMATIC AORTIC ( VALVE) STENOSIS SNOMED Code(s): 21515131 Comment: - Moderate aortic stenosis per echo in November with murmur on exam Had episode earlier in admission with pulmonary edema that has since resolved Continue to push fluids (Intake appears minimal) (6) DVT prophylaxis Current Visit: No Status: Acute Code(s): BMU7401 - SNOMED Code(s): 240738756 Comment: Heparin SQ TID (7) Full code status Current Visit: No Status: Acute Code(s): Z78.9 - OTHER SPECIFIED HEALTH STATUS SNOMED Code(s): 288504092 Comment: Recommend readdressing code status with patient and family Status and Disposition: Having PT re-evaluate patient now that she is clinically improving. Will need additional resources at home. very involved in her care. Continue IV abx for now.
[2018-03-22] MEDS: Cefepime 2 GM in Dextrose(*) 2 GM/50 ML BAG IV SCH ×2 (09:43→20:27)
[2018-03-22] MEDS: Magic M W2 Ben/Maal/Nyst/Lido* 240 ML MOUTHWASH (alt formulation) SWISH SWAL SCH ×4 (09:50→20:29)
[2018-03-22] MEDS: Acyclovir* 400 MG TAB PO SCH ×2 (09:50→18:45)
[2018-03-22] MEDS: Docusate CAP* 100 MG PO SCH (09:51)
[2018-03-22] MEDS: Magnesium Oxide TAB* 400 MG PO SCH ×2 (09:51→20:28)
[2018-03-22] MEDS: Potassium Chlor TAB* 20 MEQ TAB.ER PO SCH ×2 (09:51→20:27)
[2018-03-22] MEDS: PTO:Multivitamins/Mins (NF) AREDS2 1 CAP CAP PO SCH ×2 (09:51→20:28)
[2018-03-22] MEDS: Dronabinol CAP* 2.5 MG PO SCH ×2 (12:14→18:45)
[2018-03-22] MEDS: Insulin LISPRO* 1 UNITS UNIT SUBCUT SCH ×2 (13:31→18:44)
[2018-03-23] MEDS: Acetaminophen TAB* 325 MG PO SCH ×3 (04:00→20:11)
[2018-03-23] MEDS: Heparin VIAL(*) 5000 UNITS/ML VIAL (FIVE THOUSAND) SUBCUT SCH ×3 (04:01→20:05)
[2018-03-23 06:14] LABS: EGFR Non-African American 216.3 (>60)
[2018-03-23 06:23] LABS: Hematocrit 30 % (35-47); Hemoglobin 10.2 g/dl (12.0-16.0); Mean Corpuscular HGB Conc 34 g/dl (31-36); Mean Corpuscular Hemoglobin 31 pg (27-31); Mean Corpuscular Volume 92 fL (80-97); Mean Platelet Volume 9.3 fL (7.4-10.4); Platelet Count 88 10^3/ul (150-450); Red Blood Count 3.28 10^6/ul (4.00-5.40); Red Cell Distribution Width 18 % (10.5-15); White Blood Count 0.6 10^3/ul (3.5-10.8)
[2018-03-23 06:57] LABS: ABS Neutrophils 0.34 10^3/ul (1.5-7.7)
[2018-03-23] MEDS: Cefepime 2 GM in Dextrose(*) 2 GM/50 ML BAG IV SCH ×2 (09:45→20:11)
[2018-03-23] MEDS: PTO:Multivitamins/Mins (NF) AREDS2 1 CAP CAP PO SCH ×2 (09:45→20:12)
[2018-03-23] MEDS: Magnesium Oxide TAB* 400 MG PO SCH ×2 (09:45→20:11)
[2018-03-23] MEDS: Acyclovir* 400 MG TAB PO SCH ×2 (09:45→18:12)
[2018-03-23] MEDS: Docusate CAP* 100 MG PO SCH (09:46)
[2018-03-23] MEDS: Magic M W2 Ben/Maal/Nyst/Lido* 240 ML MOUTHWASH (alt formulation) SWISH SWAL SCH ×4 (09:46→20:05)
[2018-03-23] MEDS: Insulin LISPRO* 1 UNITS UNIT SUBCUT SCH ×3 (09:46→18:12)
[2018-03-23] MEDS: Potassium Chlor TAB* 20 MEQ TAB.ER PO SCH ×2 (09:46→20:11)
[2018-03-23] MEDS ORDERED: Ibuprofen TAB* 400 MG PO ONE (10:48)
[2018-03-23] MEDS ORDERED: Docusate CAP* 100 MG PO PRN (10:49)
--- NOTE | 2018-03-23 11:04 | PN ---
Progress Note - Progress Note Date of Service: 03/23/18 SOAP: Subjective: []Diarrhea this AM and feels poorly. Weak and tired. Denies cramping. Biggest complaint is pain in buttocks. Nursing encouraged air mattress but she declined. Accepted sheep skin pad. Using barrier cream. Medications: Acetaminophen (Tylenol Tab*) 650 mg PO Q8H [facility] Last Admin: 03/23/18 04:00 Dose: 650 mg Acyclovir (Zovirax Tab*) 400 mg PO 0830 [facility] Last Admin: 03/23/18 09:45 Dose: 400 mg Acyclovir (Zovirax Tab*) 400 mg PO 1730 [facility] Last Admin: 03/22/18 18:45 Dose: 400 mg Dextrose (D50w Syringe 50 Ml*) 12.5 gm IV PUSH .FOR FS < 60 - SS PRN PRN Reason: FS < 60 Dextrose (D50w Syringe 50 Ml*) 12.5 gm IV PUSH .FOR FS < 60 - SS PRN PRN Reason: FS < 60 Docusate Sodium (Colace Cap*) 100 mg PO DAILY PRN PRN Reason: CONSTIPATION Dronabinol (Marinol Cap*) 2.5 mg PO 1130,1630 [facility] Last Admin: 03/22/18 18:45 Dose: Not Given Heparin Sodium (Porcine) (Heparin Vial(*)) 5,000 units SUBCUT Q8HR [facility] Last Admin: 03/23/18 04:01 Dose: Not Given Cefepime HCl (Maxipime 2 Gm In Dextrose Duplex (*)) 2 gm in 50 mls @ 100 mls/ hr IV Q12HR [facility] Last Admin: 03/23/18 09:45 Dose: 100 mls/hr Insulin Human Lispro (Humalog*) 0 units SUBCUT [facility]; Protocol Last Admin: 03/23/18 09:46 Dose: 3 units Magnesium Oxide (Magox 400 Tab*) 400 mg PO BID [facility] Last Admin: 03/23/18 09:45 Dose: 400 mg Metoclopramide HCl (Reglan Iv*) 10 mg IV Q6H PRN PRN Reason: NAUSEA/VOMITING Multi-Ingredient Mouthwash/Gargle (Magic M W2 Olvin/Maal/Nyst/Lido*) 5 ml SWISH SWAL QID [facility] Last Admin: 12/10/18 09:46 Dose: Not Given Multivitamins/Minerals (Preservision Areds 2) 1 cap PO BID [facility] Last Admin: 03/23/18 09:45 Dose: 1 cap Ondansetron HCl (Zofran Inj*) 4 mg IV Q6H PRN PRN Reason: NAUSEA Last Admin: 03/19/18 12:35 Dose: 4 mg Potassium Chloride (Klor Con Er Tab*) 20 meq PO BID [facility] Last Admin: 03/23/18 09:46 Dose: 20 meq Senna (Senokot Tab*) 2 tab PO BEDTIME PRN PRN Reason: CONSTIPATION Objective: [] Vital Signs Temp Pulse Resp BP Pulse Ox 97.6 F 73 16 146/56 97 03/23/18 07:59 03/23/18 07:59 03/23/18 08:00 03/23/18 07:59 03/23/18 07:59 A&Ox3, EOMI, neuro grossly non-focal HRR, S1S2, III/ murmur LS clear bilat., resp. even and non-labored +BS, abd. soft and non-tender Laboratory Results - last 24 hr 03/22/18 03/22/18 03/23/18 11:31 17:23 05:24 WBC 0.6 L RBC 3.28 L Hgb 10.2 L Hct 30 L MCV 92 MCH 31 MCHC 34 RDW 18 H Plt Count 88 L D MPV 9.3 Neut % (Auto) Not Reportable Lymph % (Auto) Not Reportable [place] % (Auto) Not Reportable Eos % (Auto) Not Reportable Baso % (Auto) Not Reportable Absolute Neuts (auto) Not Reportable Absolute Lymphs (auto) Not Reportable Absolute Monos (auto) Not Reportable Absolute Eos (auto) Not Reportable Absolute Basos (auto) Not Reportable Absolute Nucleated RBC Not Reportable Immature Gran % 6 Neutrophils % 60 Band Neutrophils % 4 Lymphocytes % 34 Metamyelocytes % 2 Nucleated RBC % Not Reportable Abs Neuts (Manual) 0.34 L* Abs Lymphs (Manual) 0.20 L Dohle Bodies Present Large Platelets Present Normal RBC Morphology Not Reportable Hypochromasia 2+ Sodium Potassium Chloride Carbon Dioxide Anion Gap BUN Creatinine Est GFR ( Amer) Est GFR (Non-Af Amer) BUN/Creatinine Ratio Glucose POC Glucose (mg/dL) 278 H 301 H Calcium 03/23/18 03/23/18 03/23/18 05:24 06:28 07:46 WBC RBC Hgb Hct MCV MCH MCHC RDW Plt Count MPV Neut % (Auto) Lymph % (Auto) [place] % (Auto) Eos % (Auto) Baso % (Auto) Absolute Neuts (auto) Absolute Lymphs (auto) Absolute Monos (auto) Absolute Eos (auto) Absolute Basos (auto) Absolute Nucleated RBC Immature Gran % Neutrophils % Band Neutrophils % Lymphocytes % Metamyelocytes % Nucleated RBC % Abs Neuts (Manual) Abs Lymphs (Manual) Dohle Bodies Large Platelets Normal RBC Morphology Hypochromasia Sodium 133 L Potassium TNP 4.3 Chloride 100 L Carbon Dioxide 28 Anion Gap 5 BUN 8 Creatinine 0.30 L Est GFR ( Amer) 261.7 Est GFR (Non-Af Amer) 216.3 BUN/Creatinine Ratio 26.7 H Glucose 233 H POC Glucose (mg/dL) 228 H Calcium 8.3 L Microbiology 03/18/18 18:19 Aerobic Blood Culture - Preliminary Blood Venous No Growth Day 4 Anaerobic Blood Culture - Preliminary No Growth Day 4 03/18/18 14:30 Aerobic Blood Culture - Preliminary Blood Venous No Growth Day 4 Anaerobic Blood Culture - Preliminary No Growth Day 4 03/15/18 19:25 Transfusion Reaction Culture - Final Blood Bag No Growth Day 5 Transfusion Reaction Gram Stain - Final 03/14/18 21:32 Aerobic Blood Culture - Final Blood Venous No Growth Day 5 Anaerobic Blood Culture - Final No Growth Day 5 03/14/18 20:58 Aerobic Blood Culture - Final Blood Venous No Growth Day 5 Anaerobic Blood Culture - Final No Growth Day 5 03/15/18 05:14 Urine Culture - Final Urine Pseudomonas Aeruginosa Normal [facility] Assessment: []77 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 Course complicated by acute urinary retention. Plan: []1. Neutropenic Fever: 2/2 pseudomonas cystitis, fortunately she has been afebrile for >72 hours, cont. broad spectrum abx until ANC >500 2. Urinary retention: hx. of SUPA-BSO with subsequent cystocele and pessary ( generally adjusted q3mo, though has been 4 mo) - trial d/c cowart though will likely require straight cath - will refer to local STAFF ACCOUNTANT on d/c
[2018-03-23] MEDS: Dronabinol CAP* 2.5 MG PO SCH ×2 (11:14→16:42)
[2018-03-24] MEDS: Acetaminophen TAB* 325 MG PO SCH ×3 (03:18→22:02)
[2018-03-24] MEDS: Heparin VIAL(*) 5000 UNITS/ML VIAL (FIVE THOUSAND) SUBCUT SCH ×3 (04:51→22:01)
[2018-03-24 06:23] LABS: Hematocrit 28 % (35-47); Hemoglobin 9.5 g/dl (12.0-16.0); Mean Corpuscular HGB Conc 33 g/dl (31-36); Mean Corpuscular Hemoglobin 31 pg (27-31); Mean Corpuscular Volume 92 fL (80-97); Mean Platelet Volume 9.9 fL (7.4-10.4); Platelet Count 78 10^3/ul (150-450); Red Blood Count 3.08 10^6/ul (4.00-5.40); Red Cell Distribution Width 18 % (10.5-15); White Blood Count 0.7 10^3/ul (3.5-10.8)
[2018-03-24] MEDS: Magic M W2 Ben/Maal/Nyst/Lido* 240 ML MOUTHWASH (alt formulation) SWISH SWAL SCH ×4 (09:24→22:50)
[2018-03-24] MEDS: Cefepime 2 GM in Dextrose(*) 2 GM/50 ML BAG IV SCH ×2 (09:24→22:01)
[2018-03-24] MEDS: Potassium Chlor TAB* 20 MEQ TAB.ER PO SCH ×2 (09:25→22:03)
[2018-03-24] MEDS: Acyclovir* 400 MG TAB PO SCH ×2 (09:25→18:34)
[2018-03-24] MEDS: PTO:Multivitamins/Mins (NF) AREDS2 1 CAP CAP PO SCH ×2 (09:25→22:09)
[2018-03-24] MEDS: Magnesium Oxide TAB* 400 MG PO SCH ×2 (09:25→22:03)
[2018-03-24] MEDS: Insulin LISPRO* 1 UNITS UNIT SUBCUT SCH ×3 (09:26→18:34)
[2018-03-24 10:26] LABS: Monocytes % 1 %
[2018-03-24 10:29] LABS: ABS Basophils 0.007 10^3/ul (0-0.2)
[2018-03-24 10:31] LABS: ABS Neutrophils 0.42 10^3/ul (1.5-7.7)
--- NOTE | 2018-03-24 10:32 | PN ---
Progress Note - Progress Note Date of Service: 03/24/18 SOAP: Subjective: [She is very tired this morning. Reports she was up most of the night with freq bladder scans. She required one additional straight catheter overnight. Denies abd pain. Up with PT this am and took a short walk.] Objective: [ Laboratory Results - last 24 hr 03/23/18 03/23/18 03/23/18 05:24 11:19 16:45 WBC RBC Hgb Hct MCV MCH MCHC RDW Plt Count MPV Neut % (Auto) Lymph % (Auto) [place] % (Auto) Eos % (Auto) Baso % (Auto) Absolute Neuts (auto) Absolute Lymphs (auto) Absolute Monos (auto) Absolute Eos (auto) Absolute Basos (auto) Absolute Nucleated RBC Nucleated RBC % Hem Pathologist Commnt Sodium Potassium Chloride Carbon Dioxide Anion Gap BUN Creatinine Est GFR ( Amer) Est GFR (Non-Af Amer) BUN/Creatinine Ratio Glucose POC Glucose (mg/dL) 299 H 261 H Calcium Total Bilirubin AST ALT Alkaline Phosphatase Total Protein Albumin Globulin Albumin/Globulin Ratio 03/24/18 03/24/18 03/24/18 05:25 05:25 07:35 WBC 0.7 L RBC 3.08 L Hgb 9.5 L Hct 28 L MCV 92 MCH 31 MCHC 33 RDW 18 H Plt Count 78 L MPV 9.9 Neut % (Auto) Not Reportable Lymph % (Auto) Not Reportable [place] % (Auto) Not Reportable Eos % (Auto) Not Reportable Baso % (Auto) Not Reportable Absolute Neuts (auto) Not Reportable Absolute Lymphs (auto) Not Reportable Absolute Monos (auto) Not Reportable Absolute Eos (auto) Not Reportable Absolute Basos (auto) Not Reportable Absolute Nucleated RBC Not Reportable Nucleated RBC % Not Reportable Hem Pathologist Commnt Sodium 134 L Potassium 4.5 Chloride 100 L Carbon Dioxide 28 Anion Gap 6 BUN 9 Creatinine 0.35 L Est GFR ( Amer) 219.1 Est GFR (Non-Af Amer) 181.0 BUN/Creatinine Ratio 25.7 H Glucose 227 H POC Glucose (mg/dL) 228 H Calcium 8.6 Total Bilirubin 0.50 AST 9 L ALT 6 L Alkaline Phosphatase 95 Total Protein 6.1 L Albumin 2.5 L Globulin 3.6 Albumin/Globulin Ratio 0.7 L Acetaminophen (Tylenol Tab*) 650 mg PO Q8H [facility] Last Admin: 03/24/18 03:18 Dose: 650 mg Acyclovir (Zovirax Tab*) 400 mg PO 0830 [facility] Last Admin: 03/24/18 09:25 Dose: 400 mg Acyclovir (Zovirax Tab*) 400 mg PO 1730 [facility] Last Admin: 03/23/18 18:12 Dose: 400 mg Dextrose (D50w Syringe 50 Ml*) 12.5 gm IV PUSH .FOR FS < 60 - SS PRN PRN Reason: FS < 60 Docusate Sodium (Colace Cap*) 100 mg PO DAILY PRN PRN Reason: CONSTIPATION Dronabinol (Marinol Cap*) 2.5 mg PO 1130,1630 [facility] Last Admin: 03/23/18 16:42 Dose: 2.5 mg Heparin Sodium (Porcine) (Heparin Vial(*)) 5,000 units SUBCUT Q8HR [facility] Last Admin: 03/24/18 04:51 Dose: Not Given Cefepime HCl (Maxipime 2 Gm In Dextrose Duplex (*)) 2 gm in 50 mls @ 100 mls/ hr IV Q12HR [facility] Last Admin: 03/24/18 09:24 Dose: 100 mls/hr Insulin Human Lispro (Humalog*) 0 units SUBCUT [facility]; Protocol Last Admin: 03/24/18 09:26 Dose: 2 units Magnesium Oxide (Magox 400 Tab*) 400 mg PO BID [facility] Last Admin: 03/24/18 09:25 Dose: 400 mg Metoclopramide HCl (Reglan Iv*) 10 mg IV Q6H PRN PRN Reason: NAUSEA/VOMITING Multi-Ingredient Mouthwash/Gargle (Magic M W2 Olvin/Maal/Nyst/Lido*) 5 ml SWISH SWAL QID [facility] Last Admin: 03/24/18 09:24 Dose: Not Given Multivitamins/Minerals (Preservision Areds 2) 1 cap PO BID [facility] Last Admin: 03/24/18 09:25 Dose: 1 cap Ondansetron HCl (Zofran Inj*) 4 mg IV Q6H PRN PRN Reason: NAUSEA Last Admin: 03/19/18 12:35 Dose: 4 mg Potassium Chloride (Klor Con Er Tab*) 20 meq PO BID [facility] Last Admin: 03/24/18 09:25 Dose: 20 meq Senna (Senokot Tab*) 2 tab PO BEDTIME PRN PRN Reason: CONSTIPATION Vital Signs: Temp Pulse Resp BP Pulse Ox 97.9 F 75 16 143/65 97 03/24/18 07:28 18 07:28 03/24/18 08:00 03/24/18 07:28 03/24/18 07:28 Exam: Gen: 77 yo female who appears chronically ill and thin and in NAD. 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 Urine cx positive, but blood cultures have been negative. She has now developed urinary retention. Plan: [1. Neutropenic fever - fevers have now resolved, ANC slowly improving - repeat blood cxs are neg for growth - fluconazole discontinued - cont acyclovir 400 mg bid 2. Urinary retention - Coppola placed and now removed, she has still had some intermittent retention - reports that she has a Gelhorn pessary in place for a bladder prolapse following hysterectomy which is usually exchanged every 3 months, and it has been closer to 4 months since she was able to last see her engineering programmer (Dr Olguin out of [place]) - requested ANNEALING OVEN OPERATOR to evaluate placement of her pessary as this may be contributing to her retention at this time - cont to monitor PVR and straight cath as needed 3. Aortic stenosis - fluid overloaded earlier in hospitalization - now appears euvolemic or slightly hypovolemic 4. AML with pancytopenia - therapy held at this time - CR by bone marrow after C2 - noted platelets have been falling for several days after their initial recovery - she is down to 78K today - unsure of the significance of this as it seems out of line with her other cytopenias - cont to monitor without intervention at this time] ]
--- NOTE | 2018-03-24 11:27 | PN ---
Progress Note - Progress Note Date of Service: 03/24/18 Note: called to evaluate gelhorn pessary. d/w patient has been the same one for many years and has never had a problem with it.Last cleaning was 6 months ago. Currently having trouble with urinary retention. discussed option of just checking placement vs remove ,clean and replace vs remove and leave out. There is no easy way to know if it is contributing to retention. exam shows pessary in correct place. removed ,cleaned , and replaced as per our discussion. could not evaluate the wall of the vagina due to bed and poor lighting.large amount of urine leakage upon replacement. call if more concerns regarding pessary during hosptalization Pacheco Valero MD
[2018-03-24] MEDS ORDERED: Ibuprofen TAB* 400 MG ONE (11:29)
[2018-03-24] MEDS: Dronabinol CAP* 2.5 MG PO SCH ×2 (11:33→17:00)
[2018-03-24] MEDS ORDERED: Ibuprofen TAB* 400 MG PO ONE (12:00)
[2018-03-24] MEDS ORDERED: Lidocaine 2% JELLY* 6 ML JELLY TOPICAL ONE (12:07)
[2018-03-25] MEDS: Acetaminophen TAB* 325 MG PO SCH ×3 (04:30→20:07)
[2018-03-25] MEDS: Heparin VIAL(*) 5000 UNITS/ML VIAL (FIVE THOUSAND) SUBCUT SCH ×3 (04:58→20:07)
[2018-03-25] MEDS: Magnesium Oxide TAB* 400 MG PO SCH (08:33)
[2018-03-25] MEDS: Acyclovir* 400 MG TAB PO SCH ×2 (08:33→16:17)
[2018-03-25] MEDS: PTO:Multivitamins/Mins (NF) AREDS2 1 CAP CAP PO SCH ×2 (08:33→20:07)
[2018-03-25] MEDS: Potassium Chlor TAB* 20 MEQ TAB.ER PO SCH (08:33)
[2018-03-25] MEDS: Cefepime 2 GM in Dextrose(*) 2 GM/50 ML BAG IV SCH (08:36)
--- NOTE | 2018-03-25 09:15 | PN ---
Progress Note - Progress Note Date of Service: 03/25/18 SOAP: Subjective: CC: neutropenia HPI: 77 year old woman with neutropenic fever after chemotherapy for acute leukemia. Fever resolved. Appetite is good. PVR 40 overnight. No dysuria. Objective: Vital Signs Temp 36.4 C 03/25/18 07:28 Pulse 77 03/25/18 07:28 Resp 16 03/25/18 08:45 BP 146/57 03/25/18 07:28 Pulse Ox 99 03/25/18 07:28 Intake & Output 03/24/18 03/25/18 03/25/18 18:59 06:59 18:59 Intake Total 307 70 Output Total 874 342 760 Balance -811 -762 -966 Weight 133 lb 12.8 oz Intake: IV Fluids 10 20 NS 20 cefepime 10 IVPB 57 50 cefepime 57 50 Oral 240 0 Output: Urine 830 760 760 Coppola 0 Post Void Residual 44 82 Other: Estimated Void Medium # Bowel Movements 0 1 1 Estimated Stool Amount Small Small # Voids 3 Gen:awake, no distress HEENT: no thrush Heart:RRR no murmur Lungs:CTA BL Abd:+BS NTND soft, no SP tenderness Skin: no rash MSK: no spine tenderness Laboratory Results - last 24 hr 03/24/18 03/24/18 03/24/18 05:25 11:36 17:02 WBC 0.7 L RBC 3.08 L Hgb 9.5 L Hct 28 L MCV 92 MCH 31 MCHC 33 RDW 18 H Plt Count 78 L MPV 9.9 Neut % (Auto) Not Reportable Lymph % (Auto) Not Reportable [place] % (Auto) Not Reportable Eos % (Auto) Not Reportable Baso % (Auto) Not Reportable Absolute Neuts (auto) Not Reportable Absolute Lymphs (auto) Not Reportable Absolute Monos (auto) Not Reportable Absolute Eos (auto) Not Reportable Absolute Basos (auto) Not Reportable Absolute Nucleated RBC Not Reportable Immature Gran % 3 Neutrophils % 57 Band Neutrophils % 3 Lymphocytes % 37 Monocytes % 1 Eosinophils % 1 Basophils % 1 Nucleated RBC % Not Reportable Abs Neuts (Manual) 0.42 L Abs Lymphs (Manual) 0.26 L Abs Monocytes (Manual) 0.007 Absolute Eos (Manual) 0.007 Abs Basophils (Manual) 0.007 Normal RBC Morphology Normal POC Glucose (mg/dL) 285 H 213 H 03/25/18 08:33 WBC RBC Hgb Hct MCV MCH MCHC RDW Plt Count MPV Neut % (Auto) Lymph % (Auto) [place] % (Auto) Eos % (Auto) Baso % (Auto) Absolute Neuts (auto) Absolute Lymphs (auto) Absolute Monos (auto) Absolute Eos (auto) Absolute Basos (auto) Absolute Nucleated RBC Immature Gran % Neutrophils % Band Neutrophils % Lymphocytes % Monocytes % Eosinophils % Basophils % Nucleated RBC % Abs Neuts (Manual) Abs Lymphs (Manual) Abs Monocytes (Manual) Absolute Eos (Manual) Abs Basophils (Manual) Normal RBC Morphology POC Glucose (mg/dL) 226 H Assessment: 1. Neutropenic fever, resolved 2. Pseudomonas UTI 3. mild urinary retention in setting of bladder prolapse 4. AML, recent chemotherapy Plan: 1. dc cefepime, occasional PVR. Outpatient urology follow up
[2018-03-25] MEDS: Insulin LISPRO* 1 UNITS UNIT SUBCUT SCH ×3 (09:55→17:46)
[2018-03-25] MEDS: Magic M W2 Ben/Maal/Nyst/Lido* 240 ML MOUTHWASH (alt formulation) SWISH SWAL SCH ×4 (10:19→20:07)
[2018-03-25 10:43] LABS: Hematocrit 31 % (35-47); Hemoglobin 10.5 g/dl (12.0-16.0); Mean Corpuscular HGB Conc 34 g/dl (31-36); Mean Corpuscular Hemoglobin 31 pg (27-31); Mean Corpuscular Volume 92 fL (80-97); Mean Platelet Volume 9.3 fL (7.4-10.4); Platelet Count 90 10^3/ul (150-450); Red Blood Count 3.39 10^6/ul (4.00-5.40); Red Cell Distribution Width 18 % (10.5-15); White Blood Count 0.8 10^3/ul (3.5-10.8)
[2018-03-25] MEDS ORDERED: Loperamide CAP* 2 MG PO PRN (10:44)
--- NOTE | 2018-03-25 10:53 | PN ---
Progress Note - Progress Note Date of Service: 03/25/18 SOAP: Subjective: feels very weak today. continuous urinary leakage, she thinks since cowart was removed, but certainly since pessary changed. also continued diarrhea. frustrated with all of this. Objective: Vital Signs Temp Pulse Resp BP Pulse Ox 97.6 F 77 16 146/57 99 03/25/18 07:28 03/25/18 07:28 03/25/18 08:45 03/25/18 07:28 03/25/18 07:28 tired appearing lying on side perr eomi op dry CTA bl s1 s2 IV/ CARMELITA soft nt +bs no le edema globally weak but nonfocal Laboratory Results - last 24 hr 03/24/18 03/24/18 03/25/18 11:36 17:02 08:33 WBC RBC Hgb Hct MCV MCH MCHC RDW Plt Count MPV Sodium Potassium Chloride Carbon Dioxide Anion Gap BUN Creatinine Est GFR ( Amer) Est GFR (Non-Af Amer) BUN/Creatinine Ratio Glucose POC Glucose (mg/dL) 285 H 213 H 226 H Calcium Total Bilirubin AST ALT Alkaline Phosphatase Total Protein Albumin Globulin Albumin/Globulin Ratio 03/25/18 03/25/18 10:30 10:30 WBC 0.8 L RBC 3.39 L Hgb 10.5 L Hct 31 L MCV 92 MCH 31 MCHC 34 RDW 18 H Plt Count 90 L MPV 9.3 Sodium 131 L Potassium 4.8 Chloride 95 L Carbon Dioxide 29 Anion Gap 7 BUN 8 Creatinine 0.42 L Est GFR ( Amer) 177.5 Est GFR (Non-Af Amer) 146.7 BUN/Creatinine Ratio 19.0 Glucose 303 H POC Glucose (mg/dL) Calcium 9.1 Total Bilirubin 0.60 AST 11 L ALT 7 Alkaline Phosphatase 100 Total Protein 7.1 Albumin 2.9 L Globulin 4.2 H Albumin/Globulin Ratio 0.7 L Acetaminophen (Tylenol Tab*) 650 mg PO Q8H [facility] Last Admin: 03/25/18 04:30 Dose: 650 mg Acyclovir (Zovirax Tab*) 400 mg PO 0830 [facility] Last Admin: 03/25/18 08:33 Dose: 400 mg Acyclovir (Zovirax Tab*) 400 mg PO 1730 [facility] Last Admin: 03/24/18 18:34 Dose: 400 mg Dextrose (D50w Syringe 50 Ml*) 12.5 gm IV PUSH .FOR FS < 60 - SS PRN PRN Reason: FS < 60 Docusate Sodium (Colace Cap*) 100 mg PO DAILY PRN PRN Reason: CONSTIPATION Dronabinol (Marinol Cap*) 2.5 mg PO 1130,1630 [facility] Last Admin: 03/24/18 17:00 Dose: 2.5 mg Heparin Sodium (Porcine) (Heparin Vial(*)) 5,000 units SUBCUT Q8HR [facility] Last Admin: 03/25/18 04:58 Dose: Not Given Insulin Human Lispro (Humalog*) 0 units SUBCUT AC [facility]; Protocol Last Admin: 03/25/18 09:55 Dose: 2 units Loperamide HCl (Imodium Cap*) 2 mg PO .SEE DIRECTIONS PRN PRN Reason: DIARRHEA Magnesium Oxide (Magox 400 Tab*) 400 mg PO BID [facility] Last Admin: 03/25/18 08:33 Dose: 400 mg Metoclopramide HCl (Reglan Iv*) 10 mg IV Q6H PRN PRN Reason: NAUSEA/VOMITING Multi-Ingredient Mouthwash/Gargle (Magic M W2 Olvin/Maal/Nyst/Lido*) 5 ml SWISH SWAL QID [facility] Last Admin: 03/25/18 10:19 Dose: Not Given Multivitamins/Minerals (Preservision Areds 2) 1 cap PO BID [facility] Last Admin: 03/25/18 08:33 Dose: 1 cap Ondansetron HCl (Zofran Inj*) 4 mg IV Q6H PRN PRN Reason: NAUSEA Last Admin: 03/19/18 12:35 Dose: 4 mg Senna (Senokot Tab*) 2 tab PO BEDTIME PRN PRN Reason: CONSTIPATION Assessment: 77 yo F w AML on curative intent AZA/venetoclax admitted sp cycle 3 with neutropenic fevers and found to have urinary retention and pseudomonas UTI. She now has cowart out with continuous urinary incontinence. Dr. Robertson feels that she has completed a full course of antibiotics. Plan: -urology consultation re:urinary retention and now incontinence -cefepime stopped as abx course completed -start immodium for diarrhea -hold potassium today as replete and may be contributing, decrease magnesium to daily -PT as tolerated -dose modification for cycle 4
[2018-03-25 10:55] LABS: EGFR Non-African American 146.7 (>60)
[2018-03-25 11:05] LABS: ABS Basophils 0 10^3/ul (0-0.2); ABS Eosinophils 0 10^3/ul (0-0.6); ABS Lymphocytes 0.3 10^3/ul (1.0-4.8); ABS Monocytes 0 10^3/ul (0-0.8); ABS Neutrophils 0.4 10^3/ul (1.5-7.7); ABS Nucleated RBC 0 10^3/ul; Lymphocyte % 38.4 %; Nucleated Red Blood Cells % 0
[2018-03-25] MEDS: Ondansetron INJ* 2 MG/ML VIAL IV PRN (16:23)
[2018-03-26] MEDS: Acetaminophen TAB* 325 MG PO SCH ×2 (03:54→11:32)
[2018-03-26] MEDS: Heparin VIAL(*) 5000 UNITS/ML VIAL (FIVE THOUSAND) SUBCUT SCH (05:31)
[2018-03-26 07:02] LABS: Hematocrit 30 % (35-47); Hemoglobin 10.2 g/dl (12.0-16.0); Mean Corpuscular HGB Conc 34 g/dl (31-36); Mean Corpuscular Hemoglobin 31 pg (27-31); Mean Corpuscular Volume 91 fL (80-97); Mean Platelet Volume 9.3 fL (7.4-10.4); Platelet Count 95 10^3/ul (150-450); Red Blood Count 3.27 10^6/ul (4.00-5.40); Red Cell Distribution Width 17 % (10.5-15); White Blood Count 0.9 10^3/ul (3.5-10.8)
[2018-03-26 08:10] VITALS: BP 144/61
[2018-03-26] MEDS: Magic M W2 Ben/Maal/Nyst/Lido* 240 ML MOUTHWASH (alt formulation) SWISH SWAL SCH ×2 (08:10→11:33)
[2018-03-26] MEDS: PTO:Multivitamins/Mins (NF) AREDS2 1 CAP CAP PO SCH (08:17)
[2018-03-26] MEDS: Acyclovir* 400 MG TAB PO SCH (08:17)
[2018-03-26] MEDS ORDERED: Magnesium Oxide TAB* 400 MG PO SCH (09:00)
[2018-03-26 09:01] LABS: Monocytes % 5 %
[2018-03-26 09:11] LABS: ABS Neutrophils 0.42 10^3/ul (1.5-7.7)
[2018-03-26] MEDS: Insulin LISPRO* 1 UNITS UNIT SUBCUT SCH ×2 (09:20→11:32)
--- NOTE | 2018-03-26 17:01 | DS ---
- Discharge Summary ADMIT DATE: 03/14/2018 DISCHARGE DATE: 03/26/2018 DISCHARGE DIAGNOSIS: 1. febrile neutropenia 2/2 pseudomonas urinary tract infection 2. urinary retention, likely 2/2 pessary 3. pancytopenai, chemotherapy induced 4. AML, in remission on treatment DISCHARGE MEDICATIONS: Home Medications Medication Instructions Recorded Confirmed Type Insulin LISPRO* [HumaLOG*] 2 - 10 units SUBCUT [facility] 01/02/18 03/14/18 History Ondansetron ODT TAB* [Zofran 4 MG 4 mg PO Q8H PRN 01/02/18 03/14/18 History Odt TAB*] Vit C/E/Zn/Coppr/Lutein/Zeaxan 1 cap PO BID 01/02/18 03/14/18 History [Preservision Areds 2 Softgel] metFORMIN* [Glucophage 500 MG TAB 500 mg PO 1730 01/02/18 03/14/18 History *] Acyclovir* [Zovirax 400 MG TAB*] 400 mg PO 0830 02/07/18 03/14/18 History Acyclovir* [Zovirax 400 MG TAB*] 400 mg PO 1730 02/07/18 03/14/18 History Dronabinol CAP* [Marinol CAP*] 2.5 mg PO 1130 02/07/18 03/14/18 History Insulin GLARGINE(*) [Lantus(*)] 15 units SUBCUT BID 02/07/18 03/14/18 History Lactobacillus Acidophilus* 1 tab PO BID tab 02/18/18 03/14/18 Rx Senna TAB* [Senokot TAB*] 2 tab PO BEDTIME PRN tab 02/18/18 03/14/18 Rx Loperamide CAP* [Imodium CAP*] 2 mg PO .SEE DIRECTIONS PRN cap 03/26/18 Rx DISCHARGE FOLLOW UP: Treatment 03/30 at 11 am HOSPITAL COURSE: Sarah was readmitted in cycle 3 of curative intent AZA/venetoclax with recurrent febrile neutropenia despite prophylactic cefdinir. She was also having diarrhea. She was started on IV antibiotics and ID was consulted. She was noted to be growing pseudomonas in her urine, resistant to oral cephalosporins. She was also noted to have marked urinary retention (~800 cc), and a cowart was placed. Her cowart was eventually removed and her pessary was changed. Since having this replaced she has developed stress incontinence ( without significant retention). In discussing with urology this is likely related to her pessary, which may need to be changed to a smaller one. She may also require straight cath intermittently if she redevelops retention. she would like to discuss as an outpatient with her primary campground caretaker. I did discuss her case with Dr. Garcia, and the plan will be to dose reduce cycle 4 of AZA by 50%, continue same dose of venetoclax days 1-14 and use neulasta. We will attempt to start this on Friday if counts continue to recover. >30 mins spent, >50% in face to face counseling
== END 2018-03-26 11:35 | disposition home or self-care (01) | DRG 690 ==
LOC: ED 17:47 → MED 20:10
PROVIDERS: ADMIT Internal Medicine Hematology & Oncology; ATTEND Internal Medicine Hematology & Oncology
PROC: 30233N1 Transfusion of Nonautologous Red Blood Cells into Peripheral Vein, Percutaneous Approach (ICD-10-PCS; 2018-03-20)
PROC: 0T9B70Z Drainage of Bladder with Drainage Device, Via Natural or Artificial Opening (ICD-10-PCS; principal; 2018-03-23)
PROC: [UNRECOGNIZED PROCEDURE] (2018-03-26)
DX: N30.90 Cystitis, unspecified without hematuria (principal); D61.818 Other pancytopenia; C92.01 Acute myeloblastic leukemia, in remission; I10 Essential (primary) hypertension; E78.00 Pure hypercholesterolemia, unspecified; I35.0 Nonrheumatic aortic (valve) stenosis; J45.909 Unspecified asthma, uncomplicated; H35.30 Unspecified macular degeneration; K21.9 Gastro-esophageal reflux disease without esophagitis; M85.80 Other specified disorders of bone density and structure, unspecified site; E87.70 Fluid overload, unspecified; R50.81 Fever presenting with conditions classified elsewhere; B96.5 Pseudomonas (aeruginosa) (mallei) (pseudomallei) as the cause of diseases classified elsewhere; N81.10 Cystocele, unspecified; Z16.19 Resistance to other specified beta lactam antibiotics; N39.3 Stress incontinence (female) (male); D64.9 Anemia, unspecified; Z98.42 Cataract extraction status, left eye; Z98.41 Cataract extraction status, right eye; Z90.710 Acquired absence of both cervix and uterus; Z88.0 Allergy status to penicillin; Z88.1 Allergy status to other antibiotic agents; Z88.8 Allergy status to other drugs, medicaments and biological substances; Z82.49 Family history of ischemic heart disease and other diseases of the circulatory system; Z83.3 Family history of diabetes mellitus; R06.02 Shortness of breath; K59.00 Constipation, unspecified; E11.649 Type 2 diabetes mellitus with hypoglycemia without coma; R33.9 Retention of urine, unspecified
CPT/HCPCS: 36415; 71045; 71046; 80048; 80053; 80202; 81003; 81015; 82247; 83735; 83880; 85025; 85060; 85610; 86078; 86140; 86850; 86880; 86900; 86901; 86922; 87040; 87077; 87086; 87186; 99232; 99233; 99239; 99282; A9270-GY; G8978-GP-CK; G8978-GP-CL; G8979-GP-CI; J0692; J1644; J1940; J2270; J2405; J3370; P9040

== ENCOUNTER 2018-04-30 02:27 | Emergency (ER) | payer MEDICARE ==
[2018-04-30] MEDS ORDERED: Albuterol/Ipratropium NEB.SOL* Albuterol 2.5 MG/Ipratropium 0.5 MG 3 ML ONE (03:07)
[2018-04-30] MEDS ORDERED: Albuterol 2.5 MG/3 ML NEB.SOL* (0.083%) INH ONE (03:07)
[2018-04-30] MEDS ORDERED: Furosemide IV* 10 MG/ML VIAL (40 MG) ONE (04:25)
[2018-04-30 05:00] LABS: INR 1.02 (0.77-1.02)
[2018-04-30] MEDS ORDERED: Iodixanol* (CONTRAST) 320 MG/ML 100 ML SDV IV ONE (05:01)
[2018-04-30 05:05] LABS: Hematocrit 22 % (35-47); Hemoglobin 7.3 g/dl (12.0-16.0); Mean Corpuscular HGB Conc 34 g/dl (31-36); Mean Corpuscular Hemoglobin 32 pg (27-31); Mean Corpuscular Volume 96 fL (80-97); Red Blood Count 2.27 10^6/ul (4.00-5.40); White Blood Count 1.7 10^3/ul (3.5-10.8)
[2018-04-30 05:06] LABS: Large Platelets Present; Mean Platelet Volume 8.3 fL (7.4-10.4); Platelet Count 219 10^3/ul (150-450); Red Cell Distribution Width 23 % (10.5-15)
[2018-04-30 05:08] LABS: Immature Granulocytes 12 % (0-9); Lymphocytes % 20 %; Metamyelocytes % 1 % (0-2); Myelocytes % 3 % (0-1); Neutrophil % 66 %
[2018-04-30 05:09] LABS: Platelet Morphology Large
[2018-04-30 05:11] LABS: Albumin 3.3 g/dL (3.2-5.2); Albumin/Globulin Ratio 0.9 (1-3); BUN/Creatinine Ratio 16.3 (8-20); Calcium 9.3 mg/dL (8.6-10.3); EGFR African American 172.3 (>60); EGFR Non-African American 142.4 (>60); Globulin 3.8 g/dL (2-4); Magnesium 1.5 mg/dL (1.9-2.7); Potassium 4.1 mmol/L (3.5-5.0); Total Bilirubin 0.6 mg/dL (0.2-1.0); Total Protein 7.1 g/dL (6.4-8.9); Troponin I 0.02 ng/mL (<0.04)
--- NOTE | 2018-04-30 05:18 | ED ---
Shortness of Breath - HPI Summary HPI Summary: A 78 y/o female presents to [facility] with a chief complaint of SOB since 00:45 . The patient reports that she could not sleep due to this SOB. She denies a Hx of COPD or asthma, but has a Hx of Leukemia. She also has a Hx of PNA. Dr. Mackenzie has the patient on a 3 week cycle for chemotherapy,. She reports that she ended up in the hospital for 7-10 days 3 months in a row due to her pills and so her dosage was lowered. The patient reports that she is anemic and her last blood transfusion was 04/20/18. She claims that she has a heart murmur. She reports that she has been fatigued all day. - History of Current Complaint Hx Obtained From: Patient, Family/Band Saw Filer Onset/Duration: Sudden Onset, Lasting Hours, Still Present Current Severity: Moderate Dyspnea At: Rest Aggrevating Factors: Nothing Alleviating Factors: Nothing - Allergy/Home Medications Allergies/Adverse Reactions: Allergies Allergy/AdvReac Type Severity Reaction Status Date / Time amoxicillin [From Augmentin] AdvReac Vomiting Verified 03/14/18 17:51 ciprofloxacin [From Cipro] AdvReac Vomiting Verified 03/14/18 17:51 clavulanic acid AdvReac Vomiting Verified 03/14/18 17:51 [From Augmentin] levofloxacin [From Levaquin] AdvReac Vomiting Verified 03/14/18 17:51 nitrofurantoin AdvReac Vomiting Verified 03/14/18 17:51 [From Macrobid] PMH/Surg Hx/FS Hx/Imm Hx Endocrine/Hematology History: Reports: Hx Diabetes, Hx Anemia Denies: Hx Thyroid Disease Cardiovascular History: Reports: Hx Hypercholesterolemia, Hx Hypertension, Other Cardiovascular Problems/Disorders - aortic stenosis Denies: Hx Pacemaker/ICD Respiratory History: Denies: Hx Asthma, Hx Chronic Obstructive Pulmonary Disease (COPD), Hx Cystic Fibrosis, Hx Lung Cancer, Hx Pleural Effusion, Hx Pulmonary Embolism GI History: Reports: Hx Gastroesophageal Reflux Disease Denies: Hx Jaundice, Hx Ulcer History: Reports: Hx Renal Disease, Other Problems/Disorders - Renal disease Musculoskeletal History: Reports: Hx Orthopedic Injury - Rt hip Fx (2017), Other Musculoskeletal History - hip fx in past Sensory History: Reports: Hx Cataracts, Hx Contacts or Glasses, Hx Macular Degeneration, Hx Vision Problem Denies: Hx Eye Injury, Hx Glaucoma, Hx Hearing Aid, Hx Hearing Problem Opthamlomology History: Reports: Hx Cataracts, Hx Contacts or Glasses, Hx Macular Degeneration, Hx Vision Problem Denies: Hx Eye Injury, Hx Glaucoma Neurological History: Denies: Hx Headaches Psychiatric History: Denies: Hx Panic Disorder - Cancer History Cancer Type, Location and Year: Leukemia Hx Chemotherapy: Yes - Surgical History Surgery Procedure, Year, and Place: hysterectomy, cataract SURGERY BILATERAL EYES-,. PESSARY FOR BLADDER. Right hip surgery 07/2016 Hx Anesthesia Reactions: No - nausea and vomiting Infectious Disease History: Denies: Hx Clostridium Difficile, Hx Hepatitis, Hx Human Immunodeficiency Virus (HIV), Hx of Known/Suspected MRSA, Hx Shingles, Hx Tuberculosis, Hx Known/ Suspected VRE, Hx Known/Suspected VRSA, Traveled Outside the [place] in Last 30 Days - Family History Known Family History: Positive: Cardiac Disease, Diabetes - Social History Alcohol Use: Rare Hx Substance Use: No Substance Use Type: Reports: None Hx Tobacco Use: No Smoking Status (MU): Never Smoked Tobacco Review of Systems Positive: Fatigue Positive: Other - Positive: heart murmur Positive: Shortness Of Breath All Other Systems Reviewed And Are Negative: Yes Physical Exam - Summary Physical Exam Summary: VITAL SIGNS: Reviewed. GENERAL: Patient is a well-developed and nourished FEMALE who is lying comfortable in the stretcher. Patient is not in any acute respiratory distress. HEAD AND FACE: Small abrasion over left forehead. No ecchymosis, hematomas or skull depressions. No sinus tenderness. EYES: PERRLA, EOMI x 2, No injected conjunctiva, no nystagmus. EARS: Hearing grossly intact. Ear canals and tympanic membranes are within normal limits. MOUTH: Oropharynx within normal limits. NECK: Supple, trachea is midline, no adenopathy, no JVD, no carotid bruit, no c- spine tenderness, neck with full ROM. CHEST: Symmetric, no tenderness at palpation LUNGS: Clear to auscultation bilaterally. No wheezing or crackles. CVS: Regular rate and rhythm, S1 and S2 present, 2/6 systolic murmur over left sternal border ABDOMEN: Soft, non-tender. No signs of distention. No rebound no guarding, and no masses palpated. Bowel sounds are normal. EXTREMITIES: FROM in all major joints, no edema, no cyanosis or clubbing. NEURO: Alert and oriented x 3. No acute neurological deficits. Speech is normal and follows commands. SKIN: Dry and warm, pale Triage Information Reviewed: Yes Vital Signs Reviewed: Yes Diagnostics - Laboratory Lab Results: Lab Results 04/30/18 04/30/18 04/30/18 Range/Units 03:10 03:10 03:10 WBC 1.7 L (3.5-10.8) 10^3/ul RBC 2.27 L (4.00-5.40) 10^6/ul Hgb 7.3 L (12.0-16.0) g/dl Hct 22 L (35-47) % MCV 96 (80-97) fL MCH 32 H (27-31) pg MCHC 34 (31-36) g/dl RDW 23 H (10.5-15) % Plt Count 219 (150-450) 10^3/ul MPV 8.3 (7.4-10.4) fL Immature Gran % 12 H (0-9) % Neutrophils % 66 % Band Neutrophils % 8 (0-8) % Lymphocytes % 20 % Eosinophils % 2 % Metamyelocytes % 1 (0-2) % Myelocytes % 3 H (0-1) % Toxic Granulation 1+ Platelet Morphology Large Large Platelets Present Normal RBC Morphology Normal (Normal) INR (Anticoag Therapy) 1.02 (0.77-1.02) Sodium 136 (135-145) mmol/L Potassium 4.1 (3.5-5.0) mmol/L Chloride 104 (101-111) mmol/L Carbon Dioxide 26 (22-32) mmol/L Anion Gap 6 (2-11) mmol/L BUN 7 (6-24) mg/dL Creatinine 0.43 L (0.51-0.95) mg/dL Est GFR ( Amer) 172.3 (>60) Est GFR (Non-Af Amer) 142.4 (>60) BUN/Creatinine Ratio 16.3 (8-20) Glucose 228 H (70-100) mg/dL Lactic Acid (0.5-2.0) mmol/L Calcium 9.3 (8.6-10.3) mg/dL Magnesium 1.5 L (1.9-2.7) mg/dL Total Bilirubin 0.60 (0.2-1.0) mg/dL AST 8 L (13-39) U/L ALT 3 L (7-52) U/L Alkaline Phosphatase 57 (34-104) U/L Troponin I 0.02 (<0.04) ng/mL B-Natriuretic Peptide (<=100) pg/mL Total Protein 7.1 (6.4-8.9) g/dL Albumin 3.3 (3.2-5.2) g/dL Globulin 3.8 (2-4) g/dL Albumin/Globulin Ratio 0.9 L (1-3) 04/30/18 04/30/18 Range/Units 03:10 03:10 WBC (3.5-10.8) 10^3/ul RBC (4.00-5.40) 10^6/ul Hgb (12.0-16.0) g/dl Hct (35-47) % MCV (80-97) fL MCH (27-31) pg MCHC (31-36) g/dl RDW (10.5-15) % Plt Count (150-450) 10^3/ul MPV (7.4-10.4) fL Immature Gran % (0-9) % Neutrophils % % Band Neutrophils % (0-8) % Lymphocytes % % Eosinophils % % Metamyelocytes % (0-2) % Myelocytes % (0-1) % Toxic Granulation Platelet Morphology Large Platelets Normal RBC Morphology (Normal) INR (Anticoag Therapy) (0.77-1.02) Sodium (135-145) mmol/L Potassium (3.5-5.0) mmol/L Chloride (101-111) mmol/L Carbon Dioxide (22-32) mmol/L Anion Gap (2-11) mmol/L BUN (6-24) mg/dL Creatinine (0.51-0.95) mg/dL Est GFR ( Amer) (>60) Est GFR (Non-Af Amer) (>60) BUN/Creatinine Ratio (8-20) Glucose (70-100) mg/dL Lactic Acid 1.3 (0.5-2.0) mmol/L Calcium (8.6-10.3) mg/dL Magnesium (1.9-2.7) mg/dL Total Bilirubin (0.2-1.0) mg/dL AST (13-39) U/L ALT (7-52) U/L Alkaline Phosphatase (34-104) U/L Troponin I (<0.04) ng/mL B-Natriuretic Peptide 598 H (<=100) pg/mL Total Protein (6.4-8.9) g/dL Albumin (3.2-5.2) g/dL Globulin (2-4) g/dL Albumin/Globulin Ratio (1-3) Result Diagrams: 04/30/18 03:10 04/30/18 03:10 Lab Statement: Any lab studies that have been ordered have been reviewed, and results considered in the medical decision making process. - Radiology CXR Radiology Interpretation Completed By: ED Physician Summary of Radiographic Findings: bilateral interstitial infiltrate No change from 03/16/18. Pending official radiology report. - EKG 03:01 Cardiac Rate: NL - 98 bpm EKG Rhythm: Sinus Rhythm Summary of EKG Findings: NSR at 98bpm, first degree AV block, no acute ischemic changes Re-Evaluation - Re-Evaluation First Eval Re-Evaluation Time: 09:39 Change: Improved Comment: I discussed the plan with the patient and she is agreeable. They were recommended to return to the emergency room if she develops any fever, increase in shortness of breath, chest pain, nausea vomiting or any other complaint. They understand and agree. Course/Dx - Course Course Of Treatment: A 78 y/o female presents to [facility] with a chief complaint of SOB since 00:45 04/30/18. The physical exam revealed 2/6 systolic murmur over left sternal border and that she was pale. In the ED course the patient was given duoneb INH and albuterol INH. Lab work obtained. BNP high at 598. CXR shows bilateral interstitial infiltrate with no change from 03/16/18. EKG shows NSR 98bpm with first degree AV block and no acute ischemic changes. Case discussed with Dr. Crook. He will call Dr. Mackenzie, who will see the patient in the ED. The patient will be signed out to Dr. Bran upon shift change at 07: 00 04/30/18 pending CTA chest and Dr. Mackenzie consult. - Diagnoses Provider Diagnoses: Anemia, Pleural effusion - Physician Notifications Discussed Care of Patient With: Sam Crook Time Discussed With Above Provider: 06:35 Instructed by Provider To: Other - He will call Dr. Mackenzie, who will see the patient in the ED. Discharge - Sign-Out/Discharge Documenting (check all that apply): Sign-Out Patient Signing out patient TO: Irvin Bran - pending CTA chest and Dr. Mackenzie consult - Discharge Plan Condition: Stable Disposition: HOME Prescriptions: Furosemide TAB* [Lasix TAB*] 20 mg PO DAILY PRN #30 tab PRN Reason: Shortness Of Breath Patient Education Materials: Pleural Effusion (ED), Anemia (ED) Referrals: Nathan Langston MD [Primary Care Provider] - 3 Days Latia Mackenzie MD [Medical Doctor] - 05/04/18 (please keep your appointment for 05/04) Additional Instructions: RETURN TO ED FOR ANY NEW OR WORSENING SYMPTOMS. FOLLOW UP WITH YOUR PRIMARY CARE PHYSICIAN IN 2-[address] FOLLOW UP WITH DR. MACKENZIE ON 05/04/18. - Billing Disposition and Condition Condition: STABLE Disposition: Home - Attestation Statements Document Initiated by Scribe: Yes Documenting Scribe: Jordan Argueta Provider For Whom Remigioe is Documenting (Include Credential): Tera Sultana MD Scribe Attestation: I, Jordan Argueta, scribed for Tera Sultana MD on 05/01/18 at 0532. Scribe Documentation Reviewed: Yes Provider Attestation: The documentation as recorded by the Jordan alcala accurately reflects the service I personally performed and the decisions made by me, Tera Sultana MD Status of Scribe Document: Viewed
[2018-04-30] MEDS ORDERED: Ondansetron INJ* 2 MG/ML VIAL ONE ×2 (05:57→05:58)
[2018-04-30] MEDS ORDERED: Ondansetron INJ* 2 MG/ML VIAL IV ONE (06:00)
--- NOTE | 2018-04-30 07:08 | ED ---
Progress - Progress Note Progress Note: Patient is received as a sign out from Dr. Sultana to Dr. Bran at 0700 04/30/18 shift change pending CTA chest and Dr. Mackenzie coming to ED and evaluating patient. 0712 - She denies SOB in the room, states that she is feeling "much, much better ". Patient states that admission was discussed with her but she is uncertain about admission, stating, "I just don't do well in the hospital." Dr. Mackenzie, the patient's oncologist, will come to ED to discuss disposition of patient. On physical exam, decreased breath sounds bilaterally is noted. Patient is tachycardic and lying comfortably in the stretcher. Chest exam: fluid is heard. CHEST CTA IMPRESSION: 1. Moderate to large bilateral pleural effusions noted with overlying compressive atelectasis versus consolidation. There is scattered nonspecific mosaic attenuation, findings may be some air trapping. 2. There is adequate opacification noted of the pulmonary vasculature. There is no evidence of pulmonary embolus. This report was reviewed by ED physician. 1038 - After reviewing patient's case, Dr. Mackenzie states that patient can be discharged to home and follow up with her on 05/04/18. - EKG/XRAY/CT CT: see above Re-Evaluation - Re-Evaluation First Eval Re-Evaluation Time: 09:39 Change: Improved Comment: I discussed the plan with the patient and she is agreeable. They were recommended to return to the emergency room if she develops any fever, increase in shortness of breath, chest pain, nausea vomiting or any other complaint. They understand and agree. Course/Dx - Course Course Of Treatment: This patient was signed out by Dr. Sultana at shift change. He reports that the patient is a 78-year-old female who sent to the emergency department with a chief complaint of shortness of breath. The patient was found to have symptomatic anemia for which the patient is having a transfusion. The patient is awaiting for Dr. Mackenzie from oncology, see the patient for further disposition. Tonight the patient is alert and oriented 3, she reports that she is feeling better and she is no longer short of breath. Patient is hemodynamically stable alert and oriented 3. Chest CTA IMPRESSION: 1. Moderate to large bilateral pleural effusions noted with overlying. compressive atelectasis versus consolidation. There is scattered nonspecific. mosaic attenuation, findings may be some air trapping. 2. There is adequate opacification noted of the pulmonary vasculature. There is. no evidence of pulmonary embolism. Ms. Payne from the oncology service discussed the case with Dr. Mackenzie and they recommend for the patient to be discharged home with follow-up with her office. They requested to give dose of Lasix 20 mg by mouth and discharge her home. I discussed the plan with the patient and she is agreeable. They were recommended to return to the emergency room if she develops any fever, increase in shortness of breath, chest pain, nausea vomiting or any other complaint. They understand and agree. - Diagnoses Provider Diagnoses: Anemia, Pleural effusion - Provider Notifications Discussed Care Of Patient With: Latia Mackenzie Time Discussed With Above Provider: 10:38 Instructed by Provider To: Other - Ms. Payne from the oncology service discussed the case with Dr. Mackenzie and they recommend for the patient to be discharged home with follow-up with her office. They requested to give dose of Lasix 20 mg by mouth and discharge her home. Discharge - Sign-Out/Discharge Documenting (check all that apply): Patient Departure - discharge - Discharge Plan Condition: Stable Disposition: HOME Prescriptions: Furosemide TAB* [Lasix TAB*] 20 mg PO DAILY PRN #30 tab PRN Reason: Shortness Of Breath Patient Education Materials: Pleural Effusion (ED), Anemia (ED) Referrals: Nathan Langston MD [Primary Care Provider] - 3 Days Latia Mackenzie MD [Medical Doctor] - 05/04/18 (please keep your appointment for 05/04) Additional Instructions: RETURN TO ED FOR ANY NEW OR WORSENING SYMPTOMS. FOLLOW UP WITH YOUR PRIMARY CARE PHYSICIAN IN 2-[address] FOLLOW UP WITH DR. MACKENZIE ON 05/04/18. - Billing Disposition and Condition Condition: STABLE Disposition: Home - Attestation Statements Document Initiated by Scribe: Yes Documenting Scribe: VALERIE WHALEN Provider For Whom Antoinette is Documenting (Include Credential): TOM BRAN MD Scribe Attestation: VALERIE Bowden , scribed for TOM BRAN MD on 05/04/18 at 0747. Scribe Documentation Reviewed: Yes Provider Attestation: The documentation as recorded by the VALERIE alcala accurately reflects the service I personally performed and the decisions made by me, TOM BRAN MD Status of Scribe Document: Viewed
[2018-04-30] MEDS ORDERED: Magnesium Sulfate 1 GM IV* 1 GM/100 ML BAG IV ONE (07:10)
[2018-04-30] MEDS ORDERED: Furosemide IV* 10 MG/ML VIAL (40 MG) IV SLOW PU ONE (09:17)
[2018-04-30] MEDS ORDERED: Furosemide TAB* 20 MG PO ONE (09:41)
[2018-04-30 10:40] VITALS: BP 101/57
--- NOTE | 2018-04-30 11:54 | CONS ---
CC: Dr. Langston; Dr. Melendez * EMERGENCY DEPARTMENT CONSULTATION REPORT: DATE OF CONSULT: 04/30/18 REQUESTING PROVIDER: Dr. Sultana. PRIMARY ONCOLOGIST: Dr. Latia Melendez. PRIMARY CARE PROVIDER: Dr. Langston. CONSULTING PROVIDER: ARVIND Bhat CHIEF COMPLAINT: Shortness of breath. HISTORY OF PRESENT ILLNESS: This is a 78-year-old female with AML who remains on chemotherapy but has had an early complete response, who presented to the emergency department overnight with complaints of shortness of breath. The patient states that leading up to last night, she has actually had a couple of very good weeks and her activity has been improving. She has been working with Physical Therapy. She has had no fevers, chills or cough. No other infectious symptoms. She was mildly fatigued yesterday and had planned to be coming into the Oncology office today for CBC and anticipated that she would likely be anemic and require a blood transfusion based on her symptoms yesterday. She went to bed without symptoms, but awoke at 1 o'clock in the morning, feeling short of breath. She was unable to catch her breath after sitting up and subsequently proceeded to the emergency department for evaluation. The patient reports that she felt significantly better after oxygen was applied and she received inhaled bronchodilators as well as IV Lasix. Her labs showed moderate leukopenia, anemia with a hemoglobin of 7.3, and a normal platelet count of 219, 000. Her chemistries were remarkable for magnesium of 1.5 and an elevated BNP to 598,000. The patient was transfused 1 unit of packed red blood cells and Oncology group was asked to evaluate for admission. The patient has had multiple hospitalizations throughout her treatment course for febrile neutropenia and other associated complications to her disease process. She has a very motivated and feels that if at all possible, she would do better at home rather than readmitted to the hospital. At the time of evaluation, she is not experiencing any shortness of breath, and when lying in a flat position, does not display any signs of orthopnea. The patient has been struggling with urinary incontinence over the last several weeks. She actually developed urinary retention during her last hospitalization and has a pessary in place for bladder prolapse, which was exchanged during that hospitalization and following that has had difficulty with incontinence rather than retention. She is currently working with Dr. Reinoso for this who recently started her on a medication that she has difficulty recalling. She reports that following the IV Lasix that she received in the emergency department, she was incontinent of urine, soaked through the pad that she was wearing as well as the gown and the entire bedding material. PAST MEDICAL HISTORY: 1. AML. 2. Insulin-dependent diabetes. 3. Hypertension. 4. Aortic stenosis - moderate. 5. Urinary incontinence. PAST SURGICAL HISTORY: 1. Right hip ORIF. 2. Total abdominal hysterectomy and bilateral salpingo-oophorectomy. HOME MEDICATIONS: 1. Acyclovir 400 mg p.o. twice daily. 2. Marinol 2.5 mg p.o. at mealtime as needed for appetite stimulation. 3. Lantus 15 units subcu daily. 4. Insulin lispro 2 to 10 units at mealtime as needed for hyperglycemia. 5. Metformin 500 mg p.o. daily. 6. Zofran 4 mg p.o. q.8 hours as needed for nausea and vomiting. 7. Lactobacillus 1 tablet p.o. twice daily. 8. Imodium 2 mg p.o. q.2 hours as needed for diarrhea. 9. Magnesium 400 mg p.o. daily. SOCIAL HISTORY: The patient lives at home with her . No history of smoking and has alcohol on a rare basis. She has 2 adult children that live out of State. REVIEW OF SYSTEMS: As noted above in HPI. Full review of systems was completed and otherwise negative. PHYSICAL EXAM: Initial Vitals: Temperature 98.4 degrees Fahrenheit, pulse 104 beats per minute, respiratory rate 18, oxygen saturation 100%, blood pressure 112/87 mmHg. General: This is a chronically ill, but generally well-appearing 78- year-old female accompanied by her and in no acute distress. HEENT : Head is normocephalic, atraumatic. Mucous membranes are pink and moist. Cardiovascular: The patient has a regular rate and rhythm with a 3-4/6 systolic murmur present. Respiratory: Lungs are clear to auscultation, without wheezes, crackles or rhonchi. Abdomen is soft and nontender to palpation. Extremities: No edema. Skin: No concerning rashes or lesions. DIAGNOSTIC STUDIES/LAB DATA: CBC shows a white blood cell count of 1700, hemoglobin of 7.3 g/dL, and a platelet count of 219,000. Comprehensive metabolic panel shows a sodium of 136 mmol/L, potassium of 4.1, BUN of 7, creatinine 0.43, random glucose of 228 mg/dL, magnesium of 1.5. Transaminases and total bilirubin are within normal limits. Troponin negative at 0.02. BNP elevated at 598. Imaging: CTA of the chest is negative for PE. There is [id number] bilateral pleural effusion and what looks like some mild pulmonary edema. ASSESSMENT AND PLAN: This is a 78-year-old female with AML, who presents to the emergency department with acute shortness of breath. This appears to be multifactorial and related to anemia secondary to her chemotherapy, but there are also signs of associated heart failure. She has had an echocardiogram just about 4 months ago that shows an intact left ventricle, but she does have moderate-to- severe aortic stenosis, which is likely the culprit in causing pulmonary edema and associated pleural effusion. At the time of evaluation, the patient is asymptomatic, she is not hypoxic, and shows no signs of orthopnea. She has received a unit of packed red blood cells in the emergency department and seems appropriate to return home at this time. 1. Shortness of breath - as mentioned above, likely secondary to pulmonary edema/pleural effusion secondary to aortic stenosis and associated fluid overload in addition to anemia. She has been appropriately transfused 1 unit of packed red blood cells and received 40 mg of IV Lasix prior to her transfusion. Recommend repeating another 40 mg of IV Lasix following the transfusion. Her urinary incontinence complicates her need for diuresis as I believe a daily diuretic would significantly inhibit her quality of life and mobility. For this reason, we will discharge her with 20 mg of Lasix to take on an as needed basis for times where she feels more short of breath. 2. Leukopenia and anemia secondary to chemotherapy. 3. AML - early complete response, remains on treatment with venetoclax and azacitidine under the care of Dr. Melendez. 4. Insulin-dependent diabetes. 5. Hypertension. 6. Aortic stenosis. DISPOSITION AND FOLLOWUP PLAN: Recommend the patient to be discharged to home from the emergency department with 20 mg of Lasix on an as needed basis as discussed above. She has followup scheduled with Dr. Latia Melendez on 05/04/18, which she is encouraged to keep and will contact the oncology service with any change in symptoms prior to that appointment. ARVIND BHAT [id number]/[facility] #: [id number] [facility] HOS[facility]ITALKishore
== END 2018-04-30 10:52 | disposition home or self-care (01) ==
LOC: ED 02:27
DX: D72.819 Decreased white blood cell count, unspecified (principal); D64.9 Anemia, unspecified; J90 Pleural effusion, not elsewhere classified; I44.0 Atrioventricular block, first degree; R01.1 Cardiac murmur, unspecified; E11.9 Type 2 diabetes mellitus without complications; Z79.84 Long term (current) use of oral hypoglycemic drugs; Z79.4 Long term (current) use of insulin; I10 Essential (primary) hypertension; I35.0 Nonrheumatic aortic (valve) stenosis; Z88.1 Allergy status to other antibiotic agents; Z88.0 Allergy status to penicillin
CPT/HCPCS: 36415; 36430; 71045; 71275; 80053; 83605; 83735; 83880; 84484; 85025; 85610; 86850; 86900; 86901; 86922; 93005; 96374; 99283; 99284; A9270-GY; J1940; J2405; P9040; Q9967

== ENCOUNTER 2018-05-25 13:10 | Inpatient (IN) | payer MEDICARE ==
[2018-05-25] MEDS ORDERED: Furosemide IV* 10 MG/ML 2 ML VIAL (20 MG) IV SLOW PU ONE ×2 (13:25→16:30)
[2018-05-25] MEDS ORDERED: Ondansetron ODT TAB* 4 MG PO PRN (13:49)
[2018-05-25] MEDS: Enoxaparin(*) 40 MG/0.4 ML SYR SUBCUT SCH (15:41)
[2018-05-25] MEDS ORDERED: Insulin LISPRO* 1 UNITS UNIT SUBCUT SCH (16:30)
[2018-05-25] MEDS ORDERED: Furosemide IV* 10 MG/ML VIAL (40 MG) IV SLOW PU ONE (18:00)
[2018-05-25] MEDS: metFORMIN* 500 MG TAB PO SCH (19:09)
[2018-05-25] MEDS ORDERED: Dextrose 50% Syringe 50 ML* 25 GM/50 ML SYRINGE IV PUSH PRN (19:29)
[2018-05-25] MEDS ORDERED: Insulin LISPRO* 1 UNITS UNIT SUBCUT ONE (19:30)
[2018-05-25] MEDS: Acyclovir* 400 MG TAB PO SCH (19:42)
[2018-05-25] MEDS: Dronabinol CAP* 2.5 MG PO SCH (19:43)
--- NOTE | 2018-05-25 19:50 | CONS ---
CC: Sapphire Stewart NP, Oncology * CARDIOLOGY CONSULTATION: DATE OF CONSULT: 05/25/18 INDICATION FOR CONSULTATION: Congestive heart failure, aortic stenosis, anemia. HISTORY OF PRESENT ILLNESS: The patient is a 78-year-old female with a recent diagnosis of AML. She has been on chemotherapy for the past 5 months. The patient is being admitted to the hospital because of severe anemia. Her hemoglobin is 7.4 and hematocrit is 21. The patient's white cell count is 0.5 and platelet count is 94. She did have recent chemotherapy. The patient is being admitted to the hospital for transfusion. The patient does have a history of moderate aortic stenosis and echocardiogram in December showed normal LV size and systolic function, moderate aortic stenosis with the mean gradient of 33 mmHg. No other significant valvular abnormalities. In speaking with the patient, she says she has been noticing an increase in shortness of breath since . The patient has been getting episodes of shortness of breath with her chemotherapy, usually it is associated with low red blood cell count. She says she feels much better after her transfusion. The patient was seen today in the clinic and noted to have significant low hemoglobin, hematocrit, and decision was admit her to the hospital for transfusion. The patient has slightly more shortness of breath than that had been previously experienced. I was consulted because of her aortic stenosis. PAST MEDICAL HISTORY: Significant for AML diagnosed in October, diabetes, hypertension, aortic stenosis, urinary incontinence. PAST SURGICAL HISTORY: Right hip surgery, abdominal hysterectomy, and salpingo - oophorectomy. OUTPATIENT MEDICATIONS: 1. Acyclovir 400 mg b.i.d. 2. Marinol as needed. 3. Lantus insulin 15 units daily. 4. Lispro insulin as needed. 5. Metformin 500 mg a day. 6. Zofran as needed. 7. Imodium as needed. 6. Magnesium 400 mg a day. FAMILY HISTORY: Noncontributory. SOCIAL HISTORY: She lives with her . She is retired. She has 2 children who live out of state. She denies tobacco or alcohol use. REVIEW OF SYSTEMS: Positive for shortness of breath. Negative for fevers and chills. Negative for changes in bowel or bladder habits. Twelve-point review was unremarkable. PHYSICAL EXAM: Temperature 98, heart rate is 110, blood pressure 105/56, respiratory rate is 18. Sclerae anicteric. Oropharynx is pink without erythema. Carotids are 2+ with soft bilateral bruits. JVD is normal. Thyroid is normal. Cardiac Exam: Tachycardic, S1, S2 with a 3/6 systolic ejection murmur, no diastolic murmur. PMI is normal. Lungs are clear to auscultation bilaterally. There is no dullness to percussion. Abdomen is soft, nontender, nondistended without any bowel sounds. Extremities show no edema. She has 2+ pulses throughout. The patient is awake, alert, and oriented. She moves all 4 extremities equally. DIAGNOSTIC STUDIES/LAB DATA: CBC as described above. Chemistries: Sodium 128 , BUN 28, creatinine 0.6. AST and ALT are low. Her echocardiogram in December is as described above. IMPRESSION: This is a 78-year-old female with a history of acute myeloid leukemia who has been getting chemotherapy since October. She is being admitted to the hospital because of severe shortness of breath and severe anemia. The patient has already been ordered 2 units of packed red blood cells to be given over 4 hours each. She is also to get Lasix in between. For now, I do not think any change in those orders are necessary. I will order for an echocardiogram in the morning. Further recommendations pending results of her echocardiogram. [id number]/[facility] #: [id number] [facility] INSANEKishore
[2018-05-25] MEDS: Insulin GLARGINE(*) 1 UNITS UNIT SUBCUT SCH (22:15)
[2018-05-25] MEDS: Insulin LISPRO* 1 UNITS UNIT SUBCUT SCH (22:20)
[2018-05-26] MEDS ORDERED: Furosemide IV* 10 MG/ML 2 ML VIAL (20 MG) IV SLOW PU ONE (01:20)
[2018-05-26 05:54] LABS: Hematocrit 28 % (35-47); Hemoglobin 9.5 g/dl (12.0-16.0); Mean Corpuscular HGB Conc 35 g/dl (31-36); Mean Corpuscular Hemoglobin 32 pg (27-31); Mean Corpuscular Volume 93 fL (80-97); Mean Platelet Volume 9.9 fL (7.4-10.4); Platelet Count 99 10^3/ul (150-450); Red Blood Count 2.97 10^6/ul (4.00-5.40); Red Cell Distribution Width 20 % (10.5-15); White Blood Count 0.6 10^3/ul (3.5-10.8)
[2018-05-26 06:07] LABS: Albumin 3.6 g/dL (3.2-5.2); Albumin/Globulin Ratio 1.1 (1-3); BUN/Creatinine Ratio 48.1 (8-20); Calcium 9.2 mg/dL (8.6-10.3); EGFR African American 132.5 (>60); EGFR Non-African American 109.5 (>60); Globulin 3.4 g/dL (2-4); Potassium 3.8 mmol/L (3.5-5.0); Total Bilirubin 1.4 mg/dL (0.2-1.0)
[2018-05-26 06:38] LABS: Lymphocytes % 50 %; Monocytes % 1 %; Neutrophil % 47 %; Variant Lymph % 1 % (0-6)
[2018-05-26 06:39] LABS: ABS Eosinophils 0 10^3/ul (0-0.6); ABS Neutrophils 0.3 10^3/ul (1.5-7.7)
[2018-05-26] MEDS ORDERED: Solifenacin(NF) 5 MG TAB PO SCH (09:00)
[2018-05-26] MEDS: Magnesium Oxide TAB* 400 MG PO SCH (09:25)
[2018-05-26] MEDS: Insulin LISPRO* 1 UNITS UNIT SUBCUT SCH ×4 (09:37→21:01)
[2018-05-26] MEDS: Acyclovir* 400 MG TAB PO SCH ×2 (09:38→20:46)
[2018-05-26] MEDS: metFORMIN* 500 MG TAB PO SCH ×2 (09:38→17:50)
[2018-05-26] MEDS: Insulin GLARGINE(*) 1 UNITS UNIT SUBCUT SCH ×2 (09:38→20:45)
[2018-05-26] MEDS: Dronabinol CAP* 2.5 MG PO SCH ×2 (09:38→20:46)
[2018-05-26] MEDS: Mirabegron (NF) 50 MG TAB PO SCH (09:39)
--- NOTE | 2018-05-26 10:48 | PN ---
Progress Note - Progress Note Date of Service: 05/26/18 SOAP: Subjective: [Admitted yesterday with bilateral pleural effusions and severe anemia with complaints of severe dyspnea. She was diuressed and transfused 2U PRBCs. Seen by cardiology with an echo pending for today. She reports feeling better today. Her dyspnea has improved significantly. She is fatigued as she did not get much sleep last night. Objective: [ Laboratory Results - last 24 hr 05/25/18 05/25/18 05/25/18 11:32 17:48 18:11 WBC RBC Hgb Hct MCV MCH MCHC RDW Plt Count MPV Neut % (Auto) Lymph % (Auto) Gosper % (Auto) Eos % (Auto) Baso % (Auto) Absolute Neuts (auto) Absolute Lymphs (auto) Absolute Monos (auto) Absolute Eos (auto) Absolute Basos (auto) Absolute Nucleated RBC Neutrophils % Lymphocytes % Reactive Lymphs % Monocytes % Eosinophils % Nucleated RBC % Abs Neuts (Manual) Abs Lymphs (Manual) Abs Monocytes (Manual) Absolute Eos (Manual) Normal RBC Morphology Sodium Potassium Chloride Carbon Dioxide Anion Gap BUN Creatinine Est GFR ( Amer) Est GFR (Non-Af Amer) BUN/Creatinine Ratio Glucose POC Glucose (mg/dL) > 444 H* Glucose Meter Confirm 421 H Calcium Total Bilirubin AST ALT Alkaline Phosphatase Total Protein Albumin Globulin Albumin/Globulin Ratio Blood Type A Positive Antibody Screen Negative Crossmatch See Detail 05/25/18 05/26/18 05/26/18 22:15 05:31 05:31 WBC 0.6 L RBC 2.97 L Hgb 9.5 L Hct 28 L MCV 93 MCH 32 H MCHC 35 RDW 20 H Plt Count 99 L MPV 9.9 Neut % (Auto) Not Reportable Lymph % (Auto) Not Reportable Gosper % (Auto) Not Reportable Eos % (Auto) Not Reportable Baso % (Auto) Not Reportable Absolute Neuts (auto) Not Reportable Absolute Lymphs (auto) Not Reportable Absolute Monos (auto) Not Reportable Absolute Eos (auto) Not Reportable Absolute Basos (auto) Not Reportable Absolute Nucleated RBC Not Reportable Neutrophils % 47 Lymphocytes % 50 Reactive Lymphs % 1 Monocytes % 1 Eosinophils % 1 Nucleated RBC % Not Reportable Abs Neuts (Manual) 0.3 L Abs Lymphs (Manual) 0.3 L Abs Monocytes (Manual) 0 Absolute Eos (Manual) 0 Normal RBC Morphology Normal Sodium 132 L Potassium 3.8 Chloride 96 L Carbon Dioxide 27 Anion Gap 9 BUN 26 H Creatinine 0.54 Est GFR ( Amer) 132.5 Est GFR (Non-Af Amer) 109.5 BUN/Creatinine Ratio 48.1 H Glucose 215 H POC Glucose (mg/dL) 244 H Glucose Meter Confirm Calcium 9.2 Total Bilirubin 1.40 H AST 7 L ALT 3 L Alkaline Phosphatase 68 Total Protein 7.0 Albumin 3.6 Globulin 3.4 Albumin/Globulin Ratio 1.1 Blood Type Antibody Screen Crossmatch 05/26/18 07:26 WBC RBC Hgb Hct MCV MCH MCHC RDW Plt Count MPV Neut % (Auto) Lymph % (Auto) Gosper % (Auto) Eos % (Auto) Baso % (Auto) Absolute Neuts (auto) Absolute Lymphs (auto) Absolute Monos (auto) Absolute Eos (auto) Absolute Basos (auto) Absolute Nucleated RBC Neutrophils % Lymphocytes % Reactive Lymphs % Monocytes % Eosinophils % Nucleated RBC % Abs Neuts (Manual) Abs Lymphs (Manual) Abs Monocytes (Manual) Absolute Eos (Manual) Normal RBC Morphology Sodium Potassium Chloride Carbon Dioxide Anion Gap BUN Creatinine Est GFR ( Amer) Est GFR (Non-Af Amer) BUN/Creatinine Ratio Glucose POC Glucose (mg/dL) 244 H Glucose Meter Confirm Calcium Total Bilirubin AST ALT Alkaline Phosphatase Total Protein Albumin Globulin Albumin/Globulin Ratio Blood Type Antibody Screen Crossmatch Acyclovir (Zovirax Tab*) 400 mg PO BID [facility] Last Admin: 05/26/18 09:38 Dose: 400 mg Dextrose (D50w Syringe 50 Ml*) 12.5 gm IV PUSH .FOR FS < 60 - SS PRN PRN Reason: FS < 60 Dronabinol (Marinol Cap*) 2.5 mg PO BID [facility] Last Admin: 05/26/18 09:38 Dose: 2.5 mg Enoxaparin Sodium (Lovenox(*)) 40 mg SUBCUT Q24H [facility] Last Admin: 05/25/18 15:41 Dose: 40 mg Insulin Glargine (Lantus(*)) 15 units SUBCUT BID [facility] Last Admin: 05/26/18 09:38 Dose: 15 units Insulin Human Lispro (Humalog*) 0 units SUBCUT ACHS [facility]; Protocol Last Admin: 05/26/18 09:37 Dose: 4 units Magnesium Oxide (Magox 400 Tab*) 400 mg PO DAILY [facility] Last Admin: 05/26/18 09:25 Dose: Not Given Metformin HCl (Glucophage*) 500 mg PO 1730 [facility] Last Admin: 05/26/18 09:38 Dose: 500 mg Mirabegron (Myrbetriq (Nf)) 50 mg PO DAILY [facility] Last Admin: 05/26/18 09:39 Dose: Not Given Ondansetron HCl (Zofran Odt Tab*) 4 mg PO Q8H PRN PRN Reason: NAUSEA/VOMITING Last Admin: 05/26/18 03:51 Dose: 4 mg Solifenacin (Vesicare(Nf)) 5 mg PO DAILY [facility] Last Admin: 05/26/18 09:39 Dose: Not Given Vital Signs: Temp Pulse Resp BP Pulse Ox 98.5 F 99 18 120/65 96 05/26/18 06:55 05/26/18 06:55 05/26/18 09:38 05/26/18 06:55 05/26/18 06:55 Exam: Gen: Chronically ill and fatigued appearing 78 yo female in NAD HEENT: MMM CV: 2/6 murmur, RRR Resp: decreased breath sounds at lung bases bilaterally Abd: soft, nonTTP Ext: no edema] Assessment: [78 yo female with AML, and DM admitted with severe fluid overload and anemia. Now improved after diuresis and transfusion.] Plan: [1. with bilateral pleural effusions - Symptomatically improved with diuresis - Dr Fernando's consult appreciated, pending recommendations following echocardiogram 2. Pancytopenia] - secondary to chemotherapy - transfused 2 U PRBCs with appropriate Hgb response 3. IDDM - cont metformin and home insulin dosing for now Dispo: pending echo, possible dc later today or tomorrow depending on results
--- NOTE | 2018-05-26 15:22 | ECHO ---
Patient: ANGEL QUEVEDO Rec#: [id number] : 1940 Date: 05/26/2018 Age: 78y Height: 168 cm / 66.1 in Weight: 56.8 kg / 125.2 lbs Sex: F BSA: 1.64 Room#: 435 Admit Date#: 05/25/2018 Type: Inpatient Referring: Sebas Fernando MD Reading: Sebas Fernando MD Supervisor [place]: Amanda Tamayo RN RDCS CC: Nathan Langston MD Transthoracic Echocardiogram Indication: Aortic stenosis, SOB BP: 98/58 HR: 101 Rhythm: Tachycardia Findings History: AML, chemotherapy, HTN, DM, aortic stenosis Technical Comments: The study quality is good. Left Ventricle: The left ventricular chamber size is normal. Mild concentric left ventricular hypertrophy is observed. There is global hypokinesis of the left ventricle with minor regional variation. There is moderately decreased left ventricular systolic function. The estimated ejection fraction is 35-40%. Abnormal left ventricular diastolic function is observed. The left ventricular diastolic filling pattern is consistent with pseudonormalization. Left Atrium: The left atrium is moderately dilated. Right Ventricle: The right ventricular cavity size is normal. The right ventricular global systolic function is mildly reduced. Right Atrium: The right atrium is mildly dilated. Aortic Valve: The aortic valve is trileaflet. The aortic valve leaflets are moderately thickened. Systolic excursion of the aortic valve cusps is reduced. There is a trace of aortic regurgitation. There is moderate to severe aortic stenosis.consitant with low flow low gradient aortic stenosis The mean gradient of the aortic valve is 31 mmHg. The peak instantaneous gradient of the aortic valve is 49 mmHg. The aortic valve area, by peak velocities, is calculated at 1.1 cm2. The aortic valve area, by VTI's, is calculated at 1 cm2. The dimensionless index is 0.31-0.34. The highest aortic valve velocity was obtained with the standard probe from the A5C view. Mitral Valve: Moderate mitral annular calcification present. The mitral valve leaflets are mildly thickened. Mild subvalvular thickening of the mitral valve is visualized. There is mild to moderate mitral regurgitation. There is no evidence of mitral stenosis. Tricuspid Valve: The tricuspid valve leaflets are normal. There is mild to moderate tricuspid regurgitation. There is evidence of severe pulmonary hypertension. There is no tricuspid stenosis. Pulmonic Valve: The pulmonic valve appears normal. There is trace to mild pulmonic regurgitation. There is no pulmonic stenosis. Pericardium: There is no significant pericardial effusion. Aorta: There is no dilatation of the ascending aorta. There is no dilatation of the aortic arch. There is no dilation of the aortic root. Pulmonary Artery: The main pulmonary artery appears normal. Venous: The inferior vena cava is dilated. There is less than 50% respiratory change in the inferior vena cava dimension. Conclusions There is global hypokinesis of the left ventricle with minor regional variation. There is moderately decreased left ventricular systolic function. The estimated ejection fraction is 35-40%. The right ventricular global systolic function is mildly reduced. Systolic excursion of the aortic valve cusps is reduced. There is moderate to severe aortic stenosis.consitant with low flow low gradient aortic stenosis The mean gradient of the aortic valve is 31 mmHg. There is a trace of aortic regurgitation. Mild subvalvular thickening of the mitral valve is visualized. There is mild to moderate mitral regurgitation. There is no evidence of mitral stenosis. There is mild to moderate tricuspid regurgitation. There is evidence of severe pulmonary hypertension. There is no significant pericardial effusion. Compared to study of 01/05/18, the LV funciton is much lower. THe degree of is about the same. THE pulm HTN is new. Measurements Name Value Normal Range RVDdMajor (2D) 4.1 cm (2.2 - 4.4) RAd ISD 4CH 4.1 cm (3.4 - 4.9) RA (A4C)W 4.2 cm (2.9 - 4.6) IVSd (2D) 1.2 cm (0.6 - 1) LVPWd (2D) 1.1 cm (0.6 - 1) LVIDd (2D) 5 cm (3.6 - 5.4) LVIDs (2D) 3.9 cm - LV FS (2D) 22 % (25 - 45) Aortic Annulus 2 cm (1.4 - 2.6) Ao root diameter (2D) 3 cm (2.1 - 3.5) Ascending Ao 3.2 cm (2.1 - 3.4) Aortic arch 2.1 cm (1.8 - 3.4) LA dimension (AP) 2D 4.1 cm (2.3 - 3.8) LAd ISD 4CH 5 cm (2.9 - 5.3) LA ISD 4CH W 4.7 cm (2.5 - 4.5) Name Value Normal Range LA ESV BP (A/L) index 46.9 ml/m2 - Name Value Normal Range MV E-wave Vmax 1.5 m/sec - MV deceleration time 156 msec - MV A-wave Vmax 0.99 m/sec - MV E:A ratio 1.6 ratio - LV septal e' Vmax 0.05 m/sec - LV lateral e' Vmax 0.05 m/sec - LV E:e' septal ratio 30 ratio - LV E:e' lateral ratio 30 ratio - Name Value Normal Range AV Vmax 3.5 m/sec - AV VTI 71.9 cm - AV peak gradient 49 mmHg - AV mean gradient 31 mmHg - LVOT diameter 2 cm - LVOT Vmax 1.2 m/sec - LVOT VTI 22.5 cm - LVOT peak gradient 5 mmHg - LVOT mean gradient 3 mmHg - DOI (VTI) 0.31 ratio - DOI (Vmax) 0.34 ratio - YUNG (continuity Vmax) 1.1 cm2 - YUNG (continuity VTI) 1 cm2 - DEB Vmax 0.41 m/sec - Name Value Normal Range MV Vmax 1.6 m/sec - MV VTI 30.6 cm - MV peak gradient 10 mmHg - MV mean gradient 4 mmHg - MV PHT 64 msec - MVA (PHT) 3.4 cm2 - MVA (continuity VTI) 2.3 cm2 - Name Value Normal Range TR Vmax 3.5 m/sec - TR peak gradient 49 mmHg - RAP 15 mmHg - RVSP 64 mmHg - IVC diameter 2.2 cm - Name Value Normal Range PV Vmax 0.55 m/sec -
[2018-05-26] MEDS: Enoxaparin(*) 40 MG/0.4 ML SYR SUBCUT SCH (17:49)
[2018-05-27 06:00] LABS: BUN/Creatinine Ratio 41.3 (8-20); Calcium 9.1 mg/dL (8.6-10.3); EGFR African American 159.4 (>60); EGFR Non-African American 131.7 (>60); Potassium 3.6 mmol/L (3.5-5.0)
[2018-05-27 06:03] LABS: Hematocrit 27 % (35-47); Hemoglobin 9.3 g/dl (12.0-16.0); Mean Corpuscular HGB Conc 34 g/dl (31-36); Mean Corpuscular Hemoglobin 31 pg (27-31); Mean Corpuscular Volume 92 fL (80-97); Mean Platelet Volume 9.7 fL (7.4-10.4); Platelet Count 113 10^3/ul (150-450); Red Blood Count 2.96 10^6/ul (4.00-5.40); Red Cell Distribution Width 20 % (10.5-15); White Blood Count 0.7 10^3/ul (3.5-10.8)
[2018-05-27 07:06] LABS: Immature Granulocytes 1 % (0-9); Lymphocytes % 40 %; Monocytes % 4 %; Neutrophil % 52 %; Nucleated Red Blood Cells/100 2 (0-0)
[2018-05-27] MEDS: Acyclovir* 400 MG TAB PO SCH (08:45)
[2018-05-27] MEDS: Dronabinol CAP* 2.5 MG PO SCH (08:48)
[2018-05-27] MEDS: Magnesium Oxide TAB* 400 MG PO SCH (08:49)
[2018-05-27] MEDS: Mirabegron (NF) 50 MG TAB PO SCH (08:49)
[2018-05-27] MEDS: Insulin GLARGINE(*) 1 UNITS UNIT SUBCUT SCH (08:49)
[2018-05-27] MEDS: Insulin LISPRO* 1 UNITS UNIT SUBCUT SCH ×2 (08:50→12:20)
[2018-05-27] MEDS ORDERED: CMC:Solifenacin(NF) 5 MG TAB PO SCH (09:00)
[2018-05-27] MEDS ORDERED: Lisinopril TAB* 5 MG PO SCH (09:00)
[2018-05-27 12:14] VITALS: BP 99/52
--- NOTE | 2018-05-27 13:21 | DS ---
CC: Dr. Fernando * DISCHARGE SUMMARY: DATE OF ADMISSION: 05/25/18. DATE OF DISCHARGE: 05/27/18. PRIMARY CARE PROVIDER: Dr. Nathan Langston. PRIMARY ONCOLOGIST: Dr. Latia Melendez. CONSULTING WHARF HAND: Dr. Fernando. ATTENDING PHYSICIAN: Dr. Latia Melendez.* (DICTATED BY ARVIND BHAT) DISCHARGING PROVIDER: ARVIND Bhat. PRIMARY DISCHARGE DIAGNOSES: 1. Severe cytopenias, including symptomatic anemia, status post 2 units of packed red blood cells secondary to chemotherapy. 2. Moderate to severe aortic stenosis with new systolic heart failure with acute exacerbation. 3. Acute myeloid leukemia, currently treated with venetoclax and azacitidine. 4. Insulin-dependent diabetes. DISCHARGE MEDICATIONS: 1. Acyclovir 400 mg p.o. twice daily. 2. Marinol 2.5 mg p.o. twice daily. 3. Lantus 15 units subcu daily. 4. Humalog 2 to 10 units subcu at mealtime per sliding scale. 5. Metformin 500 mg p.o. daily. 6. Myrbetriq 50 mg p.o. daily. 7. Ondansetron 4 mg p.o. q.8 hours as needed for nausea and vomiting. 8. VESIcare 5 mg p.o. daily. 9. Multivitamin. 10. Lasix 40 mg p.o. daily. 11. Lisinopril 2.5 mg p.o. daily. 12. Magnesium oxide 400 mg p.o. daily. HOSPITAL IMAGIN. Chest x-ray, 05/25/18 shows pulmonary interstitial edema and bilateral pleural effusions, which are small to moderate in size. 2. Transthoracic echocardiogram demonstrates a moderately decreased left ventricular systolic function with global hypokinesis with an EF measuring at 35 % to 40%. The right ventricular systolic function is mildly reduced. There is moderate to severe aortic stenosis consistent with low flow. Mild to moderate tricuspid regurge and evidence of severe pulmonary hypertension. As compared to December 2017, left ventricular function is much lower and pulmonary hypertension is new. HOSPITAL COURSE: This is a 78-year-old female with AML and history of moderate aortic stenosis, who presented to the oncology clinic with complaints of severe shortness of breath. She was not noted to be hypoxic at that time, but was severely anemic with hemoglobin of 7.3 g/dL. She was neutropenic without fever or other infectious symptoms. She appeared fluid overloaded and chest x-ray demonstrated pulmonary edema and bilateral pleural effusions. She was subsequently admitted to the hospital and received IV diuresis followed by transfusion of 2 units of packed red blood cells. She noted significant improvement in her respiratory symptoms following these interventions. Cardiology was asked to please see the patient during this hospitalization and echocardiogram was completed which demonstrated a similar severity of aortic stenosis, but a drop in her left ventricular function which was new when compared to her December exam. At that point, questions were raised as to whether her chemotherapy agents may have contributed to her loss of left ventricular function, but upon review of known adverse side effects, there is no evidence of cardiac toxicity with venetoclax or azacitidine and the more likely explanation for her drop in left ventricular function is her aortic stenosis and subsequent pump failure. She may be a candidate for aortic valve replacement, but the question of life expectancy comes into play when considering a valve replacement. After consultation with Dr. Melendez, life expectancy is estimated at 12 to 18 months. The patient is euvolemic at the time of discharge and started on lisinopril due to her new heart failure and we will plan to follow up with Dr. Fernando in approximately 3 weeks. At that time, can discuss further consultation with Interventional Cardiology for valve replacement if that is deemed appropriate based on her estimated life expectancy of 12 to 18 months. DISPOSITION AND FOLLOWUP PLAN: The patient is being discharged to home with medications as listed above. Followup appointment with Dr. Fernando has been made on her behalf for 06/19/18 and will be seen in followup in the oncology clinic on 06/01/18. ARVIND BHAT [id number]/[facility] #: [id number]
== END 2018-05-27 14:10 | disposition home or self-care (01) | DRG 814 ==
LOC: MEDTELE 14:39 → OBSVTOIN 05-26 15:59
PROVIDERS: ADMIT Internal Medicine Hematology & Oncology; ATTEND Internal Medicine Hematology & Oncology
PROC: 30233N1 Transfusion of Nonautologous Red Blood Cells into Peripheral Vein, Percutaneous Approach (ICD-10-PCS; principal; 2018-05-25)
DX: D75.9 Disease of blood and blood-forming organs, unspecified (principal); I50.21 Acute systolic (congestive) heart failure; C92.00 Acute myeloblastic leukemia, not having achieved remission; I08.2 Rheumatic disorders of both aortic and tricuspid valves; D64.81 Anemia due to antineoplastic chemotherapy; E11.9 Type 2 diabetes mellitus without complications; R32 Unspecified urinary incontinence; I27.20 Pulmonary hypertension, unspecified; D61.810 Antineoplastic chemotherapy induced pancytopenia; M85.80 Other specified disorders of bone density and structure, unspecified site; Z88.1 Allergy status to other antibiotic agents; Z88.8 Allergy status to other drugs, medicaments and biological substances; Z79.4 Long term (current) use of insulin; Z79.899 Other long term (current) drug therapy; Z79.84 Long term (current) use of oral hypoglycemic drugs
CPT/HCPCS: 36415; 80048; 80053; 82947; 85025; 86850; 86900; 86901; 86922; 93306; 99219; 99221; 99232; 99239; A9270-GY; G0378; J1650; J1940; P9040

== ENCOUNTER 2018-06-06 13:28 | Inpatient (IN) | payer MEDICARE ==
--- NOTE | 2018-06-06 14:00 | ED ---
Shortness of Breath - HPI Summary HPI Summary: This patient is a 78 year old F presenting to [facility] accompanied by a man and woman with a chief complaint of SOB since 06:00. Symptoms aggravated by lying flat. Symptoms alleviated by elevation. Patient reports pain with deep breaths. Patient denies fever, cough, or LE edema. The patient was in bed when the problem started. The patient had chemo yesterday in addition to chemo pills she has been taking for three days. The patient was here a week ago for the same problem and was admitted for 2 days. The patient does not use oxygen at home; however, the oxygen was helpful the last time she was admitted to [facility]. PMHX Leukemia. Vitals in the room: HR 101 bpm, BP 105/61. - History of Current Complaint Chief Complaint: EDShortnessOfBreath Time Seen by Provider: 06/06/18 13:47 Hx Obtained From: Patient Onset/Duration: Sudden Onset, Lasting Hours - 06:00 Timing: Constant Dyspnea At: Rest Aggrevating Factors: Other - lying down Alleviating Factors: Upright Position Associated Signs & Symptoms: Negative - Allergy/Home Medications Allergies/Adverse Reactions: Allergies Allergy/AdvReac Type Severity Reaction Status Date / Time amoxicillin [From Augmentin] AdvReac Vomiting Verified 05/18/18 14:09 ciprofloxacin [From Cipro] AdvReac Vomiting Verified 05/18/18 14:09 clavulanic acid AdvReac Vomiting Verified 05/18/18 14:09 [From Augmentin] levofloxacin [From Levaquin] AdvReac Vomiting Verified 05/18/18 14:09 nitrofurantoin AdvReac Vomiting Verified 05/18/18 14:09 [From Macrobid] PMH/Surg Hx/FS Hx/Imm Hx Endocrine/Hematology History: Reports: Hx Diabetes, Hx Anemia Denies: Hx Thyroid Disease Cardiovascular History: Reports: Hx Hypercholesterolemia, Hx Hypertension, Other Cardiovascular Problems/Disorders - aortic stenosis Denies: Hx Pacemaker/ICD Respiratory History: Reports: Hx Asthma Denies: Hx Chronic Obstructive Pulmonary Disease (COPD), Hx Cystic Fibrosis, Hx Lung Cancer, Hx Pleural Effusion, Hx Pulmonary Embolism GI History: Reports: Hx Gastroesophageal Reflux Disease Denies: Hx Jaundice, Hx Ulcer History: Reports: Hx Renal Disease, Other Problems/Disorders - Renal disease Musculoskeletal History: Reports: Hx Orthopedic Injury - Rt hip Fx (2017), Other Musculoskeletal History - hip fx in past Sensory History: Reports: Hx Cataracts, Hx Contacts or Glasses, Hx Macular Degeneration, Hx Vision Problem Denies: Hx Eye Injury, Hx Glaucoma, Hx Hearing Aid, Hx Hearing Problem Opthamlomology History: Reports: Hx Cataracts, Hx Contacts or Glasses, Hx Macular Degeneration, Hx Vision Problem Denies: Hx Eye Injury, Hx Glaucoma Neurological History: Denies: Hx Headaches Psychiatric History: Denies: Hx Panic Disorder - Cancer History Cancer Type, Location and Year: Leukemia Hx Chemotherapy: Yes - Surgical History Surgery Procedure, Year, and Place: hysterectomy, cataract SURGERY BILATERAL EYES-,. PESSARY FOR BLADDER. Right hip surgery 07/2016 Hx Anesthesia Reactions: No - nausea and vomiting Infectious Disease History: No Infectious Disease History: Denies: Hx Clostridium Difficile, Hx Hepatitis, Hx Human Immunodeficiency Virus (HIV), Hx of Known/Suspected MRSA, Hx Shingles, Hx Tuberculosis, Hx Known/ Suspected VRE, Hx Known/Suspected VRSA, Traveled Outside the [place] in Last 30 Days - Family History Known Family History: Positive: Cardiac Disease, Diabetes - Social History Lives: With Family Alcohol Use: Rare Hx Substance Use: No Substance Use Type: Reports: None Hx Tobacco Use: No Smoking Status (MU): Never Smoked Tobacco Type: Cigarettes Review of Systems Negative: Fever Positive: Shortness Of Breath. Negative: Cough Negative: Edema - LE All Other Systems Reviewed And Are Negative: Yes Physical Exam - Summary Physical Exam Summary: Appearance: Well appearing, no pain distress Skin: warm, dry, reflects adequate perfusion Head/face: normal Eyes: EOMI, ELODIA ENT: normal Neck: supple, non-tender Respiratory: CTA, breath sounds present Cardiovascular: Tachycardic. Abdomen: non-tender, soft Musculoskeletal: normal, strength/ROM intact Neuro: A&Ox3 Triage Information Reviewed: Yes Vital Signs On Initial Exam: Initial Vitals Temp Pulse Resp BP Pulse Ox 99.1 F 109 16 105/61 95 06/06/18 13:35 06/06/18 13:35 06/06/18 13:35 06/06/18 13:35 06/06/18 13:35 Vital Signs Reviewed: Yes Diagnostics - Vital Signs Vital Signs Temp Pulse Resp BP Pulse Ox 06/06/18 13:38 109 105/61 93 06/06/18 13:37 109 97 06/06/18 13:35 99.1 F 109 16 105/61 95 - Laboratory Result Diagrams: 06/06/18 14:11 06/06/18 14:11 Lab Statement: Any lab studies that have been ordered have been reviewed, and results considered in the medical decision making process. - Radiology CXR Radiology Interpretation Completed By: Radiologist Summary of Radiographic Findings: PULMONARY INTERSTITIAL EDEMA WITH SMALL BILATERAL PLEURAL EFFUSIONS. ED physician has reviewed this radiology report. - EKG 13:51 Cardiac Rate: NL - 99 bpm EKG Rhythm: Sinus Rhythm Summary of EKG Findings: with artifacts. Course/Dx - Course Course Of Treatment: This patient is a 78 year old F presenting to [facility] accompanied by a man and woman with a chief complaint of SOB since 06:00. Symptoms aggravated by lying flat. Symptoms alleviated by elevation. Patient reports pain with deep breaths. Patient denies fever, cough, or LE edema. An EKG reveals NSR 99bpm with artifacts. CXR reveals, per radiologist, PULMONARY INTERSTITIAL EDEMA WITH SMALL BILATERAL PLEURAL EFFUSIONS. ED physician has reviewed this radiology report. Blood work/UA obtained. Troponin .11 H. Positive Influenza. In the ED course the patient was given Furosemide, Oseltamivir Phosphate, Acetaminophen, Acyclovir, Dextrose, Dronabinol, Enoxaparin, Insulin, Metformin, and Ondansetron. We discussed patient care with Dr. Jamison, hospitalist, and they recommended admission. - Diagnoses Differential Diagnosis/HQI/PQRI: Positive: Bronchitis, CHF, Pneumonia Provider Diagnoses: Influenza, Elevated troponin, CHF (congestive heart failure), CML (chronic myelocytic leukemia) - Physician Notifications Discussed Care of Patient With: Aggie Jamison Time Discussed With Above Provider: 15:48 Instructed by Provider To: Admit As Inpatient Discharge - Sign-Out/Discharge Documenting (check all that apply): Patient Departure - Admission Patient Received Moderate/Deep Sedation with Procedure: No - Discharge Plan Condition: Fair Disposition: ADMITTED TO [facility] Referrals: Nathan Langston MD [Primary Care Provider] - - Billing Disposition and Condition Condition: FAIR Disposition: Admitted to [facility] - Attestation Statements Document Initiated by Scribe: Yes Documenting Scribe: Hossein Mehta Provider For Whom Scribe is Documenting (Include Credential): Rey Huffman MD Scribe Attestation: Hossein Bowden, scribed for Rey Huffman MD on 06/06/18 at 1711. Scribe Documentation Reviewed: Yes Provider Attestation: The documentation as recorded by the scribe, Hossein Mehta accurately reflects the service I personally performed and the decisions made by me, Rey Huffman MD Status of Scribe Document: Viewed
[2018-06-06 14:29] LABS: ABS Basophils 0 10^3/ul (0-0.2); ABS Eosinophils 0 10^3/ul (0-0.6); ABS Lymphocytes 0.3 10^3/ul (1.0-4.8); ABS Monocytes 0.1 10^3/ul (0-0.8); ABS Neutrophils 2.4 10^3/ul (1.5-7.7); ABS Nucleated RBC 0 10^3/ul; Eosinophil % 0.4 %; Hematocrit 24 % (35-47); Lymphocyte % 10.4 %; Mean Corpuscular HGB Conc 34 g/dl (31-36); Mean Corpuscular Hemoglobin 32 pg (27-31); Mean Corpuscular Volume 95 fL (80-97); Mean Platelet Volume 8.4 fL (7.4-10.4); Nucleated Red Blood Cells % 0.1; Platelet Count 291 10^3/ul (150-450); Red Blood Count 2.48 10^6/ul (4.00-5.40); Red Cell Distribution Width 20 % (10.5-15); White Blood Count 2.9 10^3/ul (3.5-10.8)
[2018-06-06 14:29] LABS: Influenza B Molecular POSITIVE (Negative)
[2018-06-06 14:34] LABS: Activated Partial Thrombo Time 26.7 seconds (26.0-36.3); INR 1.35 (0.77-1.02)
[2018-06-06 14:45] LABS: Albumin 3.6 g/dL (3.2-5.2); Albumin/Globulin Ratio 1.1 (1-3); BUN/Creatinine Ratio 19.7 (8-20); Calcium 9.2 mg/dL (8.6-10.3); EGFR African American 115.1 (>60); EGFR Non-African American 95.1 (>60); Globulin 3.3 g/dL (2-4); Total Bilirubin 0.7 mg/dL (0.2-1.0); Total Protein 6.9 g/dL (6.4-8.9)
[2018-06-06 14:49] LABS: Troponin I 0.11 ng/mL (<0.04)
[2018-06-06] MEDS ORDERED: Oseltamivir CAP* 75 MG CAP PO ONE (14:52)
[2018-06-06] MEDS ORDERED: Furosemide IV* 10 MG/ML VIAL (40 MG) IV ONE (14:53)
[2018-06-06] MEDS ORDERED: Acetaminophen TAB* 325 MG PO PRN (15:48)
[2018-06-06] MEDS ORDERED: Ondansetron INJ* 2 MG/ML VIAL IV PRN (15:48)
[2018-06-06] MEDS ORDERED: Dextrose 50% Syringe 50 ML* 25 GM/50 ML SYRINGE IV PUSH PRN (16:17)
[2018-06-06] MEDS ORDERED: Furosemide IV* 10 MG/ML VIAL (40 MG) IV SLOW PU SCH (17:00)
[2018-06-06 17:07] LABS: Urine Appearance Cloudy; Urine Bacteria 1+ (Absent); Urine Bilirubin Negative (Negative); Urine Blood 1+ (Negative); Urine Color Yellow; Urine Glucose Negative (Negative); Urine Ketones Negative (Negative); Urine Nitrite Negative (Negative); Urine Protein 1+(30 mg/dL) (Negative); Urine Red Blood Cell 3+(>10/hpf) (Absent); Urine Specific Gravity 1.009 (1.010-1.030); Urine Squamous Epithelial Cell Present (Absent); Urine Urobilinogen Negative (Negative); Urine White Blood Cell 3+(>20/hpf) (Absent)
[2018-06-06] MEDS ORDERED: metFORMIN* 500 MG TAB PO SCH (17:30)
--- NOTE | 2018-06-06 19:01 | HP ---
CC: Dr. Latia Melendez * ADMISSION HISTORY AND PHYSICAL: DATE OF ADMISSION: 06/06/18. PRIMARY CARE PROVIDER: Dr. Latia Melendez. MY ATTENDING WHILE IN THE HOSPITAL: Dr. Aggie Ferrara.* (DICTATED BY ARVIND ZAMBRANO) CHIEF COMPLAINT: Shortness of breath. HISTORY OF PRESENT ILLNESS: Ms. Ortega is a 78-year-old female with past medical history significant for AML complicated by significant cytopenias, aortic stenosis and heart failure with reduced ejection fraction diagnosed in hospitalization from 05/25/18 to 05/26/18. The patient did not have an ischemic workup at that time and was scheduled to follow up with Dr. Sebas Fernando outpatient. The patient was discharged on lisinopril and Lasix. Lasix was decreased and lisinopril was discontinued due to concern for low blood pressure. The patient has been feeling more and more fatigued, but has been feeling less short of breath. The patient has been continued on her chemotherapy with azacitidine and venetoclax for her AML. The patient was also recently started on a medication to help stimulate her red blood cells that they were unable to spell the name for, but is presumably an erythropoietin analogue. The patient has had numerous admissions recently for infections and other chemotherapy related complications. The patient this morning woke up and felt very short of breath. The patient has been having worsening orthopnea. The patient this morning developed pain in the middle of her chest with deep breathing, otherwise not present, not associated with any other diaphoresis, nausea or vomiting. The patient has not been gaining or losing any weight. The patient has been having stable dyspnea on exertion. The patient denies any wheezing, cough, or sputum production. The patient denies any dysuria, any new rashes. Besides the above mentioned changes, the patient has had no new medications. The patient came into the emergency department and was found to have low white blood cell count slightly above her baseline, hemoglobin of 8.0 at her baseline with slightly elevated troponin, severely elevated BNP and positive influenza B. Due to concern for heart failure exacerbation complicated by influenza B infection, we are asked to evaluate the patient for admission in the hospital. PAST MEDICAL HISTORY: AML with anemia and neutropenia, hypertension, diabetes mellitus type 2, [id number] aortic stenosis, osteopenia, recent diagnosis of heart failure with reduced ejection fraction, EF 35% to 40%. PAST SURGICAL HISTORY: Right hip ORIF, SUPA-BSO. MEDICATIONS: 1. Acyclovir 400 mg p.o. b.i.d. 2. Marinol 2.5 mg p.o. b.i.d. 3. Lantus 15 mg subcutaneous daily. 4. Humalog insulin sliding scale. 5. Metformin 500 mg p.o. daily. 6. Zofran 4 mg p.o. q.8 hours as needed. 7. Ocuvite 1 tablet p.o. daily. 8. Lasix 20 mg p.o. daily. 9. Venetoclax 200 mg p.o. daily for 2 weeks, alternating with azacitidine injections for 1 week. ALLERGIES: AMOXICILLIN, CIPROFLOXACIN, CLAVULANIC ACID, LEVOFLOXACIN, NITROFURANTOIN. FAMILY HISTORY: The patient is unable to provide a family history at this time. SOCIAL HISTORY: The patient has never smoked. The patient used to drink an occasional alcohol, does not drink alcohol now. The patient denies illicit drug use. 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 The patient is and has 2 children. The patient's surrogate decision makers will be her , Andrea and her children, Magdalena and Parth with the same last names. REVIEW OF SYSTEMS: A 14-point review of systems was reviewed with the patient and is negative except as above in the HPI. PHYSICAL EXAMINATION GENERAL: The patient is a 78-year-old female, who appears stated age and sitting comfortably in bed, in no acute distress. VITAL SIGNS: Temperature 99.1, pulse rate 102, respiratory rate 26, oxygen saturation 99% on 1 L, blood pressure 111/69. HEENT: Head: Normocephalic, atraumatic. Sclerae anicteric. No conjunctival injection. Nasal mucosa moist. Oral mucosa moist. No pharyngeal erythema, discharge, or exudate. Oral mucosa is pale. NECK: Supple, nontender. No lymphadenopathy. No carotid bruits auscultated. JVD to the angle of the jaw setting at 90 degrees. RESPIRATORY: Diminished throughout, otherwise clear to auscultation bilaterally. No wheezes, rales, or rhonchi. CARDIAC: Tachycardic. Grade 3/6 systolic ejection murmur heard best at the right upper sternal border with unclear S2. Pulses are 2+. Pulses possible ___ ___ in the bilateral radial, posterior tibialis, and dorsalis pedis areas. Trace bilateral lower extremity edema noted. ABDOMEN: Soft, nontender, nondistended. Bowel sounds present and normoactive in all 4 quadrants. No hepatosplenomegaly. No abdominal bruits auscultated. GENITOURINARY: No suprapubic or CVA tenderness. NEURO: Cranial nerves II through XII intact. No focal deficits. Alert and oriented x3. PSYCHIATRIC: Pleasant, cooperative, but somewhat discouraged. SKIN: Clean, dry, and intact. No rash. DIAGNOSTIC STUDIES/LAB DATA: White blood cell count 2.9, hemoglobin 8.0, platelet count 291. INR 1.25, aPTT 26.7, D-dimer 237. ABG, pH 7.47, pCO2 of 39 , pO2 of 84, base excess 4.5. Sodium 134, potassium 4.0, chloride 97, carbon dioxide 30, anion gap 7, BUN 17, creatinine 0.61, glucose 251, lactic acid 1.5, calcium 9.2. Bilirubin 0.7, AST 8, ALT 3, alkaline phosphatase 62. troponin I 0.11, BNP greater than 1300. Protein 6.9, albumin 3.6, globulin 3.3. Influenza B positive. Studies: EKG shows left axis deviation, possible left ventricular hypertrophy. No ST segment elevation. Slight ST segment depression in the lateral leads. Poor quality study consistent with previous exam. Chest x-ray read as pulmonary interstitial edema with small bilateral pleural effusions. ASSESSMENT AND PLAN: Impression: Ms. Ortega is a 78-year-old female with a past medical history significant for acute myeloid leukemia, currently undergoing chemotherapy, newly diagnosed heart failure with reduced ejection fraction, diabetes and hypertension, who presents to the emergency department with significant worsening shortness of breath over the past 12 hours. The patient in the emergency department was diagnosed with flu B and has signs and symptoms of a congestive heart failure exacerbation. The patient was admitted to the hospital for diuresis, Tamiflu treatment and close monitoring. 1. Acute heart failure with reduced ejection fraction. The patient has a new diagnosis of heart failure with reduced ejection fraction at least from December of last year. The patient is currently very symptomatic. The patient with shortness of breath, though it is unclear how the flu is contributing to this. The patient received 40 mg of IV Lasix while in the emergency department. The patient's blood pressure is borderline low. The patient will receive 1 unit of blood, will be monitored closely, and possibly receive Lasix again at that time. The patient will be continued on Lasix 20 mg IV twice daily if her blood pressure will allow. The patient's lisinopril was stopped, this will continued to be held for a more room with diuresis. The patient is slightly tachycardic likely due to both her heart failure and her flu. No attempt will be made to slow down this rhythm at this time except for a transfusion. This plan was discussed with both Cardiology and Hematology/ Oncology. The patient's troponin is slightly elevated, this will be trended; however, is likely due to demand ischemia from her heart failure. The patient has no ischemic changes on her EKG and though ischemic testing should be undergone at some point when the patient is able. The patient will have a repeat echocardiogram tomorrow. The patient's case was discussed with Dr. Fanny Child of Cardiology. The patient's azacitidine has case reports of causing heart failure. There are erythropoietin analogues, which the patient has presumably recently started on and can also cause heart failure with reduced ejection fraction. The patient was seen in consultation by Dr. Fanny Child, Cardiology tomorrow. The patient's most ejection fraction was 35% to 40%. 2. Acute myeloid leukemia. The patient is currently undergoing chemotherapy, this will of course will be held while in the hospital with the flu. The patient will be seen in consultation by Dr. Ori Shirley of Oncology tomorrow. The patient's blood counts are slightly better than the baseline; however, the patient will be transfused and this will be monitored closely. The patient's platelet count is very good. The patient has no contraindication to anticoagulation to DVT prophylaxis, dosed anticoagulation at this time. 3. Aortic stenosis. This is noted and may be contributing the patient's heart failure symptoms; however, this is likely not sole cause of her symptoms and she would not likely be a good candidate for a valve replacement at this time. 4. Diabetes mellitus type 2. Continue the patient's home dose of glargine, lispro sliding scale and metformin. The patient's creatinine will be monitored closely with diuresis. 5. FEN: The patient will have a heart-healthy diet without caffeine. The patient is fluid overloaded, will not receive fluids. 6. Disposition: The patient is admitted inpatient to the hospital. 7. DVT prophylaxis: The patient will have Lovenox subcu. 8. Code status: The patient adamantly would like to be a full code. TIME SPENT: Approximately 75 minutes was spent on the admission of this patient , 45 of which was spent [id number] with the patient obtaining history and physical and discussing treatment plan. This plan was discussed with my attending, Dr. Aggie Ferrara, and she is in agreement. ARVIND ZAMBRANO [id number]/CPS #: [id number] SUKHDEV
[2018-06-06] MEDS: Enoxaparin(*) 40 MG/0.4 ML SYR SUBCUT SCH (19:17)
[2018-06-06] MEDS: Insulin LISPRO* 1 UNITS UNIT SUBCUT SCH ×3 (19:17→22:57)
[2018-06-06] MEDS: Acyclovir* 400 MG TAB PO SCH (21:29)
[2018-06-06] MEDS: Dronabinol CAP* 2.5 MG PO SCH (21:29)
[2018-06-06] MEDS: Oseltamivir CAP* 75 MG CAP PO SCH (21:29)
[2018-06-06] MEDS: Insulin GLARGINE(*) 1 UNITS UNIT SUBCUT SCH (21:31)
[2018-06-06] MEDS: cefTRIAXone(*) 1 GM in NS 0.9% 50 ML* 50 ML IVPB SCH (21:34)
[2018-06-07 06:13] LABS: ABS Basophils 0 10^3/ul (0-0.2); ABS Eosinophils 0 10^3/ul (0-0.6); ABS Lymphocytes 0.5 10^3/ul (1.0-4.8); ABS Monocytes 0.1 10^3/ul (0-0.8); ABS Neutrophils 2.3 10^3/ul (1.5-7.7); ABS Nucleated RBC 0 10^3/ul; Eosinophil % 0.5 %; Hematocrit 26 % (35-47); Hemoglobin 8.9 g/dl (12.0-16.0); Lymphocyte % 17.8 %; Mean Corpuscular HGB Conc 35 g/dl (31-36); Mean Corpuscular Hemoglobin 32 pg (27-31); Mean Corpuscular Volume 93 fL (80-97); Mean Platelet Volume 8.7 fL (7.4-10.4); Nucleated Red Blood Cells % 0.2; Platelet Count 257 10^3/ul (150-450); Red Blood Count 2.76 10^6/ul (4.00-5.40); Red Cell Distribution Width 19 % (10.5-15)
[2018-06-07 06:27] LABS: Calcium 8.7 mg/dL (8.6-10.3); EGFR African American 144.8 (>60); EGFR Non-African American 119.6 (>60); Magnesium 1.5 mg/dL (1.9-2.7); Potassium 3.7 mmol/L (3.5-5.0)
[2018-06-07] MEDS ORDERED: Furosemide IV* 10 MG/ML VIAL (40 MG) IV SLOW PU SCH (08:00)
--- NOTE | 2018-06-07 08:37 | PN ---
Progress Note - Progress Note Date of Service: 06/07/18 SOAP: Subjective: [] Reports increased shortness breath as of 6 AM yesterday. Called our office and told to come to the emergency room. Emergency room hypoxic and tachypnea. Found to have a BMP of over 1300, troponin 0.11. Chest x-ray with diffuse edema. Influenza B was positive. Admitted admitted for CHF and influenza. She had hemoglobin of 8.0 and received 1 unit of packed red blood cells. This morning feeling a little bit better. She is still very weak, fatigued. Not having any fevers and she is surprised that she has the flu. reports several longer-term problems. She has been increasingly weak, loses some strength each hospitalization. Now walking with a walker but needs help going to the bathroom. Incontinence is a continued issue, follow Dr. Reinoso. He reports poor appetite, weight loss over the past 3 months. Acetaminophen (Tylenol Tab*) 650 mg PO Q6H PRN PRN Reason: FEVER/PAIN Acyclovir (Zovirax Tab*) 400 mg PO BID [facility] Last Admin: 06/06/18 21:29 Dose: 400 mg Dextrose (D50w Syringe 50 Ml*) 12.5 gm IV PUSH .FOR FS < 60 - SS PRN PRN Reason: FS < 60 Dronabinol (Marinol Cap*) 2.5 mg PO BID [facility] Last Admin: 06/06/18 21:29 Dose: 2.5 mg Enoxaparin Sodium (Lovenox(*)) 40 mg SUBCUT Q24H [facility] Last Admin: 06/06/18 19:17 Dose: 40 mg Furosemide (Lasix Iv*) 20 mg IV SLOW PU 1700 [facility] Ceftriaxone Sodium 1 gm/ (Sodium Chloride) 50 mls @ 200 mls/hr IVPB Q24H [facility] Last Admin: 06/06/18 21:34 Dose: 200 mls/hr Insulin Glargine (Lantus(*)) 15 units SUBCUT BID [facility] Last Admin: 06/06/18 21:31 Dose: 15 unit Insulin Human Lispro (Humalog*) 0 units SUBCUT 0730,1130,1630,2100 [facility]; Protocol Last Admin: 06/07/18 08:40 Dose: Not Given Metformin HCl (Glucophage*) 500 mg PO 1730 [facility] Last Admin: 06/06/18 19:17 Dose: 500 mg Pto: [Preservision (Areds 2 Softgel]) 1 cap PO BID [facility] Ondansetron HCl (Zofran Inj*) 4 mg IV Q6H PRN PRN Reason: NAUSEA Oseltamivir Phosphate (Tamiflu Cap*) 75 mg PO BID [facility] Stop: 06/10/18 21:01 Last Admin: 06/06/18 21:29 Dose: 75 mg Past medical history: 1. AML. Currently treated with azacitidine and ventoclax. Dose reduction for neutropenic fever. Has had a complete response by bone marrow biopsy. 2. Aortic stenosis. Diagnosed May 25, 2018 with hospitalization for CHF. Had been on lisinopril and Lasix, lisinopril held for hypotension. 3. Type 2 diabetes Objective: []Weight at presentation was 155 pounds, went down to 125 pounds in December 2017 and has been steady since then. Vital Signs Temp Pulse Resp BP Pulse Ox 97.8 F 102 16 85/46 97 06/07/18 07:39 06/07/18 07:39 06/07/18 07:39 06/07/18 07:39 06/07/18 07:39 HEENT: Conjunctiva pale, oral mucosa moist and no lesions. No thrush. Lungs: Breathing is relaxed, I don't hear crackles this morning, no wheezes. Heart: She has a 2/6 systolic ejection murmur, rate 70s. Abdomen: No hepatosplenomegaly good bowel sounds and nontender extremity: Trace lower extremity edema, warm Assessment: [] 78-year-old female with AML in remission on azacitidine and venetoclax with course complicated by CHF and aortic stenosis. Now presents with acute CHF exacerbation and influenza. Plan: [] 1. Appreciate management of hospitalist for aortic stenosis and CHF. She also will be seen by Dr. Child this morning. She reports not wanting surgery for her aortic valve. Management challenge in the outpatient setting has been hypotension. 2. AML. Will hold all therapy for 1 week then reevaluate. 3. Anemia. Reducibility to compensate for anemia with cardiac output. Transfuse for hemoglobin under 8.5. 4. ID. Agree with Tamiflu and IV antibiotics given fever. She is immunosuppressed. Continue acyclovir. 5. She is on hospital service at this time, we will continue to follow closely.
[2018-06-07] MEDS: Insulin LISPRO* 1 UNITS UNIT SUBCUT SCH ×4 (08:40→20:19)
[2018-06-07] MEDS: Dronabinol CAP* 2.5 MG PO SCH ×2 (09:00→17:26)
[2018-06-07] MEDS: Insulin GLARGINE(*) 1 UNITS UNIT SUBCUT SCH ×2 (09:00→20:19)
[2018-06-07] MEDS: Oseltamivir CAP* 75 MG CAP PO SCH ×2 (09:00→20:18)
[2018-06-07] MEDS: Acyclovir* 400 MG TAB PO SCH ×2 (09:01→20:18)
[2018-06-07] MEDS ORDERED: Magnesium Sulf 4 GM/100 ML IV* 4,000 MG/100 ML BAG IVPB ONE (09:30)
[2018-06-07] MEDS: PRESERVISION AREDS PO SCH ×2 (09:48→20:18)
[2018-06-07 10:21] LABS: Phosphorus 3.3 mg/dL (2.5-5.0)
--- NOTE | 2018-06-07 13:51 | PN ---
Subjective Date of Service: 06/07/18 Interval History: Patient is feeling better today. Less SOB with exertion, able to ambulate to without SOB. Patient states CP from last night has improved. Patient denies abdominal pain, diarrhea, dizziness on standing, dysuria, Palpitations, N/V, or other pain. Patient states she voids frequently but occasionally feels as if she needs to void and is unable to do so. Family History: Unchanged from Admission Social History: Unchanged from Admission Past Medical History: Unchanged from Admission Objective Active Medications: Acetaminophen (Tylenol Tab*) 650 mg PO Q6H PRN PRN Reason: FEVER/PAIN Acyclovir (Zovirax Tab*) 400 mg PO BID [facility] Last Admin: 06/07/18 09:01 Dose: 400 mg Dextrose (D50w Syringe 50 Ml*) 12.5 gm IV PUSH .FOR FS < 60 - SS PRN PRN Reason: FS < 60 Dronabinol (Marinol Cap*) 2.5 mg PO BID [facility] Last Admin: 06/07/18 09:00 Dose: 2.5 mg Enoxaparin Sodium (Lovenox(*)) 40 mg SUBCUT Q24H [facility] Last Admin: 06/06/18 19:17 Dose: 40 mg Furosemide (Lasix Iv*) 20 mg IV SLOW PU 1700 [facility] Ceftriaxone Sodium 1 gm/ (Sodium Chloride) 50 mls @ 200 mls/hr IVPB Q24H [facility] Last Admin: 06/06/18 21:34 Dose: 200 mls/hr Insulin Glargine (Lantus(*)) 15 units SUBCUT BID [facility] Last Admin: 06/07/18 09:00 Dose: 15 unit Insulin Human Lispro (Humalog*) 0 units SUBCUT 0730,1130,1630,2100 [facility]; Protocol Last Admin: 06/07/18 12:09 Dose: 2 units Pto: [Preservision (Areds 2 Softgel]) 1 cap PO BID [facility] Last Admin: 06/07/18 09:48 Dose: 1 cap Ondansetron HCl (Zofran Inj*) 4 mg IV Q6H PRN PRN Reason: NAUSEA Oseltamivir Phosphate (Tamiflu Cap*) 75 mg PO BID [facility] Stop: 06/10/18 21:01 Last Admin: 06/07/18 09:00 Dose: 75 mg Spironolactone (Aldactone Tab*) 25 mg PO DAILY BURT Vital Signs - 8 hr 06/07/18 06/07/18 06/07/18 07:25 07:39 09:00 Temperature 97.8 F Pulse Rate 102 Respiratory 16 16 20 Rate Blood Pressure 85/46 (mmHg) O2 Sat by Pulse 97 Oximetry 06/07/18 06/07/18 06/07/18 09:06 10:30 10:58 Temperature 98.0 F Pulse Rate 110 98 Respiratory 22 18 Rate Blood Pressure 103/52 104/46 (mmHg) O2 Sat by Pulse 96 99 Oximetry Oxygen Devices in Use Now: Nasal Cannula Appearance: Patient is a 78yo female who appears stated age and is sitting in the bed in NAD. Eyes: No Scleral Icterus, PERRLA Ears/Nose/Mouth/Throat: NL Teeth, Lips, Gums, Clear Oropharnyx, Mucous Membranes Moist Neck: Trachea Midline, - - Increased JVP. Respiratory: Symmetrical Chest Expansion and Respiratory Effort, Clear to Auscultation Cardiovascular: NL Sounds; No Murmurs; No JVD, No Edema, - - Tachycardia, Grade 3/6 CARMELITA at RUSB Abdominal: NL Sounds; No Tenderness; No Distention, No Hepatosplenomegaly Lymphatic: No Cervical Adenopathy Extremities: No Clubbing, Cyanosis, - - Trace Edema. Skin: No Rash or Ulcers, No Nodules or Sclerosis Neurological: Alert and Oriented x 3, NL Sensation, NL Muscle Strength and Tone , - - CN II-XII intact. - Nutrition: Malnutrition Diagnosis/Plan Malnutrition Assessment by Registered Dietitian: Malnutrition Assessment Clinical Characteristics Chronic,Severe Malnutrition Assessment: - 36# (23%) wt loss x past 5 months Criteria - Severe temporal and clavicle muscle wasting - < 75% estimated energy expenditure > 1 month Malnutrition Assessment: Discussed w/ provider and and pt. Will send Interventions small vanilla milkshake w/ beneprotein daily @ L and D (ok per provider). Will provide 237 kcals and 11 grams of protein per serving. Malnutrition Assessment: Goals 2. Adequate PO intake to promote wt repletion and hydration w/o additional undesired wt loss Result Diagrams: 06/07/18 05:51 06/07/18 05:51 Microbiology and Other Data: Microbiology 06/06/18 14:07 Influenza Types A,B Antigen - Final Nasopharyngeal Specimen received for Influenza A/B Molecular testing Assess/Plan/Problems-Billing Assessment: Patient is a 78yo female with a PMH for AML, HFrEF, - Patient Problems (1) Acute HFrEF (heart failure with reduced ejection fraction) Current Visit: Yes Status: Acute Code(s): I50.21 - ACUTE SYSTOLIC ( CONGESTIVE) HEART FAILURE SNOMED Code(s): 199244341 Comment: - With PALM, Orthopnea, JVD and BNP>1300 - Recent diagnosis of HFrEF EF 35-40% - Repeat Echo due to worsening symptoms despite starting treatment - Issues with Hypotension making chronic treatment difficult. - Will need ischemic workup when available - Appreciate Cardiology input - Continue Lasix 20mg IV daily - Transfusion seemed to help with subjective symptoms - Start Aldactone - Add Metoprolol, Lisinopril as BP will allow. (2) AML (acute myeloblastic leukemia) Current Visit: No Status: Acute Code(s): C92.00 - ACUTE MYELOBLASTIC LEUKEMIA, NOT HAVING ACHIEVED REMISSION SNOMED Code(s): 22050642 Comment: - Appreciate Oncology input - Chemo on hold for flu/UTI? - Low WBC and RBC counts, not neutopenic - Tranfuse below 8.5 hemoglobin (3) Anemia Current Visit: No Status: Acute Code(s): D64.9 - ANEMIA, UNSPECIFIED SNOMED Code(s): 630194188 Comment: - HgB 8.9 after 1u PRBC - Due to Chemo - Transfuse below 8.5 per oncology for relief odf HF symptoms. (4) Abnormal urinalysis Current Visit: Yes Status: Acute Code(s): R82.90 - UNSPECIFIED ABNORMAL FINDINGS IN URINE SNOMED Code(s): 160482346 Comment: - Elevated LE indicates possible UTI - Urinary urgency possible symptoms - Continue Ceftriaxone until culture available. (5) Type 2 diabetes mellitus with hyperglycemia Current Visit: No Status: Acute Code(s): E11.65 - TYPE 2 DIABETES MELLITUS WITH HYPERGLYCEMIA SNOMED Code(s): 859499631658201 Comment: - SSI and Glargine - Metformin held due to recurrent HF exacerbations per cardiology - Consider novel non-insulin therapies for DM outpatient (6) Aortic stenosis Current Visit: No Status: Chronic Code(s): I35.0 - NONRHEUMATIC AORTIC ( VALVE) STENOSIS SNOMED Code(s): 94127507 Comment: - Moderate to severe, update echo - Likely contributing to HF symptoms particularly given anemia. - Not good TAVR candidate at this time. (7) Influenza Current Visit: Yes Status: Acute Code(s): J11.1 - FLU DUE TO UNIDENTIFIED INFLUENZA VIRUS W OTH RESP MANIFEST SNOMED Code(s): 0614716 Comment: - Likely precipitant of HF exacerbation - Continue Tamiflu (8) DVT prophylaxis Current Visit: No Status: Acute Code(s): QLK5442 - SNOMED Code(s): 301938662 Comment: - Lovenox Daily (9) Full code status Current Visit: No Status: Acute Code(s): Z78.9 - OTHER SPECIFIED HEALTH STATUS SNOMED Code(s): 811568618 Comment: Recommend readdressing code status with patient and family Status and Disposition: Inpatient for HF exacerbation and flu.
[2018-06-07] MEDS ORDERED: Furosemide IV* 10 MG/ML 2 ML VIAL (20 MG) IV SLOW PU SCH ×2 (17:00)
[2018-06-07] MEDS: Enoxaparin(*) 40 MG/0.4 ML SYR SUBCUT SCH (17:04)
--- NOTE | 2018-06-07 17:24 | CONS ---
CC: Dr. Sebas Fernando; Dr. Latia Melendez; Hospitalist; Dr. Nathan Langston * CARDIOLOGY CONSULTATION REPORT: DATE OF CONSULT: 06/07/18 REASON FOR CONSULTATION: Congestive heart failure. CHIEF COMPLAINT: Shortness of breath. HISTORY OF PRESENT ILLNESS: Mrs. Ortega is a 78-year-old woman seen by Dr. Fernando about 2 weeks ago with an admission for congestive heart failure and found to have moderate cardiomyopathy and moderate to severe aortic stenosis. The patient was started on diuretics and initially improved at home; however, yesterday, awoke short of breath, Lasix did not help adequately, and in the emergency room, she was found to again be in congestive heart failure, but additionally was found to be influenza positive (she did take the vaccine). The patient also has leukemia with anemia, was given packed red blood cells and diuretics; and, in terms of breathing, is better, although now she is feeling profoundly exhausted, more than yesterday. The patient denies having felt any fevers, chills, sweats. No coughing, no rhinorrhea. She has chronic irritable bowel syndrome, but no recent changes and she was surprised to hear she has a flu. The patient's , daughter, and son were in the room, had many questions about her mild elevation of troponin and TAVR and what was being done. He had questions about her urinary incontinence and coordinating cardiology care with her urinary incontinence. PAST MEDICAL HISTORY: The patient has a past medical history: 1. AML diagnosed October 2017. 2. Aortic stenosis (aortic valve area, 05/25/18, estimated at 1 cm2). 3. Congestive heart failure (PA pressure 64 mmHg, 05/25/18). 4. Cardiomyopathy (ejection fraction 35% to 40%, 05/25/18). 5. Diabetes. 6. Hypertension. 7. Urinary incontinence. 8. Anorexia and malnutrition. 9. Neutropenic fever, culture negative 03/20/18 and December 2017 (December, polymicrobial PICC line infection). 10. Pseudomonas in the urine, December 2017. 11. Osteopenia. 12. Colon inflammation on colonoscopy in 2008. PAST SURGICAL HISTORY: 1. Right hip fracture, status post open reduction and internal fixation. 2. Transabdominal hysterectomy and BSO. 3. Cataract surgery. MEDICATIONS: Inpatient medications include: 1. Tylenol p.r.n. 2. Zovirax 400 mg b.i.d. 3. Ceftriaxone 1 g q. 24 hours. 4. Marinol 2.5 mg b.i.d. 5. Lovenox 40 mg q.24 hours. 6. Lasix 20 mg daily. 7. Lantus glargine insulin 15 units subcutaneous b.i.d. 8. Lantus Humalog insulin coverage. 9. Metformin 500 mg daily. 10. PreserVision. 11. Zofran p.r.n. 12. Tamiflu 75 mg b.i.d. ALLERGIES: Include AMOXICILLIN, CIPRO, CLAVULANIC ACID, LEVOFLOXACIN, and NITROFURANTOIN. FAMILY HISTORY: Mother at 86 of "heart shutdown." Father had a history "heart disease" and diabetes, 62 years old. Sister with asthma. Son with hypercalcemia and primary hyperparathyroid. A daughter with asthma. SOCIAL HISTORY: Never smoked. No history of alcohol use or abuse or recreational drug use. She lives with her and has a supportive son and daughter in the area. REVIEW OF SYSTEMS: See history of present illness. Presented with wakening acutely short of breath. No infectious symptoms until today with feeling profoundly fatigued. Chronic irritable bowel symptoms with no recent changes. Anorexia that her says is now resistant to Marinol and she has lost weight further. PHYSICAL EXAMINATION: On exam, the patient is 5 feet 6 inches, weights 122 pounds with a BMI of 19.7. Blood pressure at 7:30 this morning was 85/46, currently 104/46; pulse is 98 to 100. Currently, temperature 98.0 and T-max 99.1. General Appearance: Petite elderly woman, does appear somewhat cachectic , seated with family, in no acute distress, oxygen on. Appears to have a wig. Psychologically, pleasant and cooperative. Neurologically, awake, alert, and oriented to person, place, and time. Grossly normal sensory and motor function. Gait not checked, but follows commands well and moves normally in the chair. Skin: Warm, dry, age appropriate changes without appreciable cyanosis of the lips or nail beds. HEENT: Mucous membranes moderately moist. Neck: With increased JVP appreciated and external veins prominent. Breath sounds: Crackles in the lower one-thirds of the base bilaterally, upper lung cain are clear. Coronary: S1 and S2 regular, 2/6 late-peaking murmur heard in the right upper sternal border with radiation. Abdomen: Active bowel sounds. Nontender. Lower extremities: Free of edema and warm. DIAGNOSTIC STUDIES/LAB DATA: The patient's echocardiogram from 05/25/17 showed an ejection fraction of 35% to 40%, mild right ventricular hypokinesis, moderate to severe aortic stenosis with valve area 1 cm2, a mean gradient 31 mmHg, dimensionless index, 0.31 VTI, mild to moderate mitral regurgitation, mild to moderate tricuspid regurgitation, severe pulmonary hypertension at 64 mmHg. The 12- lead ECG done on 06/06/18 shows normal sinus rhythm, 99 beats per minute, QRS axis -30, normal AV conduction time, anterior ST elevation, probably J point, poor R- wave progression, and multiple criteria for left ventricular hypertrophy. When this EKG is compared with her prior EKG of , the ST does show different coving concerning for ischemia. Repeat EKG on at 04:49 shows sinus rhythm 97 beats per minute with improved coving in the anterior leads. Labs on admission white count 2.9, hemoglobin 8, platelets 291. Today, white count 3, hemoglobin 8.9, hematocrit 26, platelets 257. INR 1.35. D-dimer 237. ABG; pH 7.47, pCO2 of 39, pO2 of 84, oxygen saturation 98%. Sodium 134, potassium 3.7, chloride 97, bicarb 30, glucose 107. Troponin #1 of 0.11, troponin #2 of 0.04, troponin #3 of 0.03. BNP greater than 1300. Urinalysis: Positive for blood, positive for leukocyte esterase, positive for bacteria, negative for ketones, nitrite negative, and no urine culture available. Serology is positive for influenza A. Lipid panel from 11/17/17 shows total cholesterol 104, LDL cholesterol 36, triglycerides 91, HDL cholesterol 30. Chest x-ray report showed pulmonary interstitial edema and small bilateral pleural effusions. ASSESSMENT AND PLAN: In summary, Sarah Ortega is a 78-year-old woman battling AML. She has moderate to severe aortic stenosis and a new moderate cardiomyopathy and congestive heart failure for which she presented on . She is now presenting with recurrent or worsening congestive heart failure in the setting of influenza A. She is significantly anemic. Regarding the patient's congestive heart failure, I think its multifactorial with contributions from her aortic stenosis, cardiomyopathy, high-output state from anemia and vasodilation and increased work related to influenza. I agree with the hospitalist and we discussed this on the phone and with Oncology with transfusion and with diuretics. Hypotension is going to contribute to how aggressively we can diurese her. I would consider adding a trial of Aldactone 12.5 mg a day instead of potassium repletion, oral Lasix could be gentler than IV. Regarding the patient's elevated troponins, she is at risk for demand ischemia, but she is also with diabetes, a risk for coronary artery disease, and the coving she had on admission is concerning. I do not recommend a stress or cath now in her current state. Options going forward would include a Lexiscan Myoview if she would agree to any intervention or (cath if she is proceeding with TAVR). In the interim, I would treat her as if she has atherosclerotic heart disease medically. We could consider adding Vascepa for her high triglycerides and low HDL that I do not see that a statin is indicated acutely. If her blood pressure improves, I would recommend continuation of her outpatient beta-fredi for her cardiomyopathy and probable underlying atherosclerotic disease. For the patient's aortic valve, her as above had asked extensive questions about this. The patient herself thinks it is much too invasive both surgical replacement and percutaneous replacement. Again, her , however , is interested. I explained to the , patient, and family that this would not be something that would be done acutely in the setting of acute congestive heart failure and influenza. If that additional information could be obtained by meeting with an account information clerk and I explained that extensive testing would precede the TAVR and that the evaluation including specialized CAT scans, at some point a transesophageal echo, and a heart catheterization. This will all be necessitated as an outpatient basis. For the patient's diabetes and congestive heart failure, I would recommend stopping the metformin. I would consider replacing this with an SGLT2 inhibitor which has been shown to have benefits in patients with congestive heart failure. Metformin itself can contribute to congestive heart failure and worsen it. For the patient's anemia, I will differ to Hematology for decisions for future transfusions, but I would not object to another unit infuse slowly with diuretic chasers. Cardiology will follow with her. She is at high risk for future decompensated congestive heart failure, and I did explain to the patient and family that there would likely be daily adjustments in her medications during the acute phase of her illness. [id number]/[facility] #: [id number] SUKHDEV
[2018-06-07] MEDS: cefTRIAXone(*) 1 GM in NS 0.9% 50 ML* 50 ML IVPB SCH (20:18)
[2018-06-08 06:05] LABS: ABS Basophils 0 10^3/ul (0-0.2); ABS Eosinophils 0 10^3/ul (0-0.6); ABS Lymphocytes 0.5 10^3/ul (1.0-4.8); ABS Monocytes 0.1 10^3/ul (0-0.8); ABS Neutrophils 1.4 10^3/ul (1.5-7.7); ABS Nucleated RBC 0 10^3/ul; Eosinophil % 1.6 %; Hematocrit 25 % (35-47); Hemoglobin 8.6 g/dl (12.0-16.0); Lymphocyte % 24.2 %; Mean Corpuscular HGB Conc 34 g/dl (31-36); Mean Corpuscular Hemoglobin 32 pg (27-31); Mean Corpuscular Volume 94 fL (80-97); Mean Platelet Volume 8.6 fL (7.4-10.4); Nucleated Red Blood Cells % 0.1; Platelet Count 218 10^3/ul (150-450); Red Blood Count 2.65 10^6/ul (4.00-5.40); Red Cell Distribution Width 19 % (10.5-15)
[2018-06-08 06:30] LABS: BUN/Creatinine Ratio 22.4 (8-20); Calcium 9.1 mg/dL (8.6-10.3); EGFR African American 148.2 (>60); EGFR Non-African American 122.5 (>60); Potassium 3.4 mmol/L (3.5-5.0)
[2018-06-08] MEDS: Insulin LISPRO* 1 UNITS UNIT SUBCUT SCH ×4 (08:38→21:00)
[2018-06-08] MEDS ORDERED: Spironolactone TAB* 25 MG PO SCH (09:00)
[2018-06-08] MEDS: Potassium Chloride LIQUID* 20 MEQ PACKET PO ONE ×2 (09:46→10:01)
[2018-06-08] MEDS: PRESERVISION AREDS PO SCH ×2 (09:46→20:59)
[2018-06-08] MEDS: Dronabinol CAP* 2.5 MG PO SCH ×2 (09:47→17:05)
[2018-06-08] MEDS: Acyclovir* 400 MG TAB PO SCH ×2 (09:47→20:59)
[2018-06-08] MEDS: Oseltamivir CAP* 75 MG CAP PO SCH ×2 (09:48→20:59)
[2018-06-08] MEDS: Spironolactone TAB* 25 MG PO SCH (09:49)
[2018-06-08] MEDS: Insulin GLARGINE(*) 1 UNITS UNIT SUBCUT SCH ×2 (09:50→21:00)
--- NOTE | 2018-06-08 10:56 | PN ---
Progress Note - Progress Note Date of Service: 06/08/18 SOAP: Subjective: [] Feeling a little better today. No longer feels like was hit by a truck. She is up and walking with a walker. Eating better. Still very short of breath. Talked to patient but not today. Acetaminophen (Tylenol Tab*) 650 mg PO Q6H PRN PRN Reason: FEVER/PAIN Acyclovir (Zovirax Tab*) 400 mg PO BID [facility] Last Admin: 06/08/18 09:47 Dose: 400 mg Dextrose (D50w Syringe 50 Ml*) 12.5 gm IV PUSH .FOR FS < 60 - SS PRN PRN Reason: FS < 60 Dronabinol (Marinol Cap*) 2.5 mg PO BID [facility] Last Admin: 06/08/18 09:47 Dose: 2.5 mg Enoxaparin Sodium (Lovenox(*)) 40 mg SUBCUT Q24H [facility] Last Admin: 06/07/18 17:04 Dose: 40 mg Furosemide (Lasix Tab*) 40 mg PO 1200 [facility] Ceftriaxone Sodium 1 gm/ (Sodium Chloride) 50 mls @ 200 mls/hr IVPB Q24H [facility] Last Admin: 06/07/18 20:18 Dose: 200 mls/hr Insulin Glargine (Lantus(*)) 15 units SUBCUT BID [facility] Last Admin: 06/08/18 09:50 Dose: 15 unit Insulin Human Lispro (Humalog*) 0 units SUBCUT 0730,1130,1630,2100 [facility]; Protocol Last Admin: 06/08/18 08:38 Dose: Not Given Pto: [Preservision (Areds 2 Softgel]) 1 cap PO BID [facility] Last Admin: 06/08/18 09:46 Dose: 1 cap Ondansetron HCl (Zofran Inj*) 4 mg IV Q6H PRN PRN Reason: NAUSEA Oseltamivir Phosphate (Tamiflu Cap*) 75 mg PO BID [facility] Stop: 06/10/18 21:01 Last Admin: 06/08/18 09:48 Dose: 75 mg Spironolactone (Aldactone Tab*) 12.5 mg PO DAILY [facility] Last Admin: 06/08/18 09:49 Dose: 12.5 mg Objective: [] Vital Signs Temp Pulse Resp BP Pulse Ox 97.2 F 92 20 98/49 100 02/25/19 08:55 06/08/18 08:55 06/08/18 09:47 06/08/18 08:55 06/08/18 08:55 Comfortable, sitting in chair HEENT: Conjunctiva pale, oral mucosa moist and no lesions. No thrush. Lungs: Breathing is relaxed, I don't hear crackles this morning, no wheezes. Heart: She has a 2/6 systolic ejection murmur, rate 70s. Abdomen: No hepatosplenomegaly good bowel sounds and nontender extremity: Trace lower extremity edema, warm Assessment: [] 78-year-old female with AML in remission on azacitidine and venetoclax with course complicated by CHF and aortic stenosis. Now presents with acute CHF exacerbation and influenza. Plan: [] 1. Appreciate management of hospitalist and cardioloty for aortic stenosis and CHF. S - Low-dose Aldactone. Discussion regarding heart valve outside of acute setting. 2. AML. Will hold all therapy until next week and reevaluate. Will have follow-up with Dr. Melendez 3. Anemia. Reducibility to compensate for anemia with cardiac output. - Recommend 1 unit of packed red blood cells today 4. ID. Agree with Tamiflu and IV antibiotics given fever. She is immunosuppressed. Continue acyclovir. 5. She is on hospital service at this time, we will continue to follow closely.
[2018-06-08] MEDS: Furosemide TAB* 40 MG PO SCH (13:45)
--- NOTE | 2018-06-08 14:12 | ECHO ---
Patient: ANGEL QUEVEDO Rec#: [id number] : 1940 Date: 06/08/2018 Age: 78y Height: 167.64 cm / 66.0 in Weight: 57.15 kg / 126.0 lbs Sex: F BSA: 1.64 Room#: 440 Admit Date#: 06/06/2018 Type: Inpatient Referring: Louis Barajas Reading: Aguilar Ware DO Mixer Driver: Mag Cuadra RDCS Mixer Driver: USR CC: Nathan Langston MD CC: Al BOYD,Latia Mejia Transthoracic Echocardiogram Indication: CHF BP: 112/60 HR: 98 Rhythm: NSR Findings History: AML,chemo continues,HTN,DM,. Technical Comments: The study quality is good. Completed at 1300. Left Ventricle: The left ventricular chamber size is normal. There is global hypokinesis of the left ventricle with minor regional variation. There is severely decreased left ventricular systolic function. The estimated ejection fraction is 20-25%. Abnormal left ventricular diastolic function is observed. Left Atrium: The left atrium is moderately dilated. Right Ventricle: The right ventricle is slightly dilated. The right ventricular global systolic function is moderately reduced. Right Atrium: The right atrial cavity size is normal. Aortic Valve: Severe aortic leaflet calcification is visualized. Systolic excursion of the aortic valve cusps is reduced. There is severe aortic stenosis. The mean gradient of the aortic valve is 24.38 mmHg. Dimensionless index 0.23 The aortic valve area, by VTI's, is calculated at 0.71 cm2. The highest aortic valve velocity was obtained with the standard probe from the A5C view. Mitral Valve: Moderate mitral annular calcification present. The mitral valve leaflets are mildly thickened. There is mild to moderate mitral regurgitation. There is no evidence of mitral stenosis. Tricuspid Valve: The tricuspid valve leaflets are normal. There is mild tricuspid regurgitation. There is evidence of mild to moderate pulmonary hypertension. There is no tricuspid stenosis. Pulmonic Valve: The pulmonic valve appears normal. There is no evidence of pulmonic regurgitation. There is no pulmonic stenosis. Pericardium: There is no significant pericardial effusion. Aorta: There is no dilatation of the ascending aorta. There is no dilatation of the aortic arch. There is no dilation of the aortic root. Pulmonary Artery: The main pulmonary artery appears normal. Venous: The inferior vena cava appears normal in size. There is an approximate 50% respiratory change in the inferior vena cava dimension. Conclusions The left ventricular chamber size is normal. There is global hypokinesis of the left ventricle with minor regional variation. There is severely decreased left ventricular systolic function. The estimated ejection fraction is 20-25%. The left atrium is moderately dilated. The right ventricle is slightly dilated. The right ventricular global systolic function is moderately reduced. Mild to moderate mitral regurgitation noted Severe low gradient Compared to prior study from 05/26/2018, the LVEF (previously 35%), and mean gradient (31 mmHg) are both lower Measurements Name Value Normal Range RVIDd (AP) 2D 3.7 cm (0.9 - 2.6) RVDdMajor (2D) 3.4 cm (2.2 - 4.4) RAd ISD 4CH 4.8 cm (3.4 - 4.9) RA (A4C)W 4.5 cm (2.9 - 4.6) IVSd (2D) 0.6 cm (0.6 - 1) LVPWd (2D) 0.9 cm (0.6 - 1) LVIDd (2D) 4.5 cm (3.6 - 5.4) LVIDs (2D) 4 cm - LV FS (2D) 11 % (25 - 45) Aortic Annulus 2 cm (1.4 - 2.6) Ao root diameter (2D) 2.9 cm (2.1 - 3.5) Ascending Ao 2.6 cm (2.1 - 3.4) Aortic arch 3.3 cm (1.8 - 3.4) Descending Ao 0.4 cm - LA dimension (AP) 2D 4.7 cm (2.3 - 3.8) LAd ISD 4CH 6 cm (2.9 - 5.3) LA ISD 4CH W 4.6 cm (2.5 - 4.5) Name Value Normal Range LA ESV SP 4CH (A/L) 77 ml - LA ESV SP 2CH (A/L) 78 ml - Name Value Normal Range MV E-wave Vmax 1.8 m/sec - MV deceleration time 223 msec - LV septal e' Vmax 0.04 m/sec - LV lateral e' Vmax 0.06 m/sec - LV E:e' septal ratio 45 ratio - LV E:e' lateral ratio 30 ratio - Name Value Normal Range AV Vmax 3.5 m/sec - AV VTI 66 cm - AV peak gradient 49 mmHg - AV mean gradient 24.38 mmHg - LVOT diameter 2 cm - LVOT Vmax 0.7 m/sec - LVOT VTI 14.9 cm - LVOT peak gradient 2 mmHg - LVOT mean gradient 0.8 mmHg - DOI (VTI) 0.23 ratio - YUNG (continuity VTI) 0.71 cm2 - Name Value Normal Range MV Vmax 1.9 m/sec - MV VTI 33.57 cm - MV peak gradient 14.44 mmHg - MV mean gradient 3.4 mmHg - MV PHT 61 msec - MR Vmax 4.6 m/sec - MR VTI 124.8 cm - MVA (PHT) 3.61 cm2 - MVA (continuity VTI) 1.26 cm2 - Name Value Normal Range TR Vmax 2.9 m/sec - TR peak gradient 34 mmHg - RAP 8 mmHg - RVSP 42 mmHg - IVC diameter 2 cm - Name Value Normal Range PV Vmax 0.6 m/sec - PV peak gradient 1.44 mmHg -
--- NOTE | 2018-06-08 15:11 | PN ---
Subjective Date of Service: 06/08/18 Interval History: Patient is feeling somewhat better today. Patient denies CP, F/C, N/V, abdominal pain, diarrhea. Patient is still having frequent urination but states the feeling of being unable to go has diminished. Patient still gets SOB with exertion. Family History: Unchanged from Admission Social History: Unchanged from Admission Past Medical History: Unchanged from Admission Objective Active Medications: Acetaminophen (Tylenol Tab*) 650 mg PO Q6H PRN PRN Reason: FEVER/PAIN Acyclovir (Zovirax Tab*) 400 mg PO BID [facility] Last Admin: 06/08/18 09:47 Dose: 400 mg Dextrose (D50w Syringe 50 Ml*) 12.5 gm IV PUSH .FOR FS < 60 - SS PRN PRN Reason: FS < 60 Dronabinol (Marinol Cap*) 2.5 mg PO BID AC [facility] Last Admin: 06/08/18 09:47 Dose: 2.5 mg Enoxaparin Sodium (Lovenox(*)) 40 mg SUBCUT Q24H [facility] Last Admin: 06/07/18 17:04 Dose: 40 mg Furosemide (Lasix Tab*) 40 mg PO 1200 [facility] Last Admin: 06/08/18 13:45 Dose: Not Given Ceftriaxone Sodium 1 gm/ (Sodium Chloride) 50 mls @ 200 mls/hr IVPB Q24H [facility] Last Admin: 06/07/18 20:18 Dose: 200 mls/hr Insulin Glargine (Lantus(*)) 15 units SUBCUT BID [facility] Last Admin: 06/08/18 09:50 Dose: 15 unit Insulin Human Lispro (Humalog*) 0 units SUBCUT 0730,1130,1630,2100 [facility]; Protocol Last Admin: 06/08/18 12:35 Dose: 3 units Pto: [Preservision (Areds 2 Softgel]) 1 cap PO BID [facility] Last Admin: 06/08/18 09:46 Dose: 1 cap Ondansetron HCl (Zofran Inj*) 4 mg IV Q6H PRN PRN Reason: NAUSEA Oseltamivir Phosphate (Tamiflu Cap*) 75 mg PO BID [facility] Stop: 06/10/18 21:01 Last Admin: 06/08/18 09:48 Dose: 75 mg Spironolactone (Aldactone Tab*) 12.5 mg PO DAILY [facility] Last Admin: 06/08/18 09:49 Dose: 12.5 mg Vital Signs - 8 hr 06/08/18 06/08/18 06/08/18 08:00 08:55 09:47 Temperature 97.2 F Pulse Rate 92 Respiratory 20 18 20 Rate Blood Pressure 98/49 (mmHg) O2 Sat by Pulse 100 Oximetry 06/08/18 11:38 Temperature 98.9 F Pulse Rate 104 Respiratory 20 Rate Blood Pressure 105/58 (mmHg) O2 Sat by Pulse 100 Oximetry Oxygen Devices in Use Now: Nasal Cannula Appearance: Patient is a 78yo female who appears stated age and is sitting in the bed in NAD. Eyes: No Scleral Icterus, PERRLA Ears/Nose/Mouth/Throat: NL Teeth, Lips, Gums, Clear Oropharnyx, Mucous Membranes Moist Neck: NL Appearance and Movements; NL JVP, Trachea Midline Respiratory: Symmetrical Chest Expansion and Respiratory Effort, Clear to Auscultation, - - Diminished Cardiovascular: NL Sounds; No Murmurs; No JVD, RRR, No Edema Abdominal: NL Sounds; No Tenderness; No Distention, No Hepatosplenomegaly Lymphatic: No Cervical Adenopathy Extremities: No Edema, No Clubbing, Cyanosis Skin: No Rash or Ulcers, No Nodules or Sclerosis Neurological: Alert and Oriented x 3, NL Sensation, NL Muscle Strength and Tone , - - CN II-XII - Nutrition: Malnutrition Diagnosis/Plan Malnutrition Assessment by Registered Dietitian: Malnutrition Assessment Clinical Characteristics Chronic,Severe Malnutrition Assessment: - 36# (23%) wt loss x past 5 months Criteria - Severe temporal and clavicle muscle wasting - < 75% estimated energy expenditure > 1 month Malnutrition Assessment: Discussed w/ provider and and pt. Will send Interventions small vanilla milkshake w/ beneprotein daily @ L and D (ok per provider). Will provide 237 kcals and 11 grams of protein per serving. Malnutrition Assessment: Goals 2. Adequate PO intake to promote wt repletion and hydration w/o additional undesired wt loss Result Diagrams: 06/08/18 05:33 06/08/18 05:33 Microbiology and Other Data: Microbiology 06/06/18 14:07 Influenza Types A,B Antigen - Final Nasopharyngeal Specimen received for Influenza A/B Molecular testing Assess/Plan/Problems-Billing Assessment: Patient is a 78yo female with a PMH for AML, HFrEF, - Patient Problems (1) Acute HFrEF (heart failure with reduced ejection fraction) Current Visit: Yes Status: Acute Code(s): I50.21 - ACUTE SYSTOLIC ( CONGESTIVE) HEART FAILURE SNOMED Code(s): 867727581 Comment: - With PALM, Orthopnea, BNP>1300 - JVD on admission improved - Recent diagnosis of HFrEF EF 35-40% - Repeat Echo due to worsening symptoms despite starting treatment and possible cardiotoxic medications - Issues with Hypotension making chronic treatment difficult, improving with Flu treatment and transfusion. - Will need ischemic workup when available - Appreciate Cardiology input - Change to 40mg PO lasix with spirnolactone - Transfuse again today - Start Aldactone - Add Metoprolol, Lisinopril as BP will allow, likely outpatient. - TAVR consultation when stable. (2) AML (acute myeloblastic leukemia) Current Visit: No Status: Acute Code(s): C92.00 - ACUTE MYELOBLASTIC LEUKEMIA, NOT HAVING ACHIEVED REMISSION SNOMED Code(s): 82608328 Comment: - Appreciate Oncology input - Chemo on hold for flu/UTI? - Low WBC and RBC counts, not neutopenic - Tranfuse today per oncology (3) Anemia Current Visit: No Status: Acute Code(s): D64.9 - ANEMIA, UNSPECIFIED SNOMED Code(s): 051658265 Comment: - HgB 8.6 after 1u PRBC - Due to Chemo - Transfuse again today 1u PRBC (4) Abnormal urinalysis Current Visit: Yes Status: Acute Code(s): R82.90 - UNSPECIFIED ABNORMAL FINDINGS IN URINE SNOMED Code(s): 031621520 Comment: - Elevated LE indicates possible UTI - Urinary urgency possible symptoms - Culture contaminated, treat for full course due to symptoms and immunocompromised state. (5) Type 2 diabetes mellitus with hyperglycemia Current Visit: No Status: Acute Code(s): E11.65 - TYPE 2 DIABETES MELLITUS WITH HYPERGLYCEMIA SNOMED Code(s): 416517003880457 Comment: - SSI and Glargine - Metformin held due to recurrent HF exacerbations per cardiology - Consider novel non-insulin therapies for DM outpatient (6) Aortic stenosis Current Visit: No Status: Chronic Code(s): I35.0 - NONRHEUMATIC AORTIC ( VALVE) STENOSIS SNOMED Code(s): 11583046 Comment: - Moderate to severe, update echo - Likely contributing to HF symptoms particularly given anemia. - Not good TAVR candidate at this time. (7) Influenza Current Visit: Yes Status: Acute Code(s): J11.1 - FLU DUE TO UNIDENTIFIED INFLUENZA VIRUS W OTH RESP MANIFEST SNOMED Code(s): 4219614 Comment: - Likely precipitant of HF exacerbation - Continue Tamiflu (8) Protein calorie malnutrition Current Visit: Yes Status: Acute Code(s): E46 - UNSPECIFIED PROTEIN-CALORIE MALNUTRITION SNOMED Code(s): 057828179 Comment: - Severe, with signifiacant with 36 pound weight loss in 5 months and temporal muscle wasting - Subjective improvement in appetite today. - Appreciate dietitian input, supplement calories. (9) DVT prophylaxis Current Visit: No Status: Acute Code(s): DKQ9068 - SNOMED Code(s): 571222417 Comment: - Lovenox Daily (10) Full code status Current Visit: No Status: Acute Code(s): Z78.9 - OTHER SPECIFIED HEALTH STATUS SNOMED Code(s): 933049033 Comment: -Patient is adamant about this. Status and Disposition: Inpatient for HF exacerbation and flu. Clinical course to determine discharge.
--- NOTE | 2018-06-08 16:07 | PN ---
Subjective Date of Service: 06/08/18 Interval History: f/u systolic HF, mild orthostatic symptoms earlier today no longer dyspneic at rest Medications Active Medications: Acetaminophen (Tylenol Tab*) 650 mg PO Q6H PRN PRN Reason: FEVER/PAIN Acyclovir (Zovirax Tab*) 400 mg PO BID [facility] Last Admin: 06/08/18 09:47 Dose: 400 mg Dextrose (D50w Syringe 50 Ml*) 12.5 gm IV PUSH .FOR FS < 60 - SS PRN PRN Reason: FS < 60 Dronabinol (Marinol Cap*) 2.5 mg PO BID AC [facility] Last Admin: 06/08/18 09:47 Dose: 2.5 mg Enoxaparin Sodium (Lovenox(*)) 40 mg SUBCUT Q24H [facility] Last Admin: 06/07/18 17:04 Dose: 40 mg Furosemide (Lasix Tab*) 40 mg PO 1200 [facility] Ceftriaxone Sodium 1 gm/ (Sodium Chloride) 50 mls @ 200 mls/hr IVPB Q24H [facility] Last Admin: 06/07/18 20:18 Dose: 200 mls/hr Insulin Glargine (Lantus(*)) 15 units SUBCUT BID [facility] Last Admin: 06/08/18 09:50 Dose: 15 unit Insulin Human Lispro (Humalog*) 0 units SUBCUT 0730,1130,1630,2100 [facility]; Protocol Last Admin: 06/08/18 12:35 Dose: 3 units Pto: [Preservision (Areds 2 Softgel]) 1 cap PO BID [facility] Last Admin: 06/08/18 09:46 Dose: 1 cap Ondansetron HCl (Zofran Inj*) 4 mg IV Q6H PRN PRN Reason: NAUSEA Oseltamivir Phosphate (Tamiflu Cap*) 75 mg PO BID [facility] Stop: 06/10/18 21:01 Last Admin: 06/08/18 09:48 Dose: 75 mg Spironolactone (Aldactone Tab*) 12.5 mg PO DAILY [facility] Last Admin: 06/08/18 09:49 Dose: 12.5 mg Objective Vital Signs: Temp Pulse Resp BP Pulse Ox 98.9 F 104 20 105/58 100 06/08/18 11:38 06/08/18 11:38 06/08/18 11:38 06/08/18 11:38 06/08/18 11:38 Oxygen Devices in Use Now: Nasal Cannula Appearance: frail, elderly Neck: Trachea Midline, - - mlid jvd Respiratory: Symmetrical Chest Expansion and Respiratory Effort, - - decreased bs right base Cardiovascular: - - rrr, high pithced 3/6 systolic murmur, singular s2 Extremities: No Edema Skin: No Rash or Ulcers Neurological: Alert and Oriented x 3 Laboratory Results: 06/08/18 05:33 06/08/18 05:33 INR (Anticoag Therapy) 1.35 (0.77-1.02) H 06/06/18 14:11 APTT 26.7 seconds (26.0-36.3) 06/06/18 14:11 Total Bilirubin 0.70 mg/dL (0.2-1.0) 06/06/18 14:11 AST 8 U/L (13-39) L 06/06/18 14:11 ALT 3 U/L (7-52) L 06/06/18 14:11 Alkaline Phosphatase 62 U/L (34-104) 06/06/18 14:11 B-Natriuretic Peptide > 1300 pg/mL (<=100) H 06/06/18 14:11 Total Protein 6.9 g/dL (6.4-8.9) 06/06/18 14:11 Albumin 3.6 g/dL (3.2-5.2) 06/06/18 14:11 Globulin 3.3 g/dL (2-4) 06/06/18 14:11 Albumin/Globulin Ratio 1.1 (1-3) 06/06/18 14:11 06/06/18 06/06/18 06/06/18 14:11 16:49 19:41 Troponin I 0.11 H* 0.04 H* 0.03 06/06/18 23:09 Troponin I 0.03 Assessment/Plan I think patients admission was entirely cardiac related. She swabbed + for flu without any associated symptoms. She has had progressive LVEF deterioration over the past 5 months to 20-25% currently with low gradient severe . I am unsure how much the LVEF deterioration has to do with CAD (less likely but possible), chemotherapy (I discussed in person with Dr. Melendez and her agents aren't well known to cause this) or . In addition to medication management ( low dose toprol added today), I recommended a diagnostic cardiac catheterization with plans for TAVR. Patient is undecided at this point. Would recheck a CXR at some point.
[2018-06-08] MEDS: Enoxaparin(*) 40 MG/0.4 ML SYR SUBCUT SCH (17:12)
[2018-06-08] MEDS ORDERED: Furosemide TAB* 40 MG PO ONE (19:28)
[2018-06-08] MEDS ORDERED: Furosemide TAB* 40 MG ONE (19:37)
[2018-06-08] MEDS: cefTRIAXone(*) 1 GM in NS 0.9% 50 ML* 50 ML IVPB SCH (23:16)
[2018-06-09 06:59] LABS: ABS Basophils 0 10^3/ul (0-0.2); ABS Eosinophils 0 10^3/ul (0-0.6); ABS Lymphocytes 0.5 10^3/ul (1.0-4.8); ABS Monocytes 0.1 10^3/ul (0-0.8); ABS Neutrophils 1.7 10^3/ul (1.5-7.7); ABS Nucleated RBC 0 10^3/ul; Eosinophil % 1.3 %; Hematocrit 30 % (35-47); Lymphocyte % 20.9 %; Mean Corpuscular HGB Conc 33 g/dl (31-36); Mean Corpuscular Hemoglobin 31 pg (27-31); Mean Corpuscular Volume 93 fL (80-97); Mean Platelet Volume 8.4 fL (7.4-10.4); Nucleated Red Blood Cells % 0; Platelet Count 220 10^3/ul (150-450); Red Blood Count 3.25 10^6/ul (4.00-5.40); Red Cell Distribution Width 19 % (10.5-15); White Blood Count 2.3 10^3/ul (3.5-10.8)
[2018-06-09 07:28] LABS: BUN/Creatinine Ratio 22.9 (8-20); Calcium 9.2 mg/dL (8.6-10.3); EGFR African American 151.7 (>60); EGFR Non-African American 125.4 (>60); Potassium 3.6 mmol/L (3.5-5.0)
[2018-06-09] MEDS: Insulin LISPRO* 1 UNITS UNIT SUBCUT SCH ×2 (08:21→12:11)
[2018-06-09] MEDS: Spironolactone TAB* 25 MG PO SCH (08:25)
[2018-06-09] MEDS: Oseltamivir CAP* 75 MG CAP PO SCH (08:26)
[2018-06-09] MEDS: Acyclovir* 400 MG TAB PO SCH (08:26)
[2018-06-09] MEDS: Dronabinol CAP* 2.5 MG PO SCH (08:27)
[2018-06-09] MEDS ORDERED: Metoprolol Succinate XL TAB* 25 MG PO SCH (09:00)
[2018-06-09 11:49] VITALS: BP 99/59
[2018-06-09] MEDS: PRESERVISION AREDS PO SCH (12:09)
[2018-06-09] MEDS: Insulin GLARGINE(*) 1 UNITS UNIT SUBCUT SCH (12:13)
[2018-06-09] MEDS: Furosemide TAB* 40 MG PO SCH (12:38)
--- NOTE | 2018-06-09 20:21 | DS ---
CC: Dr. Nathan Langston; Dr. Latia Melendez; Dr. Fernando * DISCHARGE SUMMARY: DATE OF ADMISSION: 06/06/18 DATE OF DISCHARGE: 06/09/18 PRIMARY CARE PROVIDER: Dr. Nathan Langston. PRIMARY ONCOLOGIST: Dr. Latia Melendez. CONSULTING CARDIOLOGISTS: Dr. Fanny Child and Dr. Aguilar Ware. PRIMARY SCREENING UNIT REGISTERED NURSE: Dr. Sebas Fernando. ATTENDING PHYSICIAN: Dr. Mj Shirley.* (dictated by ARVIND Bhat) DISCHARGING PROVIDER: ARVIND Bhat PRIMARY DISCHARGE DIAGNOSES: 1. Acute exacerbation of systolic heart failure with severe aortic stenosis. 2. Influenza B. 3. Acute myeloid leukemia with pancytopenia. 4. Insulin-dependent diabetes. 5. Protein-calorie malnutrition. DISCHARGE MEDICATIONS: 1. Acyclovir 400 mg p.o. twice daily. 2. Marinol 2.5 mg p.o. twice daily with meals. 3. Insulin glargine 15 units subcu daily. 4. Insulin lispro 2 to 10 units subcu on a sliding scale at mealtime. 5. Metformin 500 mg p.o. daily. 6. Zofran 4 mg p.o. q.8 hours as needed for nausea and vomiting. 7. VESIcare 5 mg p.o. daily. 8. Multivitamin 1 capsule p.o. daily. 9. Lasix 20 mg p.o. daily. 10. Metoprolol 12.5 mg p.o. daily. 11. Tamiflu 75 mg p.o. twice daily for 2 additional days. 12. Spironolactone 12.5 mg p.o. daily. Medication changes: 1. Start metoprolol succinate. 2. Start spironolactone. 3. Tamiflu x2 days. HOSPITAL IMAGIN. Chest x-ray shows pulmonary interstitial edema with small bilateral pleural effusions. 2. Transthoracic echocardiogram demonstrates global hypokinesis of the left ventricle with severely decreased left ventricular systolic function with an estimated EF of 20% to 25%, which has decreased from the previously measured 35 % on 05/26/18. HOSPITAL COURSE: This is a 78-year-old female with AML, under the care of Dr. Melendez, who unfortunately has had multiple hospitalizations for infectious complications related to her AML, but was most recently admitted about 2 weeks ago with new heart failure exacerbation. Echocardiogram at that time demonstrated an EF of 35%, which had been a drop from a normal EF in December with moderate-to- severe aortic stenosis, which was slightly worse when compared to prior echocardiogram. She was diuresed during that hospitalization and had followed up as an outpatient in the oncology clinic and was feeling relatively well in regards to her respiratory symptoms, but reported difficulty tolerating 40 mg of oral Lasix and was feeling dizzy and lightheaded on lisinopril. Her Lasix was decreased and her lisinopril discontinued at that time. The patient subsequently presented to the emergency department with complaints of increased shortness of breath and orthopnea. Chest x-ray at that time demonstrated bilateral pleural effusions and evidence of pulmonary edema. She had been afebrile at home and denied cough. She was mildly tachycardic and heart rates in the low 100s. She had a total white blood cell count of 2900 with a neutrophil count of 2400, hemoglobin of 8.0, and a platelet count of 291, 000 at the time of admission. Her comprehensive metabolic panel was unremarkable. Her initial troponin was elevated, however, at 0.11 and her BNP was greater than 1300. Influenza testing was completed, which was positive for influenza B. The patient was empirically treated with IV antibiotics and Tamiflu as well as diuresed with some improvement in her respiratory symptoms. She remained afebrile and denied a cough and did not complain of any acute infectious symptoms otherwise. An echocardiogram was repeated during this hospitalization, which demonstrated a further drop in her EF when compared to an echo from just 2 weeks ago. She was seen by both Dr. Child and Dr. Ware during this hospitalization. Dr. Ware recommended moving forward with evaluation for transaortic valve replacement procedure, which would require an ischemic workup via cardiac catheterization prior to the TAVR procedure. The patient was hesitant to move forward with any interventions and instead would like to keep her appointment with Dr. Fernando, which is scheduled for next week as an outpatient and discuss the matter further with her family. She was transfused 2 units of packed red blood cells during this hospitalization, which resulted in a hemoglobin of 10 at the time of discharge and she reported that her dyspnea had improved and all of her symptoms were back to baseline. The discussion as to whether an aortic valve replacement would be appropriate was initiated during her most recent hospitalization and the plan at that time had been to hold off on any intervention as it was not clear that her symptoms were truly cardiac related as she has had multiple complications with her AML therapy. Given her rehospitalization within just a couple of weeks and further dramatic drop in her ejection fraction, it seems to be more clear that a significant proportion of her symptoms are related to her aortic stenosis and subsequent worsening heart failure. DISPOSITION AND FOLLOWUP PLAN: The patient is to be discharged to home. Her chemotherapy was held mid cycle and she will see Dr. Melendez later this week to reevaluate symptoms and determine appropriate timing to resume her azacitidine and venetoclax. She was given significant information regarding aortic stenosis, heart failure, and transaortic valve replacement procedure during this hospitalization and plans to follow up with Dr. Fernando next week with an appointment on 06/19/18, at which point she can discuss this further and make a decision as to whether she would like to be seen by the valve replacement specialist in [place]. The patient's diuretics were altered slightly during this hospitalization and her fluid balance will be closely followed, although this is difficult to maintain. ARVIND BHAT [id number]/[facility] #: [id number] SUKH[place]
== END 2018-06-09 13:12 | disposition home health service (06) | DRG 291 ==
LOC: ED 13:28 → MEDTELE 15:48
PROVIDERS: ADMIT Internal Medicine; ATTEND Internal Medicine Hematology & Oncology
PROC: 30233N1 Transfusion of Nonautologous Red Blood Cells into Peripheral Vein, Percutaneous Approach (ICD-10-PCS; principal; 2018-06-06)
DX: I11.0 Hypertensive heart disease with heart failure (principal); I50.21 Acute systolic (congestive) heart failure; E43 Unspecified severe protein-calorie malnutrition; C92.00 Acute myeloblastic leukemia, not having achieved remission; D84.9 Immunodeficiency, unspecified; D61.818 Other pancytopenia; I24.8 Other forms of acute ischemic heart disease; Z68.1 Body mass index [BMI] 19.9 or less, adult; N39.0 Urinary tract infection, site not specified; I95.89 Other hypotension; E11.65 Type 2 diabetes mellitus with hyperglycemia; I27.20 Pulmonary hypertension, unspecified; I08.3 Combined rheumatic disorders of mitral, aortic and tricuspid valves; J10.1 Influenza due to other identified influenza virus with other respiratory manifestations; I42.9 Cardiomyopathy, unspecified; I25.10 Atherosclerotic heart disease of native coronary artery without angina pectoris; K58.9 Irritable bowel syndrome, unspecified; M85.80 Other specified disorders of bone density and structure, unspecified site; Z79.84 Long term (current) use of oral hypoglycemic drugs; Z79.4 Long term (current) use of insulin; Z79.899 Other long term (current) drug therapy; Z88.1 Allergy status to other antibiotic agents; Z88.8 Allergy status to other drugs, medicaments and biological substances; Z82.49 Family history of ischemic heart disease and other diseases of the circulatory system; Z83.3 Family history of diabetes mellitus; Z82.5 Family history of asthma and other chronic lower respiratory diseases; Z83.49 Family history of other endocrine, nutritional and metabolic diseases
CPT/HCPCS: 36415; 71045; 80048; 80053; 81003; 81015; 82803; 83605; 83735; 83880; 84100; 84484; 85025; 85379; 85610; 85730; 86850; 86900; 86901; 86922; 87086; 93005; 93306; 99232; 99233; 99239; 99284; A9270-GY; G8978-GP-CI; G8979-GP-CI; G8980-GP-CI; J0696; J1650; J1940; J3475; P9040

== ENCOUNTER 2020-04-02 22:44 | Inpatient (IN) ==
[2020-04-02] MEDS ORDERED: Ondansetron 4 mg VIAL 2 MG/ML 2 ml VIAL IV ONE (23:36)
[2020-04-03 00:34] LABS: Hematocrit 28 % (35-47); Hemoglobin 9.3 g/dL (12.0-16.0); INR 1.27 (0.82-1.09); Mean Corpuscular HGB Conc 33 g/dL (31-36); Mean Corpuscular Hemoglobin 32 pg (27-31); Mean Corpuscular Volume 98 fL (80-97); Mean Platelet Volume 9.2 fL (7.4-10.4); Platelet Count 345 10^3/uL (150-450); Red Blood Count 2.89 10^6 /uL (3.70-4.87); Red Cell Distribution Width 25 % (10-15)
[2020-04-03 00:45] LABS: ALT 11 U/L (7-52); AST 20 U/L (13-39); Albumin 4.3 g/dL (3.2-5.2); Albumin/Globulin Ratio 1.7 (1-3); Alkaline Phosphatase 119 U/L (34-104); Anion Gap 10 mmol/L (2-11); BUN/Creatinine Ratio 23.9 (8-20); Blood Urea Nitrogen 11 mg/dL (6-24); CO2 Carbon Dioxide 27 mmol/L (22-32); Calcium 10.1 mg/dL (8.6-10.3); Chloride 101 mmol/L (101-111); EGFR Non-African American 131.4 (>60); Globulin 2.5 g/dL (2-4); Glucose 156 mg/dL (70-100); Magnesium 1.4 mg/dL (1.9-2.7); Potassium 3.3 mmol/L (3.5-5.0); Sodium 138 mmol/L (135-145); Total Protein 6.8 g/dL (6.4-8.9)
[2020-04-03 00:48] LABS: Troponin I 0.09 ng/mL (<0.03)
[2020-04-03 01:00] LABS: TSH Ultra Thyroid Stim Horm 5.97 mcIU/mL (0.34-5.60)
[2020-04-03 01:44] LABS: ABS Basophils 0.1 10^3/ul (0-0.2); ABS Eosinophils 0.1 10^3/ul (0-0.6); ABS Lymphocytes 0.9 10^3/ul (1.0-4.8); ABS Monocytes 1.3 10^3/ul (0-0.8); ABS Neutrophils 22.5 10^3/ul (1.5-7.7); Eosinophil % 0.5 %; Lymphocyte % 3.8 %
[2020-04-03] MEDS ORDERED: Iodixanol (CONTRAST) 320 MG/ML 100 ML SDV IV ONE (02:54)
[2020-04-03 04:03] LABS: Troponin I 0.04 ng/mL (<0.03)
[2020-04-03] MEDS ORDERED: cefTRIAXone 2 GM ADDV.VIAL 2 GM in NS 0.9% 100 ml BAG 100 ML IVPB ONE (04:10)
[2020-04-03] MEDS ORDERED: NS 0.9% 1000 ml BAG 1,000 ML IV ONE (04:55)
[2020-04-03 05:52] LABS: Urine Appearance Cloudy; Urine Bacteria Absent (Absent); Urine Bilirubin Negative (Negative); Urine Blood Negative (Negative); Urine Color Amber; Urine Glucose Negative (Negative); Urine Ketones Trace (Negative); Urine Nitrite Positive (Negative); Urine Protein 2+(100 mg/dL) (Negative); Urine Red Blood Cell 1+(3-5/hpf) (Absent); Urine Squamous Epithelial Cell Present (Absent); Urine Urobilinogen Positive (Negative); Urine White Blood Cell 3+(>20/hpf) (Absent)
[2020-04-03 05:54] LABS: Urine Specific Gravity > 1.030 (1.010-1.030)
[2020-04-03 05:55] LABS: Urine Benzodiazepine Screen None Detected (None Detect); Urine Cannabinoids Screen Presumptive Positive (None Detect); Urine Opiates Screen Presumptive Positive (None Detect)
[2020-04-03] MEDS ORDERED: HYDROcodone/ACETAMIN 5/325 mg TAB PO ONE (07:34)
[2020-04-03] MEDS ORDERED: Morphine 2 MG/ML SYRINGE IV ONE (09:18)
[2020-04-03] MEDS ORDERED: Dextrose 50% Syringe 50 ml 25 GM/50 ML SYRINGE IV PUSH PRN (09:26)
[2020-04-03] MEDS: NS 0.9% 1000 ml BAG 1,000 ML IV SCH (12:42)
[2020-04-03] MEDS: Enoxaparin 40 MG/0.4 ML SYR SUBCUT SCH (12:42)
[2020-04-03] MEDS: Solifenacin 5 mg TAB (NF) PO SCH (12:42)
[2020-04-03] MEDS: Morphine 2 MG/ML SYRINGE IV PRN ×2 (15:03→18:02)
[2020-04-03 17:29] LABS: Free T4 1.04 ng/dL (0.61-1.12)
[2020-04-03] MEDS ORDERED: Magnesium Sulf 4 GM/100 ML IV 4,000 MG/100 ML BAG IVPB ONE (18:01)
[2020-04-03 19:28] LABS: C Reactive Protein 16.69 mg/L (<8.01)
[2020-04-04] MEDS: NS 0.9% 1000 ml BAG 1,000 ML IV SCH (02:56)
[2020-04-04] MEDS: cefTRIAXone 1 gm/50 mL NS BAG 1 GM/50 ML BAG IVPB SCH (04:05)
[2020-04-04 05:42] LABS: Hematocrit 24 % (35-47); Hemoglobin 7.8 g/dL (12.0-16.0); Mean Corpuscular HGB Conc 33 g/dL (31-36); Mean Corpuscular Hemoglobin 32 pg (27-31); Mean Corpuscular Volume 98 fL (80-97); Platelet Count 279 10^3/uL (150-450); Red Cell Distribution Width 24 % (10-15)
[2020-04-04 05:50] LABS: Albumin 3.5 g/dL (3.2-5.2); Albumin/Globulin Ratio 1.5 (1-3); BUN/Creatinine Ratio 13.5 (8-20); C Reactive Protein 56.07 mg/L (<8.01); Calcium 8.5 mg/dL (8.6-10.3); EGFR African American 204.4 (>60); EGFR Non-African American 168.9 (>60); Globulin 2.3 g/dL (2-4); Potassium 3.3 mmol/L (3.5-5.0); Total Bilirubin 0.5 mg/dL (0.2-1.0); Total Protein 5.8 g/dL (6.4-8.9)
[2020-04-04 06:30] LABS: ABS Basophils 0.1 10^3/ul (0-0.2); ABS Eosinophils 0.2 10^3/ul (0-0.6); ABS Lymphocytes 0.8 10^3/ul (1.0-4.8); ABS Monocytes 1.8 10^3/ul (0-0.8); ABS Neutrophils 15.1 10^3/ul (1.5-7.7); Eosinophil % 1.2 %; Lymphocyte % 4.3 %
[2020-04-04] MEDS ORDERED: KCL 20 MEQ/100 ML IVPREMIX 20 MEQ/100 ML BAG IV ONE (07:44)
[2020-04-04 08:50] LABS: Troponin I 0.02 ng/mL (<0.03)
[2020-04-04] MEDS: Enoxaparin 40 MG/0.4 ML SYR SUBCUT SCH (08:53)
[2020-04-04] MEDS: Solifenacin 5 mg TAB (NF) PO SCH (08:53)
[2020-04-04] MEDS: Morphine 2 MG/ML SYRINGE IV PRN ×3 (10:46→22:34)
[2020-04-04] MEDS: Ondansetron 4 mg VIAL 2 MG/ML 2 ml VIAL IV PRN ×2 (10:50→22:34)
[2020-04-05] MEDS: cefTRIAXone 1 gm/50 mL NS BAG 1 GM/50 ML BAG IVPB SCH (04:09)
[2020-04-05] MEDS: NS 0.9% 1000 ml BAG 1,000 ML IV SCH (04:10)
[2020-04-05 05:57] LABS: Hematocrit 22 % (35-47); Mean Corpuscular HGB Conc 32 g/dL (31-36); Mean Corpuscular Hemoglobin 31 pg (27-31); Mean Corpuscular Volume 98 fL (80-97); Mean Platelet Volume 9.3 fL (7.4-10.4); Platelet Count 269 10^3/uL (150-450); Red Blood Count 2.24 10^6 /uL (3.70-4.87); Red Cell Distribution Width 24 % (10-15); White Blood Count 18.3 10^3/uL (3.5-10.8)
[2020-04-05 05:59] LABS: Albumin 3.3 g/dL (3.2-5.2); Albumin/Globulin Ratio 1.4 (1-3); BUN/Creatinine Ratio 13.2 (8-20); Calcium 8.6 mg/dL (8.6-10.3); EGFR African American 198.2 (>60); EGFR Non-African American 163.8 (>60); Globulin 2.3 g/dL (2-4); Magnesium 1.5 mg/dL (1.9-2.7); Potassium 3.5 mmol/L (3.5-5.0); Total Bilirubin 0.5 mg/dL (0.2-1.0); Total Protein 5.6 g/dL (6.4-8.9)
[2020-04-05 06:46] LABS: Polychromasia 1+
[2020-04-05 06:47] LABS: ABS Basophils 0.1 10^3/ul (0-0.2); ABS Eosinophils 0.2 10^3/ul (0-0.6); ABS Lymphocytes 1.1 10^3/ul (1.0-4.8); ABS Monocytes 1.5 10^3/ul (0-0.8); ABS Neutrophils 15.4 10^3/ul (1.5-7.7); Eosinophil % 1.1 %; Lymphocyte % 5.8 %
[2020-04-05] MEDS: Morphine 2 MG/ML SYRINGE IV PRN (09:23)
[2020-04-05] MEDS: Ondansetron 4 mg VIAL 2 MG/ML 2 ml VIAL IV PRN (09:23)
[2020-04-05] MEDS: Solifenacin 5 mg TAB (NF) PO SCH (09:23)
[2020-04-05] MEDS: Enoxaparin 40 MG/0.4 ML SYR SUBCUT SCH (09:33)
[2020-04-05] MEDS ORDERED: Morphine 2 MG/ML SYRINGE IV PRN (11:25)
[2020-04-06] MEDS: cefTRIAXone 1 gm/50 mL NS BAG 1 GM/50 ML BAG IVPB SCH (04:53)
[2020-04-06 06:35] LABS: Hematocrit 22 % (35-47); Hemoglobin 7.2 g/dL (12.0-16.0); Mean Corpuscular HGB Conc 33 g/dL (31-36); Mean Corpuscular Hemoglobin 33 pg (27-31); Mean Corpuscular Volume 98 fL (80-97); Mean Platelet Volume 9.3 fL (7.4-10.4); Platelet Count 269 10^3/uL (150-450); Red Cell Distribution Width 25 % (10-15); White Blood Count 16.2 10^3/uL (3.5-10.8)
[2020-04-06 07:43] VITALS: BP 145/76
[2020-04-06] MEDS: Enoxaparin 40 MG/0.4 ML SYR SUBCUT SCH (08:36)
[2020-04-06] MEDS: Solifenacin 5 mg TAB (NF) PO SCH (08:43)
[2020-04-06 08:51] LABS: ABS Basophils 0.1 10^3/ul (0-0.2); ABS Eosinophils 0.3 10^3/ul (0-0.6); ABS Monocytes 0.9 10^3/ul (0-0.8); ABS Neutrophils 13.9 10^3/ul (1.5-7.7); Eosinophil % 1.7 %; Lymphocyte % 6.4 %; Nucleated Red Blood Cells % 0.1
== END 2020-04-06 11:38 | disposition home health service (06) | DRG 552 ==
LOC: ED 22:44 → MEDTELE 04-03 09:19
PROVIDERS: ADMIT Pediatrics; ATTEND Internal Medicine Hematology & Oncology

== ENCOUNTER 2022-08-15 13:21 | Inpatient (IN) ==
[2022-08-15 14:35] LABS: ABS Basophils 0.1 10^3/uL (0.0-0.1); ABS Lymphocytes 0.3 10^3/uL (1.0-4.8); ABS Monocytes 0.9 10^3/uL (0.0-0.9); ABS Nucleated RBC 0.01 10^3/ul; Eosinophil % 0.3 %; Hematocrit 22.5 % (35-45); Hemoglobin 7.3 g/dL (11.5-14.3); Lymphocyte % 1.7 %; Mean Corpuscular Hemoglobin 29.6 pg (27-33); Mean Corpuscular Hgb Conc 32.4 g/dL (31-36); Mean Corpuscular Volume 91.5 fL (80-97); Mean Platelet Volume 9.1 fL (7.5-11.2); Platelet Count 251 10^3/uL (150-450); Red Blood Count 2.46 10^6/uL (3.63-4.92); Red Cell Distribution Width 24.5 % (12-17); White Blood Count 17.3 10^3/uL (3.8-11.8)
[2022-08-15 14:58] LABS: High Sens Troponin Baseline 16 pg/mL (<15)
[2022-08-15] MEDS ORDERED: Lactated Ringers 1000 ml BAG 1,000 ML IV ONE (15:04)
[2022-08-15 15:46] LABS: ALT 9 U/L (7-52); AST 11 U/L (13-39); Albumin 3.3 g/dL (3.2-5.2); Alcohol, S < 13 mg/dL (<13); Alkaline Phosphatase 81 U/L (35-149); Anion Gap 8 mmol/L (2-16); Blood Urea Nitrogen 35 mg/dL (6-24); CO2 Carbon Dioxide 32 mmol/L (22-32); Calcium 9.3 mg/dL (8.6-10.3); Chloride 90 mmol/L (101-111); Creatinine, Serum 0.95 mg/dL (0.51-0.95); Globulin 3.2 g/dL (2-4); Glucose 463 mg/dL (70-100); Potassium 5.2 mmol/L (3.5-5.0); Sodium 130 mmol/L (135-145); Total Protein 6.5 g/dL (6.4-8.9); eGFR CKD-EPI 60.2 (>60)
[2022-08-15 16:38] LABS: High Sensitivity Troponin 1 Hr 15 pg/mL (<15)
[2022-08-15 18:42] LABS: Urine Appearance Cloudy; Urine Bilirubin Negative (Negative); Urine Blood 1+ (Negative); Urine Color Yellow; Urine Glucose 3+(>=500 mg/dL) (Negative); Urine Ketones Negative (Negative); Urine Nitrite Negative (Negative); Urine Protein 1+(30 mg/dL) (Negative); Urine Specific Gravity 1.008 (1.002-1.030); Urine Urobilinogen Negative (Negative)
[2022-08-15 18:52] LABS: Urine Bacteria 1+ (Absent); Urine Red Blood Cell 2+(6-10/hpf) (Absent); Urine White Blood Cell 3+(>20/hpf) (Absent)
[2022-08-15] MEDS ORDERED: cefTRIAXone 1 gm/50 mL D5W 1 GM/50 ML BAG IV ONE (19:44)
[2022-08-15] MEDS ORDERED: NS 0.9% 1000 ml BAG 1,000 ML IV ONE (19:44)
[2022-08-15] MEDS ORDERED: Senna TAB 8.6 mg TAB PO PRN (21:56)
[2022-08-15] MEDS ORDERED: Polyethylene Glycol 3350 17 GM PACKET PO PRN (21:56)
[2022-08-15] MEDS ORDERED: Magnesium Hydroxide LIQ 30 ML UDC PO PRN (21:56)
[2022-08-15] MEDS ORDERED: Sodium Phosphate ADULT ENEMA 133 ML BTL PR PRN (21:56)
[2022-08-15] MEDS ORDERED: Lidocaine PATCH 5% PATCH TRANSDERM PRN (22:53)
[2022-08-15] MEDS: DULoxetine DR 30 mg CAP PO SCH (23:02)
[2022-08-16] MEDS: Insulin GLARGINE 100 un/ml 10 ml VIAL SUBCUT SCH ×2 (00:33→22:32)
[2022-08-16 07:35] LABS: Hematocrit 25.3 % (35-45); Hemoglobin 8.3 g/dL (11.5-14.3); Mean Corpuscular Hemoglobin 29.3 pg (27-33); Mean Corpuscular Hgb Conc 32.8 g/dL (31-36); Mean Corpuscular Volume 89.3 fL (80-97); Mean Platelet Volume 8.6 fL (7.5-11.2); Platelet Count 204 10^3/uL (150-450); Red Blood Count 2.83 10^6/uL (3.63-4.92); Red Cell Distribution Width 25.2 % (12-17); White Blood Count 14.1 10^3/uL (3.8-11.8)
[2022-08-16 08:44] LABS: Anion Gap 6 mmol/L (2-16); Blood Urea Nitrogen 24 mg/dL (6-24); CO2 Carbon Dioxide 26 mmol/L (22-32); Calcium 6.9 mg/dL (8.6-10.3); Chloride 105 mmol/L (101-111); Creatinine, Serum 0.64 mg/dL (0.51-0.95); Glucose 128 mg/dL (70-100); Magnesium 1.4 mg/dL (1.9-2.7); Potassium 3.8 mmol/L (3.5-5.0); Sodium 137 mmol/L (135-145); eGFR CKD-EPI 88.7 (>60)
[2022-08-16 08:48] LABS: Anisocytosis 2+
[2022-08-16 08:50] LABS: Basophilic Stippling 1+
[2022-08-16 08:51] LABS: Tear Drop Cells 1+
[2022-08-16 08:52] LABS: ABS Lymphocytes 0.3 10^3/uL (1.0-4.8); ABS Monocytes 0.8 10^3/uL (0.0-0.9); ABS Neutrophils 12.9 10^3/uL (1.5-7.6); Eosinophil % 0.2 %; Lymphocyte % 2.1 %
[2022-08-16] MEDS: Pantoprazole VIAL 40 MG VIAL IV SCH ×2 (10:14→22:26)
[2022-08-16] MEDS: Aspirin EC 81 mg TAB.EC (enteric coated) PO SCH (10:15)
[2022-08-16] MEDS ORDERED: Magnesium Sulfate IV 3 GM in NS 0.9% 100 ml BAG 100 ML IVPB ONE (10:16)
[2022-08-16] MEDS: CMCS: Raloxifene 60 mg TAB (NF) PO SCH (10:17)
[2022-08-16 10:37] LABS: % Iron Saturation 19 % (15-55); .Transferrin 77 mg/dL (203-362); Iron < 20 ug/dL (50-212); Total Iron Binding Capacity 108 mcg/dL (250-450); Unsaturated Iron Binding 88 ug/dL
[2022-08-16] MEDS: PTO: Multivitamins/Mins AREDS2 (NF) CAP PO SCH ×2 (10:43→22:31)
[2022-08-16 10:53] LABS: TSH Ultra Thyroid Stim Horm 1.87 mcIU/mL (0.34-5.60)
[2022-08-16 10:55] LABS: Free T4 0.58 ng/dL (0.61-1.12)
[2022-08-16 11:04] LABS: Folate 4.86 ng/mL (5.90-24.80)
[2022-08-16 11:05] LABS: Vitamin B12 1088 pg/mL (180-914)
[2022-08-16 11:56] LABS: Ferritin 1775.3 ng/mL (11-307)
[2022-08-16] MEDS ORDERED: Dextrose 50% Syringe 50 ml 25 GM/50 ML SYRINGE IV PUSH PRN (15:55)
[2022-08-16] MEDS: cefTRIAXone 1 gm/50 mL D5W 1 GM/50 ML BAG IV SCH (22:25)
[2022-08-16] MEDS: DULoxetine DR 30 mg CAP PO SCH (22:30)
[2022-08-17 05:54] LABS: Hematocrit 25.1 % (35-45); Hemoglobin 8.5 g/dL (11.5-14.3); Mean Corpuscular Hemoglobin 30.3 pg (27-33); Mean Corpuscular Volume 89.2 fL (80-97); Mean Platelet Volume 8.8 fL (7.5-11.2); Platelet Count 175 10^3/uL (150-450); Red Blood Count 2.81 10^6/uL (3.63-4.92); Red Cell Distribution Width 26.2 % (12-17); White Blood Count 8.7 10^3/uL (3.8-11.8)
[2022-08-17 06:17] LABS: Calcium 8.1 mg/dL (8.6-10.3); Creatinine, Serum 0.84 mg/dL (0.51-0.95); Magnesium 2.2 mg/dL (1.9-2.7); Phosphorus 2.3 mg/dL (2.5-5.0); Potassium 4.8 mmol/L (3.5-5.0); eGFR CKD-EPI 69.8 (>60)
[2022-08-17 06:42] LABS: ABS Lymphocytes 0.2 10^3/uL (1.0-4.8); ABS Monocytes 0.4 10^3/uL (0.0-0.9); Eosinophil % 0.4 %; Lymphocyte % 2.2 %
[2022-08-17] MEDS: Aspirin EC 81 mg TAB.EC (enteric coated) PO SCH (09:11)
[2022-08-17] MEDS: Pantoprazole VIAL 40 MG VIAL IV SCH (09:11)
[2022-08-17] MEDS: CMCS: Raloxifene 60 mg TAB (NF) PO SCH (09:12)
[2022-08-17] MEDS ORDERED: NS 0.9% IV ONE (10:00)
[2022-08-17] MEDS ORDERED: SODIUM PHOSPHATE IV ONE (10:00)
[2022-08-17] MEDS: PTO: Multivitamins/Mins AREDS2 (NF) CAP PO SCH ×2 (13:33→21:50)
[2022-08-17] MEDS: CMCS: Meloxicam 7.5 mg TAB (NF) PO SCH (15:15)
[2022-08-17] MEDS ORDERED: Ondansetron 4 mg VIAL 2 MG/ML 2 ml VIAL IV ONE (18:31)
[2022-08-17] MEDS: cefTRIAXone 1 gm/50 mL D5W 1 GM/50 ML BAG IV SCH (21:48)
[2022-08-17] MEDS: DULoxetine DR 30 mg CAP PO SCH (21:48)
[2022-08-17] MEDS: Insulin GLARGINE 100 un/ml 10 ml VIAL SUBCUT SCH (21:52)
[2022-08-18 06:55] LABS: Hematocrit 24.4 % (35-45); Hemoglobin 8.2 g/dL (11.5-14.3); Mean Corpuscular Hemoglobin 29.9 pg (27-33); Mean Corpuscular Hgb Conc 33.5 g/dL (31-36); Mean Corpuscular Volume 89.4 fL (80-97); Mean Platelet Volume 8.8 fL (7.5-11.2); Platelet Count 198 10^3/uL (150-450); Red Blood Count 2.73 10^6/uL (3.63-4.92); Red Cell Distribution Width 25.3 % (12-17); White Blood Count 6.4 10^3/uL (3.8-11.8)
[2022-08-18 07:13] LABS: Calcium 8.1 mg/dL (8.6-10.3); Creatinine, Serum 0.71 mg/dL (0.51-0.95); Magnesium 1.8 mg/dL (1.9-2.7); Phosphorus 2.4 mg/dL (2.5-5.0); Potassium 4.3 mmol/L (3.5-5.0); eGFR CKD-EPI 85.4 (>60)
[2022-08-18] MEDS ORDERED: Magnesium Sulfate 2 gm BAG 2 GM/50 ML BAG IVPB ONE (07:35)
[2022-08-18] MEDS ORDERED: SODIUM PHOSPHATE IV ONE (07:39)
[2022-08-18] MEDS ORDERED: NS 0.9% IV ONE (07:39)
[2022-08-18] MEDS: Aspirin EC 81 mg TAB.EC (enteric coated) PO SCH (08:17)
[2022-08-18] MEDS: PTO: Multivitamins/Mins AREDS2 (NF) CAP PO SCH ×2 (08:25→20:32)
[2022-08-18] MEDS: CMCS: Raloxifene 60 mg TAB (NF) PO SCH (08:26)
[2022-08-18 08:36] LABS: ABS Lymphocytes 0.3 10^3/uL (1.0-4.8); ABS Monocytes 0.5 10^3/uL (0.0-0.9); ABS Neutrophils 5.7 10^3/uL (1.5-7.6); ABS Nucleated RBC 0.01 10^3/ul; Eosinophil % 0.3 %; Lymphocyte % 4.1 %; Nucleated Red Blood Cells % 0.1 /100 WBC (0.0-0.4)
[2022-08-18] MEDS: CMCS: Meloxicam 7.5 mg TAB (NF) PO SCH (12:04)
[2022-08-18] MEDS: Heparin 5000 UNITS/ML 1 mL VIAL SUBCUT SCH ×2 (14:57→20:29)
[2022-08-18] MEDS: cefTRIAXone 1 gm/50 mL D5W 1 GM/50 ML BAG IV SCH (20:22)
[2022-08-18] MEDS: DULoxetine DR 30 mg CAP PO SCH (20:26)
[2022-08-18] MEDS: Insulin GLARGINE 100 un/ml 10 ml VIAL SUBCUT SCH (20:31)
[2022-08-19] MEDS: Heparin 5000 UNITS/ML 1 mL VIAL SUBCUT SCH ×3 (05:43→22:45)
[2022-08-19 06:11] LABS: Hematocrit 22.8 % (35-45); Hemoglobin 7.6 g/dL (11.5-14.3); Mean Corpuscular Hemoglobin 29.9 pg (27-33); Mean Corpuscular Hgb Conc 33.5 g/dL (31-36); Mean Corpuscular Volume 89.2 fL (80-97); Mean Platelet Volume 8.8 fL (7.5-11.2); Platelet Count 193 10^3/uL (150-450); Red Blood Count 2.56 10^6/uL (3.63-4.92); Red Cell Distribution Width 25.3 % (12-17); White Blood Count 6.2 10^3/uL (3.8-11.8)
[2022-08-19 06:29] LABS: Calcium 8.1 mg/dL (8.6-10.3); Creatinine, Serum 0.71 mg/dL (0.51-0.95); Potassium 4.6 mmol/L (3.5-5.0); eGFR CKD-EPI 85.4 (>60)
[2022-08-19 06:56] LABS: ABS Lymphocytes 0.3 10^3/uL (1.0-4.8); ABS Monocytes 0.6 10^3/uL (0.0-0.9); ABS Neutrophils 5.2 10^3/uL (1.5-7.6); ABS Nucleated RBC 0.01 10^3/ul; Eosinophil % 0.4 %; Lymphocyte % 4.5 %; Nucleated Red Blood Cells % 0.1 /100 WBC (0.0-0.4)
[2022-08-19 09:32] LABS: Rapid COVID-19 Molecular Undetected (Undetected)
[2022-08-19] MEDS: CMCS: Raloxifene 60 mg TAB (NF) PO SCH (09:40)
[2022-08-19] MEDS: CMCS: Meloxicam 7.5 mg TAB (NF) PO SCH (09:42)
[2022-08-19] MEDS: PTO: Multivitamins/Mins AREDS2 (NF) CAP PO SCH ×2 (09:45→22:46)
[2022-08-19] MEDS: Aspirin EC 81 mg TAB.EC (enteric coated) PO SCH (09:46)
[2022-08-19 17:55] LABS: Hematocrit 30.2 % (35-45); Hemoglobin 10.2 g/dL (11.5-14.3)
[2022-08-19] MEDS: DULoxetine DR 30 mg CAP PO SCH (22:41)
[2022-08-20] MEDS ORDERED: Bismuth Subsalicylate (BTL) 525 MG/30 ML (BULK BTL) PO ONE (00:10)
[2022-08-20] MEDS: Heparin 5000 UNITS/ML 1 mL VIAL SUBCUT SCH (06:32)
[2022-08-20 06:56] LABS: ABS Lymphocytes 0.3 10^3/uL (1.0-4.8); ABS Monocytes 0.5 10^3/uL (0.0-0.9); ABS Neutrophils 6.2 10^3/uL (1.5-7.6); ABS Nucleated RBC 0.01 10^3/ul; Eosinophil % 0.4 %; Hematocrit 27.8 % (35-45); Hemoglobin 9.5 g/dL (11.5-14.3); Lymphocyte % 4.2 %; Mean Corpuscular Hemoglobin 30.7 pg (27-33); Mean Corpuscular Hgb Conc 34.3 g/dL (31-36); Mean Corpuscular Volume 89.7 fL (80-97); Mean Platelet Volume 9.1 fL (7.5-11.2); Nucleated Red Blood Cells % 0.1 /100 WBC (0.0-0.4); Platelet Count 180 10^3/uL (150-450); Red Blood Count 3.09 10^6/uL (3.63-4.92); Red Cell Distribution Width 21.8 % (12-17)
[2022-08-20 07:07] LABS: Calcium 8.2 mg/dL (8.6-10.3); Creatinine, Serum 0.65 mg/dL (0.51-0.95); eGFR CKD-EPI 88.4 (>60)
[2022-08-20] MEDS ORDERED: Bismuth Subsalicylate (BTL) 525 MG/30 ML (BULK BTL) PO PRN (08:05)
[2022-08-20] MEDS: CMCS: Raloxifene 60 mg TAB (NF) PO SCH (08:28)
[2022-08-20] MEDS: CMCS: Meloxicam 7.5 mg TAB (NF) PO SCH (08:28)
[2022-08-20] MEDS: Aspirin EC 81 mg TAB.EC (enteric coated) PO SCH (08:30)
[2022-08-20] MEDS: PTO: Multivitamins/Mins AREDS2 (NF) CAP PO SCH (08:32)
[2022-08-20 09:37] VITALS: BP 149/72
== END 2022-08-20 14:50 | DRG 871 ==
LOC: EDHOLD 13:21 → ED 13:21 → OBSVTOIN 21:40 → SUATTDRO 21:40 → MED 08-16 08:26
PROVIDERS: ADMIT Student in an Organized Health Care Education/Training Program; ATTEND Internal Medicine